=== PATIENT | female | born 1965 | race African-American/Black ===

== ENCOUNTER 2021-06-19 18:07 | Emergency (ER) | payer BC, SELFPAY ==
--- NOTE | ~2021-06-19 | XR_ITS ---
EXAMINATION: XR CHEST CLINICAL INFORMATION: Shortness of breath COMPARISON: None TECHNIQUE: Frontal view of the chest was obtained. FINDINGS: Hyperexpanded lungs. No consolidation, edema, or effusion. No pneumothorax. The cardiomediastinal silhouette is normal in size, with a calcified aorta. XR/XR chest 1V IMPRESSION: Hyperexpanded, clear lungs.
--- NOTE | 2021-06-19 18:17 | ECG_ITS ---
Test Reason : DYSPNEA Blood Pressure : / mmHG Vent. Rate : 073 BPM Atrial Rate : 073 BPM P-R Int : 136 ms QRS Dur : 068 ms QT Int : 390 ms P-R-T Axes : 009 087 079 degrees QTc Int : 429 ms Normal sinus rhythm Minimal voltage criteria for LVH, may be normal variant Borderline ECG No previous ECGs available Referred By: Shawna Mcginnis Electronically Signed By:YUE CASILLAS
--- NOTE | 2021-06-19 18:19 | ED.GENADULT ---
HPI - General Adult General Chief complaint: Upper Respiratory Symptoms Stated complaint: diff breathing Time Seen by Provider: 06/19/21 18:11 Source: patient and EMS Mode of arrival: EMS Limitations: no limitations History of Present Illness HPI narrative: Patient comes to the emergency room complaining of an asthma exacerbation. Patient is visiting from [facility] she ran out of her inhalers couple of days ago. Patient call EMS, brought to the emergency room. Patient denies any fever, no chills, no body aches, no recent exposures to COVID-19 patients to her knowledge. Related Data Previous Rx's Medication Instructions Recorded albuterol sulfate 90 mcg/actuation 2 puff INHALATION Q4-6H PRN #6.7 g 06/19/21 aerosol inhaler fluticasone propionate 44 1 puff INHALATION BID #10.6 g 06/19/21 mcg/actuation HFA aerosol inhaler prednisone 50 mg tablet 50 mg PO DAILY #4 tab 06/19/21 salmeterol 50 mcg/dose blister 1 inh INHALATION BID #60 ea 06/19/21 powder for inhalation umeclidinium 62.5 mcg/actuation 1 inh INHALATION DAILY #7 ea 06/19/21 blister powder for inhalation (Incruse Ellipta) Allergies Allergy/AdvReac Type Severity Reaction Status Date / Time No Known Allergies Allergy Verified 06/19/21 18:15 Review of Systems Review of Systems: Constitutional : No Weight loss, No Fever, No Chills, No Night Sweats, No Fatigue, No Malaise ENT/Mouth : No Hearing loss, No Ear Pain, No Nasal Congestion, No Sinus Pain, No Hoarseness, No sore throat, No Rhinorrhea, No Swallowing Difficulty Eyes: No Eye Pain, No Swelling, No Redness, No Foreign Body, No Discharge, No Vision Changes Cardiovascular : No Chest Pain, No SOB, No Dyspnea on Exertion, No Orthopnea, No Edema, No Palpitations Respiratory : Occasional dry cough, complaining of wheezing and dyspnea Gastrointestinal : No Nausea, No Vomiting, No Diarrhea, No Constipation, No abdominal Pain, No Hematochezia, No Melena Genitourinary : no irregular bleeding, No Dysuria, No Urinary Frequency, No Hematuria, No Urinary Incontinence, No Urgency, No Flank Pain, No Urinary Flow Changes, No Hesitancy Musculoskeletal : No joint pain, No Myalgias, No Joint Swelling Skin : No Skin Lesions, No rash Neuro : No Weakness, No Numbness, No Paresthesias, No Loss of Consciousness, No Dizziness, No Headache Psych : No Anxiety/Panic, No Depression, No SI/HI/AH/VH, No Social Issues, Heme/Lymph: No Bruising, No Bleeding,No Lymphadenopathy Endocrine : No Polyuria, No Polydipsia, No Temperature Intolerance [facility] Past Medical History Medical History (Updated 06/19/21 @ 21:45 by Shawna Mcginnis MD) Asthma exacerbation COPD (chronic obstructive pulmonary disease) Social History Social History Advance Directives: No Advance Directives Information Provided: Yes Physical Exam Vital Signs: Vital Signs: Last Vital Signs Temp 98.0 F 06/19/21 20: Pulse 96 06/19/21 20:26 Resp 18 06/19/21 20:26 BP 156/69 H 06/19/21 20:26 Pulse Ox 92 06/19/21 21:02 Oxygen Flow Rate 4 06/19/21 18:47 Body Mass Index 24.2 Const: Other: Appearance: Alert. Oriented X3. No acute distress. Eyes: Pupils equal, round and reactive to light. ENT: Pharynx normal. Neck: Normal inspection. Neck supple. No lymph nodes noted. No crepitus CVS: Normal heart rate and rhythm. Pulses normal. Normal S1 and S2 Respiratory: No respiratory distress. Mild bilateral wheezing, moderate air movement Abdomen: Soft and nontender. No rigidity. No distention. good BS x4 Skin: Skin warm and dry. Normal skin color. Normal skin turgor. Extremities: No lower extremity edema. No Lacerations. No Rash Neuro: Oriented X 3. No motor deficit. No sensory deficit. Moving all extermities. No slurred speech. Course Course Course Narrative: Patient states that she feels much better, no longer having shortness of breath, patient speaking in full sentences, good air movement, occasional brief. Patient was ambulated. Medical Decision Making Lab Data Result diagrams: 06/19/21 19:19 06/19/21 19:19 Labs: Lab Results 06/19/21 06/19/21 06/19/21 Range/Units 19:19 19:19 19:19 WBC 4.7 L (4.8-10.8) X10*3/uL RBC 4.10 L (4.20-5.50) X10*6/uL Hgb 13.7 (12.0-16.0) g/dl Hct 40.3 (37-47) % MCV 98.3 H (80-98) fL MCH 33.4 H (27.0-33.0) pg MCHC 34.0 (31.0-35.0) g/dl RDW 11.5 (11.0-16.0) % Plt Count 117 L (160-400) X10*3/uL MPV 10.4 (9.4-12.3) fL Immature Gran % (Auto) 0.0 (0.0-0.4) % Neut % (Auto) 36.1 L (45-73) % Lymph % (Auto) 44.0 H (20-40) % Mcnairy % (Auto) 8.9 (2-11) % Eos % (Auto) 10.4 H (0-4) % Baso % (Auto) 0.6 (0-2) % Lymph # (Auto) 2.1 (1.2-4.9) X10*3/uL Mcnairy # (Auto) 0.4 (0.1-1.2) X10*3/uL Eos # (Auto) 0.5 H (0.0-0.4) X10*3/uL Baso # (Auto) 0.0 (0.0-0.2) X10*3/uL Abs Immat Gran (auto) 0.00 (0.00-0.03) X10*3/uL Absolute Neuts (auto) 1.7 L (2.0-8.3) X10*3/uL Absolute Nucleated RBC 0.000 (0.0-0.012) X10*3/uL Nucleated RBC % (auto) 0.0 (0.0-0.2) /100WBC Sodium 141 (135-145) mmol/L Potassium 3.1 L (3.3-5.1) mmol/L Chloride 107 (96-108) mmol/L Carbon Dioxide 24 (22-29) mmol/L Anion Gap 13 (12-20) BUN 2 L (9-16) mg/dL Creatinine 0.74 (0.5-1.4) mg/dL Estim Creat Clear Calc 66.3 Estimated GFR > 60 Random Glucose 109 (60-115) mg/dL Lactic Acid 1.0 (0.5-2.0) mmol/L Calcium 9.1 (8.4-10.2) mg/dL B-Natriuretic Peptide (<100) pg/mL COVID-19 (YENI) (Negative) COVID-19 Clin Com 06/19/21 06/19/21 Range/Units 19:19 19:20 WBC (4.8-10.8) X10*3/uL RBC (4.20-5.50) X10*6/uL Hgb (12.0-16.0) g/dl Hct (37-47) % MCV (80-98) fL MCH (27.0-33.0) pg MCHC (31.0-35.0) g/dl RDW (11.0-16.0) % Plt Count (160-400) X10*3/uL MPV (9.4-12.3) fL Immature Gran % (Auto) (0.0-0.4) % Neut % (Auto) (45-73) % Lymph % (Auto) (20-40) % Mcnairy % (Auto) (2-11) % Eos % (Auto) (0-4) % Baso % (Auto) (0-2) % Lymph # (Auto) (1.2-4.9) X10*3/uL Mcnairy # (Auto) (0.1-1.2) X10*3/uL Eos # (Auto) (0.0-0.4) X10*3/uL Baso # (Auto) (0.0-0.2) X10*3/uL Abs Immat Gran (auto) (0.00-0.03) X10*3/uL Absolute Neuts (auto) (2.0-8.3) X10*3/uL Absolute Nucleated RBC (0.0-0.012) X10*3/uL Nucleated RBC % (auto) (0.0-0.2) /100WBC Sodium (135-145) mmol/L Potassium (3.3-5.1) mmol/L Chloride (96-108) mmol/L Carbon Dioxide (22-29) mmol/L Anion Gap (12-20) BUN (9-16) mg/dL Creatinine (0.5-1.4) mg/dL Estim Creat Clear Calc Estimated GFR Random Glucose (60-115) mg/dL Lactic Acid (0.5-2.0) mmol/L Calcium (8.4-10.2) mg/dL B-Natriuretic Peptide 57 (<100) pg/mL COVID-19 (YENI) Negative (Negative) COVID-19 Clin Com See Note Imaging Data Chest x-ray: Radiologist's impression: Hyperexpanded lungs. No consolidation, edema, or effusion. No pneumothorax. The cardiomediastinal silhouette is normal in size, with a calcified aorta. XR/XR chest 1V IMPRESSION: Hyperexpanded, clear lungs. Discharge Plan Discharge Clinical Impression: Asthma exacerbation, Hypokalemia Patient Disposition: Home, Self-Care Instructions: Asthma (ED) Additional Instructions: Please follow-up with your primary care physician tomorrow. If you have any worsening or new symptoms, please return to the emergency room or call 911 Prescriptions: New prednisone 50 mg tablet 50 mg PO DAILY Qty: 4 RF: 0 Incruse Ellipta 62.5 mcg/actuation blister with device 1 inh inhalation DAILY Qty: 7 RF: 0 albuterol sulfate 90 mcg/actuation HFA aerosol inhaler 2 puff inhalation Q4-6H PRN (Reason: shortness of breath or wheezing) Qty: 6.7 RF: 0 fluticasone propionate 44 mcg/actuation HFA aerosol inhaler 1 puff inhalation BID Qty: 10.6 RF: 0 salmeterol 50 mcg/dose blister with device 1 inh inhalation BID Qty: 60 RF: 0
[2021-06-19 18:29] VITALS: PULSE 82; O2SAT 95
[2021-06-19] MEDS: Albuterol Sulfate (0.083%) 2.5 MG/3 ML VIAL.NEB 5 MG INHALE (18:31)
[2021-06-19 18:47] VITALS: BP 158/53; PULSE 81; RESP 20; TEMP 36.9; O2SAT 100; BMI 24.2
[2021-06-19 19:26] LABS: MANUAL DIFF FLAG NO
[2021-06-19 19:29] LABS: Basophils Percent Auto 0.6 % (0-2); Eosinophils Absolute Auto 0.5 X10*3/uL (0.0-0.4); Eosinophils Percent Auto 10.4 % (0-4); Hematocrit 40.3 % (37-47); Hemoglobin 13.7 g/dl (12.0-16.0); Lymphocytes Absolute Auto 2.1 X10*3/uL (1.2-4.9); Mean Corpuscular Hemoglobin 33.4 pg (27.0-33.0); Mean Corpuscular Volume 98.3 fL (80-98); Mean Platelet Volume 10.4 fL (9.4-12.3); Monocytes Absolute Auto 0.4 X10*3/uL (0.1-1.2); Monocytes Percent Auto 8.9 % (2-11); Neutrophils Absolute Auto 1.7 X10*3/uL (2.0-8.3); Neutrophils Percent Auto 36.1 % (45-73); Platelet Count 117 X10*3/uL (160-400); Red Cell Distribution Width 11.5 % (11.0-16.0); White Blood Count 4.7 X10*3/uL (4.8-10.8)
[2021-06-19] MEDS: methylPREDNISolone Sod Succ 125 MG/2 ML VIAL IVPUSH (19:35)
[2021-06-19 19:40] LABS: COVID-19 Test Negative (Negative)
[2021-06-19 19:57] LABS: Anion Gap 13 (12-20); Blood Urea Nitrogen 2 mg/dL (9-16); Calcium 9.1 mg/dL (8.4-10.2); Carbon Dioxide 24 mmol/L (22-29); Chloride 107 mmol/L (96-108); Creatinine Clr Calc Pharmacy 66.3; Estimated Glomerular Filt Rate > 60; Glucose Random 109 mg/dL (60-115); Potassium 3.1 mmol/L (3.3-5.1); Sodium 141 mmol/L (135-145)
[2021-06-19 20:02] LABS: B Type Natriuretic Peptide 57 pg/mL (<100)
[2021-06-19 20:26] VITALS: BP 156/69; PULSE 96; RESP 18; TEMP 36.7; O2SAT 92
[2021-06-19 21:02] VITALS: O2SAT 92
[2021-06-19] MEDS: Potassium Chloride Packet 20 MEQ PACKET 40 MEQ PO (21:52)
== END 2021-06-19 22:03 | disposition home or self-care (01) ==
PROVIDERS: Emergency Provider Emergency Medicine
DX: J45.901 Unspecified asthma with (acute) exacerbation (principal); R06.02 Shortness of breath; E87.6 Hypokalemia; Z79.899 Other long term (current) drug therapy; Z20.822 Contact with and (suspected) exposure to COVID-19
CPT/HCPCS: 36415; 71045; 80048; 83605; 83880; 85025; 87040; 87635; 93005; 94640; 96374; 99283; 99284; J2930

== ENCOUNTER 2021-08-12 18:06 | Emergency (ER) | payer MEDICAID, SELFPAY ==
--- NOTE | ~2021-08-12 | XR_ITS ---
EXAMINATION: XR CHEST CLINICAL INFORMATION: Shortness of breath COMPARISON: Previous chest x-ray June 2021 TECHNIQUE: 2 views of the chest were obtained. FINDINGS: No significant abnormality is noted involving the heart, lungs, mediastinum, bony thorax or soft tissues. XR/XR chest 2V IMPRESSION: Unremarkable examination.
[2021-08-12 19:40] VITALS: BP 148/75; PULSE 83; RESP 20; TEMP 36.8; O2SAT 95; BMI 21.9
[2021-08-12 20:12] LABS: COVID-19 Test Negative (Negative)
[2021-08-12 22:15] LABS: MANUAL DIFF FLAG NO
[2021-08-12 22:16] LABS: Basophils Absolute Auto 0.1 X10*3/uL (0.0-0.2); Basophils Percent Auto 0.9 % (0-2); Eosinophils Absolute Auto 0.5 X10*3/uL (0.0-0.4); Eosinophils Percent Auto 7.9 % (0-4); Hematocrit 44.9 % (37-47); Hemoglobin 15.8 g/dl (12.0-16.0); Imm Gran Abs Auto 0.01 X10*3/uL (0.00-0.03); Imm Gran Pct Auto 0.2 % (0.0-0.4); Lymphocytes Absolute Auto 2.8 X10*3/uL (1.2-4.9); Mean Corpuscular HGB Conc 35.2 g/dl (31.0-35.0); Mean Corpuscular Hemoglobin 33.1 pg (27.0-33.0); Mean Corpuscular Volume 93.9 fL (80-98); Mean Platelet Volume 9.5 fL (9.4-12.3); Monocytes Absolute Auto 0.5 X10*3/uL (0.1-1.2); Monocytes Percent Auto 9.1 % (2-11); Neutrophils Absolute Auto 1.9 X10*3/uL (2.0-8.3); Neutrophils Percent Auto 32.9 % (45-73); Platelet Count 167 X10*3/uL (160-400); Red Blood Count 4.78 X10*6/uL (4.20-5.50); Red Cell Distribution Width 11.9 % (11.0-16.0); White Blood Count 5.8 X10*3/uL (4.8-10.8)
[2021-08-12 22:29] LABS: Anion Gap 13 (12-20); Blood Urea Nitrogen 6 mg/dL (9-16); Calcium 9.8 mg/dL (8.4-10.2); Carbon Dioxide 28 mmol/L (22-29); Chloride 103 mmol/L (96-108); Creatinine Clr Calc Pharmacy 69.1; Estimated Glomerular Filt Rate > 60; Glucose Random 98 mg/dL (60-115); Potassium 4.5 mmol/L (3.3-5.1); Sodium 139 mmol/L (135-145)
[2021-08-12 23:18] VITALS: BP 148/69; PULSE 83; RESP 20; O2SAT 95
--- NOTE | 2021-08-13 | PC.NURSE ---
PT VERBALLY ABUSIVE TO PRIMARY NURSE OVER WAIT TIME IN THE ED. PT IS YELLING SO LOUDLY FROM RM 2 THAT THIS NURSE COULD CLEARLY HEAR HER FROM THE NURSES STATION. PT YELLING IN FULL CLEAR SENTENCES I CANT FUCKING BREATHE, I NEED MY MEDS REFILLED PT O2 SAT IS 95% ON ROOM AIR W/A RR OF 22. PT DOES NOT APPEAR TO BE IN DISTRESS AND IS ABLE TO YELL AT BOTH HER PRIMARY NURSE AND THIS NURSE. CHARGE NURSE I TRIED TO EXPLAIN THE PROCESS, AND PATIENT STATES SHIT I SHOULD HAVE TOOK AN AMBULANCE THEN I WOULDVE BEEN HOME BY NOW PT REASSURED PROVIDER WILL BE IN TO ASSESS SHORTLY- RN OFFERED TO LISTEN TO LUNG SOUNDS, PT STATES I DONT NEED ANY OF THAT I WANT MY REFILL AND I WANT TO GET THE HELL OUT OF HERE
--- NOTE | 2021-08-13 01:38 | ED.SOB ---
HPI - SOB/Dyspnea General Chief Complaint: Dyspnea Stated Complaint: Asthma Time Seen by Provider: 08/13/21 01:17 Source: patient Mode of arrival: ambulatory Limitations: no limitations History of Present Illness HPI Narrative: 55-year-old female who presents emergency department for evaluation of shortness of breath. The patient has a history of asthma and COPD. She states that she was here in the emergency department on 06/19/2021 and got a refill of her medications as well as prednisone. In reviewing her ER note from 06/19/2021 the patient had just moved from [place] needed a refill of her medications. She states that she has run out of these medicines and she is now feeling short of breath again. She states that this morning, she was short of breath and had dyspnea on exertion. She denied fever, chills, cough, chest pain. She states she did have several episodes of vomiting today and did have several loose diarrheal stools. There is no blood in the diarrhea or the vomiting. Related Data Previous Rx's Medication Instructions Recorded albuterol sulfate 90 mcg/actuation 2 puff INHALATION Q4-6H PRN #6.7 g 06/19/21 aerosol inhaler fluticasone propionate 44 1 puff INHALATION BID #10.6 g 06/19/21 mcg/actuation HFA aerosol inhaler prednisone 50 mg tablet 50 mg PO DAILY #4 tab 06/19/21 salmeterol 50 mcg/dose blister 1 inh INHALATION BID #60 ea 06/19/21 powder for inhalation umeclidinium 62.5 mcg/actuation 1 inh INHALATION DAILY #7 ea 06/19/21 blister powder for inhalation (Incruse Ellipta) albuterol sulfate 2.5 mg INHALATION Q4-6H PRN #75 ml 08/13/21 albuterol sulfate 90 mcg/actuation 2 puff INHALATION Q4-6H PRN #8.5 g 08/13/21 aerosol inhaler fluticasone 250 mcg-salmeterol 50 1 inh INHALATION BID #60 ea 08/13/21 mcg/dose blistr powdr for inhalation (Advair Diskus) prednisone 20 mg tablet 60 mg PO DAILY 5 Days #15 tab 08/13/21 Allergies Allergy/AdvReac Type Severity Reaction Status Date / Time No Known Allergies Allergy Verified 06/19/21 18:15 Review of Systems Review of Systems: Yes all other systems are reviewed and are negative [facility] Past Medical History [facility] Narrative: Past medical history: Asthma, COPD. Past surgical history: Cholecystectomy. Social history: The patient states that she is a former cigarette smoker and quit 10 years prior, prior to that she smoked for many years. She drinks wine occasionally on the weekends. She denies drug use. Medical History (Updated 08/13/21 @ 01:40 by Clement Rivero MD) Asthma exacerbation COPD (chronic obstructive pulmonary disease) Social History Social History Advance Directives: No Physical Exam Vital Signs: Vital Signs: Last Vital Signs Temp 98.3 F 08/12/21 19:40 Pulse 83 08/12/21 23:18 Resp 20 08/12/21 23:18 BP 148/69 H 08/12/21 23:18 Pulse Ox 95 08/12/21 23:18 Body Mass Index 21.9 Const: General: cooperative and no acute distress Orientation/consciousness: oriented to person and oriented to place Limitations: no limitations HENMT: Head: Yes normal to inspection, Yes normocephalic and Yes atraumatic Ears: external ears normal General nose exam: Normal external nose present Face and sinus: Yes normal facial exam Mouth: Normal oral and palatal mucosa present Throat: Yes posterior oropharynx normal Eyes: General: appearance normal, both eyes and all related structures Pupils: Equal, round and reactive pupils present Neck: Neck: Yes normal visual inspection, Yes no lymphadenopathy, Yes trachea midline and Yes supple Chest: Chest palpation & inspection: normal inspection of the chest and normal palpation of entire chest wall Resp: Effort & Inspection: normal respiratory effort and able to speak in complete sentences Auscultation: clear to auscultation bilaterally Cardio: Rate: regular rate Rhythm: regular rhythm Heart sounds: S1 normal heart sound present, S2 normal heart sound present and no murmurs GI: Inspection: Yes normal to inspection Palpation (GI): Soft to palpation, nontender and no guarding Auscultation: normal bowel sounds : General: Yes no CVA tenderness Back/Spine/Pelvis: Back: no CVA tenderness Skin: General skin exam: no rashes or lesions noted Neuro: General: oriented to person and oriented to place Cranial nerves: Yes CN's II-XII intact bilaterally and Yes Equal, round and reactive pupils present Cognition (Neuro): normal cognition Motor exam (neuro): 5/5 motor strength present throughout Extrem: General: Yes normal to inspection Psych: Appearance: grossly normal Speech and movement: Normal speech and movement present Affect: normal affect Attitude: cooperative Thought process: Normal thought process present Thought content: Normal thought content present Course Course Course Narrative: 55-year-old female with a history of asthma and COPD who presents emergency department for evaluation of shortness of breath. She states she ran out of her inhalers and her nebulizer solution. Patient's vital signs were normal except for slightly elevated blood pressure of 148/75. Examination was unremarkable. CBC and CMP were normal. The patient's chest x-ray revealed no evidence of pneumonia. COVID-19 test was negative. Patient's presentation is consistent with an asthma/COPD exacerbation. She was given prednisone 60 mg orally. I did give her prescription for an albuterol inhaler, albuterol nebulizer solution, Advair and prednisone 60 mg once a day for 5 days. Patient was discharged home. MDM - SOB/Dyspnea Lab Data Result diagrams: 08/12/21 22:06 08/12/21 22:06 Labs: Lab Results 08/12/21 08/12/21 08/12/21 Range/Units 19:44 22:06 22:06 WBC 5.8 (4.8-10.8) X10*3/uL RBC 4.78 (4.20-5.50) X10*6/uL Hgb 15.8 (12.0-16.0) g/dl Hct 44.9 (37-47) % MCV 93.9 (80-98) fL MCH 33.1 H (27.0-33.0) pg MCHC 35.2 H (31.0-35.0) g/dl RDW 11.9 (11.0-16.0) % Plt Count 167 D (160-400) X10*3/uL MPV 9.5 (9.4-12.3) fL Immature Gran % (Auto) 0.2 (0.0-0.4) % Neut % (Auto) 32.9 L (45-73) % Lymph % (Auto) 49.0 H (20-40) % Hartley % (Auto) 9.1 (2-11) % Eos % (Auto) 7.9 H (0-4) % Baso % (Auto) 0.9 (0-2) % Lymph # (Auto) 2.8 (1.2-4.9) X10*3/uL Hartley # (Auto) 0.5 (0.1-1.2) X10*3/uL Eos # (Auto) 0.5 H (0.0-0.4) X10*3/uL Baso # (Auto) 0.1 (0.0-0.2) X10*3/uL Abs Immat Gran (auto) 0.01 (0.00-0.03) X10*3/uL Absolute Neuts (auto) 1.9 L (2.0-8.3) X10*3/uL Absolute Nucleated RBC 0.000 (0.0-0.012) X10*3/uL Nucleated RBC % (auto) 0.0 (0.0-0.2) /100WBC Sodium 139 (135-145) mmol/L Potassium 4.5 D (3.3-5.1) mmol/L Chloride 103 (96-108) mmol/L Carbon Dioxide 28 (22-29) mmol/L Anion Gap 13 (12-20) BUN 6 L D (9-16) mg/dL Creatinine 0.71 (0.5-1.4) mg/dL Estim Creat Clear Calc 69.1 Estimated GFR > 60 Random Glucose 98 (60-115) mg/dL Calcium 9.8 D (8.4-10.2) mg/dL COVID-19 (YENI) Negative (Negative) COVID-19 Clin Com See Note Discharge Plan Discharge Clinical Impression: Asthma exacerbation Patient Disposition: Home, Self-Care Instructions: Asthma (ED) Additional Instructions: Take prednisone 20 mg pills, 3 pills once a day for 5 days. You received her 1st dose here in the emergency department. Take your next dose on Tuesday08/14/2021. Use the albuterol inhaler 2 puffs every 4-6 hours as needed for shortness of breath. Use the albuterol nebulizer, 1 vial every 4-6 hours as needed for shortness of breath not relieved by the albuterol inhaler. Use Advair Diskus, 1 dose twice a day, take this every day, this helps prevent flare-up of your asthma. Follow-up with your doctor in 2 days. Please return to the emergency department if your symptoms get worse or if you develop any symptoms that are concerning to you. Prescriptions: New albuterol sulfate 2.5 mg /3 mL (0.083 %) solution for nebulization 2.5 mg inhalation Q4-6H PRN (Reason: shortness of breath or wheezing) Qty: 75 RF: 0 prednisone 20 mg tablet 60 mg PO DAILY 5 Days Qty: 15 RF: 0 albuterol sulfate 90 mcg/actuation HFA aerosol inhaler 2 puff inhalation Q4-6H PRN (Reason: wheezing) Qty: 8.5 RF: 0 fluticasone propion-salmeterol [Advair Diskus] 250-50 mcg/dose blister with device 1 inh inhalation BID Qty: 60 RF: 0 No Action prednisone 50 mg tablet 50 mg PO DAILY Qty: 4 RF: 0 Incruse Ellipta 62.5 mcg/actuation blister with device 1 inh inhalation DAILY Qty: 7 RF: 0 albuterol sulfate 90 mcg/actuation HFA aerosol inhaler 2 puff inhalation Q4-6H PRN (Reason: shortness of breath or wheezing) Qty: 6.7 RF: 0 fluticasone propionate 44 mcg/actuation HFA aerosol inhaler 1 puff inhalation BID Qty: 10.6 RF: 0 salmeterol 50 mcg/dose blister with device 1 inh inhalation BID Qty: 60 RF: 0
[2021-08-13] MEDS: predniSONE 20 MG TABLET 60 MG PO (01:50)
[2021-08-13 01:51] VITALS: BP 170/60; PULSE 76; RESP 18; TEMP 36.9; O2SAT 97
--- NOTE | 2021-08-13 01:56 | PC.NURSE ---
Pt alert and oriented x4, calm and cooperative. Pt denies pain. Pt denies any abd pain N/V. Pt states SOB has improved, pt does not appear SOB, pulse ox 98% on room air. Pt educated on dc teaching and stated an understanding. No IV in place, vitals stable.
== END 2021-08-13 01:57 | disposition home or self-care (01) ==
PROVIDERS: Emergency Provider Emergency Medicine Emergency Medical Services
DX: J45.901 Unspecified asthma with (acute) exacerbation (principal); J44.9 Chronic obstructive pulmonary disease, unspecified; Z79.899 Other long term (current) drug therapy; Z20.822 Contact with and (suspected) exposure to COVID-19
CPT/HCPCS: 36415; 71046; 80048; 85025; 87635; 99283; 99284

== ENCOUNTER 2021-09-24 15:52 | Inpatient (IN) | payer BC, SELFPAY ==
[2021-09-24] VITALS (12 sets, daily range): BP systolic 105–217; BP diastolic 63–102; PULSE 92–155; RESP 16–35; TEMP 36.4–36.7; O2SAT 60–99; BMI 22.8; BMI 18.7
--- NOTE | ~2021-09-24 | XR_ITS ---
EXAMINATION: XR CHEST CLINICAL INFORMATION: Shortness of breath, hypoxia, asthma COMPARISON: Chest radiographs 08/12/2021, 06/19/2021 TECHNIQUE: Portable upright AP view of the chest was obtained. FINDINGS: Patient is slightly rotated to the left. The lungs are clear. The vascularity is normal. There is no pneumothorax, airspace consolidation, infiltrate, or effusion. The heart is normal in size. The hilar and mediastinal contours and visualized bony structures are unremarkable. XR/XR chest 1V IMPRESSION: Unremarkable examination.
--- NOTE | 2021-09-24 08:58 | ECG_ITS ---
Test Reason : DYSPNEA Blood Pressure : / mmHG Vent. Rate : 137 BPM Atrial Rate : 137 BPM P-R Int : 138 ms QRS Dur : 076 ms QT Int : 290 ms P-R-T Axes : 075 072 083 degrees QTc Int : 437 ms Sinus tachycardia Possible Left atrial enlargement Nonspecific ST abnormality Inferior leads Lateral leads Right axis deviation Abnormal ECG When compared with ECG of 19-JUN-2021 18:41, Vent. rate has increased BY [address] now depressed in Inferior leads Non-specific change in ST segment in Lateral leads Referred By: Clement Rivreo Electronically Signed By:MARGIE LAM MD
[2021-09-24] MEDS: methylPREDNISolone Sod Succ 125 MG/2 ML VIAL IVPUSH (16:02)
[2021-09-24] MEDS: Magnesium Sulfate/H2O 2 GM/50 ML PIGGYBACK IV (16:04)
[2021-09-24] MEDS: LORazepam 2 MG/ML VIAL 1 MG IVPUSH (16:11)
--- NOTE | 2021-09-24 16:18 | PC.NURSE ---
patient presents to ED, tachypneic with accessory muscle use. low O2 sats, altered mental status. Pulling at mask. stating shes needs to use the bathroom. RT at bedside along with RNs, attemping to secure IVs and medicate patient to assist with breathing. patient medicated for agitation and restlessness. Patient not responding, Physician aware. patient incontinent of loose dark stool. Bipap applied at this time setting 15/10 30%
[2021-09-24] MEDS: 0.9 % Sodium Chloride 1,000 ML 999 ML IV (16:24)
--- NOTE | 2021-09-24 16:30 | ED_ITS ---
HPI - SOB/Dyspnea General Chief Complaint: Dyspnea Stated Complaint: asthma Time Seen by Provider: 09/24/21 16:08 Source: EMS Mode of arrival: EMS Limitations: other (Respiratory distress) History of Present Illness HPI Narrative: 56-year-old female brought into the emergency department for evaluation of severe asthma exacerbation. Information came from the paramedics. Apparently the patient ran out of her albuterol inhaler yesterday. She developed shortness of breath today which got progressively worse. Apparently she became very combative and appeared to have difficulty breathing so the family called 911. Paramedics states that she was very agitated on arrival, the initial O2 saturation was 60% on room air. She was placed on 15 L via non- rebreather and her O2 saturation came up to 80%. Patient's respiratory rate was 14 her blood pressure was 201/98. The patient was treated with IM epinephrine a nd 2 DuoNebs. On presentation to the emergency department patient was agitated, she was diaphoretic and her O2 saturation was 86% on a DuoNeb treatment. Related Data Previous Rx's Medication Instructions Recorded albuterol sulfate 90 mcg/actuation 2 puff INHALATION Q4-6H PRN #6.7 g 06/19/21 aerosol inhaler fluticasone propionate 44 1 puff INHALATION BID #10.6 g 06/19/21 mcg/actuation HFA aerosol inhaler prednisone 50 mg tablet 50 mg PO DAILY #4 tab 06/19/21 salmeterol 50 mcg/dose blister 1 inh INHALATION BID #60 ea 06/19/21 powder for inhalation umeclidinium 62.5 mcg/actuation 1 inh INHALATION DAILY #7 ea 06/19/21 blister powder for inhalation (Incruse Ellipta) albuterol sulfate 2.5 mg (3 mL) INHALATION Q4-6H PRN 08/13/21 #75 ml albuterol sulfate 90 mcg/actuation 2 puff INHALATION Q4-6H PRN #8.5 g 08/13/21 aerosol inhaler fluticasone 250 mcg-salmeterol 50 1 inh INHALATION BID #60 ea 08/13/21 mcg/dose blistr powdr for inhalation (Advair Diskus) prednisone 20 mg tablet 60 mg PO DAILY 5 Days #15 tab 08/13/21 Allergies Allergy/AdvReac Type Severity Reaction Status Date / Time No Known Allergies Allergy Verified 06/19/21 18:15 Review of Systems Review of Systems: Yes Unobtainable due to mental condition (Respiratory distress) [facility] Past Medical History Medical History Asthma exacerbation COPD (chronic obstructive pulmonary disease) Social History Social History Patient Tobacco Use Status: Current everyday Tobacco user Advance Directives: No Advance Directives Information Provided: No Physical Exam Vital Signs: Vital Signs: Last Vital Signs Temp 98.0 F 09/24/21 15:54 Pulse 155 H 09/24/21 15:54 Resp 28 H 09/24/21 16:15 BP 217/102 H 09/24/21 15:54 Pulse Ox 87 L 09/24/21 15:54 Body Mass Index 22.8 Const: Other: Awake, alert, female extremely agitated, appears to be in severe respiratory distress HENMT: Head: Yes normal to inspection, Yes normocephalic and Yes atraumatic Ears: external ears normal General nose exam: Normal external nose present Face and sinus: Yes normal facial exam Mouth: Normal oral and palatal mucosa present Throat: Yes posterior oropharynx normal Eyes: General: appearance normal, both eyes and all related structures Neck: Neck: Yes normal visual inspection, Yes no lymphadenopathy, Yes trachea midline and Yes supple Chest: Chest palpation & inspection: normal inspection of the chest and normal palpation of entire chest wall Resp: Other: Tachypnea, very agitated, diffuse wheezing with diffuse rhonchi, no rales, breath sounds are symmetric bilaterally Cardio: Rate: tachycardic Rhythm: regular rhythm Heart sounds: S1 normal heart sound present, S2 normal heart sound present and no murmurs GI: Inspection: Yes normal to inspection Palpation (GI): Soft to palpation, nontender and no guarding Auscultation: normal bowel sounds : General: Yes no CVA tenderness Back/Spine/Pelvis: Back: no CVA tenderness Skin: General skin exam: no rashes or lesions noted Neuro: Other: Extremely agitated, cranial nerves appear to be intact, moves all extremities with good strength Extrem: Other: No edema, lower extremities appear to be symmetric General: Yes normal to inspection Psych: Other: Extremely agitated, moving all extremities symmetrically Course Course Course Narrative: 56-year-old female with a history of asthma and COPD who presents emergency department for evaluation of shortness of breath times 2 days, she ran out of her albuterol yesterday. Patient got more short of breath at home and became agitated and the family called 911. Paramedics state the patient was agitated her initial O2 saturation was 60% and went up to 80% on 15 L via non-rebreather. Patient was given IM epinephrine and DuoNebs x2. On presentation, the patient was agitated and tachypneic, lungs revealed diffuse wheezing and diffuse rhonchi with no rales. Patient was ordered to get Solu- Medrol 120 mg IV, magnesium 2 g IV and Ativan 1 mg IV for agitation. The pat ient continued to be hypoxic therefore she was placed on BiPAP 15/10 at 30% FiO2. The patient is somnolent but she is breathing spontaneously in her O2 saturations came up to 92% on BiPAP. I did discuss the patient's presentation with our covering photography sales associate, Dr. Casanova fluid the patient intensive care unit. I did order an ABG, depending on the patient's results, she may need to be intubated prior to being transported to the intensive care unit. 1730: Lab evaluation: WBCs elevated at 15,500, MCV is elevated 100 differential revealed 25 % neutrophils and 58% lymphocytes. CMP revealed an elevated glucose of 195, elevated AST and ALT at 83 and 63, BNP is slightly elevated 109. Lactate is pending. High sensitivity troponin was detectable but not elevated at 5.6. on BiPAP 08/21/2030% 7.25/45/84 consistent with a mixed respiratory and metabolic acidosis. Chest x-ray reviewed by me revealed hyperinflated lungs with no infiltrates, radiologist interpreted the x-rays unremarkable. Patient was evaluated by the photography sales associate, Dr. Casanova and the patient will be admitted to the intensive care unit. He requested that a U tox and urine alcohol be added to the patient's laboratory evaluation. MDM - SOB/Dyspnea Lab Data Result diagrams: 09/24/21 16:34 09/24/21 16:34 Labs: Lab Results 09/24/21 09/24/21 09/24/21 Range/Units 16:34 16:34 16:34 WBC 15.5 H (4.8-10.8) X10*3/uL RBC 4.47 (4.20-5.50) X10*6/uL Hgb 14.8 (12.0-16.0) g/dl Hct 44.7 (37.0-47.0) % MCV 100.0 H (80.0-98.0) fL MCH 33.1 H (27.0-33.0) pg MCHC 33.1 (31.0-35.0) g/dl RDW 12.9 (11.0-16.0) % Plt Count 201 (160-400) X10*3/uL MPV 10.1 (9.4-12.3) fL Immature Gran % (Auto) 0.4 (0.0-0.4) % Neut % (Auto) 25.4 L (45-73) % Lymph % (Auto) 58.6 H (20-40) % [place] % (Auto) 9.9 (2-11) % Eos % (Auto) 5.2 H (0-4) % Baso % (Auto) 0.5 (0-2) % Lymph # (Auto) 9.1 H (1.2-4.9) X10*3/uL [place] # (Auto) 1.5 H (0.1-1.2) X10*3/uL Eos # (Auto) 0.8 H (0.0-0.4) X10*3/uL Baso # (Auto) 0.1 (0.0-0.2) X10*3/uL Abs Immat Gran (auto) 0.06 H (0.00-0.03) X10*3/uL Absolute Neuts (auto) 3.9 (2.0-8.3) x10*3/uL Absolute Nucleated RBC 0.000 (0.0-0.012) X10*3/uL Nucleated RBC % (auto) 0.0 (0.0-0.2) /100WBC Smear Tech's Comments VERIFIED O2 Saturation % ABG pH at Pt Temp (7.35-7.45) ABG pH (Temp Correct) (7.35-7.45) ABG pCO2 at Pt Temp (32-45) mmHg ABG pCO2 (Temp Corrct (32-45) mmHg ABG pO2 at Pt Temp (83-108) mmHg ABG pO2 (Temp Correct (83-108) ABG HCO3 (22-26) mmol/L ABG Base Excess (Actual) mmol/L Sodium 139 (135-145) mmol/L Potassium 3.6 (3.3-5.1) mmol/L Chloride 105 (96-108) mmol/L Carbon Dioxide 24 (22-29) mmol/L Anion Gap 14 (12-20) BUN 4 L (9-16) mg/dL Creatinine 0.84 (0.5-1.4) mg/dL Estim Creat Clear Calc 57.7 Estimated GFR > 60 Random Glucose 195 H (60-115) mg/dL Calcium 9.0 D (8.4-10.2) mg/dL Total Bilirubin 1.2 H (0.0-1.0) mg/dL AST 83 H (5-31) U/L ALT 63 H (0-31) U/L Alkaline Phosphatase 116 (39-117) U/L Troponin I High Sens 5.6 (<3.5-17.0) ng/L B-Natriuretic Peptide 109 H (<100) pg/mL Total Protein 8.0 (6.5-8.0) g/dL Albumin 3.8 (3.5-5.0) g/dL Lipase 32 (8-78) U/L 11/18/21 Range/Units 16:40 WBC (4.8-10.8) X10*3/uL RBC (4.20-5.50) X10*6/uL Hgb (12.0-16.0) g/dl Hct (37.0-47.0) % MCV (80.0-98.0) fL MCH (27.0-33.0) pg MCHC (31.0-35.0) g/dl RDW (11.0-16.0) % Plt Count (160-400) X10*3/uL MPV (9.4-12.3) fL Immature Gran % (Auto) (0.0-0.4) % Neut % (Auto) (45-73) % Lymph % (Auto) (20-40) % [place] % (Auto) (2-11) % Eos % (Auto) (0-4) % Baso % (Auto) (0-2) % Lymph # (Auto) (1.2-4.9) X10*3/uL [place] # (Auto) (0.1-1.2) X10*3/uL Eos # (Auto) (0.0-0.4) X10*3/uL Baso # (Auto) (0.0-0.2) X10*3/uL Abs Immat Gran (auto) (0.00-0.03) X10*3/uL Absolute Neuts (auto) (2.0-8.3) x10*3/uL Absolute Nucleated RBC (0.0-0.012) X10*3/uL Nucleated RBC % (auto) (0.0-0.2) /100WBC Smear Tech's Comments O2 Saturation 94.0 % ABG pH at Pt Temp 7.26 L (7.35-7.45) ABG pH (Temp Correct) 7.26 L (7.35-7.45) ABG pCO2 at Pt Temp 45 (32-45) mmHg ABG pCO2 (Temp Corrct 44 (32-45) mmHg ABG pO2 at Pt Temp 85 (83-108) mmHg ABG pO2 (Temp Correct 83 (83-108) ABG HCO3 20 L (22-26) mmol/L ABG Base Excess (Actual) -6.2 mmol/L Sodium (135-145) mmol/L Potassium (3.3-5.1) mmol/L Chloride (96-108) mmol/L Carbon Dioxide (22-29) mmol/L Anion Gap (12-20) BUN (9-16) mg/dL Creatinine (0.5-1.4) mg/dL Estim Creat Clear Calc Estimated GFR Random Glucose (60-115) mg/dL Calcium (8.4-10.2) mg/dL Total Bilirubin (0.0-1.0) mg/dL AST (5-31) U/L ALT (0-31) U/L Alkaline Phosphatase (39-117) U/L Troponin I High Sens (<3.5-17.0) ng/L B-Natriuretic Peptide (<100) pg/mL Total Protein (6.5-8.0) g/dL Albumin (3.5-5.0) g/dL Lipase (8-78) U/L Critical Care Time Critical Care Time Critical Care Time: Yes Total Critical Care Time: 75 Attestation: Critical Care: The patient was critically ill with a high probability of imminent or life threatening deterioration. I spent greater than 30 minutes of discontinuous time evaluating the patient,delivering critical care at the bedside, discussing and evaluating pertinent data with consultants. Critical care time does not include time spent performing separately billable procedures or teaching. Total time spent performing critical care was 75 minutes. Discharge Plan Discharge Clinical Impression: Respiratory distress Asthma exacerbation Qualifiers: Asthma severity: severe Asthma persistence: persistent Qualified Code(s): J45.51 - Severe persistent asthma with (acute) exacerbation Patient Disposition: Admitted As Inpatient
--- NOTE | 2021-09-24 16:30 | PC.NURSE ---
physician to bedside to assess patient
--- NOTE | 2021-09-24 16:32 | PC.NURSE ---
RT at bedside for VBG. patient responsive to painful stimuli
[2021-09-24 16:39] LABS: Basophils Absolute Auto 0.1 X10*3/uL (0.0-0.2); Basophils Percent Auto 0.5 % (0-2); Eosinophils Absolute Auto 0.8 X10*3/uL (0.0-0.4); Eosinophils Percent Auto 5.2 % (0-4); Hematocrit 44.7 % (37.0-47.0); Hemoglobin 14.8 g/dl (12.0-16.0); Imm Gran Abs Auto 0.06 X10*3/uL (0.00-0.03); Imm Gran Pct Auto 0.4 % (0.0-0.4); Lymphocytes Percent Auto 58.6 % (20-40); MANUAL DIFF FLAG SCAN; Mean Corpuscular HGB Conc 33.1 g/dl (31.0-35.0); Mean Corpuscular Hemoglobin 33.1 pg (27.0-33.0); Mean Platelet Volume 10.1 fL (9.4-12.3); Monocytes Absolute Auto 1.5 X10*3/uL (0.1-1.2); Monocytes Percent Auto 9.9 % (2-11); Neutrophils Absolute Auto 3.9 x10*3/uL (2.0-8.3); Neutrophils Percent Auto 25.4 % (45-73); Platelet Count 201 X10*3/uL (160-400); Red Blood Count 4.47 X10*6/uL (4.20-5.50); Red Cell Distribution Width 12.9 % (11.0-16.0); SCAN SMEAR FLAG 1; White Blood Count 15.5 X10*3/uL (4.8-10.8)
[2021-09-24 16:47] LABS: ABG Base Excess -6.2 mmol/L; ABG HCO3 20 mmol/L (22-26); ABG pCO2 45 mmHg (32-45); ABG pCO2 TC 44 mmHg (32-45); ABG pH 7.26 (7.35-7.45); ABG pH TC 7.26 (7.35-7.45); ABG pO2 85 mmHg (83-108); ABG pO2 TC 83 (83-108)
[2021-09-24 16:51] LABS: Lymphocytes Absolute Auto 9.1 X10*3/uL (1.2-4.9)
[2021-09-24 16:59] LABS: Alanine Aminotransferase 63 U/L (0-31); Albumin Level 3.8 g/dL (3.5-5.0); Alkaline Phosphatase 116 U/L (39-117); Anion Gap 14 (12-20); Aspartate Amino Transferase 83 U/L (5-31); Bilirubin Total 1.2 mg/dL (0.0-1.0); Blood Urea Nitrogen 4 mg/dL (9-16); Carbon Dioxide 24 mmol/L (22-29); Chloride 105 mmol/L (96-108); Creatinine Clr Calc Pharmacy 57.7; Estimated Glomerular Filt Rate > 60; Glucose Random 195 mg/dL (60-115); Lipase 32 U/L (8-78); Potassium 3.6 mmol/L (3.3-5.1); Sodium 139 mmol/L (135-145)
[2021-09-24 17:01] LABS: B Type Natriuretic Peptide 109 pg/mL (<100)
[2021-09-24 17:16] LABS: SLIDE REVIEW VERIFIED
[2021-09-24 17:18] LABS: Troponin-I High Sensitivity 5.6 ng/L (<3.5-17.0)
[2021-09-24 17:37] LABS: HCG Quantitative 3 mIU/mL
--- NOTE | 2021-09-24 18:05 | PC.NURSE ---
Patient difficult stick for blood draws r/t agitation and restless. patient then voided via bedpan, now resting comfortably. labs completed. tolerating bipap well. ST via tele.
[2021-09-24 18:14] LABS: ABG Refer to POC result
[2021-09-24 18:17] LABS: Amphetamine Screen Urine Not Detected (Not Detect); Barbiturates, Urine Not Detected (Not Detect); Benzodiazepines Screen Urine Not Detected (Not Detect); Cannabinoid Screen Urine POSITIVE (Not Detect); Cocaine Screen Urine Not Detected (Not Detect); Fentanyl, urine Not Detected (Not Detect); Opiate Screen Urine Not Detected (Not Detect); Phencyclidine Screen Urine Not Detected (Not Detect)
[2021-09-24 18:21] LABS: Lactic Acid 3.3 mmol/L (0.5-2.0)
--- NOTE | 2021-09-24 18:36 | PC.NURSE ---
patient sleeping, awakens to verbal stimuli. patient opened eyes looked around and when asked if she had pain patient states no, patient not answering any other questions. patient then shut eyes and went back to sleep. patient repositioning self on stretcher. ST via tele. continues to tolerate bipap well.
[2021-09-24 18:42] LABS: Ethanol < 10 mg/dL
[2021-09-24 18:51] LABS: COVID-19 Test Negative (Negative)
[2021-09-24] MEDS: Heparin Sodium,Porcine 5,000 UNIT/ML VIAL 5000 UNIT SUBCUT (19:08)
[2021-09-24 20:05] LABS: Reflex Lactate? Lactic Acid Added
--- NOTE | 2021-09-24 20:18 | P.HPCC_ITS ---
History of Present Illness Date of Service: 09/24/21 Attending physician on admission: Sanju Casanova Chief Complaint: Dyspnea Patient is a 56-year-old female with past medical history of asthma and COPD who presented via ambulance to the emergency department with complaints of dyspnea. ?She reported she ran out of rescue inhaler, and since yesterday she has been feeling short of breath which worsened today.? Paramedics report initial saturations were in the 60%s on room air, and was placed on non-rebreather . Laboratory data significant for WBC 15.5, lactic acid 3.3, total bilirubin 1.2, AST 83, ALT 63 and BNP 109. ABGs:? 7.26/45/85/20. Toxicology positive for THC Imaging: Chest x-ray:? No acute findings ED course: The patient initial vital signs pulse 155, respiratory rate 35, blood pressure to 117/102, satting 87% on Venturi mask. ?She she was treated with IM epinephrine, DuoNebs, Albuterol, magnesium and Solu-Medrol and placed on BIPAP.? Patient was also agitated despite administration of Ativan, required initiation of Precedex drip. Patient will be admitted to the ICU for management of acute asthma exacerbation requiring BiPAP Review of Systems Review of Systems: General: No Fever, Chills, Malaise.? Eyes:No: Pain, Double vision.? ENT:No: Ear pain, Nasal pain.? Head:No: Trauma, Acute headache.? Cardiovascular: Reports: Shortness of Breath.? No: Chest Pain/Pressure, P alpitations, Diaphoresis.? Pulmonary:Reports: Shortness of breath, Cough, Wheezing.? Gastrointestinal:No: Abdominal Pain, Nausea, Vomiting, Epigastric pain, Constipation, Diarrhea.? Genitourinary:No: Burning, Dysuria.? Musculoskeletal:Reports: No Pain.? Skin:No: Rash, Lesion, Jaundice, Bruising, Petechia, Urticaria.? Neurological:No: Weakness, Numbness, Incoordination, Change in Speech, Confusion, Vertigo.? Psychiatric: + anxiety.? PMFSH Past Medical History Medical History Asthma exacerbation COPD (chronic obstructive pulmonary disease) Social History Social History Patient Tobacco Use Status: Current everyday Tobacco user Advance Directives: No Advance Directives Information Provided: No Meds Allergies Allergy/AdvReac Type Severity Reaction Status Date / Time No Known Allergies Allergy Verified 06/19/21 18:15 Active Medications: Current Medications Albuterol Sulfate (Albuterol Sulfate (0.083%) 2.5 Mg/3 Ml Vial.Neb) 2.5 mg INHALE RQ4H PRN PRN Reason: Shortness of Breath Heparin Sodium (Porcine) (Heparin Sodium,Porcine 5,000 Unit/Ml Vial) 5,000 unit SUBCUT Q8H DMITRIY Last Admin: 09/24/21 19:08 Dose: 5,000 unit Documented by: Dexmedetomidine HCl (Precedex) 400 mcg in 100 mls @ 0 mls/hr IVCONT .Q0M DMITRIY; Protocol Methylprednisolone Sodium Succinate (Methylprednisolone Sod Succ 125 Mg/2 Ml Vial) 80 mg IVPUSH Q12H DMITRIY Ondansetron HCl (Ondansetron Hcl 4 Mg/2 Ml Vial) 4 mg IVPUSH Q8H PRN PRN Reason: Nausea Physical Exam Vital Signs: Vital Signs: Last Vital Signs Temp 98.0 F 09/24/21 15:54 Pulse 117 H 09/24/21 18:35 Resp 24 H 09/24/21 18:35 BP 123/71 09/24/21 18:35 Pulse Ox 97 09/24/21 18:35 Body Mass Index 22.8 Constitutional: Alert, on BIPAP. Sitting comfortably on ED stretcher. Mental Status: Oriented to person, place and time. Head: Normocephalic. Eyes: Pupils are equal, round and reactive to light. Extraocular muscles intact. Ear, Nose and Throat: Oropharynx clear, mucous membranes moist. Ears and nose without masses, lesions or deformities. Trachea midline. Neck: Supple, Full range of motion. Respiratory: Expiratory wheezing.? Minor increased work of breathing.? Cardiovascular: Sinus tach to 110s, S1 S2 regular. No murmurs, rubs or gallops. No edema Gastrointestinal: Abdomen soft, non-tender, non-distended. Normal bowel sounds. No pulsatile mass. No hepatosplenomegaly. Acute care time Genitourinary: No costovertebral angle tenderness. Neurologic: Cranial nerves II-XII grossly intact. No focal neurological deficits. Moves all extremities spontaneously. Sensation intact bilaterally. Skin: No rashes or lesions. No petechiae or purpura. Musculoskeletal: No cyanosis or clubbing. No gross deformities. Normal range of motion. Psychiatric: Normal mood and affect Results Labs CBC and Chem 7: 09/24/21 16:34 09/24/21 16:34 Labs: Laboratory Results - last 24 hr 09/24/21 09/24/21 09/24/21 16:34 16:34 16:34 MCV 100.0 H MCH 33.1 H MCHC 33.1 RDW 12.9 Plt Count 201 MPV 10.1 Immature Gran % (Auto) 0.4 Neut % (Auto) 25.4 L Lymph % (Auto) 58.6 H Frio % (Auto) 9.9 Eos % (Auto) 5.2 H Baso % (Auto) 0.5 Lymph # (Auto) 9.1 H Frio # (Auto) 1.5 H Eos # (Auto) 0.8 H Baso # (Auto) 0.1 Abs Immat Gran (auto) 0.06 H Absolute Neuts (auto) 3.9 Absolute Nucleated RBC 0.000 Nucleated RBC % (auto) 0.0 Smear Tech's Comments VERIFIED O2 Saturation ABG pH at Pt Temp ABG pH (Temp Correct) ABG pCO2 at Pt Temp ABG pCO2 (Temp Corrct ABG pO2 at Pt Temp ABG pO2 (Temp Correct ABG HCO3 ABG Base Excess (Actual) Anion Gap 14 Estim Creat Clear Calc 57.7 Estimated GFR > 60 Random Glucose 195 H Lactic Acid Calcium 9.0 D Total Bilirubin 1.2 H AST 83 H ALT 63 H Alkaline Phosphatase 116 Troponin I High Sens 5.6 B-Natriuretic Peptide 109 H Total Protein 8.0 Albumin 3.8 Lipase 32 Beta HCG, Quant 3 Urine Opiates Screen Urine Fentanyl Screen Ur Barbiturates Screen Ur Phencyclidine Scrn Ur Amphetamines Screen U Benzodiazepines Scrn Urine Cocaine Screen U Marijuana (THC) Screen Ethyl Alcohol COVID-19 ([facility]) COVID-19 Clin Com 09/24/21 09/24/21 09/24/21 16:40 17:53 18:00 MCV MCH MCHC RDW Plt Count MPV Immature Gran % (Auto) Neut % (Auto) Lymph % (Auto) Frio % (Auto) Eos % (Auto) Baso % (Auto) Lymph # (Auto) Frio # (Auto) Eos # (Auto) Baso # (Auto) Abs Immat Gran (auto) Absolute Neuts (auto) Absolute Nucleated RBC Nucleated RBC % (auto) Smear Tech's Comments O2 Saturation 94.0 ABG pH at Pt Temp 7.26 L ABG pH (Temp Correct) 7.26 L ABG pCO2 at Pt Temp 45 ABG pCO2 (Temp Corrct 44 ABG pO2 at Pt Temp 85 ABG pO2 (Temp Correct 83 ABG HCO3 20 L ABG Base Excess (Actual) -6.2 Anion Gap Estim Creat Clear Calc Estimated GFR Random Glucose Lactic Acid 3.3 H* Calcium Total Bilirubin AST ALT Alkaline Phosphatase Troponin I High Sens B-Natriuretic Peptide Total Protein Albumin Lipase Beta HCG, Quant Urine Opiates Screen Not Detected Urine Fentanyl Screen Not Detected Ur Barbiturates Screen Not Detected Ur Phencyclidine Scrn Not Detected Ur Amphetamines Screen Not Detected U Benzodiazepines Scrn Not Detected Urine Cocaine Screen Not Detected U Marijuana (THC) Screen POSITIVE H Ethyl Alcohol COVID-19 ([facility]) COVID-19 [employer] Com 09/24/21 09/24/21 18:19 18:23 MCV MCH MCHC RDW Plt Count MPV Immature Gran % (Auto) Neut % (Auto) Lymph % (Auto) Frio % (Auto) Eos % (Auto) Baso % (Auto) Lymph # (Auto) Frio # (Auto) Eos # (Auto) Baso # (Auto) Abs Immat Gran (auto) Absolute Neuts (auto) Absolute Nucleated RBC Nucleated RBC % (auto) Smear Tech's Comments O2 Saturation ABG pH at Pt Temp ABG pH (Temp Correct) ABG pCO2 at Pt Temp ABG pCO2 (Temp Corrct ABG pO2 at Pt Temp ABG pO2 (Temp Correct ABG HCO3 ABG Base Excess (Actual) Anion Gap Estim Creat Clear Calc Estimated GFR Random Glucose Lactic Acid Calcium Total Bilirubin AST ALT Alkaline Phosphatase Troponin I High Sens B-Natriuretic Peptide Total Protein Albumin Lipase Beta HCG, Quant Urine Opiates Screen Urine Fentanyl Screen Ur Barbiturates Screen Ur Phencyclidine Scrn Ur Amphetamines Screen U Benzodiazepines Scrn Urine Cocaine Screen U Marijuana (THC) Screen Ethyl Alcohol < 10 COVID-19 ([facility]) Negative COVID-19 Clin Com See Note Imaging Radiologist's Impressions: Impressions Chest X-Ray 09/24/21 16:19 IMPRESSION: Unremarkable examination. Assessment and Plan (1) Asthma exacerbation: Qualifiers: Asthma persistence: persistent Asthma severity: severe Qualified Code(s): J45.51 - Severe persistent asthma with (acute) exacerbation Status: Acute (2) Acute respiratory failure with hypoxia: Status: Acute (3) Leukocytosis: Status: Acute 56-year-old female with a history of COPD and asthma, reports not having inhalers at home, here for asthma exacerbation Neuro:? Agitation/ anxiety:? Patient agitation/anxiety much well control on Precedex drip. ?Will wean as tolerated Cardiac: Elevated Lactic but? No evidence of infection/ severe sepsis. Pulmonary:? Acute hypoxic respiratory failure secondary to asthma exacerbation. Will give systemic glucocorticoids and nebulized bronchodilators.? No signs of acute infection shown in x-ray. Renal:? No acute issues.?? Endo:? No acute issues.?? GI:? No acute issues. ID:? Leukocytosis: ?Likely in the setting of acute asthma exacerbation.? No evidence of acute infection Heme/Onc:? No acute issues. Psych:? No acute issues. Prophylaxis:? Subcut Heparin, doesn't require GI prophylaxis Diet:? NPO while on BIPAP CODE: FULL CODE ?Critical care time spent:? 60 minutes Case discussed with attending Dr Casanova Critical Care Time Critical Care Time (minutes): 60
[2021-09-24 20:31] LABS: VBG Base Excess -4.2 mmol/L; VBG HCO3 20 mmol/L (22-26); VBG pCO2 36 mmHg; VBG pH 7.35 (7.32-7.43); VBG pO2 58 mmHg
[2021-09-24 20:31] LABS: Venous Blood Gas Refer to POC result
[2021-09-24 20:47] LABS: ~Lactic Acid-LAB USE ONLY 2.4 mmol/L (0.5-2.0)
[2021-09-24 22:27] LABS: Reflex Lactate? 2 Y
--- NOTE | 2021-09-24 22:31 | MHC.CM.PN ---
CM attempted to meet with patient. Pt on BiPAP. Opens eyes, but unable to engage in meaningful conversation. Unable to answer any questions. CM will need to assess patient when she is more awake. CM to follow for d/c needs.
[2021-09-24 23:34] LABS: ~Lactic Acid-LAB USE ONLY 2.4 mmol/L (0.5-2.0)
[2021-09-24 23:41] LABS: Cancel Lactic Acid Canceled
[2021-09-25] VITALS (16 sets, daily range): BP systolic 108–127; BP diastolic 54–84; PULSE 73–102; RESP 17–22; TEMP 36.4–37.4; O2SAT 95–99; BMI 18.7
[2021-09-25] MEDS: Heparin Sodium,Porcine 5,000 UNIT/ML VIAL 5000 UNIT SUBCUT (01:39)
[2021-09-25 05:33] LABS: VBG Base Excess -1.6 mmol/L; VBG HCO3 21 mmol/L (22-26); VBG pCO2 30 mmHg; VBG pH 7.45 (7.32-7.43); VBG pO2 84 mmHg
[2021-09-25 05:39] LABS: MANUAL DIFF FLAG NO
[2021-09-25 05:48] LABS: Basophils Percent Auto 0.2 % (0-2); Hematocrit 40.2 % (37.0-47.0); Hemoglobin 13.6 g/dl (12.0-16.0); Imm Gran Abs Auto 0.01 X10*3/uL (0.00-0.03); Imm Gran Pct Auto 0.2 % (0.0-0.4); Lymphocytes Percent Auto 22.7 % (20-40); Mean Corpuscular HGB Conc 33.8 g/dl (31.0-35.0); Mean Corpuscular Hemoglobin 32.8 pg (27.0-33.0); Mean Corpuscular Volume 96.9 fL (80.0-98.0); Mean Platelet Volume 10.8 fL (9.4-12.3); Monocytes Absolute Auto 0.2 X10*3/uL (0.1-1.2); Monocytes Percent Auto 4.2 % (2-11); Neutrophils Absolute Auto 3.1 x10*3/uL (2.0-8.3); Neutrophils Percent Auto 72.7 % (45-73); Platelet Count 143 X10*3/uL (160-400); Red Blood Count 4.15 X10*6/uL (4.20-5.50); Red Cell Distribution Width 12.3 % (11.0-16.0); White Blood Count 4.3 X10*3/uL (4.8-10.8)
[2021-09-25 06:25] LABS: Alanine Aminotransferase 52 U/L (0-31); Albumin Level 3.4 g/dL (3.5-5.0); Alkaline Phosphatase 90 U/L (39-117); Anion Gap 11 (12-20); Aspartate Amino Transferase 51 U/L (5-31); Bilirubin Total 0.9 mg/dL (0.0-1.0); Blood Urea Nitrogen 6 mg/dL (9-16); Calcium 8.5 mg/dL (8.4-10.2); Carbon Dioxide 21 mmol/L (22-29); Chloride 111 mmol/L (96-108); Creatinine Clr Calc Pharmacy 64.3; Estimated Glomerular Filt Rate > 60; Glucose Random 126 mg/dL (60-115); Phosphorus 2.6 mg/dL (2.7-4.5); Potassium 4.1 mmol/L (3.3-5.1); Sodium 139 mmol/L (135-145); Total Protein 7.1 g/dL (6.5-8.0)
--- NOTE | 2021-09-25 06:31 | PC.NURSE ---
Pt to ICU at 2315 on bipap 15/5 and 30%. She was vague to answer questions and not cooperative with assessment. She wore bipap all night. Monitor showed S tach, low 100's-110 on arrival to the unit and later NSR 80's-90's. Bp stable. Lungs clear. Used bedpan X1 for urine/stool mix. She was lethargic and would get annoyed with interventions but then at 0500, pt woke up and was alert. She wanted to know what happened to her and how did she get her. She was cooperative and pleasant. Bipap taken off at this time and pt taking sips of water po without difficulty. Presently she is sitting up in bed watching TV.
[2021-09-25 06:51] LABS: Venous Blood Gas Refer to POC result
--- NOTE | 2021-09-25 09:47 | MHC.CM.PN ---
Met with pt to review d/c plans: pt states she resides in [place] but is here in [place] to settle the estate of her recently aunt. She is staying with her son in [place] during the interim. Pt states her MD, Miss Mariano wasn't able to get her asthma medication scripts forwarded to in [place] in time. She states is independent with all care needs and has no barriers to receiving care. D/C Plan is a return to her son's home in [place]: pt has a working cell phone at bedside. No additional services are needed at this time.
--- NOTE | 2021-09-25 11:22 | P.PNCC_ITS ---
Subjective Subjective Date of Service: 09/25/21 Interval History: 56-year-old lady, active 30+ pack-year smoker, with underlying history of asthma, and likely COPD admitted on 09/24/2021 with difficulty breathing after running out of her albuterol metered-dose inhaler. On ER evaluation patient was noted to be hypoxemic and in respiratory distress with poor response to initial therapy requiring BiPAP support. She has been admitted to intensive care unit and treated with nebulized bronchodilators and systemic glucocorticoids or with significant improvement of her asthma exacerbation. No events overnight. Titrated off BiPAP. Critical Care Time (minutes): 0 Physical Exam Vital Signs: Vital Signs: Last Vital Signs Temp 98.2 F 09/25/21 07:00 Pulse 81 09/25/21 09:00 Resp 21 H 09/25/21 09:00 BP 121/61 09/25/21 09:00 Pulse Ox 96 09/25/21 09:00 Body Mass Index 18.7 Const: General: no acute distress, alert and awake Eyes: Sclerae: sclerae normal EOM: EOMs intact bilaterally Neck: Neck: Yes no lymphadenopathy, Yes trachea midline and Yes supple Resp: Effort & Inspection: normal respiratory effort and no respiratory distress Auscultation: wheezes expiratory wheezes ( Mild bilateral) Cardio: Rate: regular rate Rhythm: regular rhythm Heart sounds: no gallops, no murmurs and no rubs GI: Palpation (GI): Soft to palpation and Other GI palpation findings present ( Nontender) Auscultation: normal bowel sounds Extrem: General: Yes no pedal edema, No clubbing and No cyanosis Objective Data Labs CBC & Chem 7: 09/25/21 05:20 09/25/21 05:20 Labs: Laboratory Results - last 24 hr 09/24/21 09/24/21 09/24/21 16:34 16:34 16:34 WBC 15.5 H RBC 4.47 Hgb 14.8 Hct 44.7 MCV 100.0 H MCH 33.1 H MCHC 33.1 RDW 12.9 Plt Count 201 MPV 10.1 Immature Gran % (Auto) 0.4 Neut % (Auto) 25.4 L Lymph % (Auto) 58.6 H Logan % (Auto) 9.9 Eos % (Auto) 5.2 H Baso % (Auto) 0.5 Lymph # (Auto) 9.1 H Logan # (Auto) 1.5 H Eos # (Auto) 0.8 H Baso # (Auto) 0.1 Abs Immat Gran (auto) 0.06 H Absolute Neuts (auto) 3.9 Absolute Nucleated RBC 0.000 Nucleated RBC % (auto) 0.0 Smear Tech's Comments VERIFIED O2 Saturation ABG pH at Pt Temp ABG pH (Temp Correct) ABG pCO2 at Pt Temp ABG pCO2 (Temp Corrct ABG pO2 at Pt Temp ABG pO2 (Temp Correct ABG HCO3 ABG Base Excess (Actual) VBG pH VBG pCO2 VBG pO2 VBG HCO3 VBG O2 Saturation VBG Base Excess Sodium 139 Potassium 3.6 Chloride 105 Carbon Dioxide 24 Anion Gap 14 BUN 4 L Creatinine 0.84 Estim Creat Clear Calc 57.7 Estimated GFR > 60 Random Glucose 195 H Lactic Acid Lactic Acid Fup @ 2Hr Lactic Acid Fup @ 4Hr Calcium 9.0 D Phosphorus Magnesium Total Bilirubin 1.2 H AST 83 H ALT 63 H Alkaline Phosphatase 116 Troponin I High Sens 5.6 B-Natriuretic Peptide 109 H Total Protein 8.0 Albumin 3.8 Lipase 32 Beta HCG, Quant 3 Urine Opiates Screen Urine Fentanyl Screen Ur Barbiturates Screen Ur Phencyclidine Scrn Ur Amphetamines Screen U Benzodiazepines Scrn Urine Cocaine Screen U Marijuana (THC) Screen Ethyl Alcohol COVID-19 ([facility]) COVID-19 Clin Com 09/24/21 09/24/21 09/24/21 16:40 17:53 18:00 WBC RBC Hgb Hct MCV MCH MCHC RDW Plt Count MPV Immature Gran % (Auto) Neut % (Auto) Lymph % (Auto) Logan % (Auto) Eos % (Auto) Baso % (Auto) Lymph # (Auto) Logan # (Auto) Eos # (Auto) Baso # (Auto) Abs Immat Gran (auto) Absolute Neuts (auto) Absolute Nucleated RBC Nucleated RBC % (auto) Smear Tech's Comments O2 Saturation 94.0 ABG pH at Pt Temp 7.26 L ABG pH (Temp Correct) 7.26 L ABG pCO2 at Pt Temp 45 ABG pCO2 (Temp Corrct 44 ABG pO2 at Pt Temp 85 ABG pO2 (Temp Correct 83 ABG HCO3 20 L ABG Base Excess (Actual) -6.2 VBG pH VBG pCO2 VBG pO2 VBG HCO3 VBG O2 Saturation VBG Base Excess Sodium Potassium Chloride Carbon Dioxide Anion Gap BUN Creatinine Estim Creat Clear Calc Estimated GFR Random Glucose Lactic Acid 3.3 H* Lactic Acid Fup @ 2Hr Lactic Acid Fup @ 4Hr Calcium Phosphorus Magnesium Total Bilirubin AST ALT Alkaline Phosphatase Troponin I High Sens B-Natriuretic Peptide Total Protein Albumin Lipase Beta HCG, Quant Urine Opiates Screen Not Detected Urine Fentanyl Screen Not Detected Ur Barbiturates Screen Not Detected Ur Phencyclidine Scrn Not Detected Ur Amphetamines Screen Not Detected U Benzodiazepines Scrn Not Detected Urine Cocaine Screen Not Detected U Marijuana (THC) Screen POSITIVE H Ethyl Alcohol COVID-19 ([facility]) COVID-19 ehealthtracker Com 09/24/21 09/24/21 09/24/21 18:19 18:23 20:23 WBC RBC Hgb Hct MCV MCH MCHC RDW Plt Count MPV Immature Gran % (Auto) Neut % (Auto) Lymph % (Auto) Logan % (Auto) Eos % (Auto) Baso % (Auto) Lymph # (Auto) Logan # (Auto) Eos # (Auto) Baso # (Auto) Abs Immat Gran (auto) Absolute Neuts (auto) Absolute Nucleated RBC Nucleated RBC % (auto) Smear Tech's Comments O2 Saturation ABG pH at Pt Temp ABG pH (Temp Correct) ABG pCO2 at Pt Temp ABG pCO2 (Temp Corrct ABG pO2 at Pt Temp ABG pO2 (Temp Correct ABG HCO3 ABG Base Excess (Actual) VBG pH VBG pCO2 VBG pO2 VBG HCO3 VBG O2 Saturation VBG Base Excess Sodium Potassium Chloride Carbon Dioxide Anion Gap BUN Creatinine Estim Creat Clear Calc Estimated GFR Random Glucose Lactic Acid Lactic Acid Fup @ 2Hr 2.4 H* Lactic Acid Fup @ 4Hr Calcium Phosphorus Magnesium Total Bilirubin AST ALT Alkaline Phosphatase Troponin I High Sens B-Natriuretic Peptide Total Protein Albumin Lipase Beta HCG, Quant Urine Opiates Screen Urine Fentanyl Screen Ur Barbiturates Screen Ur Phencyclidine Scrn Ur Amphetamines Screen U Benzodiazepines Scrn Urine Cocaine Screen U Marijuana (THC) Screen Ethyl Alcohol < 10 COVID-19 ([facility]) Negative COVID-19 Clin Com See Note 09/24/21 09/24/21 09/25/21 20:25 22:37 05:20 WBC 4.3 L RBC 4.15 L Hgb 13.6 Hct 40.2 MCV 96.9 MCH 32.8 MCHC 33.8 RDW 12.3 Plt Count 143 L D MPV 10.8 Immature Gran % (Auto) 0.2 Neut % (Auto) 72.7 Lymph % (Auto) 22.7 Logan % (Auto) 4.2 Eos % (Auto) 0.0 Baso % (Auto) 0.2 Lymph # (Auto) 1.0 L Logan # (Auto) 0.2 Eos # (Auto) 0.0 Baso # (Auto) 0.0 Abs Immat Gran (auto) 0.01 Absolute Neuts (auto) 3.1 Absolute Nucleated RBC 0.000 Nucleated RBC % (auto) 0.0 Smear Tech's Comments O2 Saturation ABG pH at Pt Temp ABG pH (Temp Correct) ABG pCO2 at Pt Temp ABG pCO2 (Temp Corrct ABG pO2 at Pt Temp ABG pO2 (Temp Correct ABG HCO3 ABG Base Excess (Actual) VBG pH 7.35 VBG pCO2 36 VBG pO2 58 VBG HCO3 20 L VBG O2 Saturation 85.0 VBG Base Excess -4.2 Sodium Potassium Chloride Carbon Dioxide Anion Gap BUN Creatinine Estim Creat Clear Calc Estimated GFR Random Glucose Lactic Acid Lactic Acid Fup @ 2Hr Lactic Acid Fup @ 4Hr 2.4 H* Calcium Phosphorus Magnesium Total Bilirubin AST ALT Alkaline Phosphatase Troponin I High Sens B-Natriuretic Peptide Total Protein Albumin Lipase Beta HCG, Quant Urine Opiates Screen Urine Fentanyl Screen Ur Barbiturates Screen Ur Phencyclidine Scrn Ur Amphetamines Screen U Benzodiazepines Scrn Urine Cocaine Screen U Marijuana (THC) Screen Ethyl Alcohol COVID-19 ([facility]) COVID-19 Clin Com 09/25/21 09/25/21 05:20 05:27 WBC RBC Hgb Hct MCV MCH MCHC RDW Plt Count MPV Immature Gran % (Auto) Neut % (Auto) Lymph % (Auto) Logan % (Auto) Eos % (Auto) Baso % (Auto) Lymph # (Auto) Logan # (Auto) Eos # (Auto) Baso # (Auto) Abs Immat Gran (auto) Absolute Neuts (auto) Absolute Nucleated RBC Nucleated RBC % (auto) Smear Tech's Comments O2 Saturation ABG pH at Pt Temp ABG pH (Temp Correct) ABG pCO2 at Pt Temp ABG pCO2 (Temp Corrct ABG pO2 at Pt Temp ABG pO2 (Temp Correct ABG HCO3 ABG Base Excess (Actual) VBG pH 7.45 H VBG pCO2 30 VBG pO2 84 VBG HCO3 21 L VBG O2 Saturation 95.0 VBG Base Excess -1.6 Sodium 139 Potassium 4.1 Chloride 111 H Carbon Dioxide 21 L Anion Gap 11 L BUN 6 L Creatinine 0.70 Estim Creat Clear Calc 64.3 Estimated GFR > 60 Random Glucose 126 H Lactic Acid Lactic Acid Fup @ 2Hr Lactic Acid Fup @ 4Hr Calcium 8.5 Phosphorus 2.6 L Magnesium 2.0 Total Bilirubin 0.9 AST 51 H ALT 52 H Alkaline Phosphatase 90 D Troponin I High Sens B-Natriuretic Peptide Total Protein 7.1 Albumin 3.4 L Lipase Beta HCG, Quant Urine Opiates Screen Urine Fentanyl Screen Ur Barbiturates Screen Ur Phencyclidine Scrn Ur Amphetamines Screen U Benzodiazepines Scrn Urine Cocaine Screen U Marijuana (THC) Screen Ethyl Alcohol COVID-19 ([facility]) COVID-19 Clin Com Progress Note: A&P Assessment and plan (1) Asthma exacerbation: Status: Acute (2) Acute respiratory failure with hypoxia: Status: Acute Assessment and Plan: Assessment: 56-year-old lady with underlying asthma and likely COPD admitted with asthma exacerbation after running out of her albuterol initially requiring BiPAP support. Plan: Neuro: No acute issues. Cardiac: No acute issues. Pulmonary: Acute hypoxic respiratory failure secondary to asthma exacerbation initially requiring BiPAP support. Hypoxia resolved. Titrated off BiPAP. Continue with nebulized bronchodilators and systemic glucocorticoids. Renal: No acute issues. Endo: No acute issues. GI: No acute issues. ID: No acute issues Heme/Onc: No acute issues. Psych: No acute issues. Miscellaneous: No acute issues. Prophylaxis: Heparin Diet: regular Quality Stroke Does the patient have a stroke diagnosis?: No VTE Prior VTE?: No VTE Risk Level:: Medical - moderate - high VTE Device Contraindication: Treatment Not Indicated VTE Drug Contraindication: N/A - Med Ordered
--- NOTE | 2021-09-25 17:40 | MHC.CLN ---
PT IS MODERATELY MALNOURISHED PT EXPERIENCED SIGNIFICANT 14% WT LOSS X 2 MONTHS, HAS MILD MUSCLE WASTING, AND HAS A BMI OF 18.7 PT STATED HER APPETITE HAS BEEN FINE RECOMMEND ENSURE PLUS SUPPLEMENT BID TO PROVIDE 700 KCALS AND 32 GRAMS PROTEIN MONITOR PO INTAKE MONITOR SUPPLEMENT ACCEPTANCE SEE ALSO CLINICAL NUTRITION ASSESSMENT
[2021-09-25] MEDS: methylPREDNISolone Sod Succ 125 MG/2 ML VIAL 40 MG IVPUSH (21:38)
[2021-09-26] VITALS: BP 133/66; PULSE 75; RESP 18; TEMP 36.4; O2SAT 96
[2021-09-26 03:26] VITALS: BP 133/62; PULSE 85; RESP 18; TEMP 36.7; O2SAT 98
[2021-09-26 06:00] VITALS: BMI 18.6
--- NOTE | 2021-09-26 06:47 | P.DS_ITS ---
DS: Providers Provider Date of Service: 09/26/21 Date of admission: 09/24/21 17:16 Primary care physician: Nonstaff Physician DS: Diagnosis Discharge Diagnosis (1) Asthma exacerbation: Status: Acute (2) Acute respiratory failure with hypoxia: Status: Acute DS: Summary Hospital Course Hospital Course: hief Complaint: Dyspnea Patient is a 56-year-old female with past medical history of asthma and COPD who presented via ambulance to the emergency department with complaints of dyspnea. ?She reported she ran out of rescue inhaler, and since yesterday she has been feeling short of breath which worsened today.? Paramedics report initial saturations were in the 60%s on room air, and was placed on non-rebreather . Laboratory data significant for WBC 15.5, lactic acid 3.3, total bilirubin 1.2, AST 83, ALT 63 and BNP 109. ABGs:? 7.///. Toxicology positive for THC Imaging: Chest x-ray:? No acute findings ED course:? The patient initial vital signs pulse 155, respiratory rate 35, blood pressure to 117/102, satting 87% on Venturi mask. ?She she was treated with IM epinephrine, DuoNebs, Albuterol, magnesium and Solu-Medrol and placed on BIPAP.? Patient was also agitated despite administration of Ativan, required initiation of Precedex drip. Patient will be admitted to the ICU for management of acute asthma exacerbation requiring BiPAP Hospital course: Essentially she was admitted to the ICU and put on BiPAP, treated with IV steroid, bronchodilatos by Neb and made rapid recovery. Presently without difficulty breathing and normal lung exam. Her Albuterol, Incruse Elipta are being renewed and will be given 4 more days of steroid. Avoiding tobacco/smoking discussed. Time Spent with Patient Time attestation: Total time spent providing and/or coordinating discharge services: Discharge coordination time: Greater than 30 minutes Quality: Stroke Does the patient have a stroke diagnosis?: No Physical Exam Vital Signs: Vital Signs: Last Vital Signs Temp 98.1 F 09/26/21 03:26 Pulse 85 09/26/21 03:26 Resp 18 09/26/21 03:26 BP 133/62 09/26/21 03:26 Pulse Ox 98 09/26/21 03:26 Body Mass Index 18.6 Const: Other: General: AO X 3, no acute distress Resp: CTA bilateral CVS: S1,S2,RRR GI: +BS, NT, no distention Skin: No rash Neuro: motor grossly intact Psych: appropriate affect DS: Data Data Completed and Pending Labs on day of discharge: Laboratory Results - last 24 hr 09/24/21 16:34 Smear Path Review SEE NOTE Preliminary micro results at discharge 09/24/21 17:52 Blood Culture - Preliminary Blood - Venous No growth after 24 hours. 09/24/21 17:45 Blood Culture - Preliminary Blood - Venous No growth after 24 hours. Discharge Plan Discharge Anticipated Discharge Date/Time: 09/26/21 06:41 Patient Disposition: Home, Self-Care Discharge Diagnosis: Acute hypoxic respiratory failure d/t asthma Referrals: Physician,Nonstaff [Primary Care Provider] - 1 Week Discharge Medications: New prednisone 20 mg tablet 40 mg PO DAILY Qty: 8 RF: 0 Continued prednisone 50 mg tablet 50 mg PO DAILY Qty: 4 RF: 0 fluticasone propionate 44 mcg/actuation HFA aerosol inhaler 1 puff inhalation BID Qty: 10.6 RF: 0 salmeterol 50 mcg/dose blister with device 1 inh inhalation BID Qty: 60 RF: 0 albuterol sulfate 2.5 mg /3 mL (0.083 %) solution for nebulization 2.5 mg inhalation Q4-6H PRN (Reason: shortness of breath or wheezing) Qty: 75 RF: 0 prednisone 20 mg tablet 60 mg PO DAILY 5 Days Qty: 15 RF: 0 albuterol sulfate 90 mcg/actuation HFA aerosol inhaler 2 puff inhalation Q4-6H PRN (Reason: wheezing) Qty: 8.5 RF: 0 fluticasone propion-salmeterol [Advair Diskus] 250-50 mcg/dose blister with device 1 inh inhalation BID Qty: 60 RF: 0 albuterol sulfate 90 mcg/actuation HFA aerosol inhaler 2 puff inhalation Q4-6H PRN (Reason: shortness of breath or wheezing) Qty: 6.7 RF: 0 Incruse Ellipta 62.5 mcg/actuation blister with device 1 inh inhalation DAILY Qty: 7 RF: 0 Discharge Orders: Discharge Order (Routine); Ordered 09/26/21 Ordered By: [facility] Diet: advance to usual diet Activity on Discharge: As tolerated Stand Alone Forms: Patient Portal Discharge page Care Plan Goals: prevent rehospitalization from runing out of meds Health Concerns: asthma, smoking history Plan of Treatment: Use inhalers and steroid as recommended and follow up with your Doctor in a week Assessment: As above
--- NOTE | 2021-09-26 08:53 | MHC.CM.PN ---
PT CLEARED TO DC TO HER SONS HOME TODAY WITH NO SERVICES PT WILL SELF ARRANGE TRANSPORTATION
== END 2021-09-26 09:30 | disposition home or self-care (01) | DRG 141 ==
LOC: HO.ED 16:46 → HO.EDOVER 17:26 → HO.ICU 20:32 → HO.IMC 09-25 12:03
PROVIDERS: Registered Nurse Community Health; Admitting Provider Internal Medicine Pulmonary Disease; Emergency Provider Emergency Medicine Emergency Medical Services; Visit Provider Internal Medicine
DX: J45.51 Severe persistent asthma with (acute) exacerbation (principal); J96.01 Acute respiratory failure with hypoxia; F17.210 Nicotine dependence, cigarettes, uncomplicated; Z71.6 Tobacco abuse counseling; D72.829 Elevated white blood cell count, unspecified; Z91.14 Patient's other noncompliance with medication regimen; Z20.822 Contact with and (suspected) exposure to COVID-19; Z79.899 Other long term (current) drug therapy
CPT/HCPCS: 36415; 71045; 80053; 80307; 82077; 82803; 83605; 83690; 83735; 83880; 84100; 84484; 84702; 85025; 87040; 87635; 93005; 94640; 94644; 94660; 96361; 96365; 96366; 96375; 99285; 99291; 99292; J2060; J2930; J3475

== ENCOUNTER 2021-10-17 03:19 | Inpatient (IN) | payer BC, SELFPAY ==
[2021-10-17] VITALS (10 sets, daily range): BP systolic 150–162; BP diastolic 58–72; PULSE 81–92; RESP 14–22; TEMP 36.2–37.1; O2SAT 94–99; BMI 22.8
--- NOTE | ~2021-10-17 | CT_ITS ---
EXAMINATION: CT ANGIOGRAM OF THE CHEST WITH AND WITHOUT CONTRAST (CT PULMONARY ANGIOGRAM FOR PE) CLINICAL INFORMATION: Reason for Exam SOB, tachycardia COMPARISON: None TECHNIQUE: Prior to contrast administration, noncontrast localization images were obtained. Subsequently, multidetector volumetric imaging was performed from the thoracic inlet to below the diaphragms following the administration of 80 mL Omnipaque 350 intravenous contrast. No contrast reaction reported Sagittal, coronal, and MIP oblique sagittal reformatted images were obtained on the CT workstation, uploaded to PACS, and reviewed. This CT examination was performed using dose optimization techniques as appropriate, variously including the following: *Automated exposure control *Adjustment of mA and/or kV according to patient size (this includes techniques or standardized protocols for targeted exams where dose is matched to indication/reason for exam; i.e. extremities or head) *Use of iterative reconstruction technique Total exam dose-length product 195 mGy-cm FINDINGS: QUALITY OF STUDY/CONTRAST BOLUS: Satisfactory. PULMONARY ARTERIES: No central or segmental pulmonary emboli. THORACIC AORTA: No aneurysm or dissection. LUNG: No focal consolidation, nodules or masses. There is a small 1.5 cm cyst in the central right upper lobe. PLEURA: No pleural effusion or pneumothorax. MEDIASTINUM: Normal heart size. No pericardial effusion. No hilar or mediastinal lymphadenopathy. No evidence of septal bowing or right heart strain. There is mild coronary artery and aortic valve calcification. CHEST WALL/AXILLA: No axillary or internal mammary lymphadenopathy. There is a 2 cm subcutaneous soft tissue mass in the left upper anterior chest using anterior to the shoulder. OSSEOUS STRUCTURES: No acute or suspicious osseous abnormality. UPPER ABDOMEN: Unremarkable. No reflux of contrast into the hepatic veins to suggest elevated right heart pressures. CT/CT angio chest PE protocol IMPRESSION: No evidence of pulmonary embolism. 2 cm nonspecific subcutaneous nodule in the left upper anterior chest/shoulder. VTE: negative
--- NOTE | ~2021-10-17 | XR_ITS ---
EXAMINATION: XR CHEST CLINICAL INFORMATION: Shortness of breath COMPARISON: 09/24/2021 TECHNIQUE: Frontal view of the chest was obtained. FINDINGS: Lung volumes are symmetric. No focal consolidation is seen. No evidence of pneumothorax, pleural effusion, or pulmonary edema. Cardiac size is within normal limits. Calcification is present at the aortic arch. No acute osseous findings are seen. XR/XR chest 1V IMPRESSION: No acute cardiopulmonary findings.
--- NOTE | 2021-10-17 03:32 | ECG_ITS ---
Test Reason : SHORTNESS OF BREATH Blood Pressure : / mmHG Vent. Rate : 082 BPM Atrial Rate : 082 BPM P-R Int : 140 ms QRS Dur : 084 ms QT Int : 392 ms P-R-T Axes : 079 083 107 degrees QTc Int : 457 ms Normal sinus rhythm ST & T wave abnormality, consider anterior ischemia Abnormal ECG When compared with ECG of 24-SEP-2021 16:51, Vent. rate has decreased BY [address] no longer depressed in Inferior leads ST now depressed in Anterior leads T wave inversion more evident in Anterior leads Referred By: Shannan Moscoso Electronically Signed By:Vasyl Mota
[2021-10-17] MEDS: methylPREDNISolone Sod Succ 125 MG/2 ML VIAL IVPUSH (03:33)
--- NOTE | 2021-10-17 03:58 | ED_ITS ---
HPI - Asthma General Chief Complaint: Asthma Stated Complaint: diff breath/asthma hx Time Seen by Provider: 10/17/21 03:32 Source: patient Mode of arrival: EMS History of Present Illness HPI Narrative: 56-year-old female with known history of COPD comes in with worsening shortness of breath over the past couple of days when she had some di fficulty getting her prescriptions filled from her PCP in [place]. As per EMS she was noted be 90% on room air and patient denies the use of any home oxygen. Otherwise, she denies any fever, chills, GI or symptoms and denies any chest pain/palpitations. Related Data Previous Rx's Medication Instructions Recorded fluticasone propionate 44 1 puff INHALATION BID #10.6 g 06/19/21 mcg/actuation HFA aerosol inhaler prednisone 50 mg tablet 50 mg PO DAILY #4 tab 06/19/21 salmeterol 50 mcg/dose blister 1 inh INHALATION BID #60 ea 06/19/21 powder for inhalation albuterol sulfate 2.5 mg (3 mL) INHALATION Q4-6H PRN 08/13/21 #75 ml albuterol sulfate 90 mcg/actuation 2 puff INHALATION Q4-6H PRN #8.5 g 08/13/21 aerosol inhaler fluticasone 250 mcg-salmeterol 50 1 inh INHALATION BID #60 ea 08/13/21 mcg/dose blistr powdr for inhalation (Advair Diskus) prednisone 20 mg tablet 60 mg PO DAILY 5 Days #15 tab 08/13/21 albuterol sulfate 90 mcg/actuation 2 puff INHALATION Q4-6H PRN #6.7 g 09/26/21 aerosol inhaler prednisone 20 mg tablet 40 mg PO DAILY #8 tab 09/26/21 umeclidinium 62.5 mcg/actuation 1 inh INHALATION DAILY #7 ea 09/26/21 blister powder for inhalation (Incruse Ellipta) Allergies Allergy/AdvReac Type Severity Reaction Status Date / Time No Known Allergies Allergy Verified 06/19/21 18:15 Review of Systems Review of Systems: Pertinent positives and negatives as stated in HPI 10 point review of systems is otherwise negative. PMFSH Past Medical History Source: nursing notes reviewed Medical History Asthma exacerbation COPD (chronic obstructive pulmonary disease) Social History Social History Household Members: Family Household Members Other:: unknown but pt states lives with family Housing: Unknown / Unable to assess Housing Other:: pt not cooperative Unable to assess alcohol history related to: Unknown and Refusing to respond Patient Tobacco Use Status: Current everyday Tobacco user Substance Use Type: Marijuana Advance Directives: No service: No Current occupational status: unemployed Physical Exam Vital Signs: Vital Signs: Last Vital Signs Temp 98.2 F 10/17/21 03:26 Pulse 85 10/17/21 06:00 Resp 22 H 10/17/21 06:00 BP 154/65 H 10/17/21 06:00 Pulse Ox 95 10/17/21 06:00 BMI result Body Mass Index 22.8 VITAL SIGNS: Reviewed. GENERAL: Well developed, well nourished, in no acute distress. HEAD: Normocephalic/atraumatic EYES: PERRLA, EOMI OROPHARYNX: no oral lesions noted, posterior pharynx clear LUNGS: Good inspiratory effort with scattered wheeze and coarse rhonchi, mild tachypnea. SpO2<94> CARDIOVASCULAR: Regular rate and rhythm without noted murmurs, no JVD or lower extremity edema. ABDOMEN: Soft, non-tender, non-distended with bowel sounds. NEUROLOGIC: Alert and oriented x 4. Strength and sensation to light touch were grossly intact x 4. Course Course Course Narrative: 56-year-old female with history and clinical presentation consistent with COPD exacerbation. However, on reviewing patient's EKG there are ischemic changes noted in the anterior distribution although she denies any chest pain/palpitations. Patient remains quite dyspneic and on review investigations a mild hypokalemia was treated with 60 mEq of potassium chloride orally and otherwise patient remains without chest pain or palpitations but states she remains very short of breath with the slightest amount of movement. Review of high sensitivity troponin level is consistent with prior and D-dimer is not consistent with PE. Repeat EKG demonstrates similar 12 lead and bedside echo shows good cardiac squeeze with a full IVC,LV>RV, and no B lines noted on pulmonary ultrasound. This case was discussed with Cardiology, Dr Mota, who recommends formal echo and will see the patient. I discussed case with inpatient hospitalist who accepts admission. MDM - Asthma Lab Data Result diagrams: 10/17/21 04:02 10/17/21 04:02 Labs: Lab Results 10/17/21 10/17/21 10/17/21 Range/Units 04:02 04:02 04:02 WBC 5.6 (4.8-10.8) X10*3/uL RBC 4.03 L (4.20-5.50) X10*6/uL Hgb 13.7 (12.0-16.0) g/dl Hct 39.6 (37.0-47.0) % MCV 98.3 H (80.0-98.0) fL MCH 34.0 H (27.0-33.0) pg MCHC 34.6 (31.0-35.0) g/dl RDW 12.7 (11.0-16.0) % Plt Count 124 L (160-400) X10*3/uL MPV 10.2 (9.4-12.3) fL Immature Gran % (Auto) 0.2 (0.0-0.4) % Neut % (Auto) 28.4 L (45-73) % Lymph % (Auto) 56.3 H (20-40) % [place] % (Auto) 5.9 (2-11) % Eos % (Auto) 8.7 H (0-4) % Baso % (Auto) 0.5 (0-2) % Lymph # (Auto) 3.2 (1.2-4.9) X10*3/uL [place] # (Auto) 0.3 (0.1-1.2) X10*3/uL Eos # (Auto) 0.5 H (0.0-0.4) X10*3/uL Baso # (Auto) 0.0 (0.0-0.2) X10*3/uL Abs Immat Gran (auto) 0.01 (0.00-0.03) X10*3/uL Absolute Neuts (auto) 1.6 L (2.0-8.3) x10*3/uL Absolute Nucleated RBC 0.000 (0.0-0.012) X10*3/uL Nucleated RBC % (auto) 0.0 (0.0-0.2) /100WBC D-Dimer High Sensitivty NG/ML VBG pH (7.32-7.43) VBG pCO2 mmHg VBG pO2 mmHg VBG HCO3 (22-26) mmol/L VBG O2 Saturation % VBG Base Excess mmol/L Sodium 145 (135-145) mmol/L Potassium 3.1 L D (3.3-5.1) mmol/L Chloride 112 H (96-108) mmol/L Carbon Dioxide 23 (22-29) mmol/L Anion Gap 13 (12-20) BUN 4 L (9-16) mg/dL Creatinine 0.70 (0.5-1.4) mg/dL Estim Creat Clear Calc 69.3 Estimated GFR > 60 Random Glucose 118 H (60-115) mg/dL Lactic Acid 1.7 (0.5-2.0) mmol/L Calcium 9.0 (8.4-10.2) mg/dL Total Bilirubin 0.5 (0.0-1.0) mg/dL AST 83 H (5-31) U/L ALT 54 H (0-31) U/L Alkaline Phosphatase 121 H D (39-117) U/L Troponin I High Sens (<3.5-17.0) ng/L Total Protein 7.2 (6.5-8.0) g/dL Albumin 3.5 (3.5-5.0) g/dL Urine Color Urine Appearance Urine pH (5.0-8.0) Ur Specific [place] (1.005-1.025) Urine Protein (NEG-TRACE) MG/DL Urine Glucose (UA) (NEG) MG/DL Urine Ketones (NEG) MG/DL Urine Blood (NEG) Urine Nitrite (NEG) Ur Leukocyte Esterase (NEG) Urine RBC (0) /HPF Urine WBC (0-4) /HPF Ur Squamous Epith Cells /LPF Urine Bacteria /LPF Urine Mucus /LPF COVID-19 (YENI) (Negative) COVID-19 Clin Com 10/17/21 10/17/21 10/17/21 Range/Units 04:02 04:07 04:11 WBC (4.8-10.8) X10*3/uL RBC (4.20-5.50) X10*6/uL Hgb (12.0-16.0) g/dl Hct (37.0-47.0) % MCV (80.0-98.0) fL MCH (27.0-33.0) pg MCHC (31.0-35.0) g/dl RDW (11.0-16.0) % Plt Count (160-400) X10*3/uL MPV (9.4-12.3) fL Immature Gran % (Auto) (0.0-0.4) % Neut % (Auto) (45-73) % Lymph % (Auto) (20-40) % [place] % (Auto) (2-11) % Eos % (Auto) (0-4) % Baso % (Auto) (0-2) % Lymph # (Auto) (1.2-4.9) X10*3/uL [place] # (Auto) (0.1-1.2) X10*3/uL Eos # (Auto) (0.0-0.4) X10*3/uL Baso # (Auto) (0.0-0.2) X10*3/uL Abs Immat Gran (auto) (0.00-0.03) X10*3/uL Absolute Neuts (auto) (2.0-8.3) x10*3/uL Absolute Nucleated RBC (0.0-0.012) X10*3/uL Nucleated RBC % (auto) (0.0-0.2) /100WBC D-Dimer High Sensitivty NG/ML VBG pH 7.39 (7.32-7.43) VBG pCO2 38 mmHg VBG pO2 53 mmHg VBG HCO3 23 (22-26) mmol/L VBG O2 Saturation 84.0 % VBG Base Excess -1.2 mmol/L Sodium (135-145) mmol/L Potassium (3.3-5.1) mmol/L Chloride (96-108) mmol/L Carbon Dioxide (22-29) mmol/L Anion Gap (12-20) BUN (9-16) mg/dL Creatinine (0.5-1.4) mg/dL Estim Creat Clear Calc Estimated GFR Random Glucose (60-115) mg/dL Lactic Acid (0.5-2.0) mmol/L Calcium (8.4-10.2) mg/dL Total Bilirubin (0.0-1.0) mg/dL AST (5-31) U/L ALT (0-31) U/L Alkaline Phosphatase (39-117) U/L Troponin I High Sens 7.3 (<3.5-17.0) ng/L Total Protein (6.5-8.0) g/dL Albumin (3.5-5.0) g/dL Urine Color Urine Appearance Urine pH (5.0-8.0) Ur Specific [place] (1.005-1.025) Urine Protein (NEG-TRACE) MG/DL Urine Glucose (UA) (NEG) MG/DL Urine Ketones (NEG) MG/DL Urine Blood (NEG) Urine Nitrite (NEG) Ur Leukocyte Esterase (NEG) Urine RBC (0) /HPF Urine WBC (0-4) /HPF Ur Squamous Epith Cells /LPF Urine Bacteria /LPF Urine Mucus /LPF COVID-19 (YENI) Negative (Negative) COVID-19 Clin Com See Note 10/17/21 10/17/21 Range/Units 05:20 06:30 WBC (4.8-10.8) X10*3/uL RBC (4.20-5.50) X10*6/uL Hgb (12.0-16.0) g/dl Hct (37.0-47.0) % MCV (80.0-98.0) fL MCH (27.0-33.0) pg MCHC (31.0-35.0) g/dl RDW (11.0-16.0) % Plt Count (160-400) X10*3/uL MPV (9.4-12.3) fL Immature Gran % (Auto) (0.0-0.4) % Neut % (Auto) (45-73) % Lymph % (Auto) (20-40) % [place] % (Auto) (2-11) % Eos % (Auto) (0-4) % Baso % (Auto) (0-2) % Lymph # (Auto) (1.2-4.9) X10*3/uL [place] # (Auto) (0.1-1.2) X10*3/uL Eos # (Auto) (0.0-0.4) X10*3/uL Baso # (Auto) (0.0-0.2) X10*3/uL Abs Immat Gran (auto) (0.00-0.03) X10*3/uL Absolute Neuts (auto) (2.0-8.3) x10*3/uL Absolute Nucleated RBC (0.0-0.012) X10*3/uL Nucleated RBC % (auto) (0.0-0.2) /100WBC D-Dimer High Sensitivty 165 NG/ML VBG pH (7.32-7.43) VBG pCO2 mmHg VBG pO2 mmHg VBG HCO3 (22-26) mmol/L VBG O2 Saturation % VBG Base Excess mmol/L Sodium (135-145) mmol/L Potassium (3.3-5.1) mmol/L Chloride (96-108) mmol/L Carbon Dioxide (22-29) mmol/L Anion Gap (12-20) BUN (9-16) mg/dL Creatinine (0.5-1.4) mg/dL Estim Creat Clear Calc Estimated GFR Random Glucose (60-115) mg/dL Lactic Acid (0.5-2.0) mmol/L Calcium (8.4-10.2) mg/dL Total Bilirubin (0.0-1.0) mg/dL AST (5-31) U/L ALT (0-31) U/L Alkaline Phosphatase (39-117) U/L Troponin I High Sens (<3.5-17.0) ng/L Total Protein (6.5-8.0) g/dL Albumin (3.5-5.0) g/dL Urine Color YELLOW Urine Appearance CLEAR Urine pH 6.0 (5.0-8.0) Ur Specific [place] 1.010 (1.005-1.025) Urine Protein NEG (NEG-TRACE) MG/DL Urine Glucose (UA) NEG (NEG) MG/DL Urine Ketones NEG (NEG) MG/DL Urine Blood NEG (NEG) Urine Nitrite NEG (NEG) Ur Leukocyte Esterase 2+ H (NEG) Urine RBC 1-4 (0) /HPF Urine WBC 5-9 H (0-4) /HPF Ur Squamous Epith Cells 1+ /LPF Urine Bacteria 3+ /LPF Urine Mucus 1+ /LPF COVID-19 (YENI) (Negative) COVID-19 Clin Com ECG Data Attestation: I personally reviewed and interpreted this ECG as follows: Prior ECG tracings: available for review (09/24/2021 ischemic changes noted in anterior distribution without ST elevation) Interpretation: Normal sinus rhythm, HR-82, ischemic changes in the anterior distribution noted, notably ST depressions lead 1/V2/V3 Discharge Plan Discharge Clinical Impression: Dyspnea, Asthma exacerbation, UTI (urinary tract infection), Hypokalemia Patient Disposition: Admitted As Inpatient Prescriptions: No Action prednisone 50 mg tablet 50 mg PO DAILY Qty: 4 RF: 0 fluticasone propionate 44 mcg/actuation HFA aerosol inhaler 1 puff inhalation BID Qty: 10.6 RF: 0 salmeterol 50 mcg/dose blister with device 1 inh inhalation BID Qty: 60 RF: 0 albuterol sulfate 2.5 mg /3 mL (0.083 %) solution for nebulization 2.5 mg inhalation Q4-6H PRN (Reason: shortness of breath or wheezing) Qty: 75 RF: 0 prednisone 20 mg tablet 60 mg PO DAILY 5 Days Qty: 15 RF: 0 albuterol sulfate 90 mcg/actuation HFA aerosol inhaler 2 puff inhalation Q4-6H PRN (Reason: wheezing) Qty: 8.5 RF: 0 fluticasone propion-salmeterol [Advair Diskus] 250-50 mcg/dose blister with device 1 inh inhalation BID Qty: 60 RF: 0 prednisone 20 mg tablet 40 mg PO DAILY Qty: 8 RF: 0 albuterol sulfate 90 mcg/actuation HFA aerosol inhaler 2 puff inhalation Q4-6H PRN (Reason: shortness of breath or wheezing) Qty: 6.7 RF: 0 Incruse Ellipta 62.5 mcg/actuation blister with device 1 inh inhalation DAILY Qty: 7 RF: 0
[2021-10-17] MEDS: Albuterol Sulfate (0.083%) 2.5 MG/3 ML VIAL.NEB 5 MG INHALE (03:59)
[2021-10-17 04:10] LABS: Basophils Percent Auto 0.5 % (0-2); Hemoglobin 13.7 g/dl (12.0-16.0); Imm Gran Abs Auto 0.01 X10*3/uL (0.00-0.03); Imm Gran Pct Auto 0.2 % (0.0-0.4); Mean Corpuscular Volume 98.3 fL (80.0-98.0); Neutrophils Absolute Auto 1.6 x10*3/uL (2.0-8.3); PLT CLUMP 1; Red Cell Distribution Width 12.7 % (11.0-16.0); SCAN SMEAR FLAG 1
[2021-10-17 04:11] LABS: MANUAL DIFF FLAG NO
[2021-10-17 04:12] LABS: Eosinophils Absolute Auto 0.5 X10*3/uL (0.0-0.4); Eosinophils Percent Auto 8.7 % (0-4); Hematocrit 39.6 % (37.0-47.0); Lymphocytes Absolute Auto 3.2 X10*3/uL (1.2-4.9); Lymphocytes Percent Auto 56.3 % (20-40); Mean Corpuscular HGB Conc 34.6 g/dl (31.0-35.0); Mean Platelet Volume 10.2 fL (9.4-12.3); Monocytes Absolute Auto 0.3 X10*3/uL (0.1-1.2); Monocytes Percent Auto 5.9 % (2-11); Neutrophils Percent Auto 28.4 % (45-73); Red Blood Count 4.03 X10*6/uL (4.20-5.50)
[2021-10-17 04:13] LABS: Venous Blood Gas Refer to POC result
[2021-10-17 04:15] LABS: VBG Base Excess -1.2 mmol/L; VBG HCO3 23 mmol/L (22-26); VBG pCO2 38 mmHg; VBG pH 7.39 (7.32-7.43); VBG pO2 53 mmHg
[2021-10-17 04:18] LABS: Platelet Count 124 X10*3/uL (160-400); White Blood Count 5.6 X10*3/uL (4.8-10.8)
[2021-10-17 04:20] LABS: Lactic Acid 1.7 mmol/L (0.5-2.0)
[2021-10-17 04:27] LABS: Alanine Aminotransferase 54 U/L (0-31); Albumin Level 3.5 g/dL (3.5-5.0); Alkaline Phosphatase 121 U/L (39-117); Anion Gap 13 (12-20); Aspartate Amino Transferase 83 U/L (5-31); Bilirubin Total 0.5 mg/dL (0.0-1.0); Blood Urea Nitrogen 4 mg/dL (9-16); Carbon Dioxide 23 mmol/L (22-29); Chloride 112 mmol/L (96-108); Creatinine Clr Calc Pharmacy 69.3; Estimated Glomerular Filt Rate > 60; Glucose Random 118 mg/dL (60-115); Potassium 3.1 mmol/L (3.3-5.1); Sodium 145 mmol/L (135-145); Total Protein 7.2 g/dL (6.5-8.0)
[2021-10-17 04:33] LABS: COVID-19 Test Negative (Negative)
[2021-10-17 05:08] LABS: Troponin-I High Sensitivity 7.3 ng/L (<3.5-17.0)
[2021-10-17 05:37] LABS: D Dimer High Sensitivity 165 NG/ML
[2021-10-17] MEDS: levoFLOXacin/D5W 750 MG/150 ML PIGGYBACK 100 MG IV (05:46)
[2021-10-17] MEDS: Potassium Chloride ER 20 MEQ TAB.ER.PRT 60 MEQ PO (05:46)
[2021-10-17 06:37] LABS: Appearance Urine CLEAR; Color Urine YELLOW; Glucose Urine UA NEG (NEG); Leukocyte Esterase Urine 2+ (NEG); Nitrite Urine NEG (NEG); UACC Culture Trigger YES; Urine Blood NEG (NEG); Urine Ketones NEG (NEG); Urine Protein NEG (NEG-TRACE)
[2021-10-17 06:49] LABS: Bacteria Urine 3+ /LPF; Squamous Epithelial Cell Urine 1+ /LPF
[2021-10-17 06:50] LABS: Mucus Urine 1+ /LPF
--- NOTE | 2021-10-17 07:52 | CA_ITS ---
Transthoracic Echocardiogram Patient (Last, First, Middle): Marion Montanez, Gender: Female Date of : 1965 Age: 56 Procedure Date: 10/17/2021 Procedure Type: Transthoracic Echocardiogram Location[place] [facility] [place] Height: 157.48 cm Weight: 56.7 kg BSA: 1.57 m2 Heart Rate: bpm BP: 154 / 65 mmHg Flat Examiner: Referring MD: Shannan Moscoso MD Symptoms: SOB, tachycardia, EKG changes Study Quality: Good ECG Rhythm: Sinus Conclusions: - Normal left ventricular size and systolic function. - There is no evidence of regional wall motion abnormalities. - Diastolic function is normal for age. - Normal right ventricular cavity size and systolic function. - There is moderate aortic valve regurgitation. Findings Left Ventricle Normal left ventricular size and systolic function. There is mildly increased left ventricular wall thickness. The visually estimated ejection fraction is between 60-65%. There is no evidence of regional wall motion abnormalities. Diastolic function is normal for age. Right Ventricle Normal right ventricular cavity size and systolic function. Atria Both atria are normal in size. Aortic Valve There is a normal trileaflet aortic valve. There is no aortic valve stenosis. There is moderate aortic valve regurgitation. Mitral Valve Normal mitral valve structure and function. There is no mitral valve regurgitation. There is no mitral valve stenosis. Pulmonic Valve The pulmonic valve is likely normal. Tricuspid Valve Normal tricuspid valve structure and function. There is no tricuspid valve regurgitation. Tricuspid regurgitation envelope is inadequate for calculation of right ventricular systolic pressure. Normal right atrial pressure. Great Vessels All visible segments of the aorta are normal in size. Venous The inferior vena cava is normal in size and collapses greater than 50% with inspiration. Pericardium/Pleural There is no evidence of pericardial effusion. Prior Study Comparison No prior study available for comparison. Measurements 2D Linear Measurements IVSd: 0.91 0.6-0.9/0.6-1.0 cm LVIDd: 3.44 3.9-5.3/4.2-5.9 cm LVIDd Index: 2.19 2.4-3.2/2.2-3.1 cm/m2 LVIDs: 2.20 2.0-3.6 cm LVPWd: 1.00 0.7-1.1 cm Ao Root: 2.40 2.1-3.5 cm LA Diam: 2.60 2.7-3.8/3.0-4.0 cm LAIDs Index: 1.66 1.5-2.3 cm/m2 LV Mass: 116.74 67-162/88-224 g LV Mass Index: 74.36 43-95/49-115 g/m2 LVOT Diam: 1.80 3.0+(-)1.3 cm Mitral Valve MV Pk E: 0.61 MV PK A: 0.81 MV Decel Time: 135.00 E/A: 0.80 E'Lateral: 8.27 E'Medial: 6.31 E/E' Med: 9.60 E/E' Lat: 7.40 PHT: 40.00 MVA PHT: 5.50 Decel Davis: 4.51 Aortic Valve AoV Pk Vance: 1.66 AoV Mn Vance: 0.96 AoV VTI: 0.38 AoV Pk Grad: 11.00 Aov Mn Grad: 5.00 VIVIANE Cont.VTI: 1.54 AI Pk Vance: 4.23 AI Davis: 4.00 LVOT LVOT Pk Vance: 1.14 LVOT Mn Vance: 0.66 LVOT VTI: 0.23 LVOT Pk Grad: 5.00 LVOT Mn Grad: 2.00 LVOT Diam: 1.80 LVOT Area: 2.54 Diastolic Function MV Pk E: 0.61 MV Pk A: 0.81 E/A: 0.80 E'Medial: 6.31 E/E' Med: 9.60 E' Laterial: 8.27 E/E' Lat: 7.40 Right Ventricle TAPSE (mm): 24.00 TVS' Vance: 13.00 Tricuspid Valve TR Pk Vance: 2.48 TR Pk Grad: 25.00 Great Vessels Aorta Ao Root-2D: 2.40 2.0-3.7 cm Pulmonary Valve PV Pk Vance: 0.95 Peak PV Grad: 4.00 Updated in Other Vendor System with Status of Final Vasyl Mota MD electronically signed on 10/17/2021 5:45:00 PM with status of Final
[2021-10-17] MEDS: iohexoL 350 MG/ML 100 ML INFUS..BTL IV (08:12)
--- NOTE | 2021-10-17 08:14 | PC.NURSE ---
Pt received this morning from weight shifter. Pt AOx4 NSR and lungs with very mild wheeze- denies any SOB. Pt abd flat with no tenderness.
--- NOTE | 2021-10-17 08:32 | PM.IMHP ---
History of Present Illness Date of Service: 10/17/21 <Davina Oneill NP - Last Filed: 10/17/21 16:07> Attending physician on admission: Lavelle Small <Davina Oneill NP - Last Filed: 10/17/21 16:07> Chief Complaint: shortness of breath <Davina Oneill NP - Last Filed: 10/17/21 16:07> 56-year-old woman presented to the ER with complaints of worsening shortness of breath over the last several days. She was discharged from [facility] on 09/26/2021 and at that time treated for asthma/ COPD exacerbation initially requiring BiPAP in the ICU. She was then transferred to the regular floor and treated with IV steroids bronchodilators and recovered well and was discharged. Apparently, she stated that she ran out of her medications, nameley prednisone. She was not noted to be hypoxic in the ER, no fever or leukocytosis noted. Her potassium was noted to be 3.1 And liver enzymes mildly elevated. Her EKG was noted to be abnormal with depressions in the inferior, lateral and anterior leads However initial troponin was 7.3. In the ER she was given Solu-Medrol, albuterol, Levaquin, oral potassium. She will be admitted for further management and treatment of acute asthma / COPD exacerbation EKG changes. <Davina Oneill NP - Last Filed: 10/17/21 16:07> Review of Systems Review of Systems: Denies any recent fever chills or decrease in appetite respiratory denies any shortness of breath coverage production cardiovascular denies chest pain gastrointestinal denies any dysphagia abdominal pain nausea vomiting or diarrhea genitourinary denies any dysuria frequency or hematuria musculoskeletal denies any joint pain or swelling neuropsych denies any weakness or seizures all other systems reviewed are negative <Davina Oneill NP - Last Filed: 10/17/21 16:07> [facility] Medical History: Medical History Asthma exacerbation COPD (chronic obstructive pulmonary disease) <Davina Oneill NP - Last Filed: 10/17/21 16:07> Pertinent family history: Unknown cardiac disease status <Davina Oneill NP - Last Filed: 10/17/21 16:07> Social History: Social History Household Members: Children Household Members Other:: unknown but pt states lives with family Housing: Apartment Housing Other:: pt not cooperative Do you presently have visiting nurse or other home services: No Unable to assess alcohol history related to: Unknown and Refusing to respond Patient Tobacco Use Status: Former Tobacco user Quit Date: 5 years ago Tobacco use type: Cigarette Substance Use Type: Marijuana service: No Current occupational status: unemployed <Davina Oneill NP - Last Filed: 10/17/21 16:07> Meds Allergies/Adverse reactions: Allergies Allergy/AdvReac Type Severity Reaction Status Date / Time No Known Allergies Allergy Verified 06/19/21 18:15 <Davina Oneill NP - Last Filed: 10/17/21 16:07> Home medications: Home Medications Medication Instructions Recorded Confirmed Last Taken Type multivitamin 1 tab PO DAILY 10/17/21 10/17/21 Unknown History <Davina Oneill NP - Last Filed: 10/17/21 16:07> Physical Exam Vital Signs and Narrative: Vital Signs: Last Vital Signs Temp 97.2 F 10/17/21 08:13 Pulse 82 10/17/21 08:13 Resp 20 10/17/21 08:13 BP 152/70 H 10/17/21 08:13 Pulse Ox 96 10/17/21 08:13 BMI result Body Mass Index 22.8 <Davina Oneill NP - Last Filed: 10/17/21 16:07> Appearing in no acute distress head is normocephalic atraumatic eyes pupils are PERRLA sclera is anicteric mouth throat mucous membranes are intact and moist neck is supple no lymphadenopathy, no JVD noted lung sounds are clear to auscultation heart regular rate rhythm, clear S1, S2 positive bowel sounds, abdomen is soft, nontender neuro patient is alert x3, no focal deficits <Davina Oneill NP - Last Filed: 10/17/21 16:07> Results Labs CBC and Chem 7: : 10/18/21 05:44 10/18/21 05:44 <Davina Oneill NP - Last Filed: 10/17/21 16:07> Labs: Laboratory Results - last 24 hr 10/17/21 10/17/21 10/17/21 04:02 04:02 04:02 MCV 98.3 H MCH 34.0 H MCHC 34.6 RDW 12.7 Plt Count 124 L MPV 10.2 Immature Gran % (Auto) 0.2 Neut % (Auto) 28.4 L Lymph % (Auto) 56.3 H [place] % (Auto) 5.9 Eos % (Auto) 8.7 H Baso % (Auto) 0.5 Lymph # (Auto) 3.2 [place] # (Auto) 0.3 Eos # (Auto) 0.5 H Baso # (Auto) 0.0 Abs Immat Gran (auto) 0.01 Absolute Neuts (auto) 1.6 L Absolute Nucleated RBC 0.000 Nucleated RBC % (auto) 0.0 D-Dimer High Sensitivty VBG pH VBG pCO2 VBG pO2 VBG HCO3 VBG O2 Saturation VBG Base Excess Anion Gap 13 Estim Creat Clear Calc 69.3 Estimated GFR > 60 Random Glucose 118 H Lactic Acid 1.7 Calcium 9.0 Total Bilirubin 0.5 AST 83 H ALT 54 H Alkaline Phosphatase 121 H D Troponin I High Sens Total Protein 7.2 Albumin 3.5 Urine Color Urine Appearance Urine pH Ur Specific [place] Urine Protein Urine Glucose (UA) Urine Ketones Urine Blood Urine Nitrite Ur Leukocyte Esterase Urine RBC Urine WBC Ur Squamous Epith Cells Urine Bacteria Urine Mucus COVID-19 (YENI) COVID-19 Clin Com 10/17/21 10/17/21 10/17/21 04:02 04:07 04:11 MCV MCH MCHC RDW Plt Count MPV Immature Gran % (Auto) Neut % (Auto) Lymph % (Auto) [place] % (Auto) Eos % (Auto) Baso % (Auto) Lymph # (Auto) [place] # (Auto) Eos # (Auto) Baso # (Auto) Abs Immat Gran (auto) Absolute Neuts (auto) Absolute Nucleated RBC Nucleated RBC % (auto) D-Dimer High Sensitivty VBG pH 7.39 VBG pCO2 38 VBG pO2 53 VBG HCO3 23 VBG O2 Saturation 84.0 VBG Base Excess -1.2 Anion Gap Estim Creat Clear Calc Estimated GFR Random Glucose Lactic Acid Calcium Total Bilirubin AST ALT Alkaline Phosphatase Troponin I High Sens 7.3 Total Protein Albumin Urine Color Urine Appearance Urine pH Ur Specific [place] Urine Protein Urine Glucose (UA) Urine Ketones Urine Blood Urine Nitrite Ur Leukocyte Esterase Urine RBC Urine WBC Ur Squamous Epith Cells Urine Bacteria Urine Mucus COVID-19 (YENI) Negative COVID-19 Clin Com See Note 10/17/21 10/17/21 05:20 06:30 MCV MCH MCHC RDW Plt Count MPV Immature Gran % (Auto) Neut % (Auto) Lymph % (Auto) [place] % (Auto) Eos % (Auto) Baso % (Auto) Lymph # (Auto) [place] # (Auto) Eos # (Auto) Baso # (Auto) Abs Immat Gran (auto) Absolute Neuts (auto) Absolute Nucleated RBC Nucleated RBC % (auto) D-Dimer High Sensitivty 165 VBG pH VBG pCO2 VBG pO2 VBG HCO3 VBG O2 Saturation VBG Base Excess Anion Gap Estim Creat Clear Calc Estimated GFR Random Glucose Lactic Acid Calcium Total Bilirubin AST ALT Alkaline Phosphatase Troponin I High Sens Total Protein Albumin Urine Color YELLOW Urine Appearance CLEAR Urine pH 6.0 Ur Specific [place] 1.010 Urine Protein NEG Urine Glucose (UA) NEG Urine Ketones NEG Urine Blood NEG Urine Nitrite NEG Ur Leukocyte Esterase 2+ H Urine RBC 1-4 Urine WBC 5-9 H Ur Squamous Epith Cells 1+ Urine Bacteria 3+ Urine Mucus 1+ COVID-19 (YENI) COVID-19 Clin Com <Davina Oneill NP - Last Filed: 10/17/21 16:07> Imaging Radiologist's Impressions: Impressions Chest X-Ray 10/17/21 05:00 IMPRESSION: No acute cardiopulmonary findings. <Davina Oneill NP - Last Filed: 10/17/21 16:07> Assessment and Plan (1) Abnormal EKG: Status: Acute <Davina Oneill NP - Last Filed: 10/17/21 16:07> (2) Asthma exacerbation: Status: Acute <Davina Oneill NP - Last Filed: 10/17/21 16:07> (3) Hypokalemia: Status: Acute <Davina Oneill NP - Last Filed: 10/17/21 16:07> 48-year-old woman admitted with acute asthma / COPD exacerbation and noted EKG changes Asthma/ COPD exacerbation without hypoxia No expiratory wheezing noted prednisone 40mg daily, continue duo nebs as needed EKG changes. Initial troponin negative however depressions noted to inferior lateral and anterior leads Cardiology consult Echocardiogram pending Hypokalemia Repleted Follow BMP Mild transaminitis Possibly secondary to dehydration Follow DVT prophylaxis with Lovenox Attending Dr. Small Full code <Davina Oneill NP - Last Filed: 10/17/21 16:07> 48-year-old woman admitted with acute asthma / COPD exacerbation and noted EKG changes Asthma/ COPD exacerbation without hypoxia No expiratory wheezing noted prednisone 40mg daily, continue duo nebs as needed EKG changes. Initial troponin negative however depressions noted to inferior lateral and anterior leads Cardiology consult Echocardiogram pending Hypokalemia Repleted Follow BMP Mild transaminitis Possibly secondary to dehydration Follow DVT prophylaxis with Lovenox Attending Dr. Small Full code I personally examined patient and reviewed the documents. I agree with history and physical and plan of care as documented Ms. Oneill [employer] <Lavelle Small, DO - Last Filed: 10/20/21 12:58> Quality Stroke Does the patient have a stroke diagnosis?: No <Davina Oneill NP - Last Filed: 10/17/21 16:07> VTE Prior VTE?: No <Davina Oneill NP - Last Filed: 10/17/21 16:07> VTE Risk Level:: Medical - moderate - high <Davina Oneill NP - Last Filed: 10/17/21 16:07> VTE Device Contraindication: Treatment Not Indicated <Davina Oneill NP - Last Filed: 10/17/21 16:07> VTE Drug Contraindication: N/A - Med Ordered <Davina Oneill NP - Last Filed: 10/17/21 16:07>
[2021-10-17 08:43] LABS: B Type Natriuretic Peptide 203 pg/mL (<100); Troponin-I High Sensitivity 4.6 ng/L (<3.5-17.0)
[2021-10-17] MEDS: Enoxaparin Sodium 40 MG/0.4 ML SYRINGE SUBCUT (09:05)
--- NOTE | 2021-10-17 09:10 | P.CONCA_ITS ---
History of Present Illness History of Present Illness Date of Service: 10/17/21 Requesting physician: Davina Oneill Chief complaint: Asthma exacerbation EKG changes Narrative: Pleasant 56-year-old female who is from [place] and visiting her son here. She ran out of her inhalers and prednisone. Last night she developed sudden onset shortness of breath and came to the emergency department. She smokes marijuana every day. No chest discomfort. Biomarkers were normal but EKG has shown anterior T-wave inversions which are new. She is denying any chest discomfort. She has no shortness of breath. Repeat EKG has not shown any evolution in the EKG changes. We have been asked to assess her for the abnormal EKG. She is currently asymptomatic after inhalers, IV steroids and levofloxacin. EKG sinus rhythm T-wave inversion V1 to V3 and lateral leads. In June 2021 she had EKG performed which had T-wave inversions in V1 V2 but they are more pronounced now. [facility] Past Medical History Medical History Asthma exacerbation COPD (chronic obstructive pulmonary disease) Social History Social History Household Members: Family Household Members Other:: unknown but pt states lives with family Housing: Unknown / Unable to assess Housing Other:: pt not cooperative Unable to assess alcohol history related to: Unknown and Refusing to respond Patient Tobacco Use Status: Current everyday Tobacco user Substance Use Type: Marijuana Advance Directives: No service: No Current occupational status: unemployed Meds Allergies Allergy/AdvReac Type Severity Reaction Status Date / Time No Known Allergies Allergy Verified 06/19/21 18:15 Active Medications: Current Medications Acetaminophen (Acetaminophen 325 Mg Tablet) 650 mg PO Q6H PRN PRN Reason: Pain, Mild (Pain Scale 1-3) Enoxaparin Sodium (Enoxaparin Sodium 40 Mg/0.4 Ml Syringe) 40 mg SUBCUT Q24H [facility] Last Admin: 10/17/21 09:05 Dose: 40 mg Documented by: Ondansetron HCl (Ondansetron Hcl 4 Mg/2 Ml Vial) 4 mg IVPUSH Q8H PRN PRN Reason: Nausea and Vomiting Sodium Chloride (0.9 % Sodium Chloride Flush 3 Ml Syringe) 3 ml IVFLUSH QSHIFT DM[facility] Physical Exam Vital Signs: Vital Signs: Last Vital Signs Temp 97.2 F 10/17/21 08:13 Pulse 82 10/17/21 08:13 Resp 20 10/17/21 08:13 BP 152/70 H 10/17/21 08:13 Pulse Ox 96 10/17/21 08:13 BMI result Body Mass Index 22.8 GENERAL APPEARANCE: in no acute distress, pleasant. NECK: no carotid bruit, no jugular venous distention. SKIN: no suspicious lesions, warm and dry. HEART: no murmurs, regular rate and rhythm. LUNGS: clear to auscultation bilaterally. ABDOMEN: soft, nontender. EXTREMITIES: no edema. PERIPHERAL PULSES: equal. NEUROLOGIC: No gross deficits, AAO X 3 Objective Labs and Meds Result diagrams: 10/17/21 04:02 10/17/21 04:02 Lab results: Laboratory Results - last 24 hr 10/17/21 10/17/21 10/17/21 04:02 04:02 04:02 WBC 5.6 RBC 4.03 L Hgb 13.7 Hct 39.6 MCV 98.3 H MCH 34.0 H MCHC 34.6 RDW 12.7 Plt Count 124 L MPV 10.2 Immature Gran % (Auto) 0.2 Neut % (Auto) 28.4 L Lymph % (Auto) 56.3 H [place] % (Auto) 5.9 Eos % (Auto) 8.7 H Baso % (Auto) 0.5 Lymph # (Auto) 3.2 [place] # (Auto) 0.3 Eos # (Auto) 0.5 H Baso # (Auto) 0.0 Abs Immat Gran (auto) 0.01 Absolute Neuts (auto) 1.6 L Absolute Nucleated RBC 0.000 Nucleated RBC % (auto) 0.0 D-Dimer High Sensitivty VBG pH VBG pCO2 VBG pO2 VBG HCO3 VBG O2 Saturation VBG Base Excess Sodium 145 Potassium 3.1 L D Chloride 112 H Carbon Dioxide 23 Anion Gap 13 BUN 4 L Creatinine 0.70 Estim Creat Clear Calc 69.3 Estimated GFR > 60 Random Glucose 118 H Lactic Acid 1.7 Calcium 9.0 Total Bilirubin 0.5 AST 83 H ALT 54 H Alkaline Phosphatase 121 H D Troponin I High Sens B-Natriuretic Peptide Total Protein 7.2 Albumin 3.5 Urine Color Urine Appearance Urine pH Ur Specific [place] Urine Protein Urine Glucose (UA) Urine Ketones Urine Blood Urine Nitrite Ur Leukocyte Esterase Urine RBC Urine WBC Ur Squamous Epith Cells Urine Bacteria Urine Mucus COVID-19 ([facility]I) COVID-19 Clin Com 10/17/21 10/17/21 10/17/21 04:02 04:07 04:11 WBC RBC Hgb Hct MCV MCH MCHC RDW Plt Count MPV Immature Gran % (Auto) Neut % (Auto) Lymph % (Auto) [place] % (Auto) Eos % (Auto) Baso % (Auto) Lymph # (Auto) [place] # (Auto) Eos # (Auto) Baso # (Auto) Abs Immat Gran (auto) Absolute Neuts (auto) Absolute Nucleated RBC Nucleated RBC % (auto) D-Dimer High Sensitivty VBG pH 7.39 VBG pCO2 38 VBG pO2 53 VBG HCO3 23 VBG O2 Saturation 84.0 VBG Base Excess -1.2 Sodium Potassium Chloride Carbon Dioxide Anion Gap BUN Creatinine Estim Creat Clear Calc Estimated GFR Random Glucose Lactic Acid Calcium Total Bilirubin AST ALT Alkaline Phosphatase Troponin I High Sens 7.3 B-Natriuretic Peptide Total Protein Albumin Urine Color Urine Appearance Urine pH Ur Specific [place] Urine Protein Urine Glucose (UA) Urine Ketones Urine Blood Urine Nitrite Ur Leukocyte Esterase Urine RBC Urine WBC Ur Squamous Epith Cells Urine Bacteria Urine Mucus COVID-19 ([facility]ENI) Negative COVID-19 Clin Com See Note 10/17/21 10/17/21 10/17/21 05:20 06:30 08:15 WBC RBC Hgb Hct MCV MCH MCHC RDW Plt Count MPV Immature Gran % (Auto) Neut % (Auto) Lymph % (Auto) [place] % (Auto) Eos % (Auto) Baso % (Auto) Lymph # (Auto) [place] # (Auto) Eos # (Auto) Baso # (Auto) Abs Immat Gran (auto) Absolute Neuts (auto) Absolute Nucleated RBC Nucleated RBC % (auto) D-Dimer High Sensitivty 165 VBG pH VBG pCO2 VBG pO2 VBG HCO3 VBG O2 Saturation VBG Base Excess Sodium Potassium Chloride Carbon Dioxide Anion Gap BUN Creatinine Estim Creat Clear Calc Estimated GFR Random Glucose Lactic Acid Calcium Total Bilirubin AST ALT Alkaline Phosphatase Troponin I High Sens 4.6 B-Natriuretic Peptide Total Protein Albumin Urine Color YELLOW Urine Appearance CLEAR Urine pH 6.0 Ur Specific [place] 1.010 Urine Protein NEG Urine Glucose (UA) NEG Urine Ketones NEG Urine Blood NEG Urine Nitrite NEG Ur Leukocyte Esterase 2+ H Urine RBC 1-4 Urine WBC 5-9 H Ur Squamous Epith Cells 1+ Urine Bacteria 3+ Urine Mucus 1+ COVID-19 ([facility]) COVID-19 Clin Com 10/17/21 08:15 WBC RBC Hgb Hct MCV MCH MCHC RDW Plt Count MPV Immature Gran % (Auto) Neut % (Auto) Lymph % (Auto) [place] % (Auto) Eos % (Auto) Baso % (Auto) Lymph # (Auto) [place] # (Auto) Eos # (Auto) Baso # (Auto) Abs Immat Gran (auto) Absolute Neuts (auto) Absolute Nucleated RBC Nucleated RBC % (auto) D-Dimer High Sensitivty VBG pH VBG pCO2 VBG pO2 VBG HCO3 VBG O2 Saturation VBG Base Excess Sodium Potassium Chloride Carbon Dioxide Anion Gap BUN Creatinine Estim Creat Clear Calc Estimated GFR Random Glucose Lactic Acid Calcium Total Bilirubin AST ALT Alkaline Phosphatase Troponin I High Sens B-Natriuretic Peptide 203 H Total Protein Albumin Urine Color Urine Appearance Urine pH Ur Specific [place] Urine Protein Urine Glucose (UA) Urine Ketones Urine Blood Urine Nitrite Ur Leukocyte Esterase Urine RBC Urine WBC Ur Squamous Epith Cells Urine Bacteria Urine Mucus COVID-19 ([facility]I) COVID-19 Clin Com Imaging Radiologist's impression: Impressions Chest X-Ray 10/17/21 05:00 IMPRESSION: No acute cardiopulmonary findings. Chest CTA 10/17/21 08:17 IMPRESSION: No evidence of pulmonary embolism. 2 cm nonspecific subcutaneous nodule in the left upper anterior chest/shoulder. VTE: negative Assessment and Plan (1) Asthma exacerbation: Status: Acute (2) Dyspnea: Status: Acute (3) Abnormal EKG: Status: Acute 56-year-old female who is presenting for shortness of breath likely due to lung disease. She has received steroids and inhalers and has been feeling better. Blood pressure is mildly elevated. She has anterior and lateral T-wave inversions. She has no symptoms with these EKG changes present. EKG is not involving on serial testing. Last EKG had tachycardia but these changes were not noted. EKG from June is showing anterior T-wave inversion but they are not as pronounced as they are now. Differentials were these include anterior ischemia, pulmonary embolism, pulmonary hypertension and RV dysfunction and takotsubo cardiomyopathy which is quite commonly seen with lung disease. She is currently asymptomatic. Her biomarkers are completely normal. I will check an echocardiogram to see if there is any wall motion abnormality. If she does have wall motion abnormality then I will consider heparin drip. CT pulmonary angiogram did not show any pulmonary embolism. There was mild coronary calcification noted. We will follow along with you. Thank you for allowing me to participate in the care of your patient. Please feel free to contact me if you have any questions. Procedures Date of Service Date of Service: 10/17/21
--- NOTE | 2021-10-17 09:55 | PC.NURSE ---
Pt asked on multiple occasions if she would like a breakfast tray- pt refused. Pt given water as per request. RN will continue to monitor.
--- NOTE | 2021-10-17 10:24 | PHA.MEDREC ---
Pharmacy Consult ? Medication Reconciliation Pharmacy has completed the medication reconciliation. Spoke with patient in ED. She had prescriptions with her for Incruse, prednisone and albuterol HFA. She fills her medications at [facility] in [place], [place]. Patient also reports being on a blood pressure medication. Called pharmacy and the only blood pressure medication that was filled was amlodipine 2.5 mg for a 30 day supply on 04/29/21.
[2021-10-17] MEDS: Albuterol/Iprat 2.5/0.5MG 3 ML AMPUL.NEB INHALE (14:32)
--- NOTE | 2021-10-17 15:47 | P.EN_ITS ---
Event Note Date of Service: 10/17/21 Event Note: I have personally seen and examined pt. I reviewed labs/records, Recent [place] [facility] [place] asthma exacerbation presents with similar complaints. Agree with History/Pysical and plan as documented by Ms. Nino ROBERTS.
--- NOTE | 2021-10-17 17:38 | PC.NURSE ---
Pt asked during lunch hours if she would like a lunch tray, however pt continued to refuse. Pt continued to state she only wants water. Pt made aware if she is hungry she can eat something. Rn will continue to monitor.
--- NOTE | 2021-10-17 17:39 | PC.NURSE ---
CECILIA Wallis made this RN aware that pt stated to him that she would like food and that no one got her any from this morning. However, pt was made aware on multiple occasions that she could eat but she continued to refuse. Dinner tray now being ordered at this time.
[2021-10-18] VITALS (11 sets, daily range): BP systolic 127–178; BP diastolic 55–87; PULSE 62–96; RESP 14–20; TEMP 36.4–37.1; O2SAT 94–100; BMI 19.7
[2021-10-18 05:57] LABS: Basophils Percent Auto 0.2 % (0-2); Imm Gran Abs Auto 0.03 X10*3/uL (0.00-0.03); Imm Gran Pct Auto 0.4 % (0.0-0.4); Mean Corpuscular Hemoglobin 33.5 pg (27.0-33.0); PLT CLUMP 1; SCAN SMEAR FLAG 1
[2021-10-18 05:59] LABS: Eosinophils Absolute Auto 0.1 X10*3/uL (0.0-0.4); Eosinophils Percent Auto 0.6 % (0-4); Hematocrit 38.7 % (37.0-47.0); Hemoglobin 13.4 g/dl (12.0-16.0); Lymphocytes Absolute Auto 3.4 X10*3/uL (1.2-4.9); Lymphocytes Percent Auto 41.1 % (20-40); Mean Corpuscular HGB Conc 34.6 g/dl (31.0-35.0); Mean Corpuscular Volume 96.8 fL (80.0-98.0); Mean Platelet Volume 10.6 fL (9.4-12.3); Monocytes Absolute Auto 0.6 X10*3/uL (0.1-1.2); Monocytes Percent Auto 6.9 % (2-11); Neutrophils Absolute Auto 4.3 x10*3/uL (2.0-8.3); Neutrophils Percent Auto 50.8 % (45-73); Red Cell Distribution Width 12.2 % (11.0-16.0)
[2021-10-18 06:01] LABS: MANUAL DIFF FLAG NO; Platelet Count 129 X10*3/uL (160-400); White Blood Count 8.4 X10*3/uL (4.8-10.8)
[2021-10-18 06:13] LABS: Anion Gap 12 (12-20); Blood Urea Nitrogen 8 mg/dL (9-16); Calcium 9.4 mg/dL (8.4-10.2); Carbon Dioxide 24 mmol/L (22-29); Chloride 105 mmol/L (96-108); Creatinine Clr Calc Pharmacy 65.7; Estimated Glomerular Filt Rate > 60; Glucose Random 128 mg/dL (60-115); Potassium 3.4 mmol/L (3.3-5.1); Sodium 138 mmol/L (135-145)
[2021-10-18] MEDS: Albuterol/Iprat 2.5/0.5MG 3 ML AMPUL.NEB INHALE ×3 (07:35→15:35)
[2021-10-18] MEDS: predniSONE 20 MG TABLET 40 MG PO (07:56)
[2021-10-18] MEDS: amLODIPine Besylate 2.5 MG TABLET PO (07:56)
[2021-10-18] MEDS: Multivitamin TABLET 1 TAB PO (07:56)
[2021-10-18] MEDS: 0.9 % Sodium Chloride Flush 3 ML SYRINGE IVFLUSH ×3 (07:57→23:05)
--- NOTE | 2021-10-18 09:04 | HO.PM.IMPN ---
Subjective Subjective Date of Service: 10/18/21 <Davina Oneill NP - Last Filed: 10/18/21 18:08> 10/21/21 <Lavelle Small DO - Last Filed: 10/21/21 12:48> Review of Systems follow-up asthma exacerbation, EKG changes No shortness of breath still with cough and wheezing Denies chest pain, nausea, vomiting, diarrhea All other systems are reviewed and are negative <Davina Oneill NP - Last Filed: 10/18/21 18:08> Physical Exam Vital Signs: Vital Signs: Last Vital Signs Temp 98.7 F 10/18/21 08:00 Pulse 74 10/18/21 08:00 Resp 18 10/18/21 08:00 BP 178/79 H 10/18/21 08:00 Pulse Ox 96 10/18/21 08:00 BMI result Body Mass Index 19.7 <Davina Oneill NP - Last Filed: 10/18/21 18:08> Appearing in no acute distress lung sounds expiratory wheezing heart regular rate rhythm, clear S1, S2 positive bowel sounds, abdomen is soft, nontender neuro patient is alert x3, no focal deficits <Davina Oneill NP - Last Filed: 10/18/21 18:08> Objective Data Active Medications Acetaminophen (Acetaminophen 325 Mg Tablet) 650 mg PO Q6H PRN PRN Reason: Pain, Mild (Pain Scale 1-3) Albuterol/Ipratropium (Albuterol/Iprat 2.5/0.5mg 3 Ml Ampul.Neb) 3 ml INHALE RQ4H WHILE AWAKE [facility] Amlodipine Besylate (Amlodipine Besylate 2.5 Mg Tablet) 2.5 mg PO DAILY [facility]; Protocol Last Admin: 10/18/21 07:56 Dose: 2.5 mg Documented by: SHONDA Enoxaparin Sodium (Enoxaparin Sodium 40 Mg/0.4 Ml Syringe) 40 mg SUBCUT Q24H [facility] Last Admin: 10/18/21 08:05 Dose: Not Given Documented by: SHONDA Non-Admin Reason: Patient Refused Methylprednisolone Sodium Succinate (Methylprednisolone Sod Succ 40 Mg/Ml Vial) 40 mg IVPUSH Q8H [facility] Multivitamins/Vitamin C (Multivitamin Tablet) 1 tab PO DAILY [facility] Last Admin: 10/18/21 07:56 Dose: 1 tab Documented by: SHONDA Non-Formulary Medication (Umeclidinium [Incruse Ellipta]) 1 inhalation INHALE DAILY [facility] Ondansetron HCl (Ondansetron Hcl 4 Mg/2 Ml Vial) 4 mg IVPUSH Q8H PRN PRN Reason: Nausea and Vomiting Sodium Chloride (0.9 % Sodium Chloride Flush 3 Ml Syringe) 3 ml IVFLUSH QSHIFT [facility] Last Admin: 10/18/21 07:57 Dose: 3 ml Documented by: SHONDA <Davina Oneill NP - Last Filed: 10/18/21 18:08> Labs CBC & Chem 7: : 10/18/21 05:44 10/18/21 05:44 <Davina Oneill NP - Last Filed: 10/18/21 18:08> Labs: Laboratory Results - last 24 hr 10/18/21 10/18/21 05:44 05:44 MCV 96.8 MCH 33.5 H MCHC 34.6 RDW 12.2 Plt Count 129 L MPV 10.6 Immature Gran % (Auto) 0.4 Neut % (Auto) 50.8 Lymph % (Auto) 41.1 H [place] % (Auto) 6.9 Eos % (Auto) 0.6 Baso % (Auto) 0.2 Lymph # (Auto) 3.4 [place] # (Auto) 0.6 Eos # (Auto) 0.1 Baso # (Auto) 0.0 Abs Immat Gran (auto) 0.03 Absolute Neuts (auto) 4.3 Absolute Nucleated RBC 0.000 Nucleated RBC % (auto) 0.0 Anion Gap 12 Estim Creat Clear Calc 65.7 Estimated GFR > 60 Random Glucose 128 H Calcium 9.4 <Davina Oneill NP - Last Filed: 10/18/21 18:08> Microbiology Microbiology Results: Microbiology 10/17/21 04:44 Blood Culture - Preliminary Blood - Venous No growth after 24 hours. 10/17/21 04:11 Blood Culture - Preliminary Blood - Venous No growth after 24 hours. <Davina Oneill NP - Last Filed: 10/18/21 18:08> Assessment and Plan (1) Abnormal EKG: Status: Acute <Davina Oneill NP - Last Filed: 10/18/21 18:08> (2) Asthma exacerbation: Status: Acute <Davina Oneill NP - Last Filed: 10/18/21 18:08> (3) Hypokalemia: Status: Acute <Davina Oneill NP - Last Filed: 10/18/21 18:08> (4) UTI (urinary tract infection): Status: Acute <Davina Oneill NP - Last Filed: 10/18/21 18:08> Assessment and Plan: 48-year-old woman admitted with acute asthma / COPD exacerbation and noted EKG changes Asthma/ COPD exacerbation without hypoxia expiratory wheezes noted Will switch to IV Solu-Medrol Continue duo nebs every 4 hours while awake Supplemental oxygen as needed EKG changes.? Initial troponin negative however depressions noted to inferior lateral and anterior leads normal echocardiogram with no wall motion abnormalities and normal EF Pending cardiology input Hypokalemia. Resolved Repleted Follow BMP UTI. Mild Treat with Rocephin for now Follow urine culture Mild transaminitis Possibly secondary to dehydration Follow DVT prophylaxis with Lovenox Attending Dr. Small Full code <Davina Oneill NP - Last Filed: 10/18/21 18:08> 48-year-old woman admitted with acute asthma / COPD exacerbation and noted EKG changes Asthma/ COPD exacerbation without hypoxia expiratory wheezes noted Will switch to IV Solu-Medrol Continue duo nebs every 4 hours while awake Supplemental oxygen as needed EKG changes.? Initial troponin negative however depressions noted to inferior lateral and anterior leads normal echocardiogram with no wall motion abnormalities and normal EF Pending cardiology input Hypokalemia. Resolved Repleted Follow BMP UTI. Mild Treat with Rocephin for now Follow urine culture Mild transaminitis Possibly secondary to dehydration Follow DVT prophylaxis with Lovenox Attending Dr. Small Full code I have personally examined patient and review chart. Agree with history physical and plan as outlined by Ms. Nino ROBERTS <Lavelle Small DO - Last Filed: 10/21/21 12:48> Quality Stroke Does the patient have a stroke diagnosis?: No <Davina Oneill NP - Last Filed: 10/18/21 18:08> VTE Prior VTE?: No <Davina Oneill NP - Last Filed: 10/18/21 18:08> VTE Risk Level:: Medical - moderate - high <Davina Oneill NP - Last Filed: 10/18/21 18:08> VTE Device Contraindication: Treatment Not Indicated <Davina Oneill NP - Last Filed: 10/18/21 18:08> VTE Drug Contraindication: N/A - Med Ordered <Davina Oneill NP - Last Filed: 10/18/21 18:08>
--- NOTE | 2021-10-18 09:56 | P.PNCA_ITS ---
Subjective Subjective Date of Service: 10/18/21 Interval history: She has wheezing. She is saying her breathing is improving. Blood pressure is elevated. Physical Exam Vital Signs: Last Vital Signs Temp 98.7 F 10/18/21 08:00 Pulse 74 10/18/21 08:00 Resp 18 10/18/21 08:00 BP 178/79 H 10/18/21 08:00 Pulse Ox 96 10/18/21 08:00 BMI result Body Mass Index 19.7 GENERAL APPEARANCE: in no acute distress, pleasant. NECK: no carotid bruit, no jugular venous distention. SKIN: no suspicious lesions, warm and dry. HEART: no murmurs, regular rate and rhythm. LUNGS: Mild expiratory wheezes. ABDOMEN: soft, nontender. EXTREMITIES: no edema. PERIPHERAL PULSES: equal. NEUROLOGIC: No gross deficits, AAO X 3 Objective Labs and Meds Result diagrams: 10/18/21 05:44 10/18/21 05:44 Lab results: Laboratory Results - last 24 hr 10/18/21 10/18/21 05:44 05:44 WBC 8.4 RBC 4.00 L Hgb 13.4 Hct 38.7 MCV 96.8 MCH 33.5 H MCHC 34.6 RDW 12.2 Plt Count 129 L MPV 10.6 Immature Gran % (Auto) 0.4 Neut % (Auto) 50.8 Lymph % (Auto) 41.1 H [place] % (Auto) 6.9 Eos % (Auto) 0.6 Baso % (Auto) 0.2 Lymph # (Auto) 3.4 [place] # (Auto) 0.6 Eos # (Auto) 0.1 Baso # (Auto) 0.0 Abs Immat Gran (auto) 0.03 Absolute Neuts (auto) 4.3 Absolute Nucleated RBC 0.000 Nucleated RBC % (auto) 0.0 Sodium 138 Potassium 3.4 Chloride 105 Carbon Dioxide 24 Anion Gap 12 BUN 8 L D Creatinine 0.72 Estim Creat Clear Calc 65.7 Estimated GFR > 60 Random Glucose 128 H Calcium 9.4 Progress Note: A&P Assessment and plan (1) Abnormal EKG: Status: Acute (2) Dyspnea: Status: Acute Assessment and Plan: 56-year-old female with asthma exacerbation. She was noted to have precordial T-wave inversions which are new. Biomarkers are normal. No wall motion abnormality. Reviewing old EKGs she had some precordial T-wave changes but these are more pronounced than before. She has risk factors for coronary artery disease. Right now clinical story does not sound like acute coronary syndrome and it appears she presented for asthma as main reason because she ran out of her inhalers and was smoking. Keep her NPO after midnight. If she is stable in the morning and not wheezing we will do exercise stress test. Thank you for allowing me to participate in the care of your patient. Please feel free to contact me if you have any questions. Fall Risk Details Current Medications: Current Medications Acetaminophen (Acetaminophen 325 Mg Tablet) 650 mg PO Q6H PRN PRN Reason: Pain, Mild (Pain Scale 1-3) Albuterol/Ipratropium (Albuterol/Iprat 2.5/0.5mg 3 Ml Ampul.Neb) 3 ml INHALE RQ4H WHILE AWAKE [facility] Amlodipine Besylate (Amlodipine Besylate 2.5 Mg Tablet) 2.5 mg PO DAILY [facility]; Protocol Last Admin: 10/18/21 07:56 Dose: 2.5 mg Documented by: Enoxaparin Sodium (Enoxaparin Sodium 40 Mg/0.4 Ml Syringe) 40 mg SUBCUT Q24H [facility] Last Admin: 10/18/21 08:05 Dose: Not Given Documented by: Ceftriaxone Sodium 1 gm/ (Sodium Chloride) 50 mls @ 100 mls/hr IV Q24H [facility] Methylprednisolone Sodium Succinate (Methylprednisolone Sod Succ 40 Mg/Ml Vial) 40 mg IVPUSH Q8H [facility] Multivitamins/Vitamin C (Multivitamin Tablet) 1 tab PO DAILY [facility] Last Admin: 10/18/21 07:56 Dose: 1 tab Documented by: Non-Formulary Medication (Umeclidinium [Incruse Ellipta]) 1 inhalation INHALE DAILY [facility] Ondansetron HCl (Ondansetron Hcl 4 Mg/2 Ml Vial) 4 mg IVPUSH Q8H PRN PRN Reason: Nausea and Vomiting Sodium Chloride (0.9 % Sodium Chloride Flush 3 Ml Syringe) 3 ml IVFLUSH QSHIFT [facility] Last Admin: 10/18/21 07:57 Dose: 3 ml Documented by: Time Spent With Patient Time: Total time spent is greater than 50% in coordination of care (as docu mented) at patient's floor/unit and/or counseling patient: Time with patient: 15 - 24 minutes Progress Note: Quality Stroke Does the patient have a stroke diagnosis?: No Procedures Date of Service Date of Service: 10/18/21
--- NOTE | 2021-10-18 10:29 | MHC.CM.PN ---
Patient lives in [place]. She is in [facility] helping family because her aunt and she is contributing helping clear out her aunt's home. Goal is to be completed by the first of the year and back home by November 07, 2021. At baseline she is independent; no prior services or equipment, she does not drive. Her son is here with her and will be providing transportation back to the home where they are staying at this time. She also is utilizing the [facility] in [place] for her medications for the duration of her stay. Goal is to undergo a stress test tomorrow 10/19/21 and the D/C via son should all be clear. CM to follow.
[2021-10-18] MEDS: cefTRIAXone sodium 1 GM in 0.9 % Sodium Chloride 50 ML IV (11:02)
[2021-10-18] MEDS: methylPREDNISolone Sod Succ 40 MG/ML VIAL IVPUSH ×3 (11:02→23:07)
[2021-10-18] MEDS: Acetaminophen 325 MG TABLET 650 MG PO (23:04)
--- NOTE | 2021-10-19 | CA_ITS ---
Acquisition Time: 2021-10-19 12:17:42 Total Exercise Time: 00:02:56 Test Indications: SOB Medications: Protocol: DAVID Max HR: 151 BPM 93% of Pred: 162 BPM Max BP: 172/074 mmHG Max Work Load: 4.6 METS Exercise stress test with exercise 2 min 56 sec of David protocol, with report of Left lower leg aching and need to stop exercise, with mild sob, no chest discomfort, with rare isolated PVC, with normotensive and brisk chronotropic response to exercise, with T wave inversions leads I, aVL, V1-V4 at baseline, no new ischemic changes at peak exercise, then with borderline ST depression noted V3-V6 in recovery. EKG tracings and report reviewed with Dr Marie Referred By: Bee Griffin Overread By: BEE GRIFFIN
[2021-10-19 03:16] VITALS: BP 154/78; PULSE 67; RESP 15; TEMP 36.6; O2SAT 95
[2021-10-19 07:15] VITALS: BP 160/77; PULSE 84; RESP 18; TEMP 37; O2SAT 98
--- NOTE | 2021-10-19 09:05 | P.DS_ITS ---
DS: Providers Provider Date of Service: 10/19/21 <Davina Oneill NP - Last Filed: 10/19/21 15:04> Date of admission: 10/17/21 08:31 <Davina nOeill NP - Last Filed: 10/19/21 15:04> Primary care physician: Nonstaff Physician <Davina Oneill NP - Last Filed: 10/19/21 15:04> Consults: 10/17/21 08:30 Consult to Cardiology Routine Consulting Provider: Vasyl Mota Reason for consultation: EKG changes Has provider been notified: No <Davina Oneill NP - Last Filed: 10/19/21 15:04> Attending physician on discharge: Dajuan Garcia <Davina Oneill NP - Last Filed: 10/19/21 15:04> Discharging clinician: Davina Oneill <Davina Oneill NP - Last Filed: 10/19/21 15:04> DS: Diagnosis Discharge Diagnosis (1) Abnormal EKG: Status: Acute <Davina Oneill NP - Last Filed: 10/19/21 15:04> (2) Asthma exacerbation: Status: Acute <Davina Oneill NP - Last Filed: 10/19/21 15:04> DS: Summary Hospital Course Hospital Course: 56-year-old woman presented to the ER with complaints of worsening shortness of breath over the last several days.? She was discharged from [facility] on 09/26/2021 and at that time treated for asthma/ COPD exacerbation initially requiring BiPAP in the ICU.? She was then transferred to the regular floor and treated with IV steroids bronchodilators and recovered well and was discharged.? Apparently, she stated that she ran out of her medications, nameley prednisone. She was not noted to be hypoxic in the ER, no fever or leukocytosis noted.? Her potassium was noted to be 3.1? And liver enzymes mildly elevated.? Her EKG was noted to be abnormal with depressions in the inferior, lateral and anterior leads? However initial troponin was 7.3.? In the ER she was given Solu-Medrol, albuterol, Levaquin, oral potassium.? She will be admitted for further management and treatment of acute asthma / COPD exacerbation EKG changes. Asthma exacerbation. Treated with IV solumedrol and schedule duonebs. Asthma symptoms improved. She will be sent home with 4 days of prednisone and albuterol inhalor. Abnormal EKG. She had no complaints of chest pain however she had an abnormal EKG with precoridal twave inversions with normal cardiac biomarkers. Echocardiogram showed normal EF and no wall motion abnormalites. She had an exercise stress test with no chest discomfort, rare PVCs, 2 wave inversion to leads 1 aVL V1 through V4 at baseline with no ischemic changes at peak exercise. She will be sent home with aspirin, statin and metoprolol. She can follow-up with the Cardiology office on an outpatient basis. <Davina Oneill NP - Last Filed: 10/19/21 15:04> Time Spent with Patient Time attestation: Total time spent providing and/or coordinating discharge services: <ARMANDO Levin Last Filed: 10/19/21 15:04> Discharge coordination time: Greater than 30 minutes <Davina Oneill NP - Last Filed: 10/19/21 15:04> Quality: Stroke Does the patient have a stroke diagnosis?: No <ARMANDO Levin Last Filed: 10/19/21 15:04> Physical Exam Vital Signs: Vital Signs: Last Vital Signs Temp 98.6 F 10/19/21 07:15 Pulse 84 10/19/21 07:15 Resp 18 10/19/21 07:15 BP 160/77 H 10/19/21 07:15 Pulse Ox 98 10/19/21 07:15 BMI result Body Mass Index 19.7 <ARMANDO Levin Last Filed: 10/19/21 15:04> Appearing in no acute distress head is normocephalic atraumatic eyes pupils are PERRLA sclera is anicteric mouth throat mucous membranes are intact and moist neck is supple no lymphadenopathy, no JVD noted lung sounds are clear to auscultation heart regular rate rhythm, clear S1, S2 positive bowel sounds, abdomen is soft, nontender neuro patient is alert x3, no focal deficits <ARMANDO Levin Last Filed: 10/19/21 15:04> DS: Data Data Completed and Pending Completed studies during hospitalization [Text1]: Procedures Assistance with Respiratory Ventilation, Less than 24 Consecutive Hours, Continuous Positive Airway Pressure (09/24/21) <ARMANDO Levin Last Filed: 10/19/21 15:04> Labs on day of discharge: Preliminary micro results at discharge 10/17/21 04:44 Blood Culture - Preliminary Blood - Venous No growth after 48 hours. 10/17/21 04:11 Blood Culture - Preliminary Blood - Venous No growth after 48 hours. <Davina Oneill NP - Last Filed: 10/19/21 15:04> Discharge Plan Discharge Anticipated Discharge Date/Time: 10/19/21 14:27 <Davina Oneill NP - Last Filed: 10/19/21 15:04> Patient Disposition: Home, Self-Care <Davina Oneill NP - Last Filed: 10/19/21 15:04> Discharge Diagnosis: Asthma exacerbation Abnormal EKG <Davina Oneill NP - Last Filed: 10/19/21 15:04> Asthma exacerbation Abnormal EKG <Dajuan Garcia MD - Last Filed: 10/20/21 09:33> Referrals: Physician,Nonstaff [Primary Care Provider] - 1 Week Cedrick Marie MD [Physician] - 1 Week <Davina Oneill NP - Last Filed: 10/19/21 15:04> Discharge Medications: New amlodipine 5 mg Tablet 5 mg PO DAILY Qty: 30 RF: 0 prednisone 10 mg tablet 40 mg PO DAILY Qty: 16 RF: 0 aspirin 81 mg tablet,chewable 81 mg PO DAILY Qty: 30 RF: 0 metoprolol succinate 25 mg tablet extended release 24 hr 25 mg PO DAILY Qty: 30 RF: 0 atorvastatin [Lipitor] 40 mg tablet 40 mg PO BEDTIME Qty: 30 RF: 0 Continued multivitamin Tablet 1 tab PO DAILY RF: 0 albuterol sulfate 2.5 mg /3 mL (0.083 %) solution for nebulization 2.5 mg inhalation Q4-6H PRN (Reason: shortness of breath or wheezing) Qty: 75 RF: 0 albuterol sulfate 90 mcg/actuation HFA aerosol inhaler 2 puff inhalation Q4-6H PRN (Reason: wheezing) Qty: 8.5 RF: 0 Incruse Ellipta 62.5 mcg/actuation blister with device 1 inh inhalation DAILY Qty: 7 RF: 0 Discontinued prednisone 20 mg tablet 40 mg PO DAILY Qty: 8 RF: 0 amlodipine 2.5 mg Tablet 2.5 mg PO DAILY RF: 0 <Davina Oneill NP - Last Filed: 10/19/21 15:04> Discharge Orders: Discharge Order (Routine); Ordered 10/19/21 Ordered By: Davina Oneill <Davina Oneill NP - Last Filed: 10/19/21 15:04> Diet: advance to usual diet <Davina Oneill NP - Last Filed: 10/19/21 15:04> advance to usual diet <Dajuan Garcia MD - Last Filed: 10/20/21 09:33> Activity on Discharge: As tolerated <Davina Oneill NP - Last Filed: 10/19/21 15:04> As tolerated <Dajuan Garcia MD - Last Filed: 10/20/21 09:33> Stand Alone Forms: Patient Portal Discharge page <Davina Oneill NP - Last Filed: 10/19/21 15:04> Care Plan Goals: Complete resolution of symptoms <Davina Oneill NP - Last Filed: 10/19/21 15:04> Health Concerns: Asthma exacerbation Abnormal EKG <Davina Oneill NP - Last Filed: 10/19/21 15:04> Plan of Treatment: Follow up with your primary care provider as needed Follow up with cardiology office, Dr. Marie for further cardiac workup <Davina Oneill NP - Last Filed: 10/19/21 15:04> Assessment: See discharge summary Attending Attestation: I have personally seen and examined the patient independently (on the date of service as documented by NPP), reviewed the NPP history, exam and?MDM and agree with the assessment and plan as?written Patient to f/u with cardiology in the next few days for stress testing. She is aware of the risks of not doing so including possible PA and even . <Davina Oneill NP - Last Filed: 10/19/21 15:04> Discharge Date/Time: 10/19/21 16:56 <Davina Oneill NP - Last Filed: 10/19/21 15:04>
[2021-10-19 09:34] VITALS: BP 160/77; PULSE 84
[2021-10-19] MEDS: Multivitamin TABLET 1 TAB PO (09:34)
[2021-10-19] MEDS: amLODIPine Besylate 5 MG TABLET PO (09:34)
[2021-10-19] MEDS: methylPREDNISolone Sod Succ 40 MG/ML VIAL IVPUSH ×2 (09:35→16:05)
[2021-10-19] MEDS: Enoxaparin Sodium 40 MG/0.4 ML SYRINGE SUBCUT (09:35)
[2021-10-19] MEDS: 0.9 % Sodium Chloride Flush 3 ML SYRINGE IVFLUSH ×2 (09:36→16:06)
[2021-10-19 11:06] VITALS: BP 159/85; PULSE 66; RESP 18; TEMP 36; O2SAT 98
--- NOTE | 2021-10-19 13:20 | MHC.CLN ---
PT REPORTED HER UBW 120# BUT PT COULD NOT REMEMBER HOW LONG AGO SHE MAY HAVE LOST THE WT PT ALSO STATED HER WT TENDS TO FLUCTUATE FREQUENTLY NO CHANGES IN APPETITE PT REQUESTING HER LUNCH MEAL UPON INTERVIEW PT RECEPTIVE TO ENSURE BID IN STRAWBERRY FLAVOR WILL ADD ENSURE BID
--- NOTE | 2021-10-19 14:40 | MHC.CM.PN ---
Patient has been medically cleared for dc to home today, no services.
--- NOTE | 2021-10-19 15:02 | PM.PNCARD ---
Subjective Subjective Date of Service: 10/19/21 <YOJANA Nunn - Last Filed: 10/19/21 15:13> 10/19/21 <Cedrick Marie MD - Last Filed: 10/19/21 17:16> Principal diagnosis: abnormal EKG <YOJANA Nunn - Last Filed: 10/19/21 15:13> Interval history: Cardiology follow up for abn EKG. Seen at 1130. Today she reports feeling fine and frustrated over being NPO this am for stress test. No chest pains, sob, palpitation. Has been up walking in room. <YOJANA Nunn - Last Filed: 10/19/21 15:13> Review of Systems Review of Systems as above <YOJANA Nunn - Last Filed: 10/19/21 15:13> Yes all other systems are reviewed and are negative <YOJANA Nunn - Last Filed: 10/19/21 15:13> Physical Exam Vital Signs: Last Vital Signs Temp 96.8 F 10/19/21 11:06 Pulse 66 10/19/21 11:06 Resp 18 10/19/21 11:06 BP 159/85 H 10/19/21 11:06 Pulse Ox 98 10/19/21 11:06 BMI result Body Mass Index 19.7 <YOJANA Nunn - Last Filed: 10/19/21 15:13> Const General: cooperative, healthy appearing, no acute distress, alert and awake <YOJANA Nunn - Last Filed: 10/19/21 15:13> Orientation/consciousness: patient oriented x3 <YOJANA Nunn - Last Filed: 10/19/21 15:13> Neck Neck: Yes normal visual inspection and Yes no JVD <YOJANA Nunn - Last Filed: 10/19/21 15:13> Resp Effort & Inspection: normal respiratory effort, able to speak in complete sentences and not labored <YOJANA Nunn - Last Filed: 10/19/21 15:13> Auscultation: clear to auscultation bilaterally, no crackles, no rales, no rhonchi and no wheezes <LEXI NunnC - Last Filed: 10/19/21 15:13> Cardio Palpation: normal PMI <LEXI NunnC - Last Filed: 10/19/21 15:13> Rate: regular rate <LEXI NunnC - Last Filed: 10/19/21 15:13> Rhythm: regular rhythm <YOJANA Nunn - Last Filed: 10/19/21 15:13> Heart sounds: S1 normal heart sound present and S2 normal heart sound present <LEXI NunnC - Last Filed: 10/19/21 15:13> Peripheral pulses: Peripheral pulses 2+ throughout <LEXI NunnC - Last Filed: 10/19/21 15:13> GI Inspection: Yes normal to inspection <YOJANA Nunn - Last Filed: 10/19/21 15:13> Neuro General: patient oriented x3 <YOJANA Nunn - Last Filed: 10/19/21 15:13> Extrem General: Yes normal to inspection and No edema <LEXI NunnC - Last Filed: 10/19/21 15:13> Objective Labs and Meds Result diagrams: : 10/18/21 05:44 10/18/21 05:44 <YOJANA Nunn - Last Filed: 10/19/21 15:13> Progress Note: A&P Assessment and plan (1) Abnormal EKG: Status: Acute <YOJANA Nunn - Last Filed: 10/19/21 15:13> Assessment and Plan: Admit with asthma exacerbation. EKG noted to have T wave inversions anteriorly. Prior EKG also had T wave abnormality but not as pronounced. Troponins normal. No reports of CP. CTA of chest neg for PE. Echo shows EF 60-65%, no regional WMA, mod AR. Had ETT today and exercised just under 3 min with report of left leg pains and need to stop. No chest pains, mild sob. EKGs do have borderline ischemic changes V3-V6. Will start her on Aspirin 81mg daily, Metoprolol xl 25mg daily. Statin recommeneded, no Lipids are seen in the system. She can be discharged from a cardiology perspective. We will arrange for outpt pharm nuclear stress test and cardiology follow up. Pt informed of plan. <YOJANA Nunn - Last Filed: 10/19/21 15:13> Admit with asthma exacerbation. EKG noted to have T wave inversions anteriorly. Prior EKG also had T wave abnormality but not as pronounced. Troponins normal. No reports of CP. CTA of chest neg for PE. Echo shows EF 60-65%, no regional WMA, mod AR. Had ETT today and exercised just under 3 min with report of left leg pains and need to stop. No chest pains, mild sob. EKGs do have borderline ischemic changes V3-V6. Will start her on Aspirin 81mg daily, Metoprolol xl 25mg daily. Statin recommeneded, no Lipids are seen in the system. She can be discharged from a cardiology perspective. We will arrange for outpt pharm nuclear stress test and cardiology follow up. Pt informed of plan. Patient seen and case discussed with Bee garcia here. Underwent stress test today due to abnormal EKG, had a low exercise capacity with borderline ischemic EKG changes. Patient prefers and wants to go home. Suggest outpatient stress test in the next few days. Discussed with patient for compliance for follow-up. She says she lives in [place] travel back soon. Importance of outpatient stress test was discussed with her she understands. Continue aspirin, start metoprolol 25 and atorvastatin 20 mg daily. Further treatment based on finding of myocardial perfusion imaging stress test which will be performed as outpatient. <Cedrick Marie MD - Last Filed: 10/19/21 17:16> (2) Asthma exacerbation: Status: Acute <YOJANA Nunn - Last Filed: 10/19/21 15:13> Assessment and Plan: Managed by hospitalist, improved. No wheezing on exam today. <YOJANA Nunn - Last Filed: 10/19/21 15:13> Fall Risk Details Current Medications: Current Medications Acetaminophen (Acetaminophen 325 Mg Tablet) 650 mg PO Q6H PRN PRN Reason: Pain, Mild (Pain Scale 1-3) Last Admin: 10/18/21 23:04 Dose: 650 mg Documented by: Albuterol/Ipratropium (Albuterol/Iprat 2.5/0.5mg 3 Ml Ampul.Neb) 3 ml INHALE RQ4H WHILE AWAKE [facility] Last Admin: 10/19/21 11:28 Dose: Not Given Documented by: Amlodipine Besylate (Amlodipine Besylate 5 Mg Tablet) 5 mg PO DAILY [facility]; Protocol Last Admin: 10/19/21 09:34 Dose: 5 mg Documented by: Enoxaparin Sodium (Enoxaparin Sodium 40 Mg/0.4 Ml Syringe) 40 mg SUBCUT Q24H [facility] Last Admin: 10/19/21 09:35 Dose: 40 mg Documented by: Methylprednisolone Sodium Succinate (Methylprednisolone Sod Succ 40 Mg/Ml Vial) 40 mg IVPUSH Q8H [facility] Last Admin: 10/19/21 09:35 Dose: 40 mg Documented by: Multivitamins/Vitamin C (Multivitamin Tablet) 1 tab PO DAILY [facility] Last Admin: 10/19/21 09:34 Dose: 1 tab Documented by: Ondansetron HCl (Ondansetron Hcl 4 Mg/2 Ml Vial) 4 mg IVPUSH Q8H PRN PRN Reason: Nausea and Vomiting Sodium Chloride (0.9 % Sodium Chloride Flush 3 Ml Syringe) 3 ml IVFLUSH QSHIFT [facility] Last Admin: 10/19/21 09:36 Dose: 3 ml Documented by: Tiotropium [place] (Tiotropium [place] 18 Mcg Cap.W.Dev) 1 puff INHALE RDAILY [facility] Last Admin: 10/19/21 07:32 Dose: Not Given Documented by: <YOJANA Nunn - Last Filed: 10/19/21 15:13> Time Spent With Patient Time: Total time spent is greater than 50% in coordination of care (as documented) at patient's floor/unit and/or counseling patient: 22 <YOJANA Nunn - Last Filed: 10/19/21 15:13> Time with patient: 15 - 24 minutes <YOJANA Nunn - Last Filed: 10/19/21 15:13> Progress Note: Quality Stroke Does the patient have a stroke diagnosis?: No <YOJANA Nunn - Last Filed: 10/19/21 15:13> Procedures Date of Service Date of Service: 10/19/21 <YOJANA Nunn - Last Filed: 10/19/21 15:13>
[2021-10-19 15:44] VITALS: BP 138/60; PULSE 87; RESP 18; TEMP 36.8; O2SAT 97
[2021-10-19 16:05] VITALS: BP 138/60; PULSE 87
[2021-10-19] MEDS: Metoprolol Succinate ER 25 MG TAB.ER.24H PO (16:05)
--- NOTE | 2021-10-19 16:56 | PC.NURSE ---
patient refused to wait for assistance to be transported to [facility] by ,Niya BRADLEY followed patient to lobby,patient ambulated safely.
== END 2021-10-19 16:56 | disposition home or self-care (01) | DRG 141 ==
LOC: HO.ED 08:16 → HO.EDOVER 08:40 → HO.IMC 23:04
PROVIDERS: Admitting Provider Nurse Practitioner Acute Care; Emergency Provider Student in an Organized Health Care Education/Training Program; Visit Provider Nurse Practitioner Acute Care
DX: J45.901 Unspecified asthma with (acute) exacerbation (principal); J44.1 Chronic obstructive pulmonary disease with (acute) exacerbation; N39.0 Urinary tract infection, site not specified; R94.31 Abnormal electrocardiogram [ECG] [EKG]; E86.0 Dehydration; E87.6 Hypokalemia; Z20.822 Contact with and (suspected) exposure to COVID-19; Z87.891 Personal history of nicotine dependence; Z79.82 Long term (current) use of aspirin; Z79.899 Other long term (current) drug therapy
CPT/HCPCS: 36415; 71045; 71275; 80048; 80053; 81001; 82803; 83605; 83880; 84484; 85025; 85379; 87040; 87086; 87635; 93005; 93017; 93306; 94640; 96365; 96375; 99285; J0696; J1650; J1956; J2920; J2930; Q9967

== ENCOUNTER 2021-12-23 10:03 | Emergency (ER) | payer BC, SELFPAY ==
[2021-12-23 10:09] VITALS: PULSE 119; RESP 18; TEMP 36.6; O2SAT 95; BMI 22.8
[2021-12-23 10:15] VITALS: BP 172/68; PULSE 100; RESP 12; O2SAT 95
[2021-12-23] MEDS: predniSONE 20 MG TABLET 60 MG PO (10:51)
[2021-12-23] MEDS: Albuterol Sulfate (0.083%) 2.5 MG/3 ML VIAL.NEB 5 MG INHALE (11:02)
[2021-12-23] MEDS: Albuterol Sulfate 90 MCG 8 GM INHALER 2 PUFF INHALE (11:02)
[2021-12-23 11:04] VITALS: PULSE 103; RESP 20; O2SAT 93
--- NOTE | 2021-12-23 11:11 | ED_ITS ---
HPI - Asthma General Chief Complaint: General Medical Stated Complaint: med refill Time Seen by Provider: 12/23/21 10:34 Source: patient and family Mode of arrival: ambulatory Limitations: no limitations History of Present Illness HPI Narrative: 56-year-old female with a past medical history of HTN and COPD presenting to the ED with complaints of worsening dry cough/shortness of breath and wheezing over the past few days worse today. Reports that she is currently on albuterol inhaler, ellipta inhaler, and 10 mg of prednisone, and albuterol nebulizers at home. She reports that she no longer has any more medicine and her albuterol inhaler and she ran out of her prednisone. Although she use Ellipta inhaler and her nebulizer this morning and no symptomatic relief therefore she came here for medication refill only. Although I was able to convince the patient to obtain a breathing treatment while she was here in the emergency department. She is declining a COVID swab and a chest x-ray because she reports that this is her COPD exacerbation and she denies any fevers, chills, dizziness, headaches, neck pain/stiffness, trouble swallowing, sore throat, productive cough, chest pain, dyspnea on exertion, orthopnea, nausea/vomiting/diarrhea constipation, abdominal pain, lower extremity edema or calf tenderness, rashes, recent travel or sick contacts or any other symptoms complaints or concerns at this time. She reports that she needs a refill on her albuterol inhaler, 10 mg of prednisone daily and her metoprolol extended release 25 mg tablets for her high blood pressure otherwise no other medications need to be refilled and she does not want any labs or any imaging MD complaint: asthma attack , shortness of breath and wheezing Onset (ago): day(s) Severity: moderate and similar to prior Context: ran out of meds Associated symptoms: dry cough Asthma History: childhood onset, history of frequent attacks, history of prior ED visit and followed by specialist Related Data Home Medications Medication Instructions Recorded Confirmed multivitamin 1 tab PO DAILY 10/17/21 10/17/21 Previous Rx's Medication Instructions Recorded albuterol sulfate 2.5 mg (3 mL) INHALATION Q4-6H PRN 10/19/21 #75 ml albuterol sulfate 90 mcg/actuation 2 puff INHALATION Q4-6H PRN #8.5 g 10/19/21 aerosol inhaler amlodipine 5 mg tablet 5 mg PO DAILY #30 tab 10/19/21 aspirin 81 mg chewable tablet 81 mg PO DAILY #30 tab 10/19/21 atorvastatin 40 mg tablet (Lipitor) 40 mg PO BEDTIME #30 tab 10/19/21 metoprolol succinate 25 mg 25 mg PO DAILY #30 tab 10/19/21 tablet,extended release 24 hr prednisone 10 mg tablet 40 mg PO DAILY #16 tab 10/19/21 umeclidinium 62.5 mcg/actuation 1 inh INHALATION DAILY #7 ea 10/19/21 blister powder for inhalation (Incruse Ellipta) albuterol sulfate 0.63 mg/3 mL 0.63 mg (3 mL) INHALATION QID PRN 12/23/21 solution for nebulization #75 ml albuterol sulfate 90 mcg/actuation 1 inh INHALATION QID PRN #8.5 g 12/23/21 aerosol inhaler azithromycin 250 mg tablet See Rx Instructions .ROUTE 12/23/21 .COMPLEX #6 tab metoprolol succinate 25 mg 25 mg PO DAILY #30 tab 12/23/21 tablet,extended release 24 hr prednisone 10 mg tablet 10 mg PO DAILY #30 tab 12/23/21 prednisone 20 mg tablet 40 mg PO DAILY 5 Days #10 tab 12/23/21 Allergies Allergy/AdvReac Type Severity Reaction Status Date / Time No Known Allergies Allergy Verified 06/19/21 18:15 Review of Systems Review of Systems: Constitutional : denies med noncompliance, no history of PE or DVT, denies recent travel, No Fever, No Chills ENT/Mouth : No Hoarseness, No sore throat, No Rhinorrhea, No Nasal congestion, No Sinus Pressure, No Ear Pain, No stridor, Eyes: No Redness, No Discharge, No Vision Changes Cardiovascular : Positive shortness of breath, No Chest Pain, No Dyspnea on Exertion, No Edema, no pleurisy, Respiratory : Positive cough with wheezing, No Sputum, no stridor, no hemoptysis, Gastrointestinal : No Nausea, No Vomiting, No Diarrhea, No abdominal Pain Genitourinary : No Dysuria, No Hematuria Musculoskeletal : No joint pain/swelling, No Myalgias Extremities: no extremity swelling /pain Skin : No rash, no itching, no swelling Neuro : No Weakness, No Numbness, No Headache, No Dizziness, No Paresthesias Psych : No anxiety, depression Heme/Lymph: No Bruising, No Bleeding Endocrine : No Polyuria, No Polydipsia Yes all other systems are reviewed and are negative [facility] Past Medical History Attestation statement: The following information was validated with the patient. Medical History Asthma exacerbation COPD (chronic obstructive pulmonary disease) Social History Social History Household Members: Children Household Members Other:: unknown but pt states lives with family Housing: Apartment Housing Other:: pt not cooperative Do you presently have visiting nurse or other home services: No Unable to assess alcohol history related to: Unknown and Refusing to respond Patient Tobacco Use Status: Former Tobacco user Quit Date: 5 years ago Tobacco use type: Cigarette Substance Use Type: Marijuana Advance Directives: No Advance Directives Information Provided: No service: No Current occupational status: unemployed Physical Exam Vital Signs: Vital Signs: Last Vital Signs Temp 98 F 12/23/21 10:09 Pulse 103 H 12/23/21 11:04 Resp 20 12/23/21 11:04 BP 172/68 H 12/23/21 10:15 Pulse Ox 95 12/23/21 10:15 BMI result Body Mass Index 22.8 vital signs have been reviewed as normal and appeared to be correct. Blood pressure 172/68 Heart rate 119. Respiration rate normal. Temperature normal. Oxygen saturation normal. Appearance: Alert. Oriented X3. In mild respiratory distress otherwise no other acute distress Head: Normal external exam. Normocephalic. Atraumatic. Eyes: PERRLA. EOMI. Conjunctiva and sclera normal. Eyelids normal. ENT: EAC normal. TM's Normal. Pharynx normal. Uvula midline. Moist mucous membranes. No trismus noted. No drooling noted. No muffled voice noted. Neck: Normal inspection. Neck supple. FROM. No adenopathy. Thyroid Normal. No meningeal signs. No neck mass noted. CVS: Normal heart rate and rhythm. Heart sound normal. Pulses normal throughout. No murmurs/rales/gallops. Respiratory: Mild respiratory distress with decreased breath sounds and inspiratory and expiratory wheezing throughout. Chest is nontender. No rales/rhonchi noted. No accessory muscle usage noted at this time or tracheal tugging or stridor noted at this time. Abdomen: Soft and nontender. Bowel sounds normal in all 4 quadrants. No distention noted. No organomegaly noted. No visible injury noted. Back: Full range of motion noted. No rashes/lesion/induration/fluctuance or signs of infection noted. Skin: Skin warm and dry. Normal skin color. Normal skin turgor. No rashes/lesions/lacerations noted. Extremities: No lower extremity edema. No calf tenderness is noted. Extremities exhibit normal range of motion. Extremities nontender. Neuro: Oriented X 3. No motor deficit. No sensory deficit. Reflexes normal. Normal steady gait. No focal neuro deficits noted. CN's II-XII intact bilaterally? Vascular: + radial pulses/+ 2 distal pedal pulses/+2 dorsalis pedis b/l. Normal cap refill. No cyanosis noted to upper extremity nails and lower extremity toes nails. Course Course Course Narrative: 56-year-old female with a past medical history of COPD presenting to the ED with complaints of worsening dry cough/shortness of breath and wheezing over the past few days worse today. Reports that she is currently on albuterol inhaler, ellipta inhaler, and 10 mg of prednisone, and albuterol nebulizers at home. She reports that she no longer has any more medicine and her albuterol inhaler and she ran out of her prednisone. Although she use Ellipta inhaler and her nebulizer this morning and no symptomatic relief therefore she came here for medication refill only. Although I was able to convince the patient to obtain a breathing treatment while she was here in the emergency department. She is declining a COVID swab and a chest x-ray because she reports that this is her COPD exacerbation and she denies any fevers, chills, dizziness, headaches, neck pain/stiffness, trouble swallowing, sore throat, productive cough, chest pain, dyspnea on exertion, orthopnea, nausea/vomiting/diarrhea constipation, abdominal pain, lower extremity edema or calf tenderness, rashes, recent travel or sick contacts or any other symptoms complaints or concerns at this time. She reports that she needs a refill on her albuterol inhaler, 10 mg of prednisone daily and her metoprolol extended release 25 mg tablets for her high blood pressure otherwise no other medications need to be refilled and she does not want any labs or any imaging or EKG Therefore at this time will give an albuterol inhaler so she can go home with, a breathing treatment and 60 mg of p.o. prednisone then plan to discharge and refill her medications as patient is very adamant she does not want any further evaluation or treatment regarding this she reports that is only her asthma/COPD exacerbation. [facility] - Asthma Medical Records Attestation: I reviewed the patient's medical records. Discharge Plan Discharge Clinical Impression: COPD (chronic obstructive pulmonary disease), Asthma exacerbation, Medication refill Patient Disposition: Home, Self-Care Instructions: Asthma (DC), COPD (Chronic Obstructive Pulmonary Disease) (ED), Medicine Refill (ED) Prescriptions: New albuterol sulfate 0.63 mg/3 mL solution for nebulization 0.63 mg inhalation QID PRN (Reason: shortness of breath or wheezing) Qty: 75 0RF azithromycin 250 mg tablet See Rx Instructions .ROUTE .COMPLEX Qty: 6 0RF Rx Instructions: take 500 mg today (day 1), then 250 mg for 4 days (days 2-5) albuterol sulfate 90 mcg/actuation HFA aerosol inhaler 1 inh inhalation QID PRN (Reason: shortness of breath or wheezing) Qty: 8.5 0RF prednisone 20 mg tablet 40 mg PO DAILY 5 Days Qty: 10 0RF metoprolol succinate 25 mg tablet extended release 24 hr 25 mg PO DAILY Qty: 30 0RF prednisone 10 mg tablet 10 mg PO DAILY Qty: 30 0RF No Action multivitamin Tablet 1 tab PO DAILY 0RF amlodipine 5 mg Tablet 5 mg PO DAILY Qty: 30 0RF Protocol: Hold for SBP< HOLD for SBP < : 90 prednisone 10 mg tablet 40 mg PO DAILY Qty: 16 0RF albuterol sulfate 2.5 mg /3 mL (0.083 %) solution for nebulization 2.5 mg inhalation Q4-6H PRN (Reason: shortness of breath or wheezing) Qty: 75 0RF albuterol sulfate 90 mcg/actuation HFA aerosol inhaler 2 puff inhalation Q4-6H PRN (Reason: wheezing) Qty: 8.5 0RF Incruse Ellipta 62.5 mcg/actuation blister with device 1 inh inhalation DAILY Qty: 7 0RF aspirin 81 mg tablet,chewable 81 mg PO DAILY Qty: 30 0RF metoprolol succinate 25 mg tablet extended release 24 hr 25 mg PO DAILY Qty: 30 0RF atorvastatin [Lipitor] 40 mg tablet 40 mg PO BEDTIME Qty: 30 0RF Referrals: Physician,Unknown J [Primary Care Provider] - 2 days (Your PCP) Print Language: American
[2021-12-23] MEDS: Metoprolol Succinate ER 25 MG TAB.ER.24H PO (11:50)
== END 2021-12-23 11:59 | disposition home or self-care (01) ==
PROVIDERS: Emergency Provider Emergency Medicine
DX: J44.1 Chronic obstructive pulmonary disease with (acute) exacerbation (principal); I10 Essential (primary) hypertension; Z76.0 Encounter for issue of repeat prescription
CPT/HCPCS: 94640; 94644; 99284

== ENCOUNTER 2022-04-15 10:48 | Emergency (ER) | payer BC, SELFPAY ==
[2022-04-15 10:56] VITALS: BP 171/65; PULSE 76; RESP 19; TEMP 36.6; O2SAT 95; BMI 22.8
--- NOTE | 2022-04-15 11:25 | ED_ITS ---
HPI - General Adult General Chief complaint: General Medical Stated complaint: medication refill Time Seen by Provider: 04/15/22 11:08 Source: patient and family Mode of arrival: ambulatory Limitations: no limitations History of Present Illness HPI narrative: 56 y/o female with history of HTN, asthma, active smoker, likely COPD on chronic steroids who presents to the ER for medication refills. She is from [place] but has been living here for the last 8 months per her report. She has been unable to get her medications refilled by her PCP in [place]. She has not saught out a PCP here. She plans on moving back to [place] but unsure when. She has been admitted for acute hypoxic respiratory failure requiring BiPAP after she ran out of her albuterol inhalers. She states she ran out of her hypertension meds 2 days ago as well as her albuterol inhaler. She had some albuterol nebulizers left and took 1 today when she was feeling short of breath. She reports also running out of her prednisone she does not know the dose. She states she has been on this chronically. She denies any fever or chills, no chest pain. MD complaint: Medication refill Onset (ago): day(s) (2) Radiation: non-radiation Relieving factors: none Exacerbating factors: none Associated symptoms: shortness of breath Treatments prior to arrival: none Related Data Home Medications Medication Instructions Recorded Confirmed multivitamin 1 tab PO DAILY 10/17/21 10/17/21 Previous Rx's Medication Instructions Recorded albuterol sulfate 2.5 mg (3 mL) inhalation Q4-6H PRN 10/19/21 shortness of breath or wheezing #75 mL albuterol sulfate 90 mcg/actuation 2 puff inhalation Q4-6H PRN 10/19/21 aerosol inhaler wheezing #8.5 grams amlodipine 5 mg tablet 5 mg PO DAILY #30 tabs 10/19/21 aspirin 81 mg chewable tablet 81 mg PO DAILY #30 tabs 10/19/21 atorvastatin 40 mg tablet (Lipitor) 40 mg PO BEDTIME #30 tabs 10/19/21 metoprolol succinate 25 mg 25 mg PO DAILY #30 tabs 10/19/21 tablet,extended release 24 hr prednisone 10 mg tablet 40 mg PO DAILY #16 tabs 10/19/21 umeclidinium 62.5 mcg/actuation 1 inh inhalation DAILY #7 ea 10/19/21 blister powder for inhalation (Incruse Ellipta) albuterol sulfate 0.63 mg/3 mL 0.63 mg (3 mL) inhalation QID PRN 12/23/21 solution for nebulization shortness of breath or wheezing #75 mL albuterol sulfate 90 mcg/actuation 1 inh inhalation QID PRN shortness 12/23/21 aerosol inhaler of breath or wheezing #8.5 grams azithromycin 250 mg tablet See Rx Instructions PO .COMPLEX #6 12/23/21 tabs metoprolol succinate 25 mg 25 mg PO DAILY #30 tabs 12/23/21 tablet,extended release 24 hr prednisone 10 mg tablet 10 mg PO DAILY Prednisone daily 12/23/21 maintenance for COPD #30 tabs prednisone 20 mg tablet 40 mg PO DAILY copd 5 days #10 tabs 12/23/21 albuterol sulfate 0.63 mg/3 mL 0.63 mg (3 mL) inhalation QID PRN 04/15/22 solution for nebulization shortness of breath or wheezing #75 mL albuterol sulfate 90 mcg/actuation 2 inh inhalation Q4-6H PRN 04/15/22 aerosol inhaler shortness of breath or wheezing #8.5 grams amlodipine 5 mg tablet 5 mg PO DAILY #30 tabs 04/15/22 atorvastatin 40 mg tablet 40 mg PO BEDTIME #30 tabs 04/15/22 metoprolol succinate 25 mg 25 mg PO DAILY #30 tabs 04/15/22 tablet,extended release 24 hr (Toprol XL) prednisone 10 mg tablet 10 mg PO DAILY #14 tabs 04/15/22 umeclidinium 62.5 mcg/actuation 1 inh inhalation DAILY #30 ea 04/15/22 blister powder for inhalation (Incruse Ellipta) Allergies Allergy/AdvReac Type Severity Reaction Status Date / Time No Known Allergies Allergy Verified 06/19/21 18:15 Review of Systems Review of Systems: Constitutional: No Fever, No Chills ENT/Mouth: No sore throat, No Rhinorrhea Cardiovascular: No Chest Pain, + SOB, No Orthopnea, No Edema Respiratory: No Cough, No Sputum,+Wheezing, No dyspnea Gastrointestinal: No Nausea, No Vomiting, No Diarrhea, No abdominal Pain Musculoskeletal: No joint pain, No Myalgias Skin: No Skin Lesions, No rash Neuro: No Weakness, No Numbness, No Dizziness, No Headache Psych: + Anxiety/Panic, No Depression Heme/Lymph: No Bruising, No Lymphadenopathy PMFSH Past Medical History Medical History Asthma exacerbation COPD (chronic obstructive pulmonary disease) Social History Social History Household Members: Children Household Members Other:: unknown but pt states lives with family Housing: Apartment Housing Other:: pt not cooperative Do you presently have visiting nurse or other home services: No Unable to assess alcohol history related to: Unknown and Refusing to respond Patient Tobacco Use Status: Former Tobacco user Quit Date: 5 years ago Tobacco use type: Cigarette Substance Use Type: Marijuana Advance Directives: No Advance Directives Information Provided: No service: No Current occupational status: unemployed Physical Exam ED Vital Signs: Vital Signs - 24 hr 04/15/22 10:56 Temperature 98 F Pulse Rate 76 Respiratory Rate 19 Blood Pressure 171/65 H Pulse Oximetry 95 Oxygen Delivery Method Room Air BMI result Body Mass Index 22.8 Appearance: Alert. Oriented X3. No acute distress. Eyes: Pupils equal, round and reactive to light. ENT: Pharynx normal. Neck: Normal inspection. Neck supple. CVS: Normal heart rate and rhythm. Pulses normal. Respiratory: No respiratory distress. Breath sounds normal. Skin: Skin warm and dry. Normal skin color. Normal skin turgor. No rashes. Extremities: No lower extremity edema. Neuro: Oriented X 3. Grossly normal, nonfocal Course Course Course Narrative: 56-year-old female with a history of asthma, hypertension, smoker, probable COPD presents to the ER for medication refills. She has been seen in the ER and hospitalized here for respiratory issues since she moved to the area. She has no established PCP here. She was counseled on the importance of medical follow- up and close monitoring given her medical issues. She is hoping to move back to [place] but does not know when. She denies any chest pain or headaches at this time. She was short of breath this morning and used her albuterol nebulizer with good effect. Her lungs are clear on arrival. She is hypertensive to 170 systolic. She is unsure of the hypertensive medications that she is on. Will call her pharmacy and confirm her meds and last pickup. Reevaluation(s) Reevaluation #1: Confirmed her medication list and refills have been ordered. Again we discussed the importance of outpatient follow-up. Her daughter works here and will help to arrange this. She was filled for 1 month of prednisone 10 mg back in December. She states she is on this chronically. Will give a short week supply and tell her that she needs to follow up with a dedicated PCP for further refills of this and to see if it is necessary to continue. Critical Care Time Critical Care Time Critical Care Time: No Discharge Plan Discharge Clinical Impression: Asthma, Hypertension Patient Disposition: Home, Self-Care Instructions: Asthma (ED), Hypertension (ED) Additional Instructions: Your MUST follow up with a primary care doctor for further management of your chronic medical conditions You last filled prednisone back in December. If you are supposed to be on this daily, you must be followed by your doctor for this. A 2 week supply has been sent to your pharmacy Prescriptions: New atorvastatin 40 mg tablet 40 mg PO BEDTIME Qty: 30 0RF albuterol sulfate 90 mcg/actuation HFA aerosol inhaler 2 inh inhalation Q4-6H PRN (Reason: shortness of breath or wheezing) Qty: 8.5 0RF amlodipine 5 mg tablet 5 mg PO DAILY Qty: 30 0RF Incruse Ellipta 62.5 mcg/actuation blister with device 1 inh inhalation DAILY Qty: 30 0RF metoprolol succinate [Toprol XL] 25 mg tablet extended release 24 hr 25 mg PO DAILY Qty: 30 0RF prednisone 10 mg tablet 10 mg PO DAILY Qty: 14 0RF albuterol sulfate 0.63 mg/3 mL solution for nebulization 0.63 mg inhalation QID PRN (Reason: shortness of breath or wheezing) Qty: 75 0RF No Action multivitamin Tablet 1 tab PO DAILY amlodipine 5 mg Tablet 5 mg PO DAILY Qty: 30 0RF Protocol: Hold for SBP< HOLD for SBP < : 90 prednisone 10 mg tablet 40 mg PO DAILY Qty: 16 0RF albuterol sulfate 2.5 mg /3 mL (0.083 %) solution for nebulization 2.5 mg inhalation Q4-6H PRN (Reason: shortness of breath or wheezing) Qty: 75 0RF albuterol sulfate 90 mcg/actuation HFA aerosol inhaler 2 puff inhalation Q4-6H PRN (Reason: wheezing) Qty: 8.5 0RF Incruse Ellipta 62.5 mcg/actuation blister with device 1 inh inhalation DAILY Qty: 7 0RF aspirin 81 mg tablet,chewable 81 mg PO DAILY Qty: 30 0RF metoprolol succinate 25 mg tablet extended release 24 hr 25 mg PO DAILY Qty: 30 0RF atorvastatin [Lipitor] 40 mg tablet 40 mg PO BEDTIME Qty: 30 0RF albuterol sulfate 0.63 mg/3 mL solution for nebulization 0.63 mg inhalation QID PRN (Reason: shortness of breath or wheezing) Qty: 75 0RF azithromycin 250 mg tablet See Rx Instructions .ROUTE .COMPLEX Qty: 6 0RF Rx Instructions: take 500 mg today (day 1), then 250 mg for 4 days (days 2-5) albuterol sulfate 90 mcg/actuation HFA aerosol inhaler 1 inh inhalation QID PRN (Reason: shortness of breath or wheezing) Qty: 8.5 0RF prednisone 20 mg tablet 40 mg PO DAILY 5 Days Qty: 10 0RF metoprolol succinate 25 mg tablet extended release 24 hr 25 mg PO DAILY Qty: 30 0RF prednisone 10 mg tablet 10 mg PO DAILY Qty: 30 0RF
== END 2022-04-15 11:53 | disposition home or self-care (01) ==
PROVIDERS: Emergency Provider Emergency Medicine
DX: Z76.0 Encounter for issue of repeat prescription (principal); J45.909 Unspecified asthma, uncomplicated; I10 Essential (primary) hypertension; F17.200 Nicotine dependence, unspecified, uncomplicated; F12.90 Cannabis use, unspecified, uncomplicated
CPT/HCPCS: 99282

== ENCOUNTER 2024-07-12 20:12 | Inpatient (IN) | payer BC, SELFPAY ==
--- NOTE | ~2024-07-12 | CT_ITS ---
EXAMINATION: CT ABDOMEN AND PELVIS WITHOUT CONTRAST CLINICAL INFORMATION: Abdominal pain COMPARISON: None available. TECHNIQUE: Multidetector volumetric imaging was performed from the superior aspect of the liver through the pubic symphysis. Sagittal and coronal reformatted images were obtained on the technologist's workstation. This CT examination was performed using dose optimization techniques as appropriate, variously including the following: *Automated exposure control *Adjustment of mA and/or kV according to patient size (this includes techniques or standardized protocols for targeted exams where dose is matched to indication/reason for exam; i.e. extremities or head) *Use of iterative reconstruction technique DLP: 242 mGy-cm FINDINGS: LUNG BASES: The visualized lung bases are unremarkable. LIVER, GALLBLADDER, AND BILIARY TREE: The liver is normal in size, shape, and attenuation. No focal hepatic lesion or biliary ductal dilatation is identified on this noncontrast exam. Patient is status post cholecystectomy. PANCREAS: Unremarkable. SPLEEN: Unremarkable. ADRENAL GLANDS: Unremarkable. KIDNEYS AND URETERS: No hydronephrosis or obstructing calculus bilaterally. Punctate right lower pole renal calculus noted. BLADDER: Unremarkable. GASTROINTESTINAL TRACT: No evidence of bowel obstruction. There is a somewhat thick-walled appearance of the distal rectum, though this is not adequately distended and therefore suboptimally assessed. Colonic diverticulosis is present, and there is subtle stranding adjacent to the proximal sigmoid colon raising concern for mild diverticulitis. The appendix is unremarkable. Trace pelvic free fluid. No free air is seen. ABDOMINAL WALL: No significant hernia is appreciated. LYMPH NODES: No lymphadenopathy is seen, though assessment is limited in the absence of intravenous contrast. VASCULAR: There is atherosclerotic calcification along the aorta and iliac arteries. PELVIC VISCERA: Coarse calcifications along the posterior uterus are suggestive of fibroids. OSSEOUS STRUCTURES: Degenerative changes of the lower lumbar spine. CT/CT abdomen pelvis wo IV con IMPRESSION: 1. Colonic diverticulosis with subtle stranding adjacent to the proximal sigmoid colon, raising concern for mild diverticulitis. 2. Somewhat thick-walled appearance of the distal rectum, suboptimally assessed due to underdistention. Correlation with recent or follow-up colonoscopy is recommended to exclude an underlying mass lesion. 3. Trace pelvic free fluid, which may be reactive. 4. Punctate right lower pole renal calculus without hydronephrosis. Electronically signed by: Johan Brownlee MD 07/13/2024 12:59 AM EDT RP
[2024-07-12 20:20] VITALS: BP 150/60; PULSE 102; O2SAT 99
[2024-07-12 20:29] VITALS: BMI 18.7
[2024-07-12 20:33] VITALS: BP 153/42; PULSE 84; RESP 16; TEMP 36.8; O2SAT 100
[2024-07-12 20:44] LABS: MANUAL DIFF FLAG NO
[2024-07-12 20:45] LABS: Basophils Percent Auto 0.6 % (0-2); Eosinophils Absolute Auto 0.2 X10*3/uL (0.0-0.4); Eosinophils Percent Auto 3.6 % (0-4); Hemoglobin 10.7 g/dl (12.0-16.0); Imm Gran Abs Auto 0.03 X10*3/uL (0.00-0.03); Imm Gran Pct Auto 0.6 % (0.0-0.4); Lymphocytes Absolute Auto 2.2 X10*3/uL (1.2-4.9); Lymphocytes Percent Auto 41.7 % (20-40); Mean Corpuscular HGB Conc 36.9 g/dl (31.0-35.0); Mean Corpuscular Hemoglobin 34.5 pg (27.0-33.0); Mean Corpuscular Volume 93.5 fL (80.0-98.0); Mean Platelet Volume 9.6 fL (9.4-12.3); Monocytes Absolute Auto 0.6 X10*3/uL (0.1-1.2); Monocytes Percent Auto 11.4 % (2-11); Neutrophils Absolute Auto 2.2 x10*3/uL (2.0-8.3); Neutrophils Percent Auto 42.1 % (45-73); Platelet Count 145 X10*3/uL (160-400); Red Cell Distribution Width 15.7 % (11.0-16.0); White Blood Count 5.3 X10*3/uL (4.8-10.8)
[2024-07-12 21:08] LABS: Alanine Aminotransferase 599 U/L (0-31); Albumin Level 3.5 g/dL (3.5-5.0); Alkaline Phosphatase 101 U/L (39-117); Anion Gap 18 (12-20); Aspartate Amino Transferase 219 U/L (5-31); Bilirubin Total 2.1 mg/dL (0.0-1.0); Blood Urea Nitrogen 32 mg/dL (9-16); Calcium 10.3 mg/dL (8.4-10.2); Carbon Dioxide 11 mmol/L (22-29); Chloride 114 mmol/L (96-108); Creatinine Clr Calc Pharmacy 22.1; Estimated Glomerular Filt Rate 26; Glucose Random 101 mg/dL (60-115); Lipase 73 U/L (8-78); Sodium 141 mmol/L (135-145); Total Protein 7.5 g/dL (6.5-8.0)
--- NOTE | 2024-07-12 21:10 | ECG_ITS ---
Test Reason : Low K Blood Pressure : / mmHG Vent. Rate : 077 BPM Atrial Rate : 077 BPM P-R Int : 160 ms QRS Dur : 092 ms QT Int : 364 ms P-R-T Axes : 077 073 068 degrees QTc Int : 411 ms Normal sinus rhythm Possible Left atrial enlargement Borderline ECG When compared with ECG of 17-OCT-2021 04:34, ST no longer depressed in Anterior leads T wave inversion less evident in Anterolateral leads Referred By: Anna Flanagan Electronically Signed By:JOCELYN GALVEZ
[2024-07-12 21:24] LABS: Influenza A PCR NEGATIVE (Negative); Influenza B PCR NEGATIVE (Negative); Resp Syncy Virus RNA Qual PCR NEGATIVE (Negative); SARS COV2 PCR INHOUSE NEGATIVE (Negative)
[2024-07-12 22:06] LABS: Bilirubin Direct 1.6 mg/dL (0.0-0.5)
[2024-07-12 22:07] LABS: Magnesium 2.6 mg/dL (1.6-2.6)
[2024-07-12 22:08] LABS: Ethanol < 10 mg/dL
[2024-07-12] MEDS: Potassium Chloride Packet 20 MEQ PACKET 40 MEQ PO (22:20)
[2024-07-12] MEDS: Potassium Chloride/H20 10 MEQ/100 ML PIGGYBACK 100 MEQ IV (22:20)
[2024-07-12] MEDS: 0.9 % Sodium Chloride 1,000 ML 999 ML IV (22:21)
[2024-07-12 22:45] VITALS: BP 147/42; PULSE 77; RESP 17; TEMP 36.7; O2SAT 100
[2024-07-12 23:00] LABS: Appearance Urine Cloudy; Color Urine Yellow; Glucose Urine UA Negative (Negative); Leukocyte Esterase Urine Large (3+) (Negative); Nitrite Urine Negative (Negative); Specific Gravity - Urine 1.015 (1.005-1.025); UMIC TRIGGER UACC YES; Urine Blood Negative (Negative); Urine Ketones 15 mg/dL (Negative); Urine Protein 30 (1+) mg/dL (Neg-Trace)
[2024-07-12 23:08] LABS: Amphetamine Screen Urine Not Detected (Not Detect); Barbiturates, Urine Not Detected (Not Detect); Benzodiazepines Screen Urine Not Detected (Not Detect); Buprenorphine Scr Not Detected (Not Detect); Cannabinoid Screen Urine POSITIVE (Not Detect); Cocaine Screen Urine Not Detected (Not Detect); Fentanyl, urine Not Detected (Not Detect); Methadone Screen, Urine Not Detected (Not Detect); Opiate Screen Urine Not Detected (Not Detect); Oxycodone Screen Urine Not Detected (Not Detect); Phencyclidine Screen Urine Not Detected (Not Detect)
[2024-07-12 23:13] LABS: Bacteria Urine Trace (None Seen); Hyaline Casts Urine 0-2 /LPF (0-2); RBC Urine 0-2 /HPF (0-2); UACC Culture Trigger YES
[2024-07-12 23:19] LABS: Potassium 2.4 mmol/L (3.3-5.1)
[2024-07-12] MEDS: Diatrizoate Meglumine, Sodium 30 ML SOLUTION PO (23:58)
[2024-07-13] VITALS (9 sets, daily range): BP systolic 124–156; BP diastolic 44–85; PULSE 66–78; RESP 13–18; TEMP 35.9–36.7; O2SAT 98–100
[2024-07-13] MEDS: Potassium Chloride/H20 10 MEQ/100 ML PIGGYBACK 100 MEQ IV ×3 (00:27→03:15)
--- NOTE | 2024-07-13 00:45 | ED_ITS ---
HPI - General Adult General Chief complaint: Extremity Injury, Lower Stated complaint: Foot Pain Time Seen by Provider: 07/12/24 21:10 Source: patient Limitations: other (Pushing intoxication versus being a poor historian) History of Present Illness ED Provider: Anna Flanagan PA-C HPI narrative: 58-year-old female with history of hypertension, hyperlipidemia, asthma/COPD presents with nausea, vomiting, diarrhea for unclear duration. Patient states she is status post cholecystectomy 8 weeks ago, she can not recall where the surgery was performed. She has had GI upset since, with associated poor p.o. intake. Associated right upper abdominal pain, she is unable to describe the nature of her discomfort. Unclear if the patient has had fevers. Patient has not been on antibiotics recently. She states she is having 1-2 episodes of diarrhea a day. Patient denies substance abuse history, or use of alcohol. Related Data Home Medications ?Medication ?Instructions ?Recorded ?Confirmed multivitamin 1 tab PO DAILY 10/17/21 10/17/21 Previous Rx's ?Medication ?Instructions ?Recorded albuterol sulfate 2.5 mg/3 mL 2.5 mg (3 mL) inhalation Q4-6H PRN 10/19/21 (0.083 %) solution for nebulization shortness of breath or wheezing #75 mL albuterol sulfate 90 mcg/actuation 2 puff inhalation Q4-6H PRN 10/19/21 aerosol inhaler wheezing #8.5 grams amlodipine 5 mg tablet 5 mg PO DAILY #30 tabs 10/19/21 aspirin 81 mg chewable tablet 81 mg PO DAILY #30 tabs 10/19/21 atorvastatin 40 mg tablet (Lipitor) 40 mg PO BEDTIME #30 tabs 10/19/21 metoprolol succinate 25 mg 25 mg PO DAILY #30 tabs 10/19/21 tablet,extended release 24 hr prednisone 10 mg tablet 40 mg (4 x 10 mg) PO DAILY #16 tabs 10/19/21 umeclidinium 62.5 mcg/actuation 1 inh inhalation DAILY #7 ea 10/19/21 blister powder for inhalation (Incruse Ellipta) albuterol sulfate 0.63 mg/3 mL 0.63 mg (3 mL) inhalation QID PRN 12/23/21 solution for nebulization shortness of breath or wheezing #75 mL albuterol sulfate 90 mcg/actuation 1 inh inhalation QID PRN shortness 12/23/21 aerosol inhaler of breath or wheezing #8.5 grams azithromycin 250 mg tablet See Rx Instructions PO .COMPLEX #6 12/23/21 tabs metoprolol succinate 25 mg 25 mg PO DAILY #30 tabs 12/23/21 tablet,extended release 24 hr prednisone 10 mg tablet 10 mg PO DAILY Prednisone daily 12/23/21 maintenance for COPD #30 tabs prednisone 20 mg tablet 40 mg (2 x 20 mg) PO DAILY copd 5 12/23/21 days #10 tabs albuterol sulfate 0.63 mg/3 mL 0.63 mg (3 mL) inhalation QID PRN 04/15/22 solution for nebulization shortness of breath or wheezing #75 mL albuterol sulfate 90 mcg/actuation 2 inh inhalation Q4-6H PRN 04/15/22 aerosol inhaler shortness of breath or wheezing #8.5 grams amlodipine 5 mg tablet 5 mg PO DAILY #30 tabs 04/15/22 atorvastatin 40 mg tablet 40 mg PO BEDTIME #30 tabs 04/15/22 metoprolol succinate 25 mg 25 mg PO DAILY #30 tabs 04/15/22 tablet,extended release 24 hr (Toprol XL) prednisone 10 mg tablet 10 mg PO DAILY #14 tabs 04/15/22 umeclidinium 62.5 mcg/actuation 1 inh inhalation DAILY #30 ea 04/15/22 blister powder for inhalation (Incruse Ellipta) Allergies Allergy/AdvReac Type Severity Reaction Status Date / Time No Known Allergies Allergy Verified 07/12/24 20:31 Review of Systems 2 Review of Systems: Yes all other systems are reviewed and are negative Constitutional: Constitutional: Reports fatigue, Denies fever(s) and Reports poor appetite Cardiovascular: Cardiovascular: Denies chest pain and Denies dyspnea Respiratory: Respiratory: Denies dyspnea Gastrointestinal: Gastrointestinal: Reports abdominal pain, Reports diarrhea, Reports nausea and Reports vomiting Endocrine: Endocrine: Reports fatigue PMFSH Past Medical History Attestation statement: The following information was validated with the patient. Medical History Asthma exacerbation COPD (chronic obstructive pulmonary disease) Social History Social History Household Members: Children Household Members Other:: unknown but pt states lives with family Housing: Apartment Housing Other:: pt not cooperative Do you presently have visiting nurse or other home services: No Unable to assess alcohol history related to: Unknown and Refusing to respond Patient Tobacco Use Status: Former Tobacco user Tobacco use type: Cigarette Smoked in Last 30 Days: No Use of substances other than those prescribed or required for medical reasons: No Substance Use Type: Marijuana Advance Directives: No Advance Directives Information Provided: No Patient : No service: No Current occupational status: unemployed Physical Exam ED Vital Signs: Vital Signs - 24 hr 07/12/24 20:33 07/12/24 22:45 07/13/24 00:23 Temperature 98.2 F 98.0 F 98.1 F Pulse Rate 84 77 77 Respiratory Rate 16 17 16 Blood Pressure 153/42 H 147/42 H 129/52 L Pulse Oximetry 100 100 99 Oxygen Delivery Method Room Air Room Air Room Air BMI result Body Mass Index 18.7 Const Other: Awake, cachectic, ill in appearance, appears weak Orientation/consciousness: patient oriented x3 HENMT Other: Dry oral mucosa, dry cracked lips Resp Other: Nonlabored respiration Cardio Other: Normal peripheral perfusion GI Other: Focal tenderness to right upper quadrant that is mild to moderate, without involuntary guarding, abdomen is soft, nondistended Skin Other: Warm, dry no rash Neuro General: patient oriented x3, no focal motor deficits and CN's II-XI intact bilaterally Extrem Other: Moves all extremities independently Psych Other: Calm, cooperative, odd affect Course Reevaluation(s) Reevaluation #1: We will be ordering blood cultures, lactic acid and antibiotics. To note I am not considering sepsis, the patient has been afebrile, hemodynamically stable, never been tachycardic here in the ER Time: 01:24 Medications Administered Generic Name Dose Route Start Last Admin Trade Name Freq PRN Reason Stop Dose Admin Potassium Chloride 10 meq in 100 mls @ 100 mls/hr 07/12/24 22:00 07/13/24 00:27 Potassium Chloride/H20 IV 07/13/24 01:59 100 mls/hr Q1H DMITRIY Administration Discontinued Medications Generic Name Dose Route Start Last Admin Trade Name Freq PRN Reason Stop Dose Admin Diatrizoate Meglum/Diatrizoate Sod 30 ml 07/12/24 23:57 07/12/24 23:58 Diatrizoate Meglumine, Sodium 30 Ml Solution PO 07/12/24 23:58 30 ml ONCE ONE Administration Sodium Chloride 1,000 mls @ 999 mls/hr 07/12/24 21:30 07/13/24 00:28 Ns IV 07/12/24 22:30 Infused .Q1H1M DMITRIY Infusion Potassium Chloride 40 meq 07/12/24 21:10 07/12/24 22:20 Potassium Chloride Packet 20 Meq Packet PO 07/12/24 21:11 40 meq ONCE ONE Administration Medical Decision Making Medical Decision Making MDM Narrative: 58-year-old female with history of hypertension, hyperlipidemia, asthma/COPD presents with nausea, vomiting, diarrhea for unclear duration. Patient states she is status post cholecystectomy 8 weeks ago, she can not recall where the surgery was performed. She has had GI upset since, with associated poor p.o. intake. Associated right upper abdominal pain, she is unable to describe the nature of her discomfort. Unclear if the patient has had fevers. Patient has not been on antibiotics recently. She states she is having 1-2 episodes of diarrhea a day. Patient denies substance abuse history, or use of alcohol. Problem: Recent surgery, age, History: Per patient which is limited I have considered the following differential diagnoses: Postoperative infection, choledocholithiasis, failure to thrive, dehydration, electrolyte abnormality, intoxication, C diff, malabsorption syndrome Plan: Considered choledocholithiasis given the patient is postop 8 weeks from cholecystectomy, she also has elevation of some of her LFTs, however her alk- phos is normal, obstructing stone we will be less likely. Therefore I am obtaining a CT scan of the abdomen. Screening labs were also completed from triage. She is dehydrated with an JUANITO, and also hypokalemic. Magnesium was not ordered we will do so now. Thought about C diff, however she is only having bowel movements a few times a day, she is not actively stooling here in the ER. Adding on a drug screen and serum ethanol, her demeanor is odd, I question whether she may be intoxicated. Given associated electrolyte abnormalities, I will obtain EKG as well. I have independently reviewed the following tests: Labs: No leukocytosis, stable anemia, potassium critically low at 2.4, magnesium normal at 2.6, JUANITO of 1.98, total bilirubin 2.1, we will fractionate, direct bilirubin 1.6, AST 219, ALT 599, alk-phos 101, lipase 73, drug screen positive for cannabinoids, serum ethanol negative, urine not infected EKG: Normal sinus rhythm, rate of 77, no ischemic changes no ectopy, QTC 4 CT abdomen and pelvis:KIDNEYS AND URETERS: No hydronephrosis or obstructing calculus bilaterally. Punctate right lower pole renal calculus noted. BLADDER: Unremarkable. GASTROINTESTINAL TRACT: No evidence of bowel obstruction. There is a somewhat thick-walled appearance of the distal rectum, though this is not adequately distended and therefore suboptimally assessed. Colonic diverticulosis is present, and there is subtle stranding adjacent to the proximal sigmoid colon raising concern for mild diverticulitis. The appendix is unremarkable. Trace pelvic free fluid. No free air is seen. ABDOMINAL WALL: No significant hernia is appreciated. LYMPH NODES: No lymphadenopathy is seen, though assessment is limited in the absence of intravenous contrast. VASCULAR: There is atherosclerotic calcification along the aorta and iliac arteries. PELVIC VISCERA: Coarse calcifications along the posterior uterus are suggestive of fibroids. OSSEOUS STRUCTURES: Degenerative changes of the lower lumbar spine. CT/CT abdomen pelvis wo IV con IMPRESSION: 1. Colonic diverticulosis with subtle stranding adjacent to the proximal sigmoid colon, raising concern for mild diverticulitis. 2. Somewhat thick-walled appearance of the distal rectum, suboptimally assessed due to underdistention. Correlation with recent or follow-up colonoscopy is recommended to exclude an underlying mass lesion. 3. Trace pelvic free fluid, which may be reactive. 4. Punctate right lower pole renal calculus without hydronephrosis. Electronically signed by: Johan Brownlee MD 07/13/2024 12:59 AM EDT We will be ordering blood cultures and antibiotics. To note I am not considering sepsis, the patient has been afebrile, hemodynamically stable, never been tachycardic here in the ER Lab Data 07/12/24 20:39 07/12/24 20:39 Labs: Lab Results 07/12/24 07/12/24 07/12/24 Range/Units 20:30 20:39 21:32 WBC 5.3 (4.8-10.8) X10*3/uL RBC 3.10 L D (4.20-5.50) X10*6/uL Hgb 10.7 L D (12.0-16.0) g/dl Hct 29.0 L D (37.0-47.0) % MCV 93.5 (80.0-98.0) fL MCH 34.5 H (27.0-33.0) pg MCHC 36.9 H (31.0-35.0) g/dl RDW 15.7 (11.0-16.0) % Plt Count 145 L (160-400) X10*3/uL MPV 9.6 (9.4-12.3) fL Immature Gran % (Auto) 0.6 H (0.0-0.4) % Neut % (Auto) 42.1 L (45-73) % Lymph % (Auto) 41.7 H (20-40) % Peach % (Auto) 11.4 H (2-11) % Eos % (Auto) 3.6 (0-4) % Baso % (Auto) 0.6 (0-2) % Lymph # (Auto) 2.2 (1.2-4.9) X10*3/uL [place] # (Auto) 0.6 (0.1-1.2) X10*3/uL Eos # (Auto) 0.2 (0.0-0.4) X10*3/uL Baso # (Auto) 0.0 (0.0-0.2) X10*3/uL Abs Immat Gran (auto) 0.03 (0.00-0.03) X10*3/uL Absolute Neuts (auto) 2.2 (2.0-8.3) x10*3/uL Absolute Nucleated RBC 0.000 (0.0-0.012) X10*3/uL Nucleated RBC % (auto) 0.0 (0.0-0.2) /100WBC Sodium 141 (135-145) mmol/L Potassium 2.4 L* (3.3-5.1) mmol/L Chloride 114 H (96-108) mmol/L Carbon Dioxide 11 L (22-29) mmol/L Anion Gap 18 (12-20) BUN 32 H (9-16) mg/dL Creatinine 1.98 H (0.5-1.4) mg/dL Estim Creat Clear Calc 22.1 Estimated GFR 26 Random Glucose 101 (60-115) mg/dL Calcium 10.3 H D (8.4-10.2) mg/dL Magnesium 2.6 (1.6-2.6) mg/dL Total Bilirubin 2.1 H (0.0-1.0) mg/dL Direct Bilirubin 1.6 H (0.0-0.5) mg/dL AST 219 H (5-31) U/L ALT 599 H (0-31) U/L Alkaline Phosphatase 101 (39-117) U/L Total Protein 7.5 (6.5-8.0) g/dL Albumin 3.5 (3.5-5.0) g/dL Lipase 73 (8-78) U/L Urine Color Urine Appearance Urine pH (5.0-9.0) Ur Specific [place] (1.005-1.025) Urine Protein (Neg-Trace) mg/dL Urine Glucose (UA) (Negative) mg/dL Urine Ketones (Negative) mg/dL Urine Blood (Negative) Urine Nitrite (Negative) Ur Leukocyte Esterase (Negative) Urine RBC (0-2) /HPF Urine WBC (0-5) /HPF Ur Squamous Epith Cells (0-2) /HPF Urine Bacteria (None Seen) Hyaline Casts (0-2) /LPF Urine Opiates Screen (Not Detect) Ur Buprenorphine Scrn (Not Detect) ng/mL Ur Oxycodone Screen (Not Detect) ng/mL Urine Methadone Screen (Not Detect) ng/mL Urine Fentanyl Screen (Not Detect) Ur Barbiturates Screen (Not Detect) Ur Phencyclidine Scrn (Not Detect) Ur Amphetamines Screen (Not Detect) U Benzodiazepines Scrn (Not Detect) Urine Cocaine Screen (Not Detect) U Marijuana (THC) Screen (Not Detect) Ethyl Alcohol < 10 mg/dL Influenza Type A (PCR) NEGATIVE (Negative) Influenza Type B (PCR) NEGATIVE (Negative) RSV RNA Qual (PCR) NEGATIVE (Negative) SARS-CoV-2 RNA (RT-PCR) NEGATIVE (Negative) 07/12/24 Range/Units 22:50 WBC (4.8-10.8) X10*3/uL RBC (4.20-5.50) X10*6/uL Hgb (12.0-16.0) g/dl Hct (37.0-47.0) % MCV (80.0-98.0) fL MCH (27.0-33.0) pg MCHC (31.0-35.0) g/dl RDW (11.0-16.0) % Plt Count (160-400) X10*3/uL MPV (9.4-12.3) fL Immature Gran % (Auto) (0.0-0.4) % Neut % (Auto) (45-73) % Lymph % (Auto) (20-40) % [place] % (Auto) (2-11) % Eos % (Auto) (0-4) % Baso % (Auto) (0-2) % Lymph # (Auto) (1.2-4.9) X10*3/uL [place] # (Auto) (0.1-1.2) X10*3/uL Eos # (Auto) (0.0-0.4) X10*3/uL Baso # (Auto) (0.0-0.2) X10*3/uL Abs Immat Gran (auto) (0.00-0.03) X10*3/uL Absolute Neuts (auto) (2.0-8.3) x10*3/uL Absolute Nucleated RBC (0.0-0.012) X10*3/uL Nucleated RBC % (auto) (0.0-0.2) /100WBC Sodium (135-145) mmol/L Potassium (3.3-5.1) mmol/L Chloride (96-108) mmol/L Carbon Dioxide (22-29) mmol/L Anion Gap (12-20) BUN (9-16) mg/dL Creatinine (0.5-1.4) mg/dL Estim Creat Clear Calc Estimated GFR Random Glucose (60-115) mg/dL Calcium (8.4-10.2) mg/dL Magnesium (1.6-2.6) mg/dL Total Bilirubin (0.0-1.0) mg/dL Direct Bilirubin (0.0-0.5) mg/dL AST (5-31) U/L ALT (0-31) U/L Alkaline Phosphatase (39-117) U/L Total Protein (6.5-8.0) g/dL Albumin (3.5-5.0) g/dL Lipase (8-78) U/L Urine Color Yellow Urine Appearance Cloudy Urine pH 6.0 (5.0-9.0) Ur Specific [place] 1.015 (1.005-1.025) Urine Protein 30 (1+) H (Neg-Trace) mg/dL Urine Glucose (UA) Negative (Negative) mg/dL Urine Ketones 15 (Negative) mg/dL Urine Blood Negative (Negative) Urine Nitrite Negative (Negative) Ur Leukocyte Esterase Large (3+) H (Negative) Urine RBC 0-2 (0-2) /HPF Urine WBC 6-10 (0-5) /HPF Ur Squamous Epith Cells 3-5 (0-2) /HPF Urine Bacteria Trace (None Seen) Hyaline Casts 0-2 (0-2) /LPF Urine Opiates Screen Not Detected (Not Detect) Ur Buprenorphine Scrn Not Detected (Not Detect) ng/mL Ur Oxycodone Screen Not Detected (Not Detect) ng/mL Urine Methadone Screen Not Detected (Not Detect) ng/mL Urine Fentanyl Screen Not Detected (Not Detect) Ur Barbiturates Screen Not Detected (Not Detect) Ur Phencyclidine Scrn Not Detected (Not Detect) Ur Amphetamines Screen Not Detected (Not Detect) U Benzodiazepines Scrn Not Detected (Not Detect) Urine Cocaine Screen Not Detected (Not Detect) U Marijuana (THC) Screen POSITIVE H (Not Detect) Ethyl Alcohol mg/dL Influenza Type A (PCR) (Negative) Influenza Type B (PCR) (Negative) RSV RNA Qual (PCR) (Negative) SARS-CoV-2 RNA (RT-PCR) (Negative) Discharge Plan Discharge Clinical Impression: Diverticulitis, JUANITO (acute kidney injury), Acute hypokalemia Patient Disposition: Admitted As Inpatient Print Language: Tuvaluan
--- NOTE | 2024-07-13 02:09 | P.HPHOSP_ITS ---
History of Present Illness Date of Service: 07/13/24 Chief Complaint: FTT 58F very poor historian, history obtained mostly from chart, PMH CVA X2 (no residual deficits), COPD, HTN, provoked DVT no longer on AC, presented with failure to thrive. patient is very vague and inconsistent with answers. reporting difficulty ambulating, poor appetite, nausea and vomiting and diarrhea. patient unable to give further details, not sure how long symptoms ongoing, not sure if lost weight (recorded weight appears similar to previous), phone number for daughter not working. in ED labs grossly abnormal, severe hypokalemia, juanito, transaminitis, metabolic acidosis. CT abd showed possible sigmoid diverticulitis and thick walled distal rectum. Review of Systems 2 Review of Systems: Yes Unobtainable due to mental status [facility] Medical History COPD (chronic obstructive pulmonary disease) Asthma exacerbation Social History Household Members: Children Household Members Other:: unknown but pt states lives with family Housing: Apartment Housing Other:: pt not cooperative Do you presently have visiting nurse or other home services: No Unable to assess alcohol history related to: Unknown and Refusing to respond Patient Tobacco Use Status: Former Tobacco user Tobacco use type: Cigarette Smoked in Last 30 Days: No Use of substances other than those prescribed or required for medical reasons: No Substance Use Type: Marijuana Advance Directives: No Advance Directives Information Provided: No Patient : No service: No Current occupational status: unemployed Meds Allergies Allergy/AdvReac Type Severity Reaction Status Date / Time No Known Allergies Allergy Verified 07/12/24 20:31 Active Medications: Current Medications Metronidazole (Flagyl) 500 mg in 100 mls @ 100 mls/hr IV ONCE ONE Stop: 07/13/24 02:30 Non-Formulary Medication (Ciprofloxacin) 500 mg IV ONCE ONE Stop: 07/13/24 01:35 Home Medications ?Medication ?Instructions ?Recorded ?Confirmed ?Last Taken ?Type multivitamin 1 tab PO DAILY 10/17/21 10/17/21 Unknown History Physical Exam 2 Vital Signs and Narrative: Vital Signs: Last Vital Signs Temp 98.1 F 07/13/24 00:23 Pulse 77 07/13/24 00:23 Resp 16 07/13/24 00:23 BP 129/52 L 07/13/24 00:23 Pulse Ox 99 07/13/24 00:23 O2 Del Method Room Air 07/13/24 00:23 BMI result Body Mass Index 18.7 General: AO X 3, frail, cachexic Resp: diminished bilateral, no accessory muscles used CVS: S1,S2,RRR GI: soft, non tender, non distended Neuro: motor grossly intact, alert Psych: strange affect, impaired insight Results Labs 07/12/24 20:39 07/12/24 20:39 Labs: Laboratory Results - last 24 hr 07/12/24 07/12/24 07/12/24 20:30 20:39 21:32 MCV 93.5 MCH 34.5 H MCHC 36.9 H RDW 15.7 Plt Count 145 L MPV 9.6 Immature Gran % (Auto) 0.6 H Neut % (Auto) 42.1 L Lymph % (Auto) 41.7 H [place] % (Auto) 11.4 H Eos % (Auto) 3.6 Baso % (Auto) 0.6 Lymph # (Auto) 2.2 [place] # (Auto) 0.6 Eos # (Auto) 0.2 Baso # (Auto) 0.0 Abs Immat Gran (auto) 0.03 Absolute Neuts (auto) 2.2 Absolute Nucleated RBC 0.000 Nucleated RBC % (auto) 0.0 Anion Gap 18 Estim Creat Clear Calc 22.1 Estimated GFR 26 Random Glucose 101 Calcium 10.3 H D Magnesium 2.6 Total Bilirubin 2.1 H Direct Bilirubin 1.6 H AST 219 H ALT 599 H Alkaline Phosphatase 101 Total Protein 7.5 Albumin 3.5 Lipase 73 Urine Color Urine Appearance Urine pH Ur Specific [place] Urine Protein Urine Glucose (UA) Urine Ketones Urine Blood Urine Nitrite Ur Leukocyte Esterase Urine RBC Urine WBC Ur Squamous Epith Cells Urine Bacteria Hyaline Casts Urine Opiates Screen Ur Buprenorphine Scrn Ur Oxycodone Screen Urine Methadone Screen Urine Fentanyl Screen Ur Barbiturates Screen Ur Phencyclidine Scrn Ur Amphetamines Screen U Benzodiazepines Scrn Urine Cocaine Screen U Marijuana (THC) Screen Ethyl Alcohol < 10 Influenza Type A (PCR) NEGATIVE Influenza Type B (PCR) NEGATIVE RSV RNA Qual (PCR) NEGATIVE SARS-CoV-2 RNA (RT-PCR) NEGATIVE 07/12/24 22:50 MCV MCH MCHC RDW Plt Count MPV Immature Gran % (Auto) Neut % (Auto) Lymph % (Auto) [place] % (Auto) Eos % (Auto) Baso % (Auto) Lymph # (Auto) [place] # (Auto) Eos # (Auto) Baso # (Auto) Abs Immat Gran (auto) Absolute Neuts (auto) Absolute Nucleated RBC Nucleated RBC % (auto) Anion Gap Estim Creat Clear Calc Estimated GFR Random Glucose Calcium Magnesium Total Bilirubin Direct Bilirubin AST ALT Alkaline Phosphatase Total Protein Albumin Lipase Urine Color Yellow Urine Appearance Cloudy Urine pH 6.0 Ur Specific [place] 1.015 Urine Protein 30 (1+) H Urine Glucose (UA) Negative Urine Ketones 15 Urine Blood Negative Urine Nitrite Negative Ur Leukocyte Esterase Large (3+) H Urine RBC 0-2 Urine WBC 6-10 Ur Squamous Epith Cells 3-5 Urine Bacteria Trace Hyaline Casts 0-2 Urine Opiates Screen Not Detected Ur Buprenorphine Scrn Not Detected Ur Oxycodone Screen Not Detected Urine Methadone Screen Not Detected Urine Fentanyl Screen Not Detected Ur Barbiturates Screen Not Detected Ur Phencyclidine Scrn Not Detected Ur Amphetamines Screen Not Detected U Benzodiazepines Scrn Not Detected Urine Cocaine Screen Not Detected U Marijuana (THC) Screen POSITIVE H Ethyl Alcohol Influenza Type A (PCR) Influenza Type B (PCR) RSV RNA Qual (PCR) SARS-CoV-2 RNA (RT-PCR) Imaging Radiologist's Impressions: Impressions Abdomen/Pelvis CT 07/12/24 23:05 IMPRESSION: 1. Colonic diverticulosis with subtle stranding adjacent to the proximal sigmoid colon, raising concern for mild diverticulitis. 2. Somewhat thick-walled appearance of the distal rectum, suboptimally assessed due to underdistention. Correlation with recent or follow-up colonoscopy is recommended to exclude an underlying mass lesion. 3. Trace pelvic free fluid, which may be reactive. 4. Punctate right lower pole renal calculus without hydronephrosis. Electronically signed by: Johan Brownlee MD 07/13/2024 12:59 AM EDT Assessment and Plan (1) Acute hypokalemia: Status: Acute Plan 58F PMH CVA X2 (no residual deficits), COPD, HTN, provoked DVT no longer on AC, presented with failure to thrive, n/v/d, found to have juanito, hypokalemia, acidosis, lfts moderate protein calorie malnutrition, failure to thrive complicated by JUANITO, severe acute hypokalemia, acute metabolic acidosis (starvation ketoacidosis, diarrhea) IVF, potassium supplemented, check vbg, montior bmp monitor for refeeding acute diverticulitis, rectal thickening clears, iv rocephin, flagyl, gi eval history of cva dapl, statin htn amlodipine history of provoked DVT no longer on AC COPD albuterol prn dvt prophylaxis - hep sq full code patient with severe electolyre abnormalitis and juanito, requiring close montioring and iv fluids, therefore, expected to require atelast 2 midnights inpatient. Quality Stroke Does the patient have a stroke diagnosis?: No VTE Prior VTE?: Yes VTE Risk Level:: Medical - moderate - high VTE Device Contraindication: Treatment Not Indicated VTE Drug Contraindication: N/A - Med Ordered
[2024-07-13 02:34] LABS: Lactic Acid 1.1 mmol/L (0.5-2.0)
[2024-07-13 02:50] LABS: Anion Gap 17 (12-20); Blood Urea Nitrogen 29 mg/dL (9-16); Calcium 10.1 mg/dL (8.4-10.2); Carbon Dioxide 13 mmol/L (22-29); Chloride 115 mmol/L (96-108); Creatinine Clr Calc Pharmacy 22.4; Estimated Glomerular Filt Rate 26; Glucose Random 100 mg/dL (60-115); Potassium 2.9 mmol/L (3.3-5.1); Sodium 142 mmol/L (135-145)
[2024-07-13 02:57] LABS: VBG Base Excess -14.4 mmol/L; VBG HCO3 10 mmol/L (22-26); VBG pCO2 22 mmHg; VBG pH 7.26 (7.32-7.43); VBG pO2 69 mmHg
[2024-07-13 02:59] LABS: Venous Blood Gas Refer to POC result
[2024-07-13 03:00] LABS: TSH reflex Free T4 0.23 uIU/mL (0.32-4.0)
[2024-07-13 03:32] LABS: Free T4 (Free Thyroxine) 0.79 ng/dL (0.71-1.85)
[2024-07-13] MEDS: metroNIDAZOLE/NS 500 MG/100 ML PIGGYBACK 100 MG IV ×2 (03:44→15:19)
[2024-07-13] MEDS: Lactated Ringers 1,000 ML 80 ML IVCONT (03:44)
--- NOTE | 2024-07-13 04:29 | PC.NURSE ---
meds delayed d/t poor IV access, 22g to RAC. pt keeps bending arm, causing pump to stop. will not ring to alert staff. attempted to flush IV, would not flush. IV kinked d/t constant arm bending/moving. IV removed. new 22g IVs placed to bilateral forearms. medications infusing at this time. pt very labile and tearful in room, often does not answer questions appropriately. will answer question with something totally unrelated. comes to the ED reporting weakness and trouble walking. pt reports walking without device at home (although she has a walker to use) and takes care of self w/out help. pt appears unkept.
[2024-07-13] MEDS: cefTRIAXone sodium 1 GM in 0.9 % Sodium Chloride 50 ML IV (04:55)
--- NOTE | 2024-07-13 05:28 | PC.NURSE ---
pt BIBA from home, reporting n/v/d and difficulty walking. pt post-cholecystectomy x8wks. admit: JUANITO, hypokalemia, diverticulitis. bilateral 22g IV to forearms. LR infusing. uses commode with assist, very unsteady on feet but reports walking indept. at home. clear liquid, tele, GI consult. A/O x3, odd affect, poor historian, speech is off at times. doesn't answer questions appropriately sometimes, will answer with something totally unrelated to question. pt states she cares for self but appears unkept, poor po intake, failure to thrive.
--- NOTE | 2024-07-13 07:12 | PC.NURSE ---
patient resting quietly in ED stretcher, patient VSS, respirations equal and unlabored. patient skin dry and intact. LR running at 80ml/hr. patient currently has no complaints at this time, does not show any signs of acute distress
[2024-07-13 09:03] LABS: Anion Gap 15 (12-20); Blood Urea Nitrogen 24 mg/dL (9-16); Calcium 9.9 mg/dL (8.4-10.2); Carbon Dioxide 12 mmol/L (22-29); Chloride 119 mmol/L (96-108); Creatinine Clr Calc Pharmacy 26.6; Estimated Glomerular Filt Rate 32; Glucose Random 99 mg/dL (60-115); Phosphorus 1.5 mg/dL (2.7-4.5); Sodium 143 mmol/L (135-145)
[2024-07-13] MEDS: amLODIPine Besylate 5 MG TABLET PO (09:18)
[2024-07-13] MEDS: Heparin Sodium,Porcine 5,000 UNIT/ML VIAL 5000 UNIT SUBCUT ×2 (09:18→21:19)
[2024-07-13] MEDS: Clopidogrel Bisulfate 75 MG TABLET PO (09:18)
[2024-07-13] MEDS: Aspirin Enteric Coated 81 MG TABLET.DR PO (09:18)
[2024-07-13] MEDS: Magnesium Sulfate/H2O 2 GM/50 ML PIGGYBACK IV (09:52)
[2024-07-13] MEDS: Potassium Chloride ER 20 MEQ TAB.ER.PRT 40 MEQ PO ×2 (09:52→15:19)
[2024-07-13] MEDS: Sodium Bicarbonate 8.4% 150 MEQ in Dextrose 5 % 850 ML 100 MEQ IV ×2 (10:26→21:18)
--- NOTE | 2024-07-13 10:26 | MHC.CM.PN ---
CM ATTEMPTED TO MEET WITH PT PT WITH MD AND RN AT THIS TIME CM WILL RETURN
--- NOTE | 2024-07-13 10:48 | PC.NURSE ---
patient up to commode with one assist to the commode, voided and had one small bowel movement. patient cleaned up, changed hospital attire. changed bed linens and placed new pad. patient VSS, patient is alert and oriented to self and place, not situation. sod bicarb D5 running at 100ml/hr. while inpatient MD was at bedside, patient confided that her daughter 3 weeks ago at the age of 28, states she feels increasingly depressed and suicidal. This RN questioned patient on SI plan and patient states she had no plan for SI, and that shes not suicidal. patient now has sitter at bedside.
[2024-07-13 10:54] LABS: Alanine Aminotransferase 483 U/L (0-31); Albumin Level 3.3 g/dL (3.5-5.0); Alkaline Phosphatase 87 U/L (39-117); Aspartate Amino Transferase 140 U/L (5-31); Bilirubin Direct 1.7 mg/dL (0.0-0.5); Bilirubin Total 2.1 mg/dL (0.0-1.0); Total Protein 7.2 g/dL (6.5-8.0)
--- NOTE | 2024-07-13 12:40 | PM.EVENT ---
Event Note Date of Service: 07/13/24 Event Note: GI consult dictated Agree with treating any component of diverticulitis with abx Rectal thickening is likely due to underdistension, and can be evaluated with colonoscopy in 6-8 wks following resolution of diverticulitis. No N/V/D at this time. LFT's improving, liver and biliary tree structurally normal on CT. Monitor LFT's Time Spent With Patient Time: Total time managing care of this patient today ____ minutes.
--- NOTE | 2024-07-13 13:21 | MHC.CLN ---
RE: CONSULT PT RECEIVING CLEAR LIQUID DIET WILL ADD ENSURE CLEAR TID TO INCREASE KCALS SUPP TO PROVIDE [id number], 24G PROTEIN FULL ASSESSMENT TO FOLLOW WHEN PT TRANSFERRED TO MEDICAL FLOOR
[2024-07-13 13:37] LABS: HBS Num1 13.03 mIU/mL (0-7.99); HBc Num1 2.97 S/CO (0.00-0.79); HBsAGNum1 0.23 S/CO (0.00-0.99); Hepatitis A Antibody IgM 0.18 Index (0-0.79); Hepatitis B Surface Antigen Negative (Negative); ~HepC Num1 14.97 S/CO (0.00-0.79); ~Hepatitis A Antibody IgM Nonreactive (Nonreactive); ~Hepatitis B Surface Antibody REACTIVE (Nonreactive); ~Hepatitis C Antibody Reactive (Nonreactive)
--- NOTE | 2024-07-13 13:45 | CONS_ITS ---
DATE OF SERVICE: 07/13/2024 REFERRING PHYSICIAN: Sunil Pro MD REASON FOR CONSULTATION: Abnormal CT scan, nausea, vomiting, diarrhea, elevated liver function tests. HISTORY OF PRESENT ILLNESS: The patient is a 58-year-old woman, who was admitted to the hospital after presenting to the emergency room because of difficulty walking. There was also some reported nausea, vomiting, and diarrhea, although the patient currently denies any of this. She states she had her gallbladder out 5 months ago in [place] and is living locally with her son prior to returning to [place]. She currently denies any abdominal pain, nausea, vomiting, or diarrhea. In the emergency department, she was evaluated with lab work showing elevations of her liver function tests, which appeared to be improving. CT scanning of the abdomen and pelvis was obtained and is reviewed. This is interpreted as showing mild sigmoid diverticulitis, for which she is being treated with antibiotics. There was also incomplete distention of the rectum raising a question of rectal thickening. The patient denies any prior history of a colonoscopy. PAST MEDICAL HISTORY: 1. COPD/asthma. 2. Hypertension. 3. DVT. 4. CVA. CURRENT MEDICATIONS: Current medication list is reviewed in the chart. ALLERGIES: THERE ARE NONE REPORTED. FAMILY HISTORY: This is reviewed in the electronic medical record. The patient denies any family history of colon cancer or GI malignancy. SOCIAL HISTORY: She denies tobacco or alcohol use. She states she does use occasional marijuana. REVIEW OF SYSTEMS: SKIN: No pruritus. HEENT: Negative. CARDIOPULMONARY: She denies any shortness of breath or chest pain. GASTROINTESTINAL: As above. GENITOURINARY: Negative. NEUROPSYCHIATRIC: Negative. PHYSICAL EXAMINATION: GENERAL: Shows a pleasant female, who provides very little useful history. SKIN: Anicteric. HEENT: Shows no scleral icterus. NECK: Without lymphadenopathy or thyromegaly. LUNGS: Clear. HEART: Shows a regular rate and rhythm. S1, S2. No murmur. ABDOMEN: Soft without focal masses or tenderness. Bowel sounds are present. No organomegaly is noted. EXTREMITIES: Without edema. LABORATORY DATA: Including CT scanning and liver function tests are reviewed. IMPRESSION: Diverticulitis. She is currently being treated for the CT scan findings suggestive of mild diverticulitis and I agree with treating her with antibiotics that you are doing. I would follow her clinically and after she completes treatment, she can consider lower GI tract evaluation with outpatient colonoscopy in 6 to 8 weeks. The underdistention makes interpretation of any rectal wall thickening difficulty. At this time, she does not appear to have any nausea, vomiting, or diarrhea, and I would advance her diet as tolerated. Her elevated liver function tests may reflect an underlying viral etiology. Hepatitis studies are pending and I would continue to monitor these structurally her liver and biliary tree appear normal on CT imaging and I think simple monitoring her regular tests is all that is needed at this time. Thanks for asking me to see her. I will follow her in the hospital as needed. MD CAMILLE Barry/KASSIE / [id number] MTDConrad
--- NOTE | 2024-07-13 16:02 | PC.NURSE ---
patient alerted this RN stating that a needle was left in her vagina from her surgery 6mo ago, inpatient provider aware.
--- NOTE | 2024-07-13 16:14 | PC.NURSE ---
this RN and another RN ariel, examined the exterior portion of patients genitals, no needle noted, per provider request
--- NOTE | 2024-07-13 16:52 | PHA.MEDREC ---
Pharmacy Consult ? Medication Reconciliation Pharmacy has completed the medication reconciliation. Patient only taking amlodipine for blood pressure. Has been on previously atorvastatin 40 mg daily, clopidogrel 75mg daily, aspirin 81mg daily, metoprolol succ 25mg daily, and wixela 250/50 but she hasn't filled any of these in a long
--- NOTE | 2024-07-13 16:55 | P.CNPS_ITS ---
History of Present Illness Date of Service: 07/13/24 Chief Complaint: juanito,hypokalmeia Requesting physician: Wilian Odell Discussed with referring provider: Yes Sources of Information: patient interviewed and chart reviewed HPI Narrative: 58F PMH CVA X2 (no residual deficits), COPD, HTN, provoked DVT no longer on AC, presented with failure to thrive, n/v/d, found to have juanito, hypokalemia, acidosis, lfts Psychiatry asked to evaluate patient as she apparently made a suicidal comment. Patient currently disorganized and difficult with which to engage. Auto Claim Representative discussed case with attending who agrees for psych to re-evaluate once patient more medically cleared. Past Psychiatric History: unknown Medical Evaluation Reviewed: Yes [facility] Medical History (Updated 07/16/24 @ 17:56 by Richi Cobb MD) COPD (chronic obstructive pulmonary disease) Asthma exacerbation Diagnostics Vital Signs (24Hr): Vital Signs - 24 hr 07/12/24 20:33 07/12/24 22:45 07/13/24 00:23 Temperature 98.2 F 98.0 F 98.1 F Pulse Rate 84 77 77 Respiratory Rate 16 17 16 Blood Pressure 153/42 H 147/42 H 129/52 L Pulse Oximetry 100 100 99 Oxygen Delivery Method Room Air Room Air Room Air 07/13/24 03:43 07/13/24 06:19 07/13/24 07:10 Temperature 97.9 F 98.0 F 97.6 F Pulse Rate 68 68 78 Respiratory Rate 18 13 16 Blood Pressure 124/48 L 125/61 140/44 H Pulse Oximetry 98 100 100 Oxygen Delivery Method Room Air Room Air Room Air 07/13/24 10:28 07/13/24 10:54 07/13/24 15:18 Temperature 97.6 F 97.8 F Pulse Rate 75 75 66 Respiratory Rate 18 14 Blood Pressure 145/58 H 145/58 H 156/65 H Pulse Oximetry 100 100 100 Oxygen Delivery Method Room Air Room Air BMI result Body Mass Index 18.7 Labs 07/15/24 07:42 07/16/24 08:24 Labs: Laboratory Results - last 48 hr 07/12/24 07/12/24 07/12/24 20:30 20:39 21:32 WBC 5.3 RBC 3.10 L D Hgb 10.7 L D Hct 29.0 L D MCV 93.5 MCH 34.5 H MCHC 36.9 H RDW 15.7 Plt Count 145 L MPV 9.6 Immature Gran % (Auto) 0.6 H Neut % (Auto) 42.1 L Lymph % (Auto) 41.7 H [place] % (Auto) 11.4 H Eos % (Auto) 3.6 Baso % (Auto) 0.6 Lymph # (Auto) 2.2 [place] # (Auto) 0.6 Eos # (Auto) 0.2 Baso # (Auto) 0.0 Abs Immat Gran (auto) 0.03 Absolute Neuts (auto) 2.2 Absolute Nucleated RBC 0.000 Nucleated RBC % (auto) 0.0 VBG pH VBG pCO2 VBG pO2 VBG HCO3 VBG O2 Saturation VBG Base Excess Sodium 141 Potassium 2.4 L* Chloride 114 H Carbon Dioxide 11 L Anion Gap 18 BUN 32 H Creatinine 1.98 H Estim Creat Clear Calc 22.1 Estimated GFR 26 Random Glucose 101 Lactic Acid Calcium 10.3 H D Phosphorus Magnesium 2.6 Total Bilirubin 2.1 H Direct Bilirubin 1.6 H AST 219 H ALT 599 H Alkaline Phosphatase 101 Total Protein 7.5 Albumin 3.5 Lipase 73 TSH Free T4 Urine Color Urine Appearance Urine pH Ur Specific [place] Urine Protein Urine Glucose (UA) Urine Ketones Urine Blood Urine Nitrite Ur Leukocyte Esterase Urine RBC Urine WBC Ur Squamous Epith Cells Urine Bacteria Hyaline Casts Urine Opiates Screen Ur Buprenorphine Scrn Ur Oxycodone Screen Urine Methadone Screen Urine Fentanyl Screen Ur Barbiturates Screen Ur Phencyclidine Scrn Ur Amphetamines Screen U Benzodiazepines Scrn Urine Cocaine Screen U Marijuana (THC) Screen Ethyl Alcohol < 10 Hepatitis A IgM Ab Hep Bs Antigen Hep Bs Antibody Hepatitis C Ab (EIA) Influenza Type A (PCR) NEGATIVE Influenza Type B (PCR) NEGATIVE RSV RNA Qual (PCR) NEGATIVE SARS-CoV-2 RNA (RT-PCR) NEGATIVE 07/12/24 07/13/24 07/13/24 22:50 02:08 02:52 WBC RBC Hgb Hct MCV MCH MCHC RDW Plt Count MPV Immature Gran % (Auto) Neut % (Auto) Lymph % (Auto) [place] % (Auto) Eos % (Auto) Baso % (Auto) Lymph # (Auto) [place] # (Auto) Eos # (Auto) Baso # (Auto) Abs Immat Gran (auto) Absolute Neuts (auto) Absolute Nucleated RBC Nucleated RBC % (auto) VBG pH 7.26 L VBG pCO2 22 VBG pO2 69 VBG HCO3 10 L VBG O2 Saturation 95.0 VBG Base Excess -14.4 Sodium 142 Potassium 2.9 L* D Chloride 115 H Carbon Dioxide 13 L Anion Gap 17 BUN 29 H Creatinine 1.95 H Estim Creat Clear Calc 22.4 Estimated GFR 26 Random Glucose 100 Lactic Acid 1.1 Calcium 10.1 Phosphorus Magnesium Total Bilirubin Direct Bilirubin AST ALT Alkaline Phosphatase Total Protein Albumin Lipase TSH 0.23 L Free T4 0.79 Urine Color Yellow Urine Appearance Cloudy Urine pH 6.0 Ur Specific [place] 1.015 Urine Protein 30 (1+) H Urine Glucose (UA) Negative Urine Ketones 15 Urine Blood Negative Urine Nitrite Negative Ur Leukocyte Esterase Large (3+) H Urine RBC 0-2 Urine WBC 6-10 Ur Squamous Epith Cells 3-5 Urine Bacteria Trace Hyaline Casts 0-2 Urine Opiates Screen Not Detected Ur Buprenorphine Scrn Not Detected Ur Oxycodone Screen Not Detected Urine Methadone Screen Not Detected Urine Fentanyl Screen Not Detected Ur Barbiturates Screen Not Detected Ur Phencyclidine Scrn Not Detected Ur Amphetamines Screen Not Detected U Benzodiazepines Scrn Not Detected Urine Cocaine Screen Not Detected U Marijuana (THC) Screen POSITIVE H Ethyl Alcohol Hepatitis A IgM Ab Hep Bs Antigen Hep Bs Antibody Hepatitis C Ab (EIA) Influenza Type A (PCR) Influenza Type B (PCR) RSV RNA Qual (PCR) SARS-CoV-2 RNA (RT-PCR) 07/13/24 07/13/24 07:56 12:42 WBC RBC Hgb Hct MCV MCH MCHC RDW Plt Count MPV Immature Gran % (Auto) Neut % (Auto) Lymph % (Auto) [place] % (Auto) Eos % (Auto) Baso % (Auto) Lymph # (Auto) [place] # (Auto) Eos # (Auto) Baso # (Auto) Abs Immat Gran (auto) Absolute Neuts (auto) Absolute Nucleated RBC Nucleated RBC % (auto) VBG pH VBG pCO2 VBG pO2 VBG HCO3 VBG O2 Saturation VBG Base Excess Sodium 143 Potassium 3.0 L Chloride 119 H Carbon Dioxide 12 L Anion Gap 15 BUN 24 H Creatinine 1.65 H Estim Creat Clear Calc 26.6 Estimated GFR 32 Random Glucose 99 Lactic Acid Calcium 9.9 Phosphorus 1.5 L Magnesium Total Bilirubin 2.1 H Direct Bilirubin 1.7 H AST 140 H ALT 483 H Alkaline Phosphatase 87 Total Protein 7.2 Albumin 3.3 L Lipase TSH Free T4 Urine Color Urine Appearance Urine pH Ur Specific [place] Urine Protein Urine Glucose (UA) Urine Ketones Urine Blood Urine Nitrite Ur Leukocyte Esterase Urine RBC Urine WBC Ur Squamous Epith Cells Urine Bacteria Hyaline Casts Urine Opiates Screen Ur Buprenorphine Scrn Ur Oxycodone Screen Urine Methadone Screen Urine Fentanyl Screen Ur Barbiturates Screen Ur Phencyclidine Scrn Ur Amphetamines Screen U Benzodiazepines Scrn Urine Cocaine Screen U Marijuana (THC) Screen Ethyl Alcohol Hepatitis A IgM Ab Nonreactive Hep Bs Antigen Negative Hep Bs Antibody REACTIVE Hepatitis C Ab (EIA) Reactive H Influenza Type A (PCR) Influenza Type B (PCR) RSV RNA Qual (PCR) SARS-CoV-2 RNA (RT-PCR) Imaging Radiology Impressions: ITS Impressions Abdomen/Pelvis CT 07/12/24 23:05 IMPRESSION: 1. Colonic diverticulosis with subtle stranding adjacent to the proximal sigmoid colon, raising concern for mild diverticulitis. 2. Somewhat thick-walled appearance of the distal rectum, suboptimally assessed due to underdistention. Correlation with recent or follow-up colonoscopy is recommended to exclude an underlying mass lesion. 3. Trace pelvic free fluid, which may be reactive. 4. Punctate right lower pole renal calculus without hydronephrosis. Electronically signed by: Johan Brownlee MD 07/13/2024 12:59 AM EDT Medications Medications Current Medications Acetaminophen (Acetaminophen 325 Mg Tablet) 650 mg PO Q6H PRN PRN Reason: Pain, Mild (Pain Scale 1-3), fever or headache Albuterol Sulfate (Albuterol Sulfate 90 Mcg 8 Gm Inhaler) 2 puff INHALE RQ6H PRN PRN Reason: sob Amlodipine Besylate (Amlodipine Besylate 5 Mg Tablet) 5 mg PO DAILY [facility]; Protocol Last Admin: 07/13/24 09:18 Dose: 5 mg Aspirin (Aspirin Enteric Coated 81 Mg Tablet.) 81 mg PO DAILY [facility] Last Admin: 07/13/24 09:18 Dose: 81 mg Atorvastatin Calcium (Atorvastatin Calcium 10 Mg Tablet) 10 mg PO BEDTIME [facility] Calcium Carbonate (Calcium Carbonate 750 Mg Tab.Chew) 750 mg PO Q4H PRN PRN Reason: Heartburn Clopidogrel Bisulfate (Clopidogrel Bisulfate 75 Mg Tablet) 75 mg PO DAILY [facility] Last Admin: 07/13/24 09:18 Dose: 75 mg Heparin Sodium (Porcine) (Heparin Sodium,Porcine 5,000 Unit/Ml Vial) 5,000 unit SUBCUT Q12H [facility] Last Admin: 07/13/24 09:18 Dose: 5,000 unit Ceftriaxone Sodium 1 gm/ (Sodium Chloride) 50 mls @ 100 mls/hr IV Q24H [facility] Last Infusion: 07/13/24 05:26 Dose: Infused Metronidazole (Flagyl) 500 mg in 100 mls @ 100 mls/hr IV Q12H [facility] Last Admin: 07/13/24 15:19 Dose: 100 mls/hr Sodium Bicarbonate 150 meq/ (Dextrose) 1,000 mls @ 100 mls/hr IV .Q10H [facility] Last Admin: 07/13/24 10:26 Dose: 100 mls/hr Magnesium Hydroxide (Milk Of Magnesia 30 Ml Oral.Susp) 30 ml PO DAILY PRN PRN Reason: Constipation Melatonin (Melatonin 3 Mg Tablet) 6 mg PO BEDTIME PRN PRN Reason: Insomnia Potassium Chloride (Potassium Chloride Er 20 Meq Tab.Er.Prt) 40 meq PO TID [facility] Last Admin: 07/13/24 15:19 Dose: 40 meq Sodium Chloride (0.9 % Sodium Chloride Flush 3 Ml Syringe) 3 ml IVFLUSH QSHIFT [facility] Last Admin: 07/13/24 15:32 Dose: Not Given Allergies Allergies Allergy/AdvReac Type Severity Reaction Status Date / Time No Known Allergies Allergy Verified 07/12/24 20:31 Assessment & Plan Assessment & Plan (1) Metabolic acidosis: Status: Acute Code(s): E87.20 - Acidosis, unspecified (2) Acute hypokalemia: Status: Acute Code(s): E87.6 - Hypokalemia (3) JUANITO (acute kidney injury): Status: Acute Code(s): N17.9 - Acute kidney failure, unspecified (4) Diverticulitis: Status: Acute Code(s): K57.92 - Diverticulitis of intestine, part unspecified, without perforation or abscess without bleeding (5) COPD (chronic obstructive pulmonary disease): Status: Acute Code(s): J44.9 - Chronic obstructive pulmonary disease, unspecified Plan Currently patient to disorganized to fully assess. Auto Claim Representative discussed case with attending who will re-consult Psychiatry once patient medically cleared and hopefully more organized. Total time managing care of this patient today ____ minutes. Patient educated on: diagnosis Informed Consent: does not understand
--- NOTE | 2024-07-13 17:32 | P.EN_ITS ---
Event Note Date of Service: 07/13/24 Event Note: Patient seen and examined by hospitalist team as trigger Seen and examined again-patient mentioned depression and suicidal ideation she said daughter recently. She also said she had some kind of operation in [place] versus [place]-? Cholecystectomy. Patient has low potassium, bicarb, low pH, renal function slowly improving. Also low phosphorus. Patient possibly has failure to thrive Physical exam: Similar to H&P. Assessment and plan: Discussed with with Nephrology: Started on IV bicarb drip considering low bicarb, non-anion gap metabolic acidosis in the setting of renal failure, in addition potassium 40 mEq t.i.d. added since patient is on D5 bicarb drip so potassium might go down further. Added Neutra-Phos BMP in the evening acute diverticulitis, rectal thickening clears, iv rocephin, flagyl Patient had depression with suicidal ideation: Psych evaluation added, patient will need BH and clearance for before discharge, sitter. Time Spent With Patient Time: Total time managing care of this patient today ____ minutes.
--- NOTE | 2024-07-13 18:08 | P.CONNP_ITS ---
History of Present Illness Reason for Consult Consult date: 07/13/24 Reason for consult: JUANITO Chief Complaint Chief complaint: juanito,hypokalmeia History of Present Illness Narrative: 58F very poor historian with a H/O CVA X2 (no residual deficits) presented with failure to thrive. Patient is very vague and inconsistent with answers. Reporting difficulty ambulating, poor appetite, nausea and vomiting and diarrhea. Patient unable to give further details, not sure how long symptoms ongoing, not sure if lost weight (recorded weight appears similar to previous). In ED labs grossly abnormal, severe hypokalemia, juanito, transaminitis, metabolic acidosis. CT abd showed possible sigmoid diverticulitis and thick walled distal rectum. She was admitted for further management. Nephrology has been consulted to assist in her clinical care during her current hospital stay Review of Systems Review of Systems Yes all other systems are reviewed and are negative [facility] Past Medical History Medical History COPD (chronic obstructive pulmonary disease) Asthma exacerbation Social History Social History Household Members: Children Household Members Other:: unknown but pt states lives with family Housing: Apartment Housing Other:: pt not cooperative Do you presently have visiting nurse or other home services: No Unable to assess alcohol history related to: Unknown and Refusing to respond Patient Tobacco Use Status: Former Tobacco user Tobacco use type: Cigarette Substance Use Type: Marijuana service: No Current occupational status: unemployed Meds Allergies Allergy/AdvReac Type Severity Reaction Status Date / Time No Known Allergies Allergy Verified 07/12/24 20:31 Active Medications: Current Medications Acetaminophen (Acetaminophen 325 Mg Tablet) 650 mg PO Q6H PRN PRN Reason: Pain, Mild (Pain Scale 1-3), fever or headache Albuterol Sulfate (Albuterol Sulfate 90 Mcg 8 Gm Inhaler) 2 puff INHALE RQ6H PRN PRN Reason: sob Amlodipine Besylate (Amlodipine Besylate 5 Mg Tablet) 5 mg PO DAILY [facility]; Protocol Last Admin: 07/13/24 09:18 Dose: 5 mg Aspirin (Aspirin Enteric Coated 81 Mg Tablet.) 81 mg PO DAILY [facility] Last Admin: 07/13/24 09:18 Dose: 81 mg Atorvastatin Calcium (Atorvastatin Calcium 10 Mg Tablet) 10 mg PO BEDTIME [facility] Calcium Carbonate (Calcium Carbonate 750 Mg Tab.Chew) 750 mg PO Q4H PRN PRN Reason: Heartburn Clopidogrel Bisulfate (Clopidogrel Bisulfate 75 Mg Tablet) 75 mg PO DAILY [facility] Last Admin: 07/13/24 09:18 Dose: 75 mg Heparin Sodium (Porcine) (Heparin Sodium,Porcine 5,000 Unit/Ml Vial) 5,000 unit SUBCUT Q12H [facility] Last Admin: 07/13/24 09:18 Dose: 5,000 unit Ceftriaxone Sodium 1 gm/ (Sodium Chloride) 50 mls @ 100 mls/hr IV Q24H [facility] Last Infusion: 07/13/24 05:26 Dose: Infused Metronidazole (Flagyl) 500 mg in 100 mls @ 100 mls/hr IV Q12H [facility] Last Infusion: 07/13/24 17:55 Dose: Infused Sodium Bicarbonate 150 meq/ (Dextrose) 1,000 mls @ 100 mls/hr IV .Q10H [facility] Last Admin: 07/13/24 10:26 Dose: 100 mls/hr Magnesium Hydroxide (Milk Of Magnesia 30 Ml Oral.Susp) 30 ml PO DAILY PRN PRN Reason: Constipation Melatonin (Melatonin 3 Mg Tablet) 6 mg PO BEDTIME PRN PRN Reason: Insomnia Potassium Chloride (Potassium Chloride Er 20 Meq Tab.Er.Prt) 40 meq PO TID [facility] Last Admin: 07/13/24 15:19 Dose: 40 meq Sodium Chloride (0.9 % Sodium Chloride Flush 3 Ml Syringe) 3 ml IVFLUSH QSHIFT [facility] Last Admin: 07/13/24 15:32 Dose: Not Given Physical Exam Vital Signs: Last Vital Signs Temp 97.8 F 07/13/24 15:18 Pulse 66 07/13/24 15:18 Resp 14 07/13/24 15:18 BP 156/65 H 07/13/24 15:18 Pulse Ox 100 07/13/24 15:18 O2 Del Method Room Air 07/13/24 15:18 BMI result Body Mass Index 18.7 Const General: no acute distress Eyes EOM: EOMs intact bilaterally Neck Neck: Yes supple Resp Auscultation: diminished lung sounds Cardio Rate: regular rate GI Palpation (GI): Soft to palpation Neuro General: moves all extremities Results Lab Results 07/12/24 20:39 07/13/24 07:56 Lab results: Chemistry 09/03/3007/13/24 07/13/24 20:39 02:08 07:56 Sodium 141 142 143 Potassium 2.4 L* 2.9 L* D 3.0 L Carbon Dioxide 11 L 13 L 12 L BUN 32 H 29 H 24 H Creatinine 1.98 H 1.95 H 1.65 H Calcium 10.3 H D 10.1 9.9 Phosphorus 1.5 L Hematology 07/12/24 20:39 WBC 5.3 Hgb 10.7 L D Plt Count 145 L Urinalysis 07/12/24 22:50 Urine Color Yellow Urine Appearance Cloudy Urine pH 6.0 Ur Specific [place] 1.015 Urine Protein 30 (1+) H Urine Glucose (UA) Negative Urine Ketones 15 Urine Blood Negative Urine Nitrite Negative Ur Leukocyte Esterase Large (3+) H Urine RBC 0-2 Urine WBC 6-10 Ur Squamous Epith Cells 3-5 Hyaline Casts 0-2 Assessment and Plan (1) JUANITO (acute kidney injury): Status: Acute (2) Metabolic acidosis: Status: Acute (3) Hypokalemia: Status: Inactive Plan JUANITO due to compromise in renal perfusion with resultant tubular injury No reason to suspect GN/AIN; No obstruction by imaging UO OK; Getting K replacement; Started NaHCO3; Lactate OK Check beta hydroxy butryic acid; Closely F/U HCO3 and K C/W rest of current management; Shall closely F/U Procedures Date of Service Date of Service: 07/13/24
[2024-07-13 19:56] LABS: Anion Gap 12 (12-20); Blood Urea Nitrogen 16 mg/dL (9-16); Calcium 9.8 mg/dL (8.4-10.2); Carbon Dioxide 16 mmol/L (22-29); Chloride 119 mmol/L (96-108); Creatinine Clr Calc Pharmacy 37.5; Estimated Glomerular Filt Rate 47; Glucose Random 126 mg/dL (60-115); Potassium 3.2 mmol/L (3.3-5.1); Sodium 144 mmol/L (135-145)
[2024-07-13] MEDS: Acetaminophen 325 MG TABLET 650 MG PO (21:18)
[2024-07-13] MEDS: Atorvastatin Calcium 10 MG TABLET PO (21:18)
[2024-07-13] MEDS: 0.9 % Sodium Chloride Flush 3 ML SYRINGE IVFLUSH (21:20)
[2024-07-13] MEDS: ondansetron HCL 4 MG/2 ML VIAL IVPUSH (21:52)
[2024-07-14] VITALS (10 sets, daily range): BP systolic 117–167; BP diastolic 54–78; PULSE 63–79; RESP 17–20; TEMP 35.9–37; O2SAT 98–100
[2024-07-14] MEDS: metroNIDAZOLE/NS 500 MG/100 ML PIGGYBACK 100 MG IV ×2 (02:20→14:16)
[2024-07-14] MEDS: cefTRIAXone sodium 1 GM in 0.9 % Sodium Chloride 50 ML IV (02:20)
[2024-07-14] MEDS: Melatonin 3 MG TABLET 6 MG PO ×2 (02:29→21:39)
[2024-07-14] MEDS: Sodium Bicarbonate 8.4% 150 MEQ in Dextrose 5 % 850 ML 100 MEQ IV (05:42)
[2024-07-14 06:43] LABS: INTERNATIONAL NORM RATIO 1.3 (0.9-1.1); Prothrombin Time 15.4 SEC (11.1-13.3)
[2024-07-14 06:51] LABS: Alanine Aminotransferase 315 U/L (0-31); Albumin Level 2.8 g/dL (3.5-5.0); Alkaline Phosphatase 77 U/L (39-117); Anion Gap 11 (12-20); Aspartate Amino Transferase 77 U/L (5-31); Beta-Hydroxybutyrate 0.09 mmol/L (0.02-0.27); Bilirubin Direct 1.4 mg/dL (0.0-0.5); Blood Urea Nitrogen 12 mg/dL (9-16); Calcium 9.5 mg/dL (8.4-10.2); Carbon Dioxide 25 mmol/L (22-29); Chloride 113 mmol/L (96-108); Creatinine Clr Calc Pharmacy 41.8; Estimated Glomerular Filt Rate 53; Glucose Fasting 130 mg/dL (60-99); Magnesium 2.1 mg/dL (1.6-2.6); Sodium 146 mmol/L (135-145); Total Protein 6.1 g/dL (6.5-8.0)
[2024-07-14 07:09] LABS: Potassium 2.5 mmol/L (3.3-5.1)
[2024-07-14 07:15] LABS: PLT CLUMP 1
[2024-07-14 07:17] LABS: Hematocrit 22.7 % (37.0-47.0); Mean Corpuscular Volume 90.4 fL (80.0-98.0); Red Blood Count 2.51 X10*6/uL (4.20-5.50); Red Cell Distribution Width 14.7 % (11.0-16.0)
[2024-07-14 07:37] LABS: Hemoglobin 7.6 g/dl (12.0-16.0); Mean Corpuscular Hemoglobin 30.3 pg (27.0-33.0); White Blood Count 5.2 X10*3/uL (4.8-10.8)
[2024-07-14 07:38] LABS: Mean Corpuscular HGB Conc 33.5 g/dl (31.0-35.0)
[2024-07-14 07:39] LABS: Platelet Count 138 X10*3/uL (160-400)
[2024-07-14 08:09] LABS: HBc Num2 3.37 S/CO; HBc Num3 3.15 S/CO; Hepatitis B Core Antibody Reactive (Nonreactive)
[2024-07-14] MEDS: Heparin Sodium,Porcine 5,000 UNIT/ML VIAL 5000 UNIT SUBCUT (08:17)
[2024-07-14] MEDS: Potassium Chloride ER 20 MEQ TAB.ER.PRT 40 MEQ PO ×3 (08:18→21:40)
[2024-07-14] MEDS: Clopidogrel Bisulfate 75 MG TABLET PO (08:18)
[2024-07-14] MEDS: Sodium,Potassium Phosphates POWD.PACK 1 PACKET PO ×4 (08:18→21:40)
[2024-07-14] MEDS: amLODIPine Besylate 5 MG TABLET PO (08:18)
[2024-07-14] MEDS: Albumin Human 25 % 100 ML IV ×2 (08:18→09:09)
[2024-07-14] MEDS: Aspirin Enteric Coated 81 MG TABLET.DR PO (08:18)
[2024-07-14] MEDS: 0.9 % Sodium Chloride Flush 3 ML SYRINGE IVFLUSH ×3 (08:19→21:40)
[2024-07-14] MEDS: Potassium Chloride/H20 10 MEQ/100 ML PIGGYBACK 100 MEQ IV ×2 (08:19→09:09)
--- NOTE | 2024-07-14 11:01 | P.PNGI_ITS ---
Subjective Subjective Date of Service: 07/14/24 Interval History: complaining of left great toe pain Critical Care Time (minutes): 0 Physical Exam 2 Vital Signs: Vital Signs: Last Vital Signs Temp 97.2 F 07/14/24 07:28 Pulse 63 07/14/24 07:28 Resp 18 07/14/24 07:28 BP 118/70 07/14/24 07:28 Pulse Ox 100 07/14/24 07:28 O2 Del Method Room Air 07/14/24 07:28 BMI result Body Mass Index 18.7 GI: Other: abdomen is soft and nontender well healed ruq scar from remote cholecystectomy, not recent Objective Data Labs 07/14/24 06:02 07/14/24 06:02 Labs: Laboratory Results - last 24 hr 07/13/24 07/13/24 07/14/24 12:42 19:25 06:02 WBC 5.2 RBC 2.51 L Hgb 7.6 L D Hct 22.7 L D MCV 90.4 MCH 30.3 MCHC 33.5 RDW 14.7 Plt Count 138 L MPV 10.0 Absolute Nucleated RBC 0.000 Nucleated RBC % (auto) 0.0 PT 15.4 H INR 1.3 H Sodium 144 146 H Potassium 3.2 L 2.5 L* D Chloride 119 H 113 H Carbon Dioxide 16 L 25 Anion Gap 12 11 L BUN 16 12 Creatinine 1.17 1.05 Estim Creat Clear Calc 37.5 41.8 Estimated GFR 47 53 Random Glucose 126 H Fasting Glucose 130 H Calcium 9.8 9.5 Magnesium 2.1 Total Bilirubin 2.0 H Direct Bilirubin 1.4 H AST 77 H ALT 315 H Alkaline Phosphatase 77 Total Protein 6.1 L Albumin 2.8 L Beta-Hydroxybutyrate 0.09 Hepatitis A IgM Ab Nonreactive Hep Bs Antigen Negative Hep Bs Antibody REACTIVE Hep B Core Total Ab Reactive Hep B Core IgM Ab Cancelled Hepatitis C Ab (EIA) Reactive H Microbiology Microbiology Results: Microbiology 07/13/24 02:08 Blood - Venous Blood Culture - Preliminary No growth after 24 hours. 07/13/24 02:08 Blood - Venous Blood Culture - Preliminary No growth after 24 hours. Procedures Date of Service Date of Service: 07/14/24 Progress Note: A&P Assessment and plan (1) Diverticulitis: Status: Acute Assessment and Plan: continue abx f/u as outpt lfts better hep serologies neg decrease hin hct likely dilutional, no gi bleeding monitor and transfuse prn. Time Spent With Patient Time: Total time managing care of this patient today ____ minutes. Quality Stroke Does the patient have a stroke diagnosis?: No VTE Prior VTE?: Yes VTE Risk Level:: Medical - moderate - high VTE Device Contraindication: Treatment Not Indicated VTE Drug Contraindication: N/A - Med Ordered
--- NOTE | 2024-07-14 11:13 | HO.PM.IMPN ---
Subjective Subjective Date of Service: 07/14/24 Interval History: kodi, hypokalemia Review of Systems denies any abd pain or nausea or vomiting no fevers Physical Exam Vital Signs: Vital Signs: Last Vital Signs Temp 97.2 F 07/14/24 07:28 Pulse 63 07/14/24 07:28 Resp 18 07/14/24 07:28 BP 118/70 07/14/24 07:28 Pulse Ox 100 07/14/24 07:28 O2 Del Method Room Air 07/14/24 07:28 BMI result Body Mass Index 18.7 Appearance: Alert.? Oriented X3.? cvs: rrr, [id number]. res: clear to auscultation ,no rhonchii or wheezing abd: no rebound or guarding ,nt, bs present. ext pulses present , no cyanosis . neuro: axo3 , nonfocal. Objective Data Active Medications Acetaminophen (Acetaminophen 325 Mg Tablet) 650 mg PO Q6H PRN PRN Reason: Pain, Mild (Pain Scale 1-3), fever or headache Last Admin: 07/13/24 21:18 Dose: 650 mg Documented By: CHRISTEN Albuterol Sulfate (Albuterol Sulfate 90 Mcg 8 Gm Inhaler) 2 puff INHALE RQ6H PRN PRN Reason: sob Amlodipine Besylate (Amlodipine Besylate 5 Mg Tablet) 5 mg PO DAILY [facility]; Protocol Last Admin: 07/14/24 08:18 Dose: 5 mg Documented By: SHANITA Aspirin (Aspirin Enteric Coated 81 Mg Tablet.) 81 mg PO DAILY [facility] Last Admin: 07/14/24 08:18 Dose: 81 mg Documented By: SHANITA Atorvastatin Calcium (Atorvastatin Calcium 10 Mg Tablet) 10 mg PO BEDTIME [facility] Last Admin: 07/13/24 21:18 Dose: 10 mg Documented By: CHRISTEN Calcium Carbonate (Calcium Carbonate 750 Mg Tab.Chew) 750 mg PO Q4H PRN PRN Reason: Heartburn Clopidogrel Bisulfate (Clopidogrel Bisulfate 75 Mg Tablet) 75 mg PO DAILY [facility] Last Admin: 07/14/24 08:18 Dose: 75 mg Documented By: SHANITA Heparin Sodium (Porcine) (Heparin Sodium,Porcine 5,000 Unit/Ml Vial) 5,000 unit SUBCUT Q12H [facility] Last Admin: 07/14/24 08:17 Dose: 5,000 unit Documented By: SHANITA Ceftriaxone Sodium 1 gm/ (Sodium Chloride) 50 mls @ 100 mls/hr IV Q24H [facility] Last Infusion: 07/14/24 02:50 Dose: Infused Documented By: CHRISTEN Metronidazole (Flagyl) 500 mg in 100 mls @ 100 mls/hr IV Q12H [facility] Last Infusion: 07/14/24 03:20 Dose: Infused Documented By: CHRISTEN Magnesium Hydroxide (Milk Of Magnesia 30 Ml Oral.Susp) 30 ml PO DAILY PRN PRN Reason: Constipation Melatonin (Melatonin 3 Mg Tablet) 6 mg PO BEDTIME PRN PRN Reason: Insomnia Last Admin: 07/14/24 02:29 Dose: 6 mg Documented By: CHRISTEN Comments: requested for sleep Ondansetron HCl (Ondansetron Hcl 4 Mg/2 Ml Vial) 4 mg IVPUSH Q6H PRN PRN Reason: Nausea Last Admin: 07/13/24 21:52 Dose: 4 mg Documented By: CHRISTEN Comments: nausea and vomiting Potassium Chloride (Potassium Chloride Er 20 Meq Tab.Er.Prt) 40 meq PO TID [facility] Last Admin: 07/14/24 08:18 Dose: 40 meq Documented By: SHANITA Potassium Phos/Sodium Phos (Sodium,Potassium Phosphates Powd.Pack) 1 packet PO QID [facility] Last Admin: 07/14/24 08:18 Dose: 1 packet Documented By: SHANITA Sodium Chloride (0.9 % Sodium Chloride Flush 3 Ml Syringe) 3 ml IVFLUSH QSHIFT [facility] Last Admin: 07/14/24 08:19 Dose: 3 ml Documented By: SHANITA Labs 07/14/24 11:57 07/14/24 06:02 Labs: Laboratory Results - last 24 hr 07/13/24 07/13/24 07/14/24 12:42 19:25 06:02 MCV 90.4 MCH 30.3 MCHC 33.5 RDW 14.7 Plt Count 138 L MPV 10.0 Absolute Nucleated RBC 0.000 Nucleated RBC % (auto) 0.0 PT 15.4 H INR 1.3 H Anion Gap 12 11 L Estim Creat Clear Calc 37.5 41.8 Estimated GFR 47 53 Random Glucose 126 H Fasting Glucose 130 H Calcium 9.8 9.5 Magnesium 2.1 Total Bilirubin 2.0 H Direct Bilirubin 1.4 H AST 77 H ALT 315 H Alkaline Phosphatase 77 Total Protein 6.1 L Albumin 2.8 L Beta-Hydroxybutyrate 0.09 Hepatitis A IgM Ab Nonreactive Hep Bs Antigen Negative Hep Bs Antibody REACTIVE Hep B Core Total Ab Reactive Hep B Core IgM Ab Cancelled Hepatitis C Ab (EIA) Reactive H Microbiology Microbiology Results: Microbiology 07/13/24 02:08 Blood Culture - Preliminary Blood - Venous No growth after 24 hours. 07/13/24 02:08 Blood Culture - Preliminary Blood - Venous No growth after 24 hours. Assessment and Plan (1) KODI (acute kidney injury): Status: Acute (2) Acute hypokalemia: Status: Acute Assessment and Plan: 58F PMH CVA X2 (no residual deficits), COPD, HTN, provoked DVT no longer on AC, presented with failure to thrive, n/v/d, found to have kodi, hypokalemia, acidosis, lfts moderate protein calorie malnutrition, failure to thrive complicated by KODI, severe acute hypokalemia, acute non anion gap metabolic acidosis (starvation ketoacidosis, diarrhea) Patient was initially on bicarb drip-bicarb seems to be improved Still hypokalemia severe 2.5 range-added potassium 40 mEq t.i.d. in addition IV potassium also added. Patient was advised for p.o. intake,monitor for refeeding. anemia normocytic ( multifactroial -nutrition/diluational component) patient denies any gross bleed fobt ,anemia workup/b12 and folate levels type and screen ppi Gi saw yesterday -impression was possible dilutional , but patient h/h is significantly down acute diverticulitis, rectal thickening clears, iv rocephin, flagyl Gi eval noted -continue iv antibiotics , prn transfusions has soft stoolx2 ,no bleeding , added gi panel history of cva hold dapt due to anemia statin htn blood pressure stable -hold amlodipine in setting of anemia history of provoked DVT no longer on AC COPD albuterol prn dvt prophylaxis - scd since has worsening anemia full code ongoing hospitlisation need:moderate protein calorie malnutrition, failure to thrive complicated by KODI, severe acute hypokalemia, acute non anion gap metabolic acidosis (starvation ketoacidosis, diarrhea)-need iv antibiotics , multiple electrolytic replacement and monitoring, H&H monitoring, ppi IV, possible transfusions, GI follow-up Quality Stroke Does the patient have a stroke diagnosis?: No VTE Prior VTE?: Yes VTE Risk Level:: Medical - moderate - high VTE Device Contraindication: Treatment Not Indicated VTE Drug Contraindication: N/A - Med Ordered
[2024-07-14 11:48] LABS: Iron 82 mcg/dL (30-160); Percent Iron Saturation 46 % (15-50); Total Iron Binding Capacity 177 mcg/dL (228-428); Unsaturated Iron Binding 95 ug/dL
--- NOTE | 2024-07-14 12:06 | MHC.CM.PN ---
EMR REVIEWED, CM MET W/PT WHO REPORTS SHE IS STAYING W/HER SON ZENON AND ADRIANNE HER, INFO VERIFIED W/ZENON. PT LIVES IN [place] HOWEVER HAS BEEN HERE SINCE APRIL AND IS AWAITING NEW APARTMENT THROUGH HOUSING IN [place], PT HAS A FWW AND NO HOME SERVICES SHE IS FRON OUT OF STATE AND HAS NO LOCAL PCP. GOAL FOR DC IS HOME NO SERVICES W/FAMILY FOR TRANSPORT. SON ZENON [phone]
[2024-07-14 12:07] LABS: Hematocrit 22.8 % (37.0-47.0)
[2024-07-14 12:10] LABS: Ferritin 1073 ng/mL (10-250)
[2024-07-14 12:42] LABS: Ferritin 1071 ng/mL (10-250); Hemoglobin 7.7 g/dl (12.0-16.0)
[2024-07-14 12:57] LABS: Folate 7.9 ng/mL (> or = 4.0); Vitamin B12 > 2000 pg/mL (200-900)
[2024-07-14] MEDS: Multivitamin TABLET 1 TAB PO (13:56)
[2024-07-14] MEDS: Acetaminophen 325 MG TABLET 650 MG PO ×2 (16:01→21:39)
[2024-07-14] MEDS: Pantoprazole Sodium 40 MG/10 ML VIAL IVPUSH (16:02)
[2024-07-14 16:09] LABS: Red Blood Count 2.46 X10*6/uL (4.20-5.50); White Blood Count 4.5 X10*3/uL (4.8-10.8)
[2024-07-14 16:10] LABS: Mean Corpuscular Volume 93.1 fL (80.0-98.0)
[2024-07-14 16:11] LABS: Mean Corpuscular HGB Conc 37.6 g/dl (31.0-35.0); Platelet Count 113 X10*3/uL (160-400); Red Cell Distribution Width 14.7 % (11.0-16.0)
[2024-07-14 16:16] LABS: Immature Retic Fraction 16.8 % (3.0-15.9); Retic HGB Equivalent 42.2 pg (30.0-35.0); Reticulocyte Percent 1.8 % (0.5-1.8); Reticulocytes Absolute 0.043 X10*6/uL (0.026-0.095)
[2024-07-14 16:43] LABS: Lactate Dehydrogenase 155 U/L (122-220)
[2024-07-14 16:59] LABS: Haptoglobin 47 mg/dL (35-250)
[2024-07-14 17:03] LABS: Potassium 3.3 mmol/L (3.3-5.1)
[2024-07-14 17:05] LABS: Band Neutrophils Percent 0 % (3-5); Eosinophils Absolute Manual 0.5 X10*3/uL (0.0-0.4); Eosinophils Percent Manual 10 % (0-4); Lymphocytes Absolute Manual 1.4 X10*3/uL (1.2-4.9); Lymphocytes Percent Manual 30 % (20-40); Monocytes Absolute Manual 0.3 X10*3/uL (0.1-1.2); Monocytes Percent Manual 6 % (2-11); Neutrophils Absolute Manual 2.4 X10*3/uL (2.0-8.3); Neutrophils Percent Manual 54 % (45-73)
[2024-07-14 17:06] LABS: RBC Morphology NOTED; Target Cells 1+ (5-14) /OIF
[2024-07-14 17:08] LABS: Platelet Estimate SLIGHTLY DECREASED (NORMAL); Platelet Morphology Comment NORM
[2024-07-14] MEDS: ondansetron HCL 4 MG/2 ML VIAL IVPUSH (21:35)
[2024-07-14] MEDS: Atorvastatin Calcium 10 MG TABLET PO (21:40)
[2024-07-15] MEDS: metroNIDAZOLE/NS 500 MG/100 ML PIGGYBACK 100 MG IV ×3 (01:50→21:02)
[2024-07-15] MEDS: cefTRIAXone sodium 1 GM in 0.9 % Sodium Chloride 50 ML IV (01:52)
[2024-07-15 03:25] VITALS: BP 135/65; PULSE 70; RESP 18; TEMP 37.3; O2SAT 98
[2024-07-15] MEDS: Pantoprazole Sodium 40 MG/10 ML VIAL IVPUSH ×2 (05:44→16:40)
[2024-07-15] MEDS: Potassium Chloride ER 20 MEQ TAB.ER.PRT 40 MEQ PO (07:40)
[2024-07-15] MEDS: Sodium,Potassium Phosphates POWD.PACK 1 PACKET PO ×4 (07:40→21:02)
[2024-07-15] MEDS: 0.9 % Sodium Chloride Flush 3 ML SYRINGE IVFLUSH ×3 (07:40→21:07)
[2024-07-15] MEDS: Acetaminophen 325 MG TABLET 650 MG PO ×2 (07:40→21:02)
[2024-07-15] MEDS: Multivitamin TABLET 1 TAB PO (07:40)
[2024-07-15 08:00] VITALS: BP 132/66; PULSE 53; RESP 16; TEMP 37.1; O2SAT 100
[2024-07-15 08:07] LABS: Hematocrit 29.5 % (37.0-47.0); Hemoglobin 10.9 g/dl (12.0-16.0); Mean Corpuscular HGB Conc 36.9 g/dl (31.0-35.0); Mean Corpuscular Hemoglobin 34.7 pg (27.0-33.0); Mean Corpuscular Volume 93.9 fL (80.0-98.0); Mean Platelet Volume 10.2 fL (9.4-12.3); Platelet Count 105 X10*3/uL (160-400); Red Blood Count 3.14 X10*6/uL (4.20-5.50); White Blood Count 6.7 X10*3/uL (4.8-10.8)
[2024-07-15 08:16] LABS: Anion Gap 11 (12-20); Blood Urea Nitrogen 5 mg/dL (9-16); Calcium 9.7 mg/dL (8.4-10.2); Carbon Dioxide 21 mmol/L (22-29); Chloride 118 mmol/L (96-108); Creatinine Clr Calc Pharmacy 50.4; Estimated Glomerular Filt Rate > 60; Glucose Random 110 mg/dL (60-115); Potassium 3.4 mmol/L (3.3-5.1); Sodium 147 mmol/L (135-145)
--- NOTE | 2024-07-15 09:16 | P.PNIM_ITS ---
Subjective Subjective Date of Service: 07/15/24 Interval History: electrolytic abnormalities Review of Systems anemia /electrolytic abnormalities improving no fevers has 1 episode of loose stools mental status improving Physical Exam 2 Vital Signs: Vital Signs: Last Vital Signs Temp 98.8 F 07/15/24 08:00 Pulse 53 07/15/24 08:00 Resp 16 07/15/24 08:00 BP 132/66 07/15/24 08:00 Pulse Ox 100 07/15/24 08:00 O2 Del Method Room Air 07/15/24 08:00 BMI result Body Mass Index 18.7 Appearance: Alert.? Oriented X3.? cvs: rrr, [id number]. res: clear to auscultation ,no rhonchii or wheezing abd: no rebound or guarding ,nt, bs present. ext pulses present , no cyanosis . neuro: axo3 , nonfocal. Objective Data Active Medications Acetaminophen (Acetaminophen 325 Mg Tablet) 650 mg PO Q6H PRN PRN Reason: Pain, Mild (Pain Scale 1-3), fever or headache Last Admin: 07/15/24 07:40 Dose: 650 mg Documented By: SHANITA Albuterol Sulfate (Albuterol Sulfate 90 Mcg 8 Gm Inhaler) 2 puff INHALE RQ6H PRN PRN Reason: sob Amlodipine Besylate (Amlodipine Besylate 5 Mg Tablet) 5 mg PO DAILY [facility]; Protocol Last Admin: 07/14/24 08:18 Dose: 5 mg Documented By: SHANITA Aspirin (Aspirin Enteric Coated 81 Mg Tablet.) 81 mg PO DAILY [facility] Last Admin: 07/14/24 08:18 Dose: 81 mg Documented By: SHANITA Atorvastatin Calcium (Atorvastatin Calcium 10 Mg Tablet) 10 mg PO BEDTIME [facility] Last Admin: 07/14/24 21:40 Dose: 10 mg Documented By: CHRISTEN Calcium Carbonate (Calcium Carbonate 750 Mg Tab.Chew) 750 mg PO Q4H PRN PRN Reason: Heartburn Clopidogrel Bisulfate (Clopidogrel Bisulfate 75 Mg Tablet) 75 mg PO DAILY [facility] Last Admin: 07/14/24 08:18 Dose: 75 mg Documented By: SHANITA Ceftriaxone Sodium 1 gm/ (Sodium Chloride) 50 mls @ 100 mls/hr IV Q24H [facility] Last Infusion: 07/15/24 02:25 Dose: Infused Documented By: CHRISTEN Metronidazole (Flagyl) 500 mg in 100 mls @ 100 mls/hr IV Q12H [facility] Last Infusion: 07/15/24 02:50 Dose: Infused Documented By: CHRISTEN Magnesium Hydroxide (Milk Of Magnesia 30 Ml Oral.Susp) 30 ml PO DAILY PRN PRN Reason: Constipation Melatonin (Melatonin 3 Mg Tablet) 6 mg PO BEDTIME PRN PRN Reason: Insomnia Last Admin: 07/14/24 21:39 Dose: 6 mg Documented By: CHRISTEN Comments: pt request medication for sleep Multivitamins/Vitamin C (Multivitamin Tablet) 1 tab PO DAILY [facility] Last Admin: 07/15/24 07:40 Dose: 1 tab Documented By: SHANITA Ondansetron HCl (Ondansetron Hcl 4 Mg/2 Ml Vial) 4 mg IVPUSH Q6H PRN PRN Reason: Nausea Last Admin: 07/14/24 21:35 Dose: 4 mg Documented By: CHRISTEN Comments: pt reports nausea Pantoprazole Sodium (Pantoprazole Sodium 40 Mg/10 Ml Vial) 40 mg IVPUSH BID@0630,1630 [facility] Last Admin: 07/15/24 05:44 Dose: 40 mg Documented By: CHRISTEN Potassium Chloride (Potassium Chloride Er 20 Meq Tab.Er.Prt) 40 meq PO TID [facility] Last Admin: 07/15/24 07:40 Dose: 40 meq Documented By: SHANITA Potassium Phos/Sodium Phos (Sodium,Potassium Phosphates Powd.Pack) 1 packet PO QID [facility] Last Admin: 07/15/24 07:40 Dose: 1 packet Documented By: SHANITA Sodium Chloride (0.9 % Sodium Chloride Flush 3 Ml Syringe) 3 ml IVFLUSH QSHIFT [facility] Last Admin: 07/15/24 07:40 Dose: 3 ml Documented By: SHANITA Trolamine Salicylate (Trolamine Salicylate 10 % Cream 85 Gm Tube) 1 appl TOPICAL QID PRN; Protocol PRN Reason: Dryness Labs 07/15/24 07:42 07/15/24 07:42 Labs: Laboratory Results - last 24 hr 07/14/24 07/14/24 07/14/24 06:02 11:57 16:35 MCV 93.1 MCH 35.0 H MCHC 37.6 H RDW 14.7 Plt Count 113 L MPV 10.0 Immature Gran % (Auto) Cancelled Neut % (Auto) Cancelled Lymph % (Auto) Cancelled [place] % (Auto) Cancelled Eos % (Auto) Cancelled Baso % (Auto) Cancelled Lymph # (Auto) Cancelled [place] # (Auto) Cancelled Eos # (Auto) Cancelled Baso # (Auto) Cancelled Abs Immat Gran (auto) Cancelled Absolute Neuts (auto) Cancelled Absolute Nucleated RBC Not Reportable Nucleated RBC % (auto) Not Reportable Neutrophils % (Manual) 54 Band Neutrophils % 0 L Lymphocytes % (Manual) 30 Monocytes % (Manual) 6 Eosinophils % (Manual) 10 H Abs Neuts (Manual) 2.4 Lymphocytes # (Manual) 1.4 Monocytes # (Manual) 0.3 Eosinophils # (Manual) 0.5 H Platelet Estimate SLIGHTLY DECREASED Plt Morphology Comment NORM RBC Morphology NOTED Target Cells 1+ (5-14) Absolute Retic 0.043 Percent Retic 1.8 Immature Retic Fraction 16.8 H Retic Hgb Equivalent 42.2 H Anion Gap Estim Creat Clear Calc Estimated GFR Random Glucose Haptoglobin 47 Calcium Iron 82 TIBC 177 L % Saturation 46 Unsat Iron Binding 95 Ferritin 1073 H 1071 H Lactate Dehydrogenase 155 Vitamin B12 > 2000 H Folate 7.9 Blood Type O Positive Antibody Screen NEGATIVE Crossmatch See Detail 07/15/24 07:42 MCV 93.9 MCH 34.7 H MCHC 36.9 H RDW 15.0 Plt Count 105 L MPV 10.2 Immature Gran % (Auto) Neut % (Auto) Lymph % (Auto) [place] % (Auto) Eos % (Auto) Baso % (Auto) Lymph # (Auto) [place] # (Auto) Eos # (Auto) Baso # (Auto) Abs Immat Gran (auto) Absolute Neuts (auto) Absolute Nucleated RBC 0.000 Nucleated RBC % (auto) 0.0 Neutrophils % (Manual) Band Neutrophils % Lymphocytes % (Manual) Monocytes % (Manual) Eosinophils % (Manual) Abs Neuts (Manual) Lymphocytes # (Manual) Monocytes # (Manual) Eosinophils # (Manual) Platelet Estimate Plt Morphology Comment RBC Morphology Target Cells Absolute Retic Percent Retic Immature Retic Fraction Retic Hgb Equivalent Anion Gap 11 L Estim Creat Clear Calc 50.4 Estimated GFR > 60 Random Glucose 110 Haptoglobin Calcium 9.7 Iron TIBC % Saturation Unsat Iron Binding Ferritin Lactate Dehydrogenase Vitamin B12 Folate Blood Type Antibody Screen Crossmatch Microbiology Microbiology Results: Microbiology 07/13/24 02:08 Blood Culture - Preliminary Blood - Venous No growth after 48 hours. 07/13/24 02:08 Blood Culture - Preliminary Blood - Venous No growth after 48 hours. 07/13/24 02:08 Urine Culture - Final Urine clean catch - Clean Catch Midstream Assessment and Plan (1) KODI (acute kidney injury): Status: Acute (2) Diverticulitis: Status: Acute (3) Acute hypokalemia: Status: Acute Assessment and Plan: 58F PMH CVA X2 (no residual deficits), COPD, HTN, provoked DVT no longer on AC, presented with failure to thrive, n/v/d, found to have kodi, hypokalemia, acidosis, lfts moderate protein calorie malnutrition, failure to thrive complicated by KODI, severe acute hypokalemia, acute non anion gap metabolic acidosis (starvation ketoacidosis, diarrhea) Patient was initially on bicarb drip-bicarb seems to be improved hypokalemia improving-will adjust potassium replacement to 40 meq daily hypernatremia sec to po/gi loss -encoarged for po free Patient was advised for p.o. intake,monitor for refeeding. anemia normocytic ( multifactroial -nutrition/diluational component) patient denies any gross bleed fobt ,anemia workup/b12 and folate levels type and screen, s/p 1 prbc (07/13/24) ppi Gi saw yesterday -impression was possible dilutional , but patient h/h is significantly down compensation with 1prbc is dispropotionate (likely h/h dilautional yesterday) acute diverticulitis, rectal thickening clears, iv rocephin, flagyl Gi eval noted -continue iv antibiotics , prn transfusions has soft stoolx1 ,no bleeding , added gi panel history of cva hold dapt due to anemia statin htn blood pressure stable -hold amlodipine in setting of anemia history of provoked DVT no longer on AC COPD albuterol prn dvt prophylaxis - scd since has worsening anemia full code ongoing hospitlisation need:moderate protein calorie malnutrition, failure to thrive complicated by KODI, severe acute hypokalemia, acute non anion gap metabolic acidosis (starvation ketoacidosis, diarrhea)-need iv antibiotics , multiple electrolytic replacement and monitoring, H&H monitoring, ppi IV, possible transfusions, GI follow-up family updated.agree with above plan Quality Stroke Does the patient have a stroke diagnosis?: No VTE Prior VTE?: Yes VTE Risk Level:: Medical - moderate - high VTE Device Contraindication: Treatment Not Indicated VTE Drug Contraindication: N/A - Med Ordered
[2024-07-15 12:00] VITALS: BP 137/62; PULSE 69; RESP 16; TEMP 36.5; O2SAT 100
--- NOTE | 2024-07-15 13:48 | HE.PHANOTE ---
PT OWN INHALERS Pt brought in two inhalers, Incruse ellipta and Fluticasone/salmeterol 113/14mcg, inhalers were empty and not usable. Per tracie Goetz to interchange and toss the old empty inhalers. Inhalers were discarded in pharmacy 07/15.
[2024-07-15 15:34] LABS: OBS Int Ctl Valid YES; OBS1 NEGATIVE (NEGATIVE)
[2024-07-15 15:57] VITALS: BP 112/67; PULSE 69; RESP 20; TEMP 36.2; O2SAT 100
[2024-07-15 20:00] VITALS: BP 115/58; PULSE 75; RESP 20; TEMP 36.8; O2SAT 99
[2024-07-15] MEDS: Melatonin 3 MG TABLET 6 MG PO (21:02)
[2024-07-15] MEDS: Atorvastatin Calcium 10 MG TABLET PO (21:02)
[2024-07-15 23:36] VITALS: BP 145/65; PULSE 70; RESP 20; TEMP 36.4; O2SAT 100
[2024-07-16] VITALS (7 sets, daily range): BP systolic 127–142; BP diastolic 54–66; PULSE 63–72; RESP 12–20; TEMP 36.6–36.7; O2SAT 98–100; BMI 18.7
[2024-07-16] MEDS: Acetaminophen 325 MG TABLET 650 MG PO ×4 (04:02→23:06)
[2024-07-16] MEDS: cefTRIAXone sodium 1 GM in 0.9 % Sodium Chloride 50 ML IV (04:03)
[2024-07-16] MEDS: metroNIDAZOLE/NS 500 MG/100 ML PIGGYBACK 100 MG IV (05:27)
[2024-07-16] MEDS: Pantoprazole Sodium 40 MG/10 ML VIAL IVPUSH (06:30)
[2024-07-16] MEDS: Tiotropium Bromide 2.5 mcg 1 PUFF/2.5 MCG MIST.INHAL 2 PUFF INHALE (07:58)
[2024-07-16] MEDS: Fluticasone/Vilanterol 100/25 BLST.W.DEV 1 PUFF INHALE (07:58)
[2024-07-16] MEDS: Sodium,Potassium Phosphates POWD.PACK 1 PACKET PO ×4 (08:58→21:21)
[2024-07-16] MEDS: Potassium Chloride ER 20 MEQ TAB.ER.PRT 40 MEQ PO (08:58)
[2024-07-16] MEDS: Multivitamin TABLET 1 TAB PO (08:58)
[2024-07-16] MEDS: 0.9 % Sodium Chloride Flush 3 ML SYRINGE IVFLUSH ×2 (09:06→21:40)
[2024-07-16 09:21] LABS: Adenovirus F 40/41 Not Detected (Not Detect.); Astrovirus Not Detected (Not Detect.); Campylobacter Not Detected (Not Detect.); Cryptosporidium Not Detected (Not Detect.); Cyclospora cayetanensis Not Detected (Not Detect.); E. coli EAEC Not Detected (Not Detect.); E. coli EPEC Not Detected (Not Detect.); E. coli ETEC Not Detected (Not Detect.); E. coli STEC Not Detected (Not Detect.); Entamoeba histolytica Not Detected (Not Detect.); Giardia lamblia Not Detected (Not Detect.); Norovirus GI/GII Not Detected (Not Detect.); Plesiomonas shigelloides Not Detected (Not Detect.); Rotavirus A Not Detected (Not Detect.); Salmonella Not Detected (Not Detect.); Sapovirus Not Detected (Not Detect.); Shigella sp./EIEC Not Detected (Not Detect.); Vibrio Not Detected (Not Detect.); Vibrio Cholerae Not Detected (Not Detect.); Yersinia enterocolitica Not Detected (Not Detect.)
[2024-07-16 09:51] LABS: Anion Gap 12 (12-20); Blood Urea Nitrogen 3 mg/dL (9-16); Calcium 9.9 mg/dL (8.4-10.2); Carbon Dioxide 21 mmol/L (22-29); Chloride 113 mmol/L (96-108); Creatinine Clr Calc Pharmacy 52.9; Estimated Glomerular Filt Rate > 60; Glucose Random 111 mg/dL (60-115); Potassium 3.2 mmol/L (3.3-5.1); Sodium 143 mmol/L (135-145)
--- NOTE | 2024-07-16 11:01 | MHC.CM.PN ---
Per ROUNDS discussion, Patient is not yet medically cleared for dc (IV Ceftriaxone, IV Flagyl, IV Protonix); home is the goal and CM will continue to follow.
[2024-07-16] MEDS: Potassium Chloride ER 20 MEQ TAB.ER.PRT PO (11:22)
--- NOTE | 2024-07-16 12:12 | HO.PM.IMPN ---
Subjective Subjective Date of Service: 07/16/24 Interval History: encephalopathy ,electrolytic abnormalities ,malnutrion Review of Systems po inatke improving mental status also improving but not near baseline yet diarrhae improved.no abd pain no fever or chills Physical Exam Vital Signs: Vital Signs: Last Vital Signs Temp 98.1 F 07/16/24 12:00 Pulse 68 07/16/24 12:00 Resp 18 07/16/24 12:00 BP 130/54 L 07/16/24 12:00 Pulse Ox 100 07/16/24 12:00 O2 Del Method Room Air 07/16/24 12:00 BMI result Body Mass Index 18.7 Appearance: Alert.? Oriented X3.? cvs: rrr, [id number]. res: clear to auscultation ,no rhonchii or wheezing abd: no rebound or guarding ,nt, bs present. ext pulses present , no cyanosis . neuro: axo3 , nonfocal. Objective Data Active Medications Acetaminophen (Acetaminophen 325 Mg Tablet) 650 mg PO Q6H PRN PRN Reason: Pain, Mild (Pain Scale 1-3), fever or headache Last Admin: 07/16/24 09:22 Dose: 650 mg Documented By: STEVEN Albuterol Sulfate (Albuterol Sulfate 90 Mcg 8 Gm Inhaler) 2 puff INHALE RQ6H PRN PRN Reason: sob Amlodipine Besylate (Amlodipine Besylate 5 Mg Tablet) 5 mg PO DAILY [facility]; Protocol Last Admin: 07/14/24 08:18 Dose: 5 mg Documented By: SHANITA Aspirin (Aspirin Enteric Coated 81 Mg Tablet.) 81 mg PO DAILY [facility] Last Admin: 07/14/24 08:18 Dose: 81 mg Documented By: SHANITA Atorvastatin Calcium (Atorvastatin Calcium 10 Mg Tablet) 10 mg PO BEDTIME [facility] Last Admin: 07/15/24 21:02 Dose: 10 mg Documented By: KHANH Calcium Carbonate (Calcium Carbonate 750 Mg Tab.Chew) 750 mg PO Q4H PRN PRN Reason: Heartburn Clopidogrel Bisulfate (Clopidogrel Bisulfate 75 Mg Tablet) 75 mg PO DAILY [facility] Last Admin: 07/14/24 08:18 Dose: 75 mg Documented By: SHANITA Fluticasone/Vilanterol (Fluticasone/Vilanterol 100/25 Blst.W.Dev) 1 puff INHALE RDAILY [facility] Last Admin: 07/16/24 07:58 Dose: 1 puff Documented By: ANIBAL Ceftriaxone Sodium 1 gm/ (Sodium Chloride) 50 mls @ 100 mls/hr IV Q24H [facility] Last Infusion: 07/16/24 04:39 Dose: Infused Documented By: KHANH Metronidazole (Flagyl) 500 mg in 100 mls @ 100 mls/hr IV Q8H [facility] Last Infusion: 07/16/24 06:34 Dose: Infused Documented By: KHNAH Magnesium Hydroxide (Milk Of Magnesia 30 Ml Oral.Susp) 30 ml PO DAILY PRN PRN Reason: Constipation Melatonin (Melatonin 3 Mg Tablet) 6 mg PO BEDTIME PRN PRN Reason: Insomnia Last Admin: 07/15/24 21:02 Dose: 6 mg Documented By: KHANH Multivitamins/Vitamin C (Multivitamin Tablet) 1 tab PO DAILY [facility] Last Admin: 07/16/24 08:58 Dose: 1 tab Documented By: STEVEN Ondansetron HCl (Ondansetron Hcl 4 Mg/2 Ml Vial) 4 mg IVPUSH Q6H PRN PRN Reason: Nausea Last Admin: 07/14/24 21:35 Dose: 4 mg Documented By: CHRISTEN Comments: pt reports nausea Pantoprazole Sodium (Pantoprazole Sodium 40 Mg/10 Ml Vial) 40 mg IVPUSH BID@0630,1630 [facility] Last Admin: 07/16/24 06:30 Dose: 40 mg Documented By: KHANH Potassium Chloride (Potassium Chloride Er 20 Meq Tab.Er.Prt) 40 meq PO DAILY [facility] Last Admin: 07/16/24 08:58 Dose: 40 meq Documented By: STEVEN Potassium Phos/Sodium Phos (Sodium,Potassium Phosphates Powd.Pack) 1 packet PO QID [facility] Last Admin: 07/16/24 08:58 Dose: 1 packet Documented By: STEVEN Sodium Chloride (0.9 % Sodium Chloride Flush 3 Ml Syringe) 3 ml IVFLUSH QSHIFT [facility] Last Admin: 07/16/24 09:06 Dose: 3 ml Documented By: STEVEN Tiotropium [place] (Tiotropium [place] 2.5 Mcg 1 Puff/2.5 Mcg Mist.Inhal) 2 puff INHALE RDAILY DMITRIY Last Admin: 07/16/24 07:58 Dose: 2 puff Documented By: ANIBAL Trolamine Salicylate (Trolamine Salicylate 10 % Cream 85 Gm Tube) 1 appl TOPICAL QID PRN; Protocol PRN Reason: Dryness Labs 07/15/24 07:42 07/16/24 08:24 Labs: Laboratory Results - last 24 hr 07/15/24 07/16/24 15:15 08:24 Anion Gap 12 Estim Creat Clear Calc 52.9 Estimated GFR > 60 Random Glucose 111 Calcium 9.9 Stool Occult Blood NEGATIVE Stl C. cayetanensis PCR Not Detected Stool Rotavirus A PCR Not Detected Stl Adenov F 40/41 PCR Not Detected Stool Astrovirus (PCR) Not Detected Stool Campylobacter PCR Not Detected Stool Cryptosporidium PCR Not Detected Stl Sh Tox Pr E STEC PCR Not Detected Stool E coli O157 PCR Not applicable Stl Enterotoxigenic E PCR Not Detected Stool EPEC (PCR) Not Detected Stool EAEC (PCR) Not Detected Stl E. histolytica PCR Not Detected Stool Giardia Lamblia PCR Not Detected Stl P. shigelloides PCR Not Detected Stool Salmonella PCR Not Detected Stool Sapovirus (PCR) Not Detected Stl Shigella/EIEC PCR Not Detected St Y.enterocolitica PCR Not Detected Stool Vibrio (PCR) Not Detected Stl Vibrio cholerae PCR Not Detected Stl Norovirus GI/GII PCR Not Detected Assessment and Plan (1) KODI (acute kidney injury): Status: Acute (2) Diverticulitis: Status: Acute (3) Acute hypokalemia: Status: Acute Assessment and Plan: 58F PMH CVA X2 (no residual deficits), COPD, HTN, provoked DVT no longer on AC, presented with failure to thrive, n/v/d, found to have kodi, hypokalemia, acidosis, lfts moderate protein calorie malnutrition, failure to thrive complicated by KODI, severe acute hypokalemia, acute non anion gap metabolic acidosis (starvation ketoacidosis, diarrhea) Patient was initially on bicarb drip-bicarb seems to be improved hypokalemia improving-will adjust potassium replacement to 40 meq daily,added extra 20 meq potassium. hypernatremia sec to po/gi loss -encoarged for po free -improving Patient was advised for p.o. intake,monitor for refeeding. anemia normocytic ( multifactroial -nutrition/diluational component) patient denies any gross bleed fobt negative anemia workup/b12 and folate levels-seems fine ,ldh normal , peripheral smear seems grosslly fine except few target cells (path review pending) type and screen, s/p 1 prbc (07/13/24) Gi saw -impression was possible dilutional compensation with 1prbc is dispropotionate (likely h/h dilautional yesterday) h/h around 10.9 range moniter cbc closely acute diverticulitis, rectal thickening Gi panel negative diarrhae improved. clears, patient was on ceftriaxone /flagyl 3 days -antibiotics switched to po augmentin(07/16/24) for more 4 days. Gi eval noted -continue iv antibiotics , prn transfusions history of cva continue dapt due to anemia statin htn blood pressure stable -hold amlodipine for now ,slowly introduce low dose if needed. history of provoked DVT no longer on AC COPD albuterol prn dvt prophylaxis - scd since has worsening anemia full code ongoing hospitlisation need:moderate protein calorie malnutrition, failure to thrive complicated by KODI, severe acute hypokalemia, acute non anion gap metabolic acidosis (starvation ketoacidosis, diarrhea)-need iv antibiotics , multiple electrolytic replacement and monitoring, H&H monitoring, ppi IV, possible transfusions, GI follow-up family updated.agree with above plan Quality Stroke Does the patient have a stroke diagnosis?: No VTE Prior VTE?: Yes VTE Risk Level:: Medical - moderate - high VTE Device Contraindication: Treatment Not Indicated VTE Drug Contraindication: N/A - Med Ordered
[2024-07-16] MEDS: Amoxicillin/Potassium Clav 875 MG TABLET PO ×2 (13:59→23:06)
[2024-07-16] MEDS: Trolamine Salicylate 10 % Cream 85 GM TUBE 1 APPL TOPICAL (21:21)
[2024-07-16] MEDS: Atorvastatin Calcium 10 MG TABLET PO (21:21)
[2024-07-16] MEDS: Melatonin 3 MG TABLET 6 MG PO (21:22)
[2024-07-17 03:34] VITALS: BP 144/64; PULSE 67; RESP 18; TEMP 36.6; O2SAT 97
[2024-07-17] MEDS: Acetaminophen 325 MG TABLET 650 MG PO ×2 (04:40→10:45)
[2024-07-17] MEDS: Fluticasone/Vilanterol 100/25 BLST.W.DEV 1 PUFF INHALE (07:22)
[2024-07-17] MEDS: Tiotropium Bromide 2.5 mcg 1 PUFF/2.5 MCG MIST.INHAL 2 PUFF INHALE (07:22)
[2024-07-17 07:24] VITALS: PULSE 89; RESP 18; O2SAT 99
[2024-07-17 07:46] VITALS: BP 138/65; PULSE 77; RESP 18; TEMP 36.9; O2SAT 100
[2024-07-17] MEDS: Sodium,Potassium Phosphates POWD.PACK 1 PACKET PO ×2 (08:48→12:13)
[2024-07-17] MEDS: 0.9 % Sodium Chloride Flush 3 ML SYRINGE IVFLUSH (08:48)
[2024-07-17] MEDS: Aspirin Enteric Coated 81 MG TABLET.DR PO (08:48)
[2024-07-17] MEDS: Multivitamin TABLET 1 TAB PO (08:48)
[2024-07-17] MEDS: Potassium Chloride ER 20 MEQ TAB.ER.PRT 40 MEQ PO (08:48)
--- NOTE | 2024-07-17 10:29 | PM.DS ---
DS: Providers Provider Date of Service: 07/17/24 Date of admission: 07/13/24 02:08 Date of discharge: 07/17/24 Primary care physician: None Physician Consults: 07/13/24 02:04 Consult to Gastroenterology Routine Consulting Provider: Alma Chu Reason for consultation: rectal thickening, diverticulitis, n/v/d,elevated liver function 07/13/24 10:30 Consult to Psychiatry Routine Consulting Provider: Psych Covering Reason for consultation: Depression/Si Has provider been notified: No 07/13/24 10:32 Consult for Sitter Routine Reason for consultation: Si Has provider been notified: No DS: Diagnosis Discharge Diagnosis (1) Metabolic acidosis: Status: Acute (2) Acute hypokalemia: Status: Acute (3) JUANITO (acute kidney injury): Status: Acute (4) Diverticulitis: Status: Acute (5) COPD (chronic obstructive pulmonary disease): Status: Acute DS: Summary Hospital Course Hospital Course: from initial hpi: 58F very poor historian, history obtained mostly from chart, H CVA X2 (no residual deficits), COPD, HTN, provoked DVT no longer on AC, presented with failure to thrive. patient is very vague and inconsistent with answers. reporting difficulty ambulating, poor appetite, nausea and vomiting and diarrhea. patient unable to give further details, not sure how long symptoms ongoing, not sure if lost weight (recorded weight appears similar to previous), in ED labs grossly abnormal, severe hypokalemia, juanito, transaminitis, metabolic acidosis. CT abd showed possible sigmoid diverticulitis and thick walled distal rectum. hospital course: Patient was admitted for moderate protein calorie malnutrition and failure to thrive complicated by acute kidney injury, severe acute hypokalemia, acute and non-anion gap metabolic acidosis due to starvation ketosis and diarrhea. Patient was placed on bicarbonate infusion, given potassium supplement, antiemetics. Nausea vomiting and diarrhea resolved, electrolytes were replaced, acidosis significantly improved, given protein supplements and was monitored for refeeding syndrome, did have some low phosphorus which was replaced. For acute diverticulitis received IV ceftriaxone and Flagyl and will continue 4 more days of Augmentin. For rectal thickening was seen by GI felt the patient not need scope at this time. For acute on chronic normocytic anemia this was likely both dilutional and inflammatory, received 1 unit PRBC, hemoglobin improved and remained stable. For history of CVA she will continue on aspirin statin. For hypertension amlodipine was held due to low normal blood pressure. For history of provoked DVT she is no longer on anticoagulation. For COPD she was continued on albuterol as needed and started on Breo. Patient had also complained of left 1st toe pain, will be referred to Podiatry as outpatient. At somepoint there was some concern for suicide ideation, unclear when this occurred, however currently patient denies any suicide ideation or plan and denies any history of suicide ideation. Time Attestation Discharge Coordination Time (in mins): 33 Quality: Safe Use of Opioids Does Pt have an Active Cancer Diagnosis on the Problem List?: No Quality: Stroke Does the patient have a stroke diagnosis?: No Physical Exam Vital Signs: Vital Signs: Last Vital Signs Temp 98.5 F 07/17/24 07:46 Pulse 77 07/17/24 07:46 Resp 18 07/17/24 07:46 BP 138/65 07/17/24 07:46 Pulse Ox 100 07/17/24 07:46 O2 Del Method Room Air 07/17/24 07:46 BMI result Body Mass Index 18.7 Appearance: Alert.? Oriented X3.? cvs: rrr, [id number]. res: clear to auscultation ,no rhonchii or wheezing abd: no rebound or guarding ,nt, bs present. ext pulses present , no cyanosis . neuro: axo3 , nonfocal. DS: Data Data Completed and Pending Completed studies during hospitalization [Text1]: Procedures Assistance with Respiratory Ventilation, Less than 24 Consecutive Hours, Continuous Positive Airway Pressure (09/24/21) Labs on day of discharge: Preliminary micro results at discharge 07/13/24 02:08 Blood Culture - Preliminary Blood - Venous No growth after 48 hours. 07/13/24 02:08 Blood Culture - Preliminary Blood - Venous No growth after 48 hours. Discharge Plan Discharge Anticipated Discharge Date/Time: 07/17/24 10:23 Patient Disposition: Home, Self-Care Discharge Diagnosis: ftt, diverticulitis Referrals: Physician,None [Primary Care Provider] - 1 Week JAMISON SANCHEZ [Physician] - 1 Week Discharge Medications: New multivitamin [Daily-Brigid] Tablet 1 tab PO DAILY Qty: 90 0RF atorvastatin 10 mg Tablet 10 mg PO BEDTIME Qty: 90 0RF aspirin 81 mg Tablet,Delayed Release (Dr/Ec) 81 mg PO DAILY Qty: 90 0RF potassium chloride 20 mEq Tablet,Er Particles/Crystals 40 meq PO DAILY Qty: 90 0RF amoxicillin-pot clavulanate 875-125 mg Tablet 1 tab PO Q12H Qty: 8 0RF fluticasone furoate-vilanterol [Breo Ellipta] 100-25 mcg/dose Blister With Device 1 inh inhalation RDAILY Qty: 1 0RF Ensure Original Liquid 1 ea PO BID 90 Days Qty: 1422 0RF Continued albuterol sulfate 90 mcg/actuation HFA aerosol inhaler 1 inh inhalation QID PRN (Reason: shortness of breath or wheezing) Qty: 8.5 0RF Discontinued amlodipine 5 mg Tablet 5 mg PO DAILY Qty: 30 0RF Protocol: Hold for SBP< HOLD for SBP < : 90 Discharge Orders: Discharge Order (Routine); Ordered 07/17/24 Ordered By: Sunil Pro Diet: Advance to usual diet Activity on Discharge: As tolerated Stand Alone Forms: Patient Portal Discharge page Print Language: Vietnamese Care Plan Goals: recovery Health Concerns: failure to thrive, low potassium, toe pain Plan of Treatment: complete antibiotic course, continue dietary supplements, follow up with podiatry Assessment: see above
--- NOTE | 2024-07-17 10:37 | MHC.CM.PN ---
Patient has been medically cleared for dc to home today, self care.
[2024-07-17] MEDS: Amoxicillin/Potassium Clav 875 MG TABLET PO (12:13)
== END 2024-07-17 12:44 | disposition home or self-care (01) | DRG 244 ==
LOC: HO.ED 07-13 01:31 → HO.EDOVER 07-13 02:12 → HO.IMC 07-13 16:50
PROVIDERS: Internal Medicine; Internal Medicine Nephrology; Physician Assistant Medical; Admitting Provider Internal Medicine; Emergency Provider Emergency Medicine; Visit Provider Internal Medicine
DX: K57.32 Diverticulitis of large intestine without perforation or abscess without bleeding (principal); N17.9 Acute kidney failure, unspecified; E87.21 Acute metabolic acidosis; E44.0 Moderate protein-calorie malnutrition; R45.851 Suicidal ideations; E87.6 Hypokalemia; R62.7 Adult failure to thrive; D64.9 Anemia, unspecified; I10 Essential (primary) hypertension; F32.A Depression, unspecified; J44.9 Chronic obstructive pulmonary disease, unspecified; Z20.822 Contact with and (suspected) exposure to COVID-19; Z68.1 Body mass index [BMI] 19.9 or less, adult; Z86.718 Personal history of other venous thrombosis and embolism; Z87.891 Personal history of nicotine dependence; Z86.73 Personal history of transient ischemic attack (TIA), and cerebral infarction without residual deficits; Z79.899 Other long term (current) drug therapy
CPT/HCPCS: 0241U; 36415; 74176; 80048; 80053; 80076; 80307; 81001; 81003; 82010; 82248; 82272; 82607; 82728; 82746; 82803; 83010; 83540; 83605; 83615; 83690; 83735; 84100; 84132; 84439; 84443; 85007; 85014; 85018; 85025; 85027; 85045; 85610; 86704; 86706; 86709; 86803; 86850; 86900; 86901; 86923; 87040; 87086; 87340; 87507; 93005; 94640; 97161; 99285; J0696; J1644; J1836; J2405; J2470; J3475; J3480; J7120; P9016; P9047

== ENCOUNTER → 2024-07-13 02:08 | Outpatient (BNV) | payer BC, SELFPAY | PROVIDERS: Admitting Provider Internal Medicine; Emergency Provider Emergency Medicine; Visit Provider Internal Medicine | DX: E87.21 Acute metabolic acidosis (principal); E87.6 Hypokalemia; N17.9 Acute kidney failure, unspecified; K57.92 Diverticulitis of intestine, part unspecified, without perforation or abscess without bleeding; J44.9 Chronic obstructive pulmonary disease, unspecified | CPT/HCPCS: 99223; 99232; 99239; 99499 ==

== ENCOUNTER → 2024-07-13 02:08 | Outpatient (BNV) | payer BC, SELFPAY | PROVIDERS: Admitting Provider Internal Medicine; Emergency Provider Emergency Medicine; Visit Provider Internal Medicine Nephrology | DX: N17.0 Acute kidney failure with tubular necrosis (principal); E87.21 Acute metabolic acidosis; E87.6 Hypokalemia | CPT/HCPCS: 99223 ==

== ENCOUNTER → 2024-07-13 02:08 | Outpatient (BNV) | payer BC, SELFPAY | PROVIDERS: Admitting Provider Internal Medicine; Emergency Provider Emergency Medicine; Visit Provider Psychiatry & Neurology Psychiatry | DX: F32.2 Major depressive disorder, single episode, severe without psychotic features (principal); E87.20 Acidosis, unspecified; E87.6 Hypokalemia; N17.9 Acute kidney failure, unspecified | CPT/HCPCS: 99232 ==

== ENCOUNTER 2024-08-21 20:31 | Inpatient (IN) | payer BC, SELFPAY ==
--- NOTE | 2024-08-21 | ECG_ITS ---
Test Reason : TACHYCARDIA Blood Pressure : / mmHG Vent. Rate : 116 BPM Atrial Rate : 116 BPM P-R Int : 148 ms QRS Dur : 072 ms QT Int : 362 ms P-R-T Axes : 083 077 071 degrees QTc Int : 503 ms Sinus tachycardia Possible Left atrial enlargement Cannot rule out Inferior infarct , age undetermined mild diffuse ST depression prolonged QT Abnormal ECG When compared with ECG of 12-JUL-2024 21:17, Vent. rate has increased BY 39 BPM Minimal criteria for Inferior infarct are now Present Non-specific change in ST segment in Inferior leads T wave inversion now evident in Inferior leads Referred By: Generic ED Physician Electronically Signed By:YUE CASILLAS
--- NOTE | ~2024-08-21 | US_ITS ---
EXAMINATION: US TRIPLEX LOWER EXTREMITY, BILATERAL CLINICAL INFORMATION: Pain and swelling. History of deep venous thrombosis. COMPARISON: None available. TECHNIQUE: Color-flow triplex imaging with spectral analysis and compression Doppler were performed on the bilateral lower extremities. FINDINGS: Respiratory variation, normal compression and augmented flow are noted throughout the bilateral lower extremities. The visualized common femoral vein, superficial femoral vein, profunda femoral vein, popliteal vein and midcalf peroneal and posterior tibial venous segments show no evidence of deep venous thrombosis bilaterally. There is no Fortune's cyst. US/US venous duplex LE BI IMPRESSION: No evidence of deep venous thrombosis involving the bilateral lower extremities. Electronically signed by: Evan Conrad MD 08/22/2024 01:31 AM EDT
--- NOTE | ~2024-08-21 | XR_ITS ---
EXAMINATION: XR CHEST CLINICAL INFORMATION: TLC placement. COMPARISON: August 22, 2024, 3:13 PM. TECHNIQUE: Portable AP view of the chest was obtained. FINDINGS: The tip of a new presumed right internal jugular central venous line projects over the junction of the right innominate vein, superior vena cava, and azygos vein. No pneumothorax or pleural fluid is seen. Otherwise, there has been no significant radiographic change compared with 2 hours earlier the same day. XR/XR chest 1V IMPRESSION: Findings as above. Electronically signed by: Michele Campos MD 08/22/2024 04:58 PM EDT
--- NOTE | ~2024-08-21 | XR_ITS ---
EXAMINATION: XR CHEST CLINICAL INFORMATION: OG tube placement. COMPARISON: August 22, 2024 TECHNIQUE: Frontal view of the chest was obtained. FINDINGS: The lungs are clear and well expanded. No pleural effusion. Cardiac silhouette is within normal limits. Right central venous access catheter with tip projecting over the SVC. Endotracheal tube tip terminates 5.7 cm above the bandar. Orogastric tube terminates in the left upper quadrant. Surgical clips are noted over the right upper quadrant. XR/XR chest 1V IMPRESSION: No acute abnormality. Electronically signed by: Jassi Medina MD 08/23/2024 04:36 PM EDT
--- NOTE | ~2024-08-21 | XR_ITS ---
EXAMINATION: XR CHEST CLINICAL INFORMATION: Verification CT T placement COMPARISON: CT chest 08/22/2024. X-ray 08/21/2024. TECHNIQUE: Frontal view of the chest was obtained. FINDINGS: Endotracheal tube tip is above the bandar. Lungs clear. No pneumothorax or pneumomediastinum seen. Heart and pulmonary vessels normal. NG tube present but its distal tip is not included on this chest radiograph. XR/XR chest 1V IMPRESSION: The ET tube appears to be in acceptable position. Electronically signed by: Daron Dey MD 08/22/2024 04:13 PM EDT
--- NOTE | ~2024-08-21 | CT_ITS ---
EXAMINATION: CT SOFT TISSUE NECK WITHOUT CONTRAST CLINICAL INFORMATION: Endotracheal tube. Abnormalities of endotracheal tube cuff. COMPARISON: None available. TECHNIQUE: Multidetector helical imaging was performed in the axial plane without intravenous contrast. Multiple axial reformats and coronal/sagittal reconstructions were created the technologist workstation for review. This CT examination was performed using dose optimization techniques as appropriate, variously including the following: *Automated exposure control. *Adjustment of mA and/or kV according to patient size (this includes techniques or standardized protocols for targeted exams where dose is matched to indication/reason for exam; i.e. extremities or head). *Use of iterative reconstruction technique. DLP: 389 mGy-cm FINDINGS: Endotracheal tube in place. Right-sided internal jugular central venous catheter in place. No significant cutaneous thickening or subcutaneous inflammation. No discrete fluid collection within the deep tissues of the neck. The premaxillary, retromaxillary, pterygopalatine fossa, orbital apical, parapharyngeal, and prelaryngeal adipose tissue is maintained. Normal appearance of the parotid, submandibular, and thyroid glands. Scattered subcentimeter lymph nodes bilaterally, none of which are pathologically enlarged. No demonstrated focal lesion within the intrinsic tissues of the tongue or floor of mouth. Normal mucosal contours of the pharynx and larynx. Normal appearance of the hyoid bone, thyroid cartilage, or cartilaginous trachea. The airways remains widely patent. No radiopaque foreign bodies. The atlantooccipital and atlantoaxial articulations remain well aligned. Straightening of the normal cervical lordosis. No evidence of acute fracture or subluxation of the cervical spine. The vertebral body heights are maintained. Advanced degenerative disc disease from C4-C7 with disc-osteophyte complex formation. Moderate degenerative disc disease at C3-C4. There appears to be at least mild spinal canal stenoses from C4-C7. Facet and uncovertebral joint arthropathy leads to osseous encroachment on the neural foramina from C3-C7. There is no prevertebral soft tissue swelling. The visualized portion of the skull base is without significant abnormalities. Mild mucosal thickening of the paranasal sinuses. Moderate rightward nasal septal deviation. The mastoid air cells and middle ear cavities are clear. The patient is edentulous. CT Upper Chest: Moderate centrilobular emphysema. CT/CT soft tissue neck wo IV con IMPRESSION: 1. Endotracheal tube in place. Right-sided central venous catheter in place. 2. No demonstrated focal lesion, collection, or lymphadenopathy within the soft tissues of the neck. 3. Moderate multilevel degenerative spondyloarthropathy of the cervical spine. Most notably on this limited exam without intrathecal contrast, there appears to be at least mild spinal canal stenoses from C4-C7. 4. Emphysema. Electronically signed by: Jose Hernandez DO 08/27/2024 04:11 PM EDT
--- NOTE | ~2024-08-21 | CT_ITS ---
EXAMINATION: CT CHEST WITHOUT CONTRAST CLINICAL INFORMATION: Status post intubation. Question aspiration. COMPARISON: October 17, 2021. TECHNIQUE: Multidetector volumetric CT imaging of the chest was done. Axial MIP volume rendering provided. Sagittal and coronal reformatted images were obtained. This CT examination was performed using dose optimization techniques as appropriate, variously including the following: *Automated exposure control *Adjustment of mA and/or kV according to patient size (this includes techniques or standardized protocols for targeted exams where dose is matched to indication/reason for exam; i.e. extremities or head) *Use of iterative reconstruction technique DLP: 148 mGy-cm FINDINGS: LUNGS: Mild emphysema. No evidence of inflammation or nodules. Patent central bronchi. No evidence of aspiration. Tip of endotracheal tube lies within the trachea, approximately 2.8 cm above the bandar. MEDIASTINUM: The mediastinum appears unremarkable. CORONARY ARTERY CALCIFICATION: None visualized on this study. PLEURA: There is no pleural effusion. No pleural mass or thickening. AXILLA: No lymphadenopathy by size criteria. UPPER ABDOMEN: Tip and sidehole of nasogastric tube lie off the edge of the film, below the diaphragm, at least at the level of the stomach. Status post cholecystectomy. OSSEOUS STRUCTURES: Unremarkable. CT/CT chest wo IV con IMPRESSION: No evidence of aspiration. Electronically signed by: Michele Campos MD 08/22/2024 03:46 PM EDT
--- NOTE | ~2024-08-21 | US_ITS ---
EXAMINATION: NONINVASIVE ASSESSMENT OF THE ARTERIES OF BOTH LOWER EXTREMITIES INCLUDING BILATERAL LOWER EXTREMITY DUPLEX. CLINICAL INFORMATION: Cold toe COMPARISON: None TECHNIQUE: duplex Doppler techniques with wave form analysis and measurement of velocities in the common femoral, profunda femoral, superficial femoral, popliteal, tibial and peroneal arteries. The study was performed only at rest. FINDINGS: RIGHT LEG Common femoral artery: 103 cm/s, Multiphasic Profunda femoris artery: 65 cm/s, monophasic Superficial femoral artery (proximal): 109 cm/s, monophasic Superficial femoral artery (mid): 604 cm/s, monophasic Superficial femoral artery (distal): 48 cm/s, monophasic Proximal Popliteal artery: 166 cm/s, monophasic Mid posterior tibial artery: 16 cm/s, monophasic Peroneal artery: 21 cm/s, monophasic US/US arterial duplex LE LT IMPRESSION: Monophasic flow throughout the right lower extremity distal to the SFA. Significantly elevated velocities with severe atherosclerotic disease in the mid SFA. Electronically signed by: Ciara Espinoza MD 08/29/2024 06:00 PM EDT
--- NOTE | ~2024-08-21 | XR_ITS ---
EXAMINATION: XR CHEST CLINICAL INFORMATION: Fever COMPARISON: 08/27/[address] TECHNIQUE: Frontal view of the chest was obtained. FINDINGS: Heart size within normal limits. Aortic calcifications. No vascular congestion. Minimal left base atelectasis and mild left costophrenic angle blunting. XR/XR chest 1V IMPRESSION: Tiny left effusion and minimal left base atelectasis. Electronically signed by: Hina North MD 08/28/2024 04:59 PM EDT
--- NOTE | ~2024-08-21 | XR_ITS ---
EXAMINATION: XR CHEST CLINICAL INFORMATION: Dyspnea. COMPARISON: Chest x-ray October 17, 2021 TECHNIQUE: Frontal portable view of the chest was obtained. 8:47 PM FINDINGS: Lungs are clear. No pulmonary vascular congestion. There is no pleural effusion. The heart size is normal. The cardiac and mediastinal contours are normal. There are calcifications of the thoracic aorta. No acute osseous abnormality. XR/XR chest 1V IMPRESSION: Unremarkable examination. Electronically signed by: Todd Werner MD 08/21/2024 09:35 PM EDT RP
--- NOTE | ~2024-08-21 | CT_ITS ---
EXAMINATION: CT ABDOMEN AND PELVIS WITHOUT AND WITH CONTRAST CLINICAL INFORMATION: GI bleed. COMPARISON: July 12, 2024. TECHNIQUE: Multidetector volumetric imaging was performed of the abdomen and pelvis before and after the IV administration of 80 mL of Omnipaque 300 intravenous contrast. Sagittal and coronal reformatted images were obtained on the technologist's workstation. This CT examination was performed using dose optimization techniques as appropriate, variously including the following: *Automated exposure control *Adjustment of mA and/or kV according to patient size (this includes techniques or standardized protocols for targeted exams where dose is matched to indication/reason for exam; i.e. extremities or head) *Use of iterative reconstruction technique DLP: 440 mGy-cm FINDINGS: LUNG BASES: The lung bases appear clear, with no evidence of inflammation or nodules. Heart normal in size. Question left ventricular hypertrophy, poorly evaluated. Partially imaged coronary arterial calcification. No pleural effusion. LIVER, GALLBLADDER, AND BILIARY TREE: The liver appears unremarkable in size, shape, and attenuation. No focal hepatic lesion or biliary ductal dilatation is appreciated. Status post cholecystectomy. PANCREAS: Unremarkable SPLEEN: Unremarkable ADRENAL GLANDS: Unremarkable KIDNEYS AND URETERS: The kidneys appear unremarkable in size, shape, and attenuation. Approximately 2 mm, nonobstructing, bilateral renal collecting system stones. No evidence of hydronephrosis or hydroureter. BLADDER: Collapsed, therefore poorly evaluated. Grossly unremarkable. GASTROINTESTINAL TRACT/VASCULAR: Distended stomach containing debris, possibly at least partially representing clot. Suspect mild diffuse thickening of the wall of the stomach. Examination demonstrates acute extraluminal contrast extravasation into the gastric lumen, probably arising from a branch of the gastric artery along the lesser curvature. Fluid within the visualized portion of the distal esophagus, suggesting an element of reflux and/or dysmotility. Diverticula predominantly involving the sigmoid and descending colon, without evidence of diverticulitis. Normal-appearing distal ileum and vermiform appendix. ABDOMINAL WALL: No significant hernia is appreciated. LYMPH NODES: No evidence of adenopathy by size criteria. VASCULAR: Extensive arterial calcification. PELVIC VISCERA: Unremarkable OSSEOUS STRUCTURES: Mild disc space narrowing and posterior bulging at L4-S1. CT/CT gi bleed abd pel wo/w IVcon IMPRESSION: Acute extraluminal contrast extravasation into the gastric lumen consistent with GI bleed, probably arising from a branch of the gastric artery along the lesser curvature. Distended stomach containing debris, possibly at least partially representing clot. Suspect mild diffuse thickening of the wall of the stomach, raising the possibility of gastritis. Multiple additional findings as detailed above. Electronically signed by: Michele Campos MD 08/22/2024 02:20 PM EDT
--- NOTE | ~2024-08-21 | CT_ITS ---
EXAMINATION: CT CHEST WITHOUT CONTRAST CLINICAL INFORMATION: Lack of ETT, cuff leak. COMPARISON: CT chest 08/22/2024 TECHNIQUE: Multidetector volumetric CT imaging of the chest was done. Axial MIP volume rendering provided. Sagittal and coronal reformatted images were obtained. This CT examination was performed using dose optimization techniques as appropriate, variously including the following: *Automated exposure control *Adjustment of mA and/or kV according to patient size (this includes techniques or standardized protocols for targeted exams where dose is matched to indication/reason for exam; i.e. 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 MEDIASTINUM: The heart size is normal. There is moderate coronary artery calcifications present. No pericardial effusion seen. The central trachea and the bronchi are widely patent. No abnormal size mediastinal or hilar lymph nodes seen. The trachea is 3.9 cm above the bandar. The thyroid lobes are symmetrical and normal. There is a right central venous catheter in the proximal SVC. CORONARY ARTERY CALCIFICATION: There is moderate coronary artery calcifications present. PLEURA: Mild bilateral simple pleural effusions are noted AXILLA: There is a 3.7 x 2.8 x 3.5 cm left axillary mass and 34 Hounsfield units. It is new since the recent CT chest 08/22/2024 and may represent hematoma , less likely abscess . The right axilla appears unremarkable. The chest wall is unremarkable. UPPER ABDOMEN: Visualized liver, spleen is unremarkable. The gallbladder is out. OSSEOUS STRUCTURES: No aggressive lytic or sclerotic process seen. CT/CT chest wo IV con IMPRESSION: Bilateral lower lobe atelectasis with underlying small bilateral effusions. New left axillary significant sized lymph node new since the recent CT chest 08/22/2024. Question hematoma, less likely abscess. Correlate with any kind of intervention performed recently. Fleischner guidelines were followed. Electronically signed by: Jose C Hendricks MD 08/27/2024 08:12 PM EDT
[2024-08-21 20:50] VITALS: BP 148/79; PULSE 124; PULSE 140; RESP 20; O2SAT 100; BMI 16.9
--- NOTE | 2024-08-21 21:24 | ED_ITS ---
HPI - Nausea/Vomiting/Diarrhea General Chief complaint: Dyspnea Stated complaint: Diff breathing. Left leg pain. per ems Time Seen by Provider: 08/21/24 21:10 Source: patient, EMS and old records reviewed Mode of arrival: EMS Limitations: other (poor historian) History of Present Illness ED Provider: DELON HPI Narrative: 58 yo female with PMH of COPD not on home O2, HLD, CVA no deficits, prior provoked DVT no longer on AC therapy, recent admission here in July for FTT and moderate protein calorie malnutrition with JUANITO and severe hypokalemia. At this time she presents today stating she has chronic L leg pain after they removed a clot in her leg a long time ago. She then states she didn't really want to come in but then she started to have black stool today and vomit coffee brown stuff. She states she only takes tylenol and no NSAIDs. She is not on aspirin. She has no abdominal pain, chest pain. She states her mouth is very dry and she needs water. MD elicited complaint: nausea and vomiting Onset (ago): day(s) (1) Description of vomiting: coffee grounds Description of diarrhea: black tarry Associated nausea: Yes Associated abdominal pain: No Location of pain: other (L great toe) Pain consistency: constant Severity: severe Quality: aching Exacerbating factors: movement Relieving factors: none Context: other (reports chronic L toe pain - this is documented in prior admit notes) Associated symptoms: loss of appetite, malaise, nausea/vomiting and weakness Related Data Previous Rx's ?Medication ?Instructions ?Recorded albuterol sulfate 90 mcg/actuation 1 inh inhalation QID PRN shortness 12/23/21 aerosol inhaler of breath or wheezing #8.5 grams amoxicillin 875 mg-potassium 1 tab PO Q12H #8 tabs 07/17/24 clavulanate 125 mg tablet aspirin 81 mg tablet,delayed 81 mg PO DAILY #90 tabs 07/17/24 release atorvastatin 10 mg tablet 10 mg PO BEDTIME #90 tabs 07/17/24 fluticasone furoate 100 1 inh inhalation RDAILY #1 ea 07/17/24 mcg-vilanterol 25 mcg/dose inhalation powder (Breo Ellipta) food supplemt, lactose-reduced 1 ea PO BID 90 days #1,422 mL 07/17/24 (Ensure Original oral liquid) multivitamin (Daily-Brigid tablet) 1 tab PO DAILY #90 tabs 07/17/24 potassium chloride 20 mEq 40 meq (2 x 20 mEq) PO DAILY #90 07/17/24 tablet,extended release(part/cryst) tabs Allergies Allergy/AdvReac Type Severity Reaction Status Date / Time No Known Allergies Allergy Verified 08/21/24 20:52 Review of Systems 2 Review of Systems: Constitutional : No Weight loss, No Fever, No Chills ENT/Mouth : No sore throat, No Rhinorrhea Eyes: No Swelling, No Redness Cardiovascular : No Chest Pain, No SOB, NoEdema Respiratory : No Cough, No Sputum, No Wheezing Gastrointestinal : Positive Nausea, Positive Vomiting, positive Diarrhea, no abdominal Pain, No Hematochezia, pos Melena Genitourinary : No Dysuria, No Urinary Frequency, No Hematuria, No Urgency Musculoskeletal : pos joint pain, No Myalgias, No Joint Swelling Skin : No Skin Lesions, No rash Neuro : No Weakness, No Numbness, No Dizziness, No Headache Psych : No Anxiety/Panic, No Depression All other systems reviewed and are negative. Gastrointestinal: Gastrointestinal: Reports nausea PMFSH Past Medical History Attestation statement: The following information was validated with the patient. Source: old records reviewed Medical History COPD (chronic obstructive pulmonary disease) Asthma exacerbation Social History Social History Household Members: Children Household Members Other:: unknown but pt states lives with family Housing: Apartment Housing Other:: pt not cooperative Do you presently have visiting nurse or other home services: No Unable to assess alcohol history related to: Unknown and Refusing to respond Comment: sitter at bedside. Patient Tobacco Use Status: Former Tobacco user Tobacco use type: Cigarette Smoked in Last 30 Days: No Substance Use Type: Marijuana Advance Directives: No Advance Directives Information Provided: No Do you have a plan to hurt others: No Plan Patient : No service: No Current occupational status: unemployed Physical Exam 2 Vital Signs: Vital Signs: Last Vital Signs Temp 98.4 F 08/22/24 00:24 Pulse 104 H 08/22/24 00:24 Resp 20 08/22/24 00:24 BP 137/64 08/22/24 00:24 Pulse Ox 100 08/22/24 00:24 O2 Del Method Room Air 08/22/24 00:24 BMI result Body Mass Index 16.9 Appearance: Alert. Oriented X3. Mild acute distress. Eyes: Pupils equal, round and reactive to light. ENT: Pharynx dried maroon material on teeth Neck: Normal inspection. Neck supple. CVS: tachycardic heart rate and rhythm. Pulses normal. Respiratory: No respiratory distress. Breath sounds normal. Abdomen: Soft and nontender. Rectal: dark tarry stool on exam Skin: Skin warm and dry. pale skin color. Normal skin turgor. Extremities: No lower extremity edema. L great toe - pulses felt both feet are cold to touch but pulses felt to palpation, no redness, abscess noted on exam, has white cream on great toe Neuro: Oriented X 3. No motor deficit. No sensory deficit. Course Course Course Narrative: non anion gap metabolic acidosis - HC03 drip ordered K ordered very similar presentation as last time although this time UGIB concerns Reevaluation(s) Reevaluation #1: IV fentanyl for chronic toe pain Reevaluation #2: RN able to doppler pulses Medications Administered Generic Name Dose Route Start Last Admin Trade Name Freq PRN Reason Stop Dose Admin Potassium Chloride 10 meq in 100 mls @ 100 mls/hr 08/21/24 22:00 08/22/24 00:01 Potassium Chloride/H20 IV 08/22/24 01:59 100 mls/hr Q1H DMITRIY Administration Sodium Bicarbonate 150 meq/ 1,000 mls @ 100 mls/hr 08/21/24 22:30 08/22/24 00:00 Dextrose IV 100 mls/hr .Q10H DMITRIY Administration Discontinued Medications Generic Name Dose Route Start Last Admin Trade Name Freq PRN Reason Stop Dose Admin Fentanyl 25 mcg 08/21/24 22:48 08/22/24 00:01 Fentanyl Citrate/Pf 100 Mcg/2 Ml Vial IVPUSH 08/21/24 22:49 25 mcg ONCE ONE Administration Protocol Magnesium Sulfate 2 gm in 50 mls @ 150 mls/hr 08/21/24 20:56 08/21/24 22:41 Magnesium Sulfate/H2o IV 08/21/24 21:15 Infused ONCE ONE Infusion Lactated Ringer's 1,000 mls @ 999 mls/hr 08/21/24 20:57 08/22/24 00:13 Lr IV 08/21/24 21:57 Infused .Q1H1M ONE Infusion Ondansetron HCl 4 mg 08/21/24 20:57 08/21/24 21:40 Ondansetron Hcl 4 Mg/2 Ml Vial IVPUSH 08/21/24 20:58 4 mg ONCE ONE Administration Pantoprazole Sodium 40 mg 08/21/24 20:56 08/21/24 21:40 Pantoprazole Sodium 40 Mg/10 Ml Vial IVPUSH 08/21/24 20:57 40 mg ONCE ONE Administration Potassium Chloride 20 meq 08/21/24 22:30 08/21/24 22:42 Potassium Chloride Packet 20 Meq Packet PO 08/21/24 22:31 20 meq ONCE ONE Administration Potassium Chloride 20 meq 08/21/24 22:58 08/22/24 00:08 Potassium Chloride Packet 20 Meq Packet PO 08/21/24 22:59 20 meq ONCE ONE Administration Medical Decision Making Medical Decision Making MDM Narrative: 58 yo female with PMH of COPD not on home O2, HLD, CVA no deficits, prior provoked DVT no longer on AC therapy here with UGIB symptoms at this time she is a poor historian she is oriented but then she will ramble and go off topic and she is hard to follow at times. She blames all of her issues on her L chronic toe pain there is no active sign of infection though she should see vascular while she is here as both pulses are diminished and get ABIs done. She c/o coffee ground emesis and melena at this time basic labs, type and screen, empiric magnesium, likely K - IV protonix ordered no hx of cirrhosis or varices she does not need gtt of protonix, low threshold to transfuse. DVT study of LLE, given EKG findings suspect Low K and magnesium. Anticipate admission. Differential Diagnosis Differential Diagnoses: The differential diagnosis associated with the presentation includes UGIB, lyte abnormallity, JUANITO, PUD Admission/Observation Consideration of admission/observation: Escalation of care including admission/observation considered will admit for further management Consult Healthcare Provider Management of the patient was discussed with: Hospitalist and Accounts Payable Bookkeeper Dr. Gomez aware of concern for UGIB Lab Data MDM Lab Attestation statement: I reviewed the patient's lab results. 08/21/24 21:20 08/21/24 21:20 Labs: Lab Results 08/21/24 08/21/24 08/21/24 Range/Units 21:20 21:21 21:41 WBC 13.4 H (4.8-10.8) X10*3/uL RBC 2.30 L D (4.20-5.50) X10*6/uL Hgb 9.1 L (12.0-16.0) g/dl Hct 24.5 L (37.0-47.0) % MCV 106.5 H (80.0-98.0) fL MCH 39.6 H (27.0-33.0) pg MCHC 37.1 H (31.0-35.0) g/dl RDW 21.7 H (11.0-16.0) % Plt Count 234 D (160-400) X10*3/uL MPV 8.7 L (9.4-12.3) fL Immature Gran % (Auto) 0.7 H (0.0-0.4) % Neut % (Auto) 66.1 (45-73) % Lymph % (Auto) 27.1 (20-40) % [place] % (Auto) 5.7 (2-11) % Eos % (Auto) 0.3 (0-4) % Baso % (Auto) 0.1 (0-2) % Lymph # (Auto) 3.6 (1.2-4.9) X10*3/uL [place] # (Auto) 0.8 (0.1-1.2) X10*3/uL Eos # (Auto) 0.0 (0.0-0.4) X10*3/uL Baso # (Auto) 0.0 (0.0-0.2) X10*3/uL Abs Immat Gran (auto) 0.09 H (0.00-0.03) X10*3/uL Absolute Neuts (auto) 8.9 H (2.0-8.3) x10*3/uL Absolute Nucleated RBC 0.040 H (0.0-0.012) X10*3/uL Nucleated RBC % (auto) 0.3 H (0.0-0.2) /100WBC PT 16.4 H (10.9-12.4) SEC INR 1.4 H (0.9-1.1) VBG pH (7.32-7.43) VBG pCO2 mmHg VBG pO2 mmHg VBG HCO3 (22-26) mmol/L VBG O2 Saturation % VBG Base Excess mmol/L Sodium 143 (135-145) mmol/L Potassium 2.7 L* (3.3-5.1) mmol/L Chloride 117 H (96-108) mmol/L Carbon Dioxide 11 L (22-29) mmol/L Anion Gap 18 (12-20) BUN 14 (9-16) mg/dL Creatinine 1.44 H (0.5-1.4) mg/dL Estim Creat Clear Calc 27.5 Estimated GFR 37 Random Glucose 173 H (60-115) mg/dL Calcium 9.1 D (8.4-10.2) mg/dL Magnesium 2.1 (1.6-2.6) mg/dL Total Bilirubin 1.0 (0.0-1.0) mg/dL AST 44 H (5-31) U/L ALT 38 H (0-31) U/L Alkaline Phosphatase 114 (39-117) U/L Troponin I High Sens 7.2 (<3.5-17.0) ng/L Total Protein 7.1 (6.5-8.0) g/dL Albumin 3.3 L (3.5-5.0) g/dL Lipase 45 (8-78) U/L Stool Occult Blood POSITIVE (NEGATIVE) Ethyl Alcohol < 10 mg/dL Blood Type O Positive Antibody Screen NEGATIVE 08/21/24 Range/Units 22:20 WBC (4.8-10.8) X10*3/uL RBC (4.20-5.50) X10*6/uL Hgb (12.0-16.0) g/dl Hct (37.0-47.0) % MCV (80.0-98.0) fL MCH (27.0-33.0) pg MCHC (31.0-35.0) g/dl RDW (11.0-16.0) % Plt Count (160-400) X10*3/uL MPV (9.4-12.3) fL Immature Gran % (Auto) (0.0-0.4) % Neut % (Auto) (45-73) % Lymph % (Auto) (20-40) % [place] % (Auto) (2-11) % Eos % (Auto) (0-4) % Baso % (Auto) (0-2) % Lymph # (Auto) (1.2-4.9) X10*3/uL [place] # (Auto) (0.1-1.2) X10*3/uL Eos # (Auto) (0.0-0.4) X10*3/uL Baso # (Auto) (0.0-0.2) X10*3/uL Abs Immat Gran (auto) (0.00-0.03) X10*3/uL Absolute Neuts (auto) (2.0-8.3) x10*3/uL Absolute Nucleated RBC (0.0-0.012) X10*3/uL Nucleated RBC % (auto) (0.0-0.2) /100WBC PT (10.9-12.4) SEC INR (0.9-1.1) VBG pH 7.27 L (7.32-7.43) VBG pCO2 18 mmHg VBG pO2 240 mmHg VBG HCO3 8 L (22-26) mmol/L VBG O2 Saturation 100.0 % VBG Base Excess -16.3 mmol/L Sodium (135-145) mmol/L Potassium (3.3-5.1) mmol/L Chloride (96-108) mmol/L Carbon Dioxide (22-29) mmol/L Anion Gap (12-20) BUN (9-16) mg/dL Creatinine (0.5-1.4) mg/dL Estim Creat Clear Calc Estimated GFR Random Glucose (60-115) mg/dL Calcium (8.4-10.2) mg/dL Magnesium (1.6-2.6) mg/dL Total Bilirubin (0.0-1.0) mg/dL AST (5-31) U/L ALT (0-31) U/L Alkaline Phosphatase (39-117) U/L Troponin I High Sens (<3.5-17.0) ng/L Total Protein (6.5-8.0) g/dL Albumin (3.5-5.0) g/dL Lipase (8-78) U/L Stool Occult Blood (NEGATIVE) Ethyl Alcohol mg/dL Blood Type Antibody Screen Independent Interpretation I performed an independent interpretation of an: EKG, Plain X-Ray (normal ) and Ultrasound (no DVT) Interpretation: Rate: 116 Rhythm: sinus tachycardia [place]: normal Normal P waves. Normal [place]. Normal QRS complex. ST T wave : nonspecific ST T wave changes inf and lateral leads - scooping of ST segments in inf and lateral leads qTC: 503 prior studies: changed from prior The study has been interpreted contemporaneously by me. . Radiology Impression Discussion of test interpretation with radiology: I have reviewed the radiologist's reading. Independent Historian Clinical information obtained from an independent historian. History obtained from or confirmed by: EMS External Record Review External record reviewed: Inpatient record Critical Care Time Critical Care Time Critical Care Time: Yes Total Critical Care Time: 60 Attestation: review of records, IV fentanyl with improvement in pain, IV potassium, IV magnesium, repeat labs I attest to this time spent taking care of the patient Discharge Plan Discharge Clinical Impression: JUANITO (acute kidney injury), Acute upper gastrointestinal bleeding, Metabolic acidosis, Acute hypokalemia Patient Disposition: Admitted As Inpatient Print Language: Uzbek
[2024-08-21 21:28] LABS: MANUAL DIFF FLAG NO
[2024-08-21 21:29] LABS: Basophils Percent Auto 0.1 % (0-2); Eosinophils Percent Auto 0.3 % (0-4); Hematocrit 24.5 % (37.0-47.0); Hemoglobin 9.1 g/dl (12.0-16.0); Imm Gran Abs Auto 0.09 X10*3/uL (0.00-0.03); Imm Gran Pct Auto 0.7 % (0.0-0.4); Lymphocytes Absolute Auto 3.6 X10*3/uL (1.2-4.9); Lymphocytes Percent Auto 27.1 % (20-40); Mean Corpuscular HGB Conc 37.1 g/dl (31.0-35.0); Mean Corpuscular Hemoglobin 39.6 pg (27.0-33.0); Mean Corpuscular Volume 106.5 fL (80.0-98.0); Mean Platelet Volume 8.7 fL (9.4-12.3); Monocytes Absolute Auto 0.8 X10*3/uL (0.1-1.2); Monocytes Percent Auto 5.7 % (2-11); NRBC Pct Auto 0.3 /100WBC (0.0-0.2); Neutrophils Absolute Auto 8.9 x10*3/uL (2.0-8.3); Neutrophils Percent Auto 66.1 % (45-73); Platelet Count 234 X10*3/uL (160-400); Red Cell Distribution Width 21.7 % (11.0-16.0); White Blood Count 13.4 X10*3/uL (4.8-10.8)
[2024-08-21 21:34] LABS: INTERNATIONAL NORM RATIO 1.4 (0.9-1.1); Prothrombin Time 16.4 SEC (10.9-12.4)
[2024-08-21] MEDS: Magnesium Sulfate/H2O 2 GM/50 ML PIGGYBACK IV (21:40)
[2024-08-21] MEDS: Pantoprazole Sodium 40 MG/10 ML VIAL IVPUSH (21:40)
[2024-08-21] MEDS: ondansetron HCL 4 MG/2 ML VIAL IVPUSH (21:40)
[2024-08-21 21:48] LABS: Ethanol < 10 mg/dL
[2024-08-21 21:48] LABS: OBS1 POSITIVE (NEGATIVE)
[2024-08-21] MEDS: Lactated Ringers 1,000 ML 999 ML IV (21:48)
[2024-08-21 21:49] LABS: OBS Int Ctl Valid YES
--- NOTE | 2024-08-21 21:50 | PC.NURSE ---
US reported to bedside- this nurse was attempting to obtain access on pt, study delayed at this time
[2024-08-21 21:51] LABS: Alanine Aminotransferase 38 U/L (0-31); Albumin Level 3.3 g/dL (3.5-5.0); Alkaline Phosphatase 114 U/L (39-117); Anion Gap 18 (12-20); Aspartate Amino Transferase 44 U/L (5-31); Blood Urea Nitrogen 14 mg/dL (9-16); Calcium 9.1 mg/dL (8.4-10.2); Carbon Dioxide 11 mmol/L (22-29); Chloride 117 mmol/L (96-108); Creatinine Clr Calc Pharmacy 27.5; Estimated Glomerular Filt Rate 37; Glucose Random 173 mg/dL (60-115); Lipase 45 U/L (8-78); Magnesium 2.1 mg/dL (1.6-2.6); Potassium 2.7 mmol/L (3.3-5.1); Sodium 143 mmol/L (135-145); Total Protein 7.1 g/dL (6.5-8.0)
[2024-08-21 21:56] LABS: Troponin-I High Sensitivity 7.2 ng/L (<3.5-17.0)
--- OUTSIDE RECORDS SUMMARY | 2024-08-21 22:20 | XMS_ITS ---
Author Organization [facility] Address [address] [place] [address] Care Team Providers Care Child Protective Investigator Name Role Phone NONE, NONE Primary Care Provider Unavailpaulino e Sarkis Mendez, Andrea Unavailable [phone] REASON FOR VISIT Please schedule colon in 8-10 weeks Encounters Encounter Location Date Provider Diagnosis [facility] [address] [place] [address] 07/18/2024 Andrea Dockery Jr PLAN OF TREATMENT No Information
--- OUTSIDE RECORDS SUMMARY | 2024-08-21 22:21 | XMS_ITS | Continuity of Care Document ---
Author Organization [facility] Address [address] [place] [id number] Care Team Providers Care Multimedia Engineer Name Role Phone Not on Staff, PCP Primary Care Physician Unavail able Encounter [facility] [place] Date(s): 05/10/24 - 06/09/[address] [address]- Attending Physician: Not on Staff, Attending MD Admitting Physician: Not on Staff, Admitting MD Referring Physician: Not on Staff, Referring MD Allergies, Adverse Reactions, Alerts No Known Medication Allergies Medications amLODIPine 5 mg oral tablet 5 mg, 1, tablet, By Mouth, Daily, # 30 tablet, Refills 0, Tot. Refills 0, Maintenance, 05/10/24 13:12:00 EDT, Route to Pharmacy Electronically, [facility]/pharmacy #[id number], Partial fill upon patient request if the prescription is for a schedule II opioid drug.... Start Date: 05/10/24 Status: Ordered Walker See Instructions, # 1 each, Maintenance, Dx: dizziness Height: 158 cm Weight: 59 kg, 05/10/24 11:56:00 EDT, Supply Start Date: 05/10/24 Status: Ordered Patient Care team information Care Team Personnel Name: Not on Staff, PCP Position: S Physician (General Medicine) Member Role: PCP Care Team Related Persons Name: CRISELDA ARANDA Name: CARMENCITA MARCOS Address: home [address] [place] [id number]
--- OUTSIDE RECORDS SUMMARY | 2024-08-21 22:21 | XMS_ITS | Continuity of Care Document ---
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 Refills 0, Maintenance, 05/10/24 13:12:00 EDT, Route to Pharmacy Electronically, [facility]/pharmacy #[id number], Partial fill upon patient request if the prescription is for a schedule II opioid drug.... Start Date: 05/10/24 Status: Ordered Walker See Instructions, # 1 each, Maintenance, Dx: dizziness Height: 158 cm Weight: 59 kg, 05/10/24 11:56:00 EDT, Supply Start Date: 05/10/24 Status: Ordered Results Radiology Reports * Exam Date Time Procedure Performing Provider Status 05/09/24 7:[address] Angio Neck Hyperacute Stroke Colon , Mia; Auth (Verified) Notes: (CT Angio Neck Hyperacute Stroke) Reason For Exam: Aneurysm, neck vessel(s);Other: RESULT: CT Angio Neck Hyperacute Stroke CT Angio Head Hyperacute Stroke, CT Angio Neck Hyperacute Stroke Hx of Present Illness: pt reports dizziness, fatigue, NV since this AM, adds she had blood clots removed from her BLE 4wks ago.; Reason: Other:; Stroke; Clinical Question(s): Other:; Hematoma Aneurysm / Other: TECHNIQUE: CT angiogram of the head and neck was performed after bolus administration of intravenous contrast. 100 mL of Omnipaque 300 was administered intravenously. Coronal and sagittal MIP reformatted images were obtained. Additional 3-D images were created on a separate workstation under concurrent supervision by the attending radiologist. All stenoses are measured using NASCET criteria. Weight-based protocol using automatic tube modulation was used to optimize exposure parameters. RADIATION DOSE PARAMETERS: CTDIvol Body: 7.73 mGy, DLP Body: 301 mGy*cm. CTDIvol Head: 47.90 mGy, DLP Head: 773 mGy*cm. COMPARISON: Noncontrast CT head performed concurrently. FINDINGS: CTA OF THE NECK: Arch: There is a three vessel aortic arch. There is moderate atherosclerotic plaque of the aortic arch, but origins of the supra aortic vessels are patent. Right carotid system: The common carotid and cervical internal carotid arteries are patent. There is calcified atherosclerotic plaque at the carotid bifurcation, but no ICA stenosis (0%) by NASCET criteria. Left carotid system: The common carotid and cervical internal carotid arteries are patent. There iscalcified atherosclerotic plaque at the carotid bifurcation, but no ICA stenosis (0%) by NASCET criteria. There is a co-dominant vertebral artery system. Right vertebral: No significant stenosis. No evidence of dissection or aneurysm. Left vertebral: There is calcified atherosclerotic plaque at the origin but no significant stenosis. There is no dissection or aneurysm. Other: Soft tissues and bones: No evidence of lymphadenopathy or mass. The thyroid is unremarkable. Visualized lung apices are clear. Mild degenerative changes of the cervical spine are noted, without acuteosseous abnormality. CTA OF THE HEAD: Anterior circulation: Bilateral intracranial ICAs demonstrate atherosclerotic calcification, without stenosis. Bilateral ELVIN and MCA branches are patent. There is no significant stenosis, proximal cutoff, aneurysm, or vascular malformation. Posterior circulation: Bilateral intracranial vertebral arteries, the basilar artery, and bilateralsuperior cerebellar and posterior cerebral branches are patent. There is no significant stenosis, proximal cutoff, aneurysm, or vascular malformation. Veins: Major dural venous sinuses are patent. Other: Soft tissues and bones: No midline shift or effacement of the basal cisterns. No space-occupying hemorrhage. No territorial loss of moreau-white matter differentiation. Orbits are unremarkable. There is mild scattered mucosal thickening in the paranasal sinuses without fluid levels. IMPRESSION: No proximal occlusion or high grade stenosis in the major arteries of the head and neck. Major findings are in agreement with the preliminary report provided by [facility]. WSN: [id number] Ordering Physician: Alfie Spicer Dictated By: Maryann Martinez MD Dictated Date/Time: 05/10/24 12:12 p Reviewed By: Maryann Martinez MD Signed By: Maryann Martinez MD Signed Date/Time: 05/10/24 12:12 pm Transcribed By: OLIVIA Transcribed Date/Time: 05/10/24 12:00 pm * Exam Date Time Procedure Performing Provider Status 05/09/24 7:[address] Angio Head Hyperacute Stroke Colon , Mia; Auth (Verified) Notes: (CT Angio Head Hyperacute Stroke) Reason For Exam: Stroke;Other: RESULT: CT Angio Head Hyperacute Stroke CT Angio Head Hyperacute Stroke, CT Angio Neck Hyperacute Stroke Hx of Present Illness: pt reports dizziness, fatigue, NV since this AM, adds she had blood clots removed from her BLE 4wks ago.; Reason: Other:; Stroke; Clinical Question(s): Other:; Hematoma Aneurysm / Other: TECHNIQUE: CT angiogram of the head and neck was performed after bolus administration of intravenous contrast. 100 mL of Omnipaque 300 was administered intravenously. Coronal and sagittal MIP reformatted images were obtained. Additional 3-D images were created on a separate workstation under concurrent supervision by the attending radiologist. All stenoses are measured using NASCET criteria. Weight-based protocol using automatic tube modulation was used to optimize exposure parameters. RADIATION DOSE PARAMETERS: CTDIvol Body: 7.73 mGy, DLP Body: 301 mGy*cm. CTDIvol Head: 47.90 mGy, DLP Head: 773 mGy*cm. COMPARISON: Noncontrast CT head performed concurrently. FINDINGS: CTA OF THE NECK: Arch: There is a three vessel aortic arch. There is moderate atherosclerotic plaque of the aortic arch, but origins of the supra aortic vessels are patent. Right carotid system: The common carotid and cervical internal carotid arteries are patent. There is calcified atherosclerotic plaque at the carotid bifurcation, but no ICA stenosis (0%) by NASCET criteria. Left carotid system: The common carotid and cervical internal carotid arteries are patent. There iscalcified atherosclerotic plaque at the carotid bifurcation, but no ICA stenosis (0%) by NASCET criteria. There is a co-dominant vertebral artery system. Right vertebral: No significant stenosis. No evidence of dissection or aneurysm. Left vertebral: There is calcified atherosclerotic plaque at the origin but no significant stenosis. There is no dissection or aneurysm. Other: Soft tissues and bones: No evidence of lymphadenopathy or mass. The thyroid is unremarkable. Visualized lung apices are clear. Mild degenerative changes of the cervical spine are noted, without acuteosseous abnormality. CTA OF THE HEAD: Anterior circulation: Bilateral intracranial ICAs demonstrate atherosclerotic calcification, without stenosis. Bilateral ELVIN and MCA branches are patent. There is no significant stenosis, proximal cutoff, aneurysm, or vascular malformation. Posterior circulation: Bilateral intracranial vertebral arteries, the basilar artery, and bilateralsuperior cerebellar and posterior cerebral branches are patent. There is no significant stenosis, proximal cutoff, aneurysm, or vascular malformation. Veins: Major dural venous sinuses are patent. Other: Soft tissues and bones: No midline shift or effacement of the basal cisterns. No space-occupying hemorrhage. No territorial loss of moreau-white matter differentiation. Orbits are unremarkable. There is mild scattered mucosal thickening in the paranasal sinuses without fluid levels. IMPRESSION: No proximal occlusion or high grade stenosis in the major arteries of the head and neck. Major findings are in agreement with the preliminary report provided by [facility]. WSN: [id number] Ordering Physician: Alfie Spicer Dictated By: Maryann Martinez MD Dictated Date/Time: 05/10/24 12:12 p Reviewed By: Maryann Martinez MD Signed By: Maryann Martinez MD Signed Date/Time: 05/10/24 12:12 pm Transcribed By: OLIVIA Transcribed Date/Time: 05/10/24 12:00 pm * Exam Date Time Procedure Performing Provider Status 05/09/24 8:31 PM Chest 2 Views Frontal and Lat Edwin Lancaster; Jacob (Verified) Notes: (Chest 2 Views Frontal and Lat) Reason For Exam: Stroke;Other: RESULT: Chest 2 Views Frontal and Lat Chest 2 Views Frontal and Lat Hx of Present Illness: pt reports dizziness, fatigue, NV since this AM, adds she had blood clots removed from her BLE 4wks ago.; Reason: Other:; Stroke; Clinical Question(s): CHF COMPARISON: None. FINDINGS: LINES AND TUBES: None. LUNGS AND PLEURA: Clear lungs. Normal pulmonary vascularity. No pleural effusion. No pneumothorax. HEART, MEDIASTINUM AND SHARI: Heart is normal in size. Aortic atherosclerosis. BONES AND SOFT TISSUES: No acute abnormality. IMPRESSION: No acute abnormality. WSN: [id number] Ordering Physician: Sawyer Hernandez Dictated By: Marifer Méndez MD Dictated Date/Time: 05/09/24 8:46 pm Reviewed By: Marifer Méndez MD Signed By: Marifer Méndez MD Signed Date/Time: 05/09/24 8:46 pm Transcribed By: OLIVIA Transcribed Date/Time: 05/09/24 8:45 pm * Exam Date Time Procedure Performing Provider Status 05/09/24 8:13 PM US Doppler Ext Lower Venous Left Robert Barclay; Auth (Verified) Notes: (US Doppler Ext Lower Venous Left) Reason For Exam: Pain in limb;Other: RESULT: US Doppler Ext Lower Venous Left US Doppler Ext Lower Venous Left Hx of Present Illness: pt reports dizziness, fatigue, NV since this AM, adds she had blood clots removed from her BLE 4wks ago.; Reason: Other:; Pain in limb; Clinical Question(s): Thrombus COMPARISON: None IMAGING TECHNIQUE: Ultrasound of the veins from the groin through the calf was performed using grayscale, color, and spectral Doppler ultrasound assessing for complete compressibility and normal flowcharacteristics. FINDINGS: Common femoral vein: Patent. No thrombosis. Femoral vein: Patent. No thrombosis. Popliteal vein: Patent. No thrombosis. Gastrocnemius veins: The visualized portions are patent without evidence of thrombosis. Peroneal veins: The visualized portions are patent without evidence of thrombosis. Posterior tibial veins: The visualized portions are patent without evidence of thrombosis. Contralateral common femoral vein: Patent. No thrombosis. OTHER FINDINGS: None. IMPRESSION: No evidence of deep venous thrombosis. WSN: [id number] Ordering Physician: Alfie Spicer Dictated By: Jewel Voss MD Dictated Date/Time: 05/09/24 8:18 pm Reviewed By: Jewel Voss MD Signed By: Jewel Voss MD Signed Date/Time: 05/09/24 8:18 pm Transcribed By: OLIVIA Transcribed Date/Time: 05/09/24 8:12 pm * Exam Date Time Procedure Performing Provider Status 05/09/24 7:[address] Head-Hyper Acute Stroke Colon , Chanda nara; Auth (Verified) Notes: (CT Head-Hyper Acute Stroke) Reason For Exam: Neuro deficit, acute, stroke suspected;Other: RESULT: CT Head-Hyper Acute Stroke CT Head-Hyper Acute Stroke INDICATION: Hx of Present Illness: pt reports dizziness, fatigue, NV since this AM, adds she had blood clots removed from her BLE 4wks ago.; Reason: Other:; Neuro deficit, acute, stroke suspected; Clinical Question(s): Other:; Hematoma Infarction TECHNIQUE: Noncontrast head CT using axial technique and reconstructed in axial and coronal planes.Iterative reconstruction techniques are used to optimize dose and image quality. CTDIvol Body: 7.73 mGy, DLP Body: 301 mGy*cm. CTDIvol Head: 47.90 mGy, DLP Head: 773 mGy*cm. COMPARISON: None. FINDINGS: Satellite Dish Technician view findings, lines and tubes: None. BRAIN AND EXTRA-AXIAL SPACES: No parenchymal hemorrhage, midline shift, or mass effect. Moreau-white matter differentiation is wellpreserved. No acute infarct. Negative insular ribbon sign. Atherosclerotic vascular calcification of the carotid arteries but negative hyperdense vessel sign. Mild prominence of the ventricles and sulci consistent with parenchymal volume loss. Mild low-density white matter changes. No subarachnoid hemorrhage. No subdural or epidural collection. CALVARIUM, SKULL BASE, AND SOFT TISSUES: No fractures or suspicious bony lesions. Mild thickening and partial opacification of few of the ethmoid air cells. Mastoid air cells are well aerated. Cerumen/debris is present in the external auditory canals bilaterally. Visualized orbits and globes are intact. The extracranial soft tissues are unremarkable. IMPRESSION: No acute intracranial pathology. WSN: [id number] Ordering Physician: Alfie Spicer Dictated By: Marifer Méndez MD Dictated Date/Time: 05/09/24 8:34 pm Reviewed By: Marifer Méndez MD Signed By: Marifer Méndez MD Signed Date/Time: 05/09/24 8:34 pm Transcribed By: OLIVIA Transcribed Date/Time: 05/09/24 7:12 pm Vital Signs Most recent to oldest [Reference Range]: 1 2 3 Height 158 cm (05/10/24 2:47 PM) 158 cm (05/10/24 6:20 AM) 158 cm (05/10/24 5:00 AM) Oxygen Saturation [94-100 %] 98 % (05/10/24 2:47 PM) 98 % (05/10/24 1:05 PM) 98 % (05/10/24 10:47 AM) Pulse Rate [55-90 bpm] 89 bpm (05/10/24 2:47 PM) 81 bpm (05/10/24 1:05 PM) 80 bpm (05/10/24 10:47 AM) Blood Pressure [90-138/55-84 mm Hg] 168/62mm Hg *H* (05/10/24 2:47 PM) 153/75mm Hg *H* (05/10/24 1:05 PM) 168/62mm Hg *H* (05/10/24 10:47 AM) Respiratory Rate [16-30 br/min] 17 br/min (05/10/24 2:47 PM) 22 br/min (05/10/24 1:05 PM) 20 br/min (05/10/24 10:47 AM) Temperature [96.8-100.4 DegF] 97.8 DegF (05/10/24 2:47 PM) 98.2 DegF (05/10/24 1:05 PM) 98.0 DegF (05/10/24 5:00 AM) Mode of Delivery (Oxygen) Room air (05/10/24 2:47 PM) Room air (05/10/24 1:05 PM) Room air (05/10/24 10:47 AM) Blood pressure sites Arm, left (05/10/24 2:47 PM) Arm, left (05/10/24 1:05 PM) Arm, left (05/10/24 10:47 AM) Temperature Route Oral (05/10/24 2:47 PM) Oral (05/10/24 1:05 PM) Oral (05/10/24 5:00 AM) Dry Weight 59 kg (05/10/24 2:47 PM) 59 kg (05/10/24 6:20 AM) 59 kg (05/10/24 5:00 AM) Dry Weight Obtained Via Patient/family s tated (05/09/24 4:01 PM) EKG study * Event Display: ECG 12-Lead Authored Date: Please click on pdf link to open report * Event Display: ECG 12-Lead Authored Date: Ventricular Rate: 76 BPM Atrial Rate: 76 BPM P-R Interval: 132 ms QRS Duration: 82 ms Q-T Interval: 368 ms QTC Calculation(Bazett): 414 ms P Hayward: 44 degrees R Hayward: 77 degrees T Hayward: 82 degrees Normal sinus rhythm Minimal voltage criteria for LVH, may be normal variant ( Sokolow-Salomon ) Cannot rule out Anterior infarct , age undetermined Abnormal ECG When compared with ECG of 09-MAY-2024 16:23, No significant change was found Confirmed by MEHREEN TOBIN ([id number]) on 05/10/2024 2:32:55 PM [place]: MEHREEN TOBIN * Event Display: ECG 12-Lead Authored Date: Please click on pdf link to open report * Event Display: ECG 12-Lead Authored Date: Ventricular Rate: 76 BPM Atrial Rate: 76 BPM P-R Interval: 136 ms QRS Duration: 82 ms Q-T Interval: 368 ms QTC Calculation(Bazett): 414 ms P Hayward: 26 degrees R Hayward: 72 degrees T Hayward: 73 degrees Normal sinus rhythm Minimal voltage criteria for LVH, may be normal variant ( Sokolow-Salomon ) Nonspecific ST abnormality Abnormal ECG No previous ECGs available Confirmed by MARGARITA SHAW MD ([id number]) on 05/09/2024 4:42:51 PM [place]: MARGARITA SHAW MD Consult note * Shahriar Arevalo: PERFORM, MODIFY Event Display: Consultation Note Authored Date: Patient: ??CONCPECIÓN MARCOS ? Age:??58 Years?Sex:??Female?:??1965?? Chief Complaint/Reason for Consult Pt coming from home, reports dizziness that had subsided then came on again so son called EMS. 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 Patient states that 3 days ago her??daughter and since has not been feeling well indicating generalized weakness, woke up 7/3 with dizzy sensations which seemed to fluctuate throughout the day which prompted her visit to the hospital. Upon arrival CT head nonacute, CTA head/neck without high grade stenosis orLVO. On exam patient states that her dizziness has completely resolved, states she still feels somegeneralized weakness but all extremities antigravity without drift, NIH 0. ?? Stroke Time Course: Time patient last seen well (not time patient was found/discovered with deficits): last night unclear what specific time Time patient arrived in ED: 1839 Time neurology consulted/paged:1839 Time patient is seen by neurology:[address] head/interpreted: 1857 tPA/tnk Given:??no tPA/tnk ??time if given: n/a Reason for tPA exclusion if not given: OOW IA was not done, why? no viable target Review of Systems says she doesnt have energy, denies dizziness, change in vision, or change in sensation Physical Exam Vitals & Measurements T:??98.4?F?? HR:??76??(Peripheral)?? RR:??20?? BP:??152/50?? SpO2:??100%?? HT:??158??cm?Neuro Exam ?? Mental Status: ?alert and oriented to person, place, month, and year ?fluent and appropriate speech, no dysarthria ?able to identify simple objects ?able to follow simple and 2 step commands Cranial nerves:?PERRL ?EOMI ?VFF ?equal light touch sensation ?no facial asymmetry or droop no ptosis noted bilaterally muscle strength: ?appropriate muscle tone and bulk ?no tremors ?5/5 UE ?5/5 LE Sensation ?equal light touch sensation UE and LE Cerebellum ?Finger to nose intact bilaterally?Gait not assessed ?? NIH Stroke Scale:? 1a. LOC (0-alert; 1-not alert, arousable; 2-not alert, obtunded; 3- nonresponsive): _0 1b. Questions (0-answers two correctly; 1-answers one correctly; 2-answers neither correctly): _0 1c. Commands (0-perform two tasks; 1-performs one task; 2-performs neither tasks): _0 2. Gaze (0-normal; 1-partial gaze palsy; 2-forced deviation): _0 3. Visual zeng (0-no visual loss; 1-partial hemianopsia; 2-complete hemianopsia; 3-bilateral hemianopsia): _0 4. Facial palsy (0-normal; 1-minor palsy; 2-partial palsy; 3-complete paralysis): _0 5a. Motor left arm (0-normal; 1-drift before 10 sec; 2-falls before 10 sec; 3-no effort against gravity; 4-no movement): _0 5b. Motor right arm (0-normal; 1-drift before 10 sec; 2-falls before 10 sec; 3- no effort against gravity; 4-no movement): _0 6a. Motor left leg (0-normal; 1-drift before 5 sec; 2-falls before 5 sec; 3-no effort against gravity; 4-no movement): _0 6b. Motor right leg (0-normal; 1-drift before 5 sec; 2-falls before 5 sec; 3-no effort against gravity; 4-no movement): _0 7. Ataxia (0-absent; 1-one limb; 2-two limbs): _0 8. Sensory (0-absent; 1-mild/moderate; 2-severe/total loss): _0 9. Language (0-normal; 1-mild/moderate loss; 2-severe aphasia; 3-mute): _0 10. Dysarthria (0-normal; 1-mild/moderate; 2-severe): _0 11. Extinction (0-normal; 1-mild-one modality; 6-[id number] modality): _0 ?? NIHSS Total: 0 Assessment/Plan Concepción is a 58 year old female visiting from [place]??with a self reported past medical hx of??HTN, HLD and???DVT??who presented to the hospital complaints of dizzy symptoms. Patient states that 3 days ago her??daughter and since has not been feeling well indicating generalized weakness, woke up 7/3 with dizzy sensations which seemed to fluctuate throughout the day which prompted her visit to the hospital. Upon arrival CT head nonacute, CTA head/neck without high grade stenosis orLVO. On exam patient states that her dizziness has completely resolved, states she still feels somegeneralized weakness but all extremities antigravity without drift, NIH 0. ?? DDX: dizziness as of this morning fluctuating possible dehydration vs orthostatic dysregulation,stroke unlikely ?? Recommendations: - patient can follow up PCP home ?? Neurology will sign off Discussed w/ Dr. Leger and Dr. Spicer Problem List/Past Medical History Ongoing No qualifying data Procedure/Surgical History No qualifying data available. Home Medications No qualifying data available. Allergies No Known Medication Allergies Family History No family history recorded. * [place] GALICIA, Girma: PERFORM Event Display: Consultation Note Authored Date: [id number] Patient discussed with JAMARI Fortune. I reviewed his note and agree with his assessment and plan. ?? Girma Leger MD, PhD Note * Adan GALICIA, [place]: PERFORM Event Display: Patient Education Leaflets Authored Date: [id number] Weakness or Fatigue with Uncertain Cause ?? [id number] Weakness or Fatigue with Uncertain Cause Weakness and fatigue are different conditions. Sometimes, people think they're weak, when in reality, they are fatigued. It's important to understand the difference between weakness and fatigue, so that you can get the right help for how you're feeling. ??? Weakness. This is when your muscles aren't as strong as they should be. It can develop quickly or slowly over time. It may affect all of the muscles in the body (generalized weakness) or only onepart of the body. Some causes of generalized weakness include a decrease in physical fitness, loss of muscle tissue from long periods of inactivity, abnormal electrolyte levels, and use of certain medicines, such as corticosteroids. Some causes of weakness in specific muscles include strokes, nervedamage, an injured disk in the spine, and neurological disorders, such as multiple sclerosis. Symptoms of weakness depend on which muscles are affected. ??? Fatigue. This is when you feel really tired, worn out, or low on energy. It's when you feel a strong need to rest or have so little energy that doing any activity is difficult. It can happen if you're too active or not active enough, stressed, don't get enough good quality sleep, or have an unhealthy diet. Other causes of fatigue include viral infections, emotional problems, especially depression, and severe illnesses, such as heart failure and cancer. Side effects from medicine may also cause fatigue. Fatigue is usually a sign that something else might be going on. Based on your exam today, the exact cause of your symptoms is not clear. But your symptoms do not seem to be a sign of a serious illness at this time. Keep an eye on your symptoms and get medical advice as directed below. Home care ??? Rest at home today. Don't overexert yourself. ??? Take any medicine as prescribed. ??? For the??next few days, drink extra fluids unless your healthcare provider wants you to restrict fluids for other reasons. Don't skip meals. ??? Unless otherwise directed, continue to take any prescription medicines. ??? Contact your healthcare provider if you have any questions or concerns. ?? Follow-up care Follow up with your healthcare provider, or as advised. ?? When to get medical advice Call your healthcare provider right away??if any of the following occur: ??? Symptoms get worse or new symptoms develop ??? Symptoms don't start getting better within 2 days ??? You have night sweats??? You have swollen lymph nodes ??? You have pain ??? Fever of 100.4?? F (38?? C) or higher, or asdirected by your healthcare provider ?? Call 911 Call 911 if any of the following occur: ??? Pain in the chest, arm, neck, jaw, or upper back ??? Trouble breathing ??? Numbness or weakness of the face, one arm, or one leg ??? Slurred speech, confusion, or??trouble speaking, walking, or seeing ??? Blood in vomit or stool (black or red color) ??? Severe headache ??? Loss of consciousness, such as fainting ??? Loss of the ability to walk ??? Weakness that becomes severe over a few days or less ??? Difficulty raising the head while lying down ?? Last Reviewed Date: 2022 ?? [id number] [employer]. All rights reserved. This information is not intended as a substitute for professional medical care. Always follow your healthcare professional's instructions. ?? Patient Care team information Care Team Personnel Name: Not on Staff, PCP Position: S Physician (General Medicine) Member Role: PCP
--- OUTSIDE RECORDS SUMMARY | 2024-08-21 22:21 | XMS_ITS | Patient Health Record ---
Author Organization [facility] Address [address] [place] [id number] Care Team Providers Care Manager Athletics Name Role Phone NONE, NONE Primary Care Provider Andrea Cleveland Jr Unavailable [phone] REASON FOR REFERRAL No Information SOCIAL HISTORY Sex Assigned At : Social History Observation Description Sex Assigned At Unknown PROBLEMS Problem Type ICD Code Onset Dates Problem Status W/U Status Risk SNOMED Code Notes Problem Diverticulosis of colon (K57.30) Active confirmed Diverticulosi s of colon (742555632) Encounters Encounter Location Date Provider Diagnosis [facility] [address] [place] [id number] 07/18/2024 Andrea Dockery Jr PLAN OF TREATMENT No Information Insurance Providers Payer Name Payer Address Payer Phone Subscriber Number Group Number Insured Name Patient Relationship to Insured Coverage Start Date Coverage End Date [facility] [address] [place] [address] [phone] [id number] CONCEPCIÓN MARCOS Self - patient is the insured
[2024-08-21 22:25] LABS: Venous Blood Gas Refer to POC result
[2024-08-21 22:25] LABS: VBG Base Excess -16.3 mmol/L; VBG HCO3 8 mmol/L (22-26); VBG pCO2 18 mmHg; VBG pH 7.27 (7.32-7.43); VBG pO2 240 mmHg
[2024-08-21] MEDS: Potassium Chloride/H20 10 MEQ/100 ML PIGGYBACK 100 MEQ IV (22:40)
--- NOTE | 2024-08-21 22:40 | MHC.EDTECH ---
Dr. Marques requested Dr. Gomez from . Called at 10:[address] Gomez returned call at 10:38pm
[2024-08-21] MEDS: Potassium Chloride Packet 20 MEQ PACKET PO (22:42)
[2024-08-22] VITALS (52 sets, daily range): BP systolic 79–210; BP diastolic 44–89; PULSE 75–160; RESP 11–20; TEMP 34.8–37.5; O2SAT 97–100; BMI 16.7
[2024-08-22] MEDS: Sodium Bicarbonate 8.4% 150 MEQ in Dextrose 5 % 850 ML 100 MEQ IV
--- NOTE | 2024-08-22 | ECG_ITS ---
Test Reason : rate change Blood Pressure : / mmHG Vent. Rate : 127 BPM Atrial Rate : 127 BPM P-R Int : 130 ms QRS Dur : 068 ms QT Int : 320 ms P-R-T Axes : 085 078 069 degrees QTc Int : 465 ms Sinus tachycardia Right atrial enlargement Nonspecific ST abnormality Abnormal ECG When compared with ECG of 21-AUG-2024 20:45, Nonspecific T wave abnormality, worse in Lateral leads Referred By: Wilian Odell Electronically Signed By:YUE CASILLAS
[2024-08-22] MEDS: fentaNYL citrate/PF 100 MCG/2 ML VIAL 25 MCG IVPUSH (00:01)
[2024-08-22] MEDS: Potassium Chloride/H20 10 MEQ/100 ML PIGGYBACK 100 MEQ IV ×3 (00:01→02:24)
[2024-08-22] MEDS: Potassium Chloride Packet 20 MEQ PACKET PO (00:08)
--- NOTE | 2024-08-22 01:40 | P.HPHOSP_ITS ---
History of Present Illness Date of Service: 08/22/24 Attending physician on admission: Briana Chavez Chief Complaint: Coffee-ground vomiting Marion Montanez is a 58 years old woman with past medical history significant for COPD, CVA, essential hypertension and DVT -not on anticoagulation presents to the emergency department complaining coffee-ground vomiting and black stool. She also complained of chronic left ankle/foot pain that she attributes to DVT. Patient is a poor historian. She denied abdominal pain. She also denied any headache, dizziness, chest pain or shortness on breath. Did not report intake of NSAIDs and apparently does not take aspirin. She said that she takes a lot of medication and does not recall the name of them. She was recently hospitalized with diagnosis of acute diverticulitis, JUANITO, hypokalemia and metabolic acidosis. In the ED she was found to have stable vital signs. There is mild tachycardia. Blood workup showed leukocytosis of 13.4. Hemoglobin is 9.1 and hematocrit 24.5. Platelets 234. There is hypokalemia of 2.7, hyperchloremia 117 and CO2 of 11. Creatinine is 1.44 (it was normal last month). AST and ALT are slightly elevated. Alk-phos and bilirubin are normal. Troponin 7.1, albumin 3.3 and lipase is normal. Tachycardia, HR [address] changes. VBGs showed pH of 7.27, CO2 8 and pCO2 18. CXR is unremarkable. Lower extremities venous ultrasound showed no DVT or Fortune's cyst. ED tx: Pantoprazole 40 mg IV, Zofran 4 mg IV, magnesium 2 g IV, KCl IV,, Klor- Con 40 mEq and fentanyl 25 mcg IV Review of Systems 2 Review of Systems: Yes Unobtainable due to mental condition [facility] Medical History COPD (chronic obstructive pulmonary disease) Asthma exacerbation Social History Household Members: Children Household Members Other:: unknown but pt states lives with family Housing: Apartment Housing Other:: pt not cooperative Do you presently have visiting nurse or other home services: No Unable to assess alcohol history related to: Unknown and Refusing to respond Comment: sitter at bedside. Patient Tobacco Use Status: Former Tobacco user Tobacco use type: Cigarette Smoked in Last 30 Days: No Substance Use Type: Marijuana Advance Directives: No Advance Directives Information Provided: No Do you have a plan to hurt others: No Plan Patient : No service: No Current occupational status: unemployed Meds Allergies Allergy/AdvReac Type Severity Reaction Status Date / Time No Known Allergies Allergy Verified 08/21/24 20:52 Active Medications: Current Medications Potassium Chloride (Potassium Chloride/H20) 10 meq in 100 mls @ 100 mls/hr IV Q1H DMITRIY Stop: 08/22/24 01:59 Last Admin: 08/22/24 01:25 Dose: 100 mls/hr Sodium Bicarbonate 150 meq/ (Dextrose) 1,000 mls @ 100 mls/hr IV .Q10H DMITRIY Last Admin: 08/22/24 00:00 Dose: 100 mls/hr Pantoprazole Sodium (Pantoprazole Sodium 40 Mg/10 Ml Vial) 40 mg IVPUSH BID ONE Stop: 08/22/24 09:01 Sodium Chloride (0.9 % Sodium Chloride Flush 3 Ml Syringe) 3 ml IVFLUSH QSHIFT [facility] Physical Exam 2 Vital Signs and Narrative: Vital Signs: Last Vital Signs Temp 98.4 F 08/22/24 00:24 Pulse 104 H 08/22/24 00:24 Resp 20 08/22/24 00:24 BP 137/64 08/22/24 00:24 Pulse Ox 100 08/22/24 00:24 O2 Del Method Room Air 08/22/24 00:24 BMI result Body Mass Index 16.9 Constitutional - Awake and Alert, No apparent distress. Cachectic HEENT - PERRLA, EOMI Heart - S1S2, RRR, No edema Lungs - Normal lung expansion, Normal respiratory effort, No respiratory distress, CTA bilaterally Gastrointestinal - NT / ND; +BS; No rebound or guarding Extremities - no calf tenderness bilaterally, no swelling. Left foot: Tenderness to palpation. Distal pulse 1 +. Right foot: No edema, tenderness. Distal pulses 1+ Musculoskeletal - Normal inspection, normal ROM Skin - Warm/Dry Neurological - Alert & oriented x3. No focal weakness grossly noted. Psychological - Appropriate affect Results Labs 08/22/24 02:23 08/22/24 02:23 Labs: Laboratory Results - last 24 hr 08/21/24 08/21/24 08/21/24 21:20 21:21 21:41 MCV 106.5 H MCH 39.6 H MCHC 37.1 H RDW 21.7 H Plt Count 234 D MPV 8.7 L Immature Gran % (Auto) 0.7 H Neut % (Auto) 66.1 Lymph % (Auto) 27.1 [place] % (Auto) 5.7 Eos % (Auto) 0.3 Baso % (Auto) 0.1 Lymph # (Auto) 3.6 [place] # (Auto) 0.8 Eos # (Auto) 0.0 Baso # (Auto) 0.0 Abs Immat Gran (auto) 0.09 H Absolute Neuts (auto) 8.9 H Absolute Nucleated RBC 0.040 H Nucleated RBC % (auto) 0.3 H PT 16.4 H INR 1.4 H VBG pH VBG pCO2 VBG pO2 VBG HCO3 VBG O2 Saturation VBG Base Excess Anion Gap 18 Estim Creat Clear Calc 27.5 Estimated GFR 37 Random Glucose 173 H Calcium 9.1 D Magnesium 2.1 Total Bilirubin 1.0 AST 44 H ALT 38 H Alkaline Phosphatase 114 Troponin I High Sens 7.2 Total Protein 7.1 Albumin 3.3 L Lipase 45 Stool Occult Blood POSITIVE Ethyl Alcohol < 10 Blood Type O Positive Antibody Screen NEGATIVE 08/21/24 22:20 MCV MCH MCHC RDW Plt Count MPV Immature Gran % (Auto) Neut % (Auto) Lymph % (Auto) [place] % (Auto) Eos % (Auto) Baso % (Auto) Lymph # (Auto) [place] # (Auto) Eos # (Auto) Baso # (Auto) Abs Immat Gran (auto) Absolute Neuts (auto) Absolute Nucleated RBC Nucleated RBC % (auto) PT INR VBG pH 7.27 L VBG pCO2 18 VBG pO2 240 VBG HCO3 8 L VBG O2 Saturation 100.0 VBG Base Excess -16.3 Anion Gap Estim Creat Clear Calc Estimated GFR Random Glucose Calcium Magnesium Total Bilirubin AST ALT Alkaline Phosphatase Troponin I High Sens Total Protein Albumin Lipase Stool Occult Blood Ethyl Alcohol Blood Type Antibody Screen Imaging Radiologist's Impressions: Impressions Chest X-Ray 08/21/24 20:52 IMPRESSION: Unremarkable examination. Electronically signed by: Todd Werner MD 08/21/2024 09:35 PM EDT Venous Duplex 08/22/24 00:40 IMPRESSION: No evidence of deep venous thrombosis involving the bilateral lower extremities. Electronically signed by: Evan Conrad MD 08/22/2024 01:31 AM EDT RP Assessment and Plan (1) Acute upper gastrointestinal bleeding: Status: Acute (2) Metabolic acidosis: Status: Acute (3) Acute hypokalemia: Status: Acute (4) COPD (chronic obstructive pulmonary disease): Qualifiers: COPD type: unspecified COPD Qualified Code(s): J44.9 - Chronic obstructive pulmonary disease, unspecified Status: Acute (5) JUANITO (acute kidney injury): Status: Acute Plan Marion Montanez is a 58 y/o woman admitted with: * Upper GI bleeding. Dx: PUD, erosive gastritis, cancer, AV malformation. Admit to hospitalist service. Telemetry. NPO. Continue treatment with Protonix 40 mg IV b.i.d.. Hold aspirin (got prescription on Jul 17). Monitor H&H. Transfuse PRBCs if Hgb < 7.0 hold hemodynamically unstable. GI consult. * Acute kidney injury, likely secondary to GI bleeding and vomiting. Continue IV fluids. Continue to monitor renal function. Avoid nephrotoxic agents. * Hyperchloremic non-anion gap metabolic acidosis associated with hypokalemia. RTA and/or diarrhea? Continue bicarb drip. Nephrology consult. * Left foot pain, decrease distal pulses with hx of claudication. To consider vascular surgery evaluation. * Elevated transaminases. Normal bilirubin and alk-phos. Serology for hepatitis-C Ab (+) (07/13/24); will check HCV RNA; Hep Bs Ab (+) Hep Bc Ab (+) Hep Bs Ag (-) = inactive Hep B infection . Will check HIV. Due to statin? Continue to monitor. * Hyperlipidemia. Continue atorvastatin when able. * Essential hypertension. Hold amlodipine for now as the pt is actively bleeding. * Moderate protein calorie malnutrition. BMI 16.9 kg/m2. [employer] consultation when okay to eat. * COPD. No acute exacerbation. Bronchodilator therapy as needed. * Hx of CVA. Aspirin on hold due to active GI bleeding. Continue statin. DVT prophylaxis: SCDs only Code status: Full Patient will need hospitalization for at least 2 midnights for upper GI bleeding, JUANITO, metabolic acidosis and hypokalemia treatment with PRBC transfusions, bicarb IV infusion, electrolyte supplementation, close monitoring of vital signs, hemoglobin electrolytes. Patient also will need evaluation by subspecialties Quality Stroke Does the patient have a stroke diagnosis?: No VTE Prior VTE?: No VTE Risk Level:: Medical - moderate - high VTE Device Contraindication: N/A - Device Ordered VTE Drug Contraindication: Treatment Not Indicated
[2024-08-22 02:28] LABS: Mean Corpuscular Hemoglobin 38.7 pg (27.0-33.0); Mean Corpuscular Volume 104.6 fL (80.0-98.0); Mean Platelet Volume 8.6 fL (9.4-12.3); Platelet Count 152 X10*3/uL (160-400); Red Blood Count 1.73 X10*6/uL (4.20-5.50); Red Cell Distribution Width 21.4 % (11.0-16.0)
[2024-08-22 02:47] LABS: Hematocrit 18.1 % (37.0-47.0); Hemoglobin 6.7 g/dl (12.0-16.0)
[2024-08-22 02:52] LABS: Anion Gap 13 (12-20); Blood Urea Nitrogen 12 mg/dL (9-16); Calcium 8.4 mg/dL (8.4-10.2); Carbon Dioxide 15 mmol/L (22-29); Chloride 117 mmol/L (96-108); Creatinine Clr Calc Pharmacy 37.1; Estimated Glomerular Filt Rate 52; Glucose Random 125 mg/dL (60-115); Potassium 3.8 mmol/L (3.3-5.1); Sodium 141 mmol/L (135-145)
--- NOTE | 2024-08-22 05:03 | PC.NURSE ---
0330: Prior to startng blood transfusion pt rolled on her side in bed and vomited a moderate amount of blood. Inpatient MD aware
--- NOTE | 2024-08-22 06:26 | PC.NURSE ---
Per inpatient MD each unit of blood to go in over roughly 1 hour
[2024-08-22 06:35] LABS: Amphetamine Screen Urine Not Detected (Not Detect); Barbiturates, Urine Not Detected (Not Detect); Benzodiazepines Screen Urine Not Detected (Not Detect); Buprenorphine Scr Not Detected (Not Detect); Cannabinoid Screen Urine POSITIVE (Not Detect); Cocaine Screen Urine Not Detected (Not Detect); Fentanyl, urine Not Detected (Not Detect); Methadone Screen, Urine Not Detected (Not Detect); Opiate Screen Urine Not Detected (Not Detect); Oxycodone Screen Urine Not Detected (Not Detect); Phencyclidine Screen Urine Not Detected (Not Detect)
--- NOTE | 2024-08-22 09:01 | PM.CNNEP ---
History of Present Illness Reason for Consult Consult date: 08/22/24 Chief Complaint Chief complaint: Upper GI Bleeding, Metabolic Acidosis, Hypokalemia History of Present Illness Narrative: 58 y/o female with a medical history of HTN, COPD, hx of DVT, CVA ED on evening of 08/21 with coffee ground emesis and black stool had hyperchloremic non-anion gap metabolic acidosis, JUANITO (Cr 1.44, increased from 0.83 baseline; K 2.7) H&H dropped to 6.7/18 this a.m. from .11/30, she received 2 pRBCs this a.m. she has been receiving IVF (sodium bicarb) at 150mL/hr and Creatinine has improved to 1.07 this a.m. pt reports she does not take NSAIDs regularly, states took one ibuprofen recently otherwise uses tylenol states she does not drink alcohol or smoke cigarettes or use other drugs denies use of other non-prescription/OTC medications states she has very poor appetite the day prior to her hospitalization and was feeling generally unwell states currently she feels tired but otherwise does not have any acute complaints denies abdominal pain, flank pain denies urinary pain, urgency, frequency, flank pain, blood in urine Review of Systems Constitutional: Reports fatigue, Denies fever(s) and Reports lethargy Cardiovascular: Denies no additional cardiovascular complaints, Denies chest pain and Denies dyspnea Respiratory: Reports no additional respiratory complaints and Denies dyspnea Gastrointestinal: Denies abdominal pain, Reports melena and Reports coffee ground emesis Genitourinary: Denies hematuria, Denies difficulty voiding, Denies dysuria and Denies flank pain Musculoskeletal: Reports arthralgias (reports chronic ankle pain ) and Denies tingling Skin/Breast: Denies rash Denies focal weakness, Denies tingling and Denies tremor(s) Endocrine: Reports fatigue PMFSH Past Medical History Medical History COPD (chronic obstructive pulmonary disease) Asthma exacerbation Social History Social History Household Members: Children Household Members Other:: unknown but pt states lives with family Housing: Apartment Housing Other:: pt not cooperative Do you presently have visiting nurse or other home services: No Unable to assess alcohol history related to: Unknown and Refusing to respond Comment: sitter at bedside. Patient Tobacco Use Status: Former Tobacco user Tobacco use type: Cigarette Smoked in Last 30 Days: No Substance Use Type: Marijuana Advance Directives: No Advance Directives Information Provided: No Do you have a plan to hurt others: No Plan Nutrition Risks: Acute nausea or vomiting x1 week Patient : No service: No Current occupational status: unemployed Meds Allergies Allergy/AdvReac Type Severity Reaction Status Date / Time No Known Allergies Allergy Verified 08/21/24 20:52 Active Medications: Current Medications Sodium Bicarbonate 150 meq/ (Dextrose) 1,000 mls @ 100 mls/hr IV .Q10H [facility] Last Admin: 08/22/24 00:00 Dose: 100 mls/hr Metoclopramide HCl (Metoclopramide Hcl 10 Mg/2 Ml Vial) 5 mg IVPUSH Q4H PRN PRN Reason: Nausea and Vomiting Sodium Chloride (0.9 % Sodium Chloride Flush 3 Ml Syringe) 3 ml IVFLUSH QSHIFT [facility] Last Admin: 08/22/24 08:26 Dose: Not Given Home Medications ?Medication ?Instructions ?Recorded ?Confirmed ?Last Taken ?Type metoprolol succinate 25 mg 25 mg PO DAILY 08/22/24 08/22/24 Unknown History tablet,extended release 24 hr Physical Exam Vital Signs: Last Vital Signs Temp 97.9 F 08/22/24 07:32 Pulse 81 08/22/24 07:32 Resp 14 08/22/24 07:32 BP 132/49 L 08/22/24 07:32 Pulse Ox 97 08/22/24 07:32 O2 Del Method Room Air 08/22/24 07:32 BMI result Body Mass Index 16.9 Const General: comfortable and no acute distress Orientation/consciousness: oriented to person, oriented to place and oriented to time Neck Neck: Yes no JVD Resp Effort & Inspection: able to speak in complete sentences Auscultation: clear to auscultation bilaterally Cardio Jugular venous distension: no JVD Rate: regular rate Rhythm: regular rhythm Heart sounds: S1 normal heart sound present and S2 normal heart sound present GI Palpation (GI): Soft to palpation Rectal Exam - Female: No tenderness General: Yes no CVA tenderness Back/Spine/Pelvis Back: no CVA tenderness Skin Rashes: no rashes Neuro General: oriented to person, oriented to place and oriented to time Extrem General: Yes normal to inspection, No edema and No pedal edema Results Lab Results 08/22/24 02:23 08/22/24 02:23 Lab results: Chemistry 08/21/24 08/22/24 21:20 02:23 Sodium 143 141 Potassium 2.7 L* 3.8 D Carbon Dioxide 11 L 15 L BUN 14 12 Creatinine 1.44 H 1.07 Calcium 9.1 D 8.4 D Hematology 08/21/24 08/22/24 21:20 02:23 WBC 13.4 H 13.0 H Hgb 9.1 L 6.7 L* D Plt Count 234 D 152 L D Assessment and Plan (1) Acute hypokalemia: Status: Acute (2) Metabolic acidosis: Status: Acute (3) JUANITO (acute kidney injury): Status: Acute Plan JUANITO likely prerenal injury secondary to volume depletion from GIB (vomiting, diarrhea) her creatinine has improved significantly with volume repletion overnight UOP is good no reason to suspect ATN, AGN or AIN recommend avoiding NSAIDs, KELLY/ARB, nephrotoxic agents shall follow abdominal imaging continue supportive care Discussed with Dr Aggarwal Procedures Date of Service Date of Service: 08/22/24
--- NOTE | 2024-08-22 09:29 | PC.NURSE ---
Per MD Odell, hold Sodium Bicarb fluids until labs are drawn.
[2024-08-22] MEDS: Pantoprazole Sodium 40 MG/10 ML VIAL IVPUSH ×2 (09:44→16:16)
--- NOTE | 2024-08-22 09:57 | PC.NURSE ---
Pt HR noted to be 135s-140s, MD Odell made aware of tachycardia.
--- NOTE | 2024-08-22 10:00 | PC.NURSE ---
Pt having multiple episodes of black, loose stools. Cleaned up in bed, repositioned and new linens placed. Call pastor within reach, all needs met at this time.
--- NOTE | 2024-08-22 10:21 | ECG_ITS ---
Test Reason : TACHYCARDIA Blood Pressure : / mmHG Vent. Rate : 161 BPM Atrial Rate : 161 BPM P-R Int : 100 ms QRS Dur : 152 ms QT Int : 304 ms P-R-T Axes : 072 071 077 degrees QTc Int : [address] depression, consider subendocardial injury Abnormal ECG No previous ECGs available Referred By: Echo Blackburn Electronically Signed By:YUE CASILLAS
[2024-08-22] MEDS: Morphine Sulfate 2 MG/ML CARTRIDGE IVPUSH (10:42)
[2024-08-22] MEDS: oxyCODONE HCl Immed Release 5 MG TABLET PO (10:46)
[2024-08-22] MEDS: 0.9 % Sodium Chloride 1,000 ML 125 ML IVCONT (10:46)
--- NOTE | 2024-08-22 11:02 | HO.PM.IMPN ---
Subjective Subjective Date of Service: 08/22/24 Interval History: gib ,juanito,Hyperchloremic non-anion gap metabolic acidosis associated with hypokalemia Review of Systems multiple episodes of black, loose stools.a tachycardic lightheaded Physical Exam Vital Signs: Vital Signs: Last Vital Signs Temp 97.9 F 08/22/24 07:32 Pulse 139 H 08/22/24 09:58 Resp 19 08/22/24 10:42 BP 132/49 L 08/22/24 07:32 Pulse Ox 97 08/22/24 07:32 O2 Del Method Room Air 08/22/24 07:32 BMI result Body Mass Index 16.9 physical exam -unchanged from h&P. Objective Data Active Medications Sodium Chloride (Ns) 100 mls @ 100 mls/hr IV ONCE ONE Stop: 08/22/24 11:35 Sodium Chloride (Ns) 100 mls @ 100 mls/hr IV ONCE ONE Stop: 08/22/24 11:35 Sodium Chloride (Ns) 1,000 mls @ 125 mls/hr IVCONT .Q8H [facility] Last Admin: 08/22/24 10:46 Dose: 125 mls/hr Documented By: KINDRA Metoclopramide HCl (Metoclopramide Hcl 10 Mg/2 Ml Vial) 5 mg IVPUSH Q4H PRN PRN Reason: Nausea and Vomiting Oxycodone HCl (Oxycodone Hcl Immed Release 5 Mg Tablet) 5 mg PO Q4H PRN PRN Reason: Pain, Moderate(Pain Scale 4-6) Last Admin: 08/22/24 10:46 Dose: 5 mg Documented By: KINDRA Sodium Chloride (0.9 % Sodium Chloride Flush 3 Ml Syringe) [facility] Last Admin: 08/22/24 08:26 Dose: Not Given Documented By: KINDRA Non-Admin Reason: IV Running Labs 08/22/24 02:23 08/22/24 02:23 Labs: Laboratory Results - last 24 hr 08/21/24 08/21/24 08/21/24 21:20 21:21 21:41 MCV 106.5 H MCH 39.6 H MCHC 37.1 H RDW 21.7 H Plt Count 234 D MPV 8.7 L Immature Gran % (Auto) 0.7 H Neut % (Auto) 66.1 Lymph % (Auto) 27.1 [place] % (Auto) 5.7 Eos % (Auto) 0.3 Baso % (Auto) 0.1 Lymph # (Auto) 3.6 [place] # (Auto) 0.8 Eos # (Auto) 0.0 Baso # (Auto) 0.0 Abs Immat Gran (auto) 0.09 H Absolute Neuts (auto) 8.9 H Absolute Nucleated RBC 0.040 H Nucleated RBC % (auto) 0.3 H PT 16.4 H INR 1.4 H VBG pH VBG pCO2 VBG pO2 VBG HCO3 VBG O2 Saturation VBG Base Excess Anion Gap 18 Estim Creat Clear Calc 27.5 Estimated GFR 37 Random Glucose 173 H Estimat Average Glucose Hemoglobin A1c % Calcium 9.1 D Magnesium 2.1 Total Bilirubin 1.0 AST 44 H ALT 38 H Alkaline Phosphatase 114 Troponin I High Sens 7.2 Total Protein 7.1 Albumin 3.3 L Lipase 45 Stool Occult Blood POSITIVE Urine Opiates Screen Ur Buprenorphine Scrn Ur Oxycodone Screen Urine Methadone Screen Urine Fentanyl Screen Ur Barbiturates Screen Ur Phencyclidine Scrn Ur Amphetamines Screen U Benzodiazepines Scrn Urine Cocaine Screen U Marijuana (THC) Screen Ethyl Alcohol < 10 Blood Type O Positive Antibody Screen NEGATIVE Crossmatch See Detail 08/21/24 08/22/24 08/22/24 22:20 02:23 06:19 MCV 104.6 H MCH 38.7 H MCHC 37.0 H RDW 21.4 H Plt Count 152 L D MPV 8.6 L Immature Gran % (Auto) Neut % (Auto) Lymph % (Auto) [place] % (Auto) Eos % (Auto) Baso % (Auto) Lymph # (Auto) [place] # (Auto) Eos # (Auto) Baso # (Auto) Abs Immat Gran (auto) Absolute Neuts (auto) Absolute Nucleated RBC 0.000 Nucleated RBC % (auto) 0.0 PT INR VBG pH 7.27 L VBG pCO2 18 VBG pO2 240 VBG HCO3 8 L VBG O2 Saturation 100.0 VBG Base Excess -16.3 Anion Gap 13 Estim Creat Clear Calc 37.1 Estimated GFR 52 Random Glucose 125 H Estimat Average Glucose TNP Hemoglobin A1c % TNP Calcium 8.4 D Magnesium Total Bilirubin AST ALT Alkaline Phosphatase Troponin I High Sens Total Protein Albumin Lipase Stool Occult Blood Urine Opiates Screen Not Detected Ur Buprenorphine Scrn Not Detected Ur Oxycodone Screen Not Detected Urine Methadone Screen Not Detected Urine Fentanyl Screen Not Detected Ur Barbiturates Screen Not Detected Ur Phencyclidine Scrn Not Detected Ur Amphetamines Screen Not Detected U Benzodiazepines Scrn Not Detected Urine Cocaine Screen Not Detected U Marijuana (THC) Screen POSITIVE H Ethyl Alcohol Blood Type Antibody Screen Crossmatch Assessment and Plan (1) JUANITO (acute kidney injury): Status: Acute (2) Acute hypokalemia: Status: Acute (3) Metabolic acidosis: Status: Acute (4) GI bleed: Status: Acute Assessment and Plan: 58 y/o woman admitted with: GI bleeding-unclear etiology keep having bleeding episode per rectum tachycaria /lightheadness due to above. Gi seen the patient, official consult pending -concern for Lgib moniter h/h amari plan: got 2 prbc last night , added 2 prbc . Protonix 40 mg IV b.i.d.. Hold aspirin .added vitamin k as per gi. cta added . Monitor H&H. patient may need IR refferal for embolization if bleeding does not stop. Acute kidney injury, likely secondary to GI bleeding and vomiting. improving Hyperchloremic non-anion gap metabolic acidosis associated with hypokalemia. RTA and/or diarrhea? received bicarb drip bicarb improving due to tachycardia /lightheadness -expect relative hypovolemia due to gi bleed/dec po intake-will switch to ns ivf for now nephrology Elevated transaminases. Normal bilirubin and alk-phos. Serology for hepatitis-C Ab (+) (07/13/24); will check HCV RNA; Hep Bs Ab (+) Hep Bc Ab (+) Hep Bs Ag (-) = inactive Hep B infection . Will check HIV. Due to statin? Continue to monitor. Hyperlipidemia.hold statin/htn meds for now please see h&P note for today for detailed info. Patient is symptomatic with GI bleed , need close H&H monitoring as well as patient is acidotic? Question multifactorial. Patient will need close H&H monitoring as well as electrolyte monitoring and hemodynamically monitoring , and also might need IR referral if continue to bleed for embolization-patient will be going to ICU. Above was discussed with ICU and GI attending in detail. Quality Stroke Does the patient have a stroke diagnosis?: No VTE Prior VTE?: No VTE Risk Level:: Medical - moderate - high VTE Device Contraindication: N/A - Device Ordered VTE Drug Contraindication: Treatment Not Indicated
--- NOTE | 2024-08-22 11:12 | PM.EVENT ---
Event Note Date of Service: 08/22/24 Event Note: Patient is a 58 Y F w/ COPD, prior CVA, and prior DVT though reportedly not on anticoagulation, who initially presented to the emergency department on 08/21 w/ coffee-ground emesis and melena, initially admitted to medicine; on 08/22 AM, patient developed tachycardia in setting of acute blood loss anemia, upgraded to ICU for further management presumed brisk upper GI bleeding; plan to very closely monitor airway, hemodynamics, and appreciate GI and IR recommendations Time Spent With Patient Time: Total time managing care of this patient today ____ minutes.
[2024-08-22] MEDS: iohexoL 350 MG/ML 100 ML INFUS..BTL IV (11:13)
--- NOTE | 2024-08-22 11:27 | PHA.MEDREC ---
Addendum entered by Leonidas Hui 08/22/24 12:07: reviewed Original Note: Pharmacy Consult ? Medication Reconciliation Pharmacy has completed the medication reconciliation. Spoke to patient to confirm med list. Patient stated she isn't feeling good she doesn't know any medication, however she had some bottles with her. Daily-Brigid , Potasium chloride 40 MEQ and Metoprolol succ 25 daily dated 11/29/23. Asked patient if she is on Clopidogrel 75 mg and aspirin 81 mg daily and Atorvastatin 10 mg she stated NO! As i was asking questions the nurse and Dr came in to attend to patient. Called patients son ZENON ([phone]) to see if he knew what his mother takes. Zenon states that patient has her medication bottles with her. When asked if patient was taking any blood thinners and/or and any inhalers, Zenon said All the medication in my mom's purse is the only medication she takes.
--- NOTE | 2024-08-22 11:35 | P.CNGI_ITS ---
History of Present Illness Data of Consult Service Date: 08/22/24 Requesting physician: Wilian Odell Primary Care Provider: Unknown Physician HPI Reason for consult: acute blood loss anemia 58 years old woman with past medical history of COPD, CVA, essential hypertension and DVT -not on anticoagulation who I am seeing for assessment for acute blood loss anemia. Patient was at baseline health until yesterday when she noted coffee colored emesis and then seh noted black stools. She denies abdominal pain. She also denied any headache, dizziness, chest pain or shortness on breath. Did not report intake of NSAIDs and apparently does not take aspirin or other anti coagulants, she denies alcohol as well She had admission 07/[address] imaging revealing rectal thickening. At time of writing this note I was informed she had further hematemesis and required intubation and was going to receive PRBC as HGB had dropped as well as CTA. she had been commenced on PPI. LABS: leukocytosis of 13.4. Hemoglobin is 9.1 and hematocrit 24.5. Platelets 234. K: 2.7, hyperchloremia 117 and CO2 of 11. Creatinine is 1.44 (it was normal last month). AST and ALT are slightly elevated. Alk-phos and bilirubin are normal. Troponin 7.1, albumin 3.3 and lipase is normal. CTA: To my read flush of contrast in the distal stomach or bulb going into the mid stomach, atherosclerosis Review of Systems 2 Review of Systems: Constitutional : + Weight loss, No Fever, No Chills ENT/Mouth : No sore throat, No Rhinorrhea Eyes: No Swelling, No Redness Cardiovascular : No Chest Pain, No SOB, No Edema Respiratory : No Cough, No Sputum, No Wheezing Gastrointestinal : see HPI Genitourinary : NO Dysuria, No Urinary Frequency, No Hematuria, No Urgency Musculoskeletal : + joint pain, No Myalgias, No Joint Swelling Skin : No Skin Lesions, No rash Neuro : No Weakness, No Numbness, No Dizziness, No Headache Psych : No Anxiety/Panic, No Depression Heme/Lymph: No Bruising, No Lymphadenopathy Endocrine : No Polyuria, No Polydipsia All other systems reviewed and are negative. [facility], [facility] Past Medical History Medical History (Updated 08/22/24 @ 14:14 by Corina Gomez MD) DVT (deep venous thrombosis) Essential (primary) hypertension CVA (cerebral vascular accident) COPD (chronic obstructive pulmonary disease) Asthma exacerbation Family History Pertinent family history: denies FH of ulcers, stomach GI cancers Surgical History Surgical History (Updated 08/22/24 @ 13:22 by Lester Hendrix RN) Surgical history unknown Social History Social History Household Members: Children Household Members Other:: lives with son, per ED report and providers. Housing: Unknown / Unable to assess Housing Other:: pt not cooperative Unable to assess alcohol history related to: Unknown and Refusing to respond Comment: sitter at bedside. Patient Tobacco Use Status: Former Tobacco user Tobacco use type: Cigarette e-Cigarette/Vaping Use: Former Use Substance Use Type: Marijuana service: No Current occupational status: unemployed Meds Allergies Allergy/AdvReac Type Severity Reaction Status Date / Time No Known Allergies Allergy Verified 08/21/24 20:52 Active Medications: Current Medications Sodium Chloride (Ns) 100 mls @ 100 mls/hr IV ONCE ONE Stop: 08/22/24 11:35 Sodium Chloride (Ns) 100 mls @ 100 mls/hr IV ONCE ONE Stop: 08/22/24 11:35 Sodium Chloride (Ns) 1,000 mls @ 125 mls/hr IVCONT .Q8H DMITRIY Last Admin: 08/22/24 10:46 Dose: 125 mls/hr Sodium Chloride (Ns) 100 mls @ 100 mls/hr IV ONCE ONE Stop: 08/22/24 12:06 Sodium Chloride (Ns) 100 mls @ 100 mls/hr IV ONCE ONE Stop: 08/22/24 12:06 Sodium Chloride (Ns) 100 mls @ 100 mls/hr IV ONCE ONE Stop: 08/22/24 12:06 Calcium Gluconate (Calcium Gluconate) 1 gm in 50 mls @ 50 mls/hr IV ONCE ONE Stop: 08/22/24 12:06 Phytonadione 10 mg/ Sodium (Chloride) 51 mls @ 51 mls/hr IV ONCE ONE Stop: 08/22/24 12:09 Metoclopramide HCl (Metoclopramide Hcl 10 Mg/2 Ml Vial) 5 mg IVPUSH Q4H PRN PRN Reason: Nausea and Vomiting Oxycodone HCl (Oxycodone Hcl Immed Release 5 Mg Tablet) 5 mg PO Q4H PRN PRN Reason: Pain, Moderate(Pain Scale 4-6) Last Admin: 08/22/24 10:46 Dose: 5 mg Pantoprazole Sodium (Pantoprazole Sodium 40 Mg/10 Ml Vial) 40 mg IVPUSH BID@0630,1630 DMITRIY Sodium Chloride (0.9 % Sodium Chloride Flush 3 Ml Syringe) 3 ml IVFLUSH QSHIFT DMITRIY Last Admin: 08/22/24 08:26 Dose: Not Given Home Medications ?Medication ?Instructions ?Recorded ?Confirmed ?Last Taken ?Type metoprolol succinate 25 mg 25 mg PO DAILY 08/22/24 08/22/24 Unknown History tablet,extended release 24 hr Physical Exam 2 Vital Signs: Vital Signs: Last Vital Signs Temp 97.5 F 08/22/24 11:32 Pulse 141 H 08/22/24 11:32 Resp 17 08/22/24 11:32 BP 134/66 08/22/24 11:32 Pulse Ox 97 08/22/24 07:32 O2 Del Method Room Air 08/22/24 07:32 BMI result Body Mass Index 16.9 EXAM: GENERAL: The patient is frail and thin VITAL SIGNS:see workflow HEENT: Nonicteric sclerae, PERRLA, EOMI. Oropharynx clear. Moist mucous membranes. Conjunctivae appear well perfused. No thyroid mass. CHEST: Chest wall is nontender. HEART: Regular rate and rhythm without murmurs. LUNGS: Clear to auscultation bilaterally. ABDOMEN: Soft, positive bowel sounds, nontender, no organomegaly.no flank tenderness SKIN: No rash, no excessive bruising, petechiae, or purpura. NEUROLOGIC: Cranial nerves II-XII intact without motor/sensory deficit. Psych: normal affect Results Labs 08/22/24 02:23 08/22/24 02:23 Labs: Short CBC 08/21/24 08/22/24 Range/Units 21:20 02:23 WBC 13.4 H 13.0 H (4.8-10.8) X10*3/uL Hgb 9.1 L 6.7 L* D (12.0-16.0) g/dl Hct 24.5 L 18.1 L* D (37.0-47.0) % Plt Count 234 D 152 L D (160-400) X10*3/uL BMP 08/21/24 08/22/24 21:20 02:23 Sodium 143 141 Potassium 2.7 L* 3.8 D Chloride 117 H 117 H Carbon Dioxide 11 L 15 L BUN 14 12 Creatinine 1.44 H 1.07 Calcium 9.1 D 8.4 D Liver Function 08/21/24 Range/Units 21:20 Total Bilirubin 1.0 (0.0-1.0) mg/dL AST 44 H (5-31) U/L ALT 38 H (0-31) U/L Alkaline Phosphatase 114 (39-117) U/L Albumin 3.3 L (3.5-5.0) g/dL Imaging CT scan - abdomen: Attestation: I personally reviewed and interpreted this imaging study as follows: (flush of contrast into stomach possible from duodenal bulb ) Assessment and Plan (1) GI bleed: Qualifiers: GI bleed type/associated pathology: gastrointestinal hemorrhage with hematemesis Qualified Code(s): K92.0 - Hematemesis Status: Acute Plan 1/ Acute blood loss anemia, suspected upper GI source probably an ulcer, ddX: dieulafoy, neoplasia, PLAN: 1/ Cont PPI, octreotide 2/ vit K for elevated INR 3/ NPO 4/ EGD today -possible IR if unable to control or worsens Procedures Date of Service Date of Service: 08/22/24
[2024-08-22] MEDS: Etomidate 20 MG/10 ML VIAL 10 MG IVPUSH (11:53)
[2024-08-22] MEDS: Rocuronium Bromide 50 MG/5 ML VIAL IVPUSH (11:54)
[2024-08-22] MEDS: Norepinephrine Bitartrate/D5W 8 MG/250 ML PLAST..BAG 3.94 MG IVCONT (11:56)
--- NOTE | 2024-08-22 12:25 | W.PM.CCHP ---
Procedures Date of Service Date of Service: 08/22/24 Intubation Consent for Procedure: Emergent-no informed consent obtained Time out performed: Yes Sedative: etomidate Mg given: 10 Paralytic: rocuronium Mg given: 50 Laryngoscope: Surya ET tube size: 7.5 ET tube uncuffed: No Tube secured depth (cm): 23 Tube secured location: lips Tube placement confirmation: visualized tube passing through cords, equal breath sounds bilaterally, no breath sounds over epigastrium and confirmation by capnometry Patient tolerated procedure: well Intubation complications: none
[2024-08-22] MEDS: propofoL 1,000 MG/100 ML VIAL 7.56 MG IVCONT (12:45)
[2024-08-22] MEDS: HYDROmorphone HCl 1 MG/ML SYRINGE IVPUSH ×2 (13:55→19:48)
--- NOTE | 2024-08-22 14:08 | P.CDIM_ITS ---
PROVIDER RESPONSE TEXT: To clarify, the appropriate diagnosis supported by the clinical indicators: Acute QUERY TEXT: PHYSICIAN'S DOCUMENTATION REQUEST Date of Query: 08/22/2024 01:25 PM EDT Patient Name: Marion Montanez Admit Date: 08/22/2024 Dear Echo Blackburn MD, A review of the medical record indicates additional documentation may be needed. Please review below and update the documentation accordingly. Clinical Indicators: Per H&P 08/22/24: metabolic acidosis Clarify which of the following accurately represents the acuity of the metabolic acidosis. Possible options might include: Acute Acute on chronic Compensated Chronic stable condition Remission Other (explain) Clinically unable to determine (explain) Thank you, Lian Salmon RN Use of terms such as suspected, likely, concern for, or probable (associated with a specific diagnosi s that is being evaluated, monitored, or treated as if it exists) are acceptable and can be coded in the inpatient se tting, when documented at the time of discharge. Please use your independent medical judgment in providing your response. THIS QUERY IS PART OF THE PERMANENT MEDICAL RECORD
[2024-08-22 14:18] LABS: MANUAL DIFF FLAG NO
[2024-08-22] MEDS: Erythromycin Lactobionate 250 MG in 0.9 % Sodium Chloride 100 ML 100 MG IV (14:19)
[2024-08-22 14:21] LABS: Basophils Percent Auto 0.4 % (0-2); Eosinophils Percent Auto 0.2 % (0-4); Hematocrit 39.5 % (37.0-47.0); Hemoglobin 13.8 g/dl (12.0-16.0); Lymphocytes Absolute Auto 2.8 X10*3/uL (1.2-4.9); Lymphocytes Percent Auto 26.5 % (20-40); Mean Corpuscular HGB Conc 34.9 g/dl (31.0-35.0); Mean Corpuscular Hemoglobin 32.9 pg (27.0-33.0); Mean Platelet Volume 9.4 fL (9.4-12.3); Monocytes Absolute Auto 0.4 X10*3/uL (0.1-1.2); Monocytes Percent Auto 3.4 % (2-11); NRBC Pct Auto 0.4 /100WBC (0.0-0.2); Neutrophils Absolute Auto 7.1 x10*3/uL (2.0-8.3); Neutrophils Percent Auto 68.5 % (45-73); Platelet Count 128 X10*3/uL (160-400); Red Cell Distribution Width 15.9 % (11.0-16.0); White Blood Count 10.4 X10*3/uL (4.8-10.8)
--- NOTE | 2024-08-22 14:30 | MHC.CM.PN ---
Pt is intubated in ICU and unable to participate in CM assessment: Call placed to Dieter, pt's son at [phone]: he will be arriving shortly to see his mother and speak with MD about pt's serious status. CM to follow for finalization of d/c planning needs.
[2024-08-22 14:36] LABS: VBG Base Excess -14.7 mmol/L; VBG HCO3 14 mmol/L (22-26); VBG pCO2 45 mmHg; VBG pO2 63 mmHg
[2024-08-22 14:40] LABS: Venous Blood Gas Refer to POC result
[2024-08-22 14:51] LABS: Estimated Average Glucose 111 mg/dL; Hemoglobin A1C 135.3068 umol/L; Hemoglobin A1c % 5.5 % (<6.0); Total Hemoglobin (HGBA1C) 3665.4572 umol/L
[2024-08-22] MEDS: Sodium Bicarbonate 8.4% 50 MEQ/50 ML SYRINGE IVPUSH ×2 (14:59→16:16)
[2024-08-22] MEDS: Calcium Gluconate/NaCl,Iso-Osm 1 GM/50 ML PLAST..BAG IV (15:00)
[2024-08-22] MEDS: Octreotide Acetate 500 MCG in 0.9 % Sodium Chloride 500 ML 50.1 MCG IVCONT (15:01)
[2024-08-22 15:06] LABS: Alanine Aminotransferase 33 U/L (0-31); Albumin Level 2.4 g/dL (3.5-5.0); Alkaline Phosphatase 80 U/L (39-117); Anion Gap 19 (12-20); Aspartate Amino Transferase 39 U/L (5-31); Blood Urea Nitrogen 13 mg/dL (9-16); Calcium 7.3 mg/dL (8.4-10.2); Carbon Dioxide 16 mmol/L (22-29); Chloride 112 mmol/L (96-108); Creatinine Clr Calc Pharmacy 44.8; Estimated Glomerular Filt Rate > 60; Glucose Random 276 mg/dL (60-115); Phosphorus 3.2 mg/dL (2.7-4.5); Potassium 7.7 mmol/L (3.3-5.1); Sodium 139 mmol/L (135-145); Total Protein 4.9 g/dL (6.5-8.0)
[2024-08-22 15:06] LABS: Lactic Acid 6.3 mmol/L (0.5-2.0)
--- NOTE | 2024-08-22 15:18 | W.PM.CCHP ---
Procedures Date of Service Date of Service: 08/22/24 Central Line Placement Right IJ: Sterile Technique Used: Yes Patient placed on monitor/pulse ox: Yes MD prep: mask, gown and gloves Central line prep: Chlorhexidine scrub Ultrasound used for placement: Yes Central line lumen inserted: triple Post procedure: sutured in place, good blood return, all ports aspirated, flushed, capped and sterile dressing applied Post procedure x-ray: other (awaiting chest x-ray) Patient tolerated procedure: well
[2024-08-22] MEDS: fentaNYL citrate/NS 1,000 MCG/100 ML PLAST..BAG 10 MCG IVCONT (15:31)
[2024-08-22] MEDS: cefTRIAXone sodium 1 GM VIAL IVPUSH (15:34)
--- NOTE | 2024-08-22 16:10 | P.OP_ITS ---
Operative Note Operative Note Date of Service: 08/22/24 Narrative: Procedure Description: EGD Indication: Acute blood loss anemia Anesthesia: GA, procedure done in the ICU FLEXIBLE TRANSORAL UPPER GASTROINTESTINAL ENDOSCOPY UPPER ENDOSCOPY Consent: Indications for the procedure and potential complications of bleeding, perforation, reaction to medications and missed diagnosis were discussed with the patient and informed consent was obtained. Instrument: Olympus GIF H 190 J mid size upper endoscope Monitoring: Vital signs and clinical assessment, continuous EKG monitoring, Pulse oximetry, Carbon Dioxide monitoring and blood pressure monitoring were done throughout the procedure. Procedure: The patient was placed in the left lateral decubitis position and pre-procedure medications were administered and a bite block was placed. The endoscope was inserted into the mouth and advanced under direct vision to the third part of duodenum. A careful inspection was made as the upper endoscope was withdrawn including a retroflexed examination of the proximal stomach; Findings and interventions are described below. Findings: Larynx:normal Esophagus: GE junction at 40 cm, diaphragm hiatus at 40 cm, normal mucosa Stomach: mild erythema . Grade 2 flap valve on retroflexed examination of the cardia. there was a large ulcer over the incisura measuring about 20 mm in diameted with adherent clot and mild oozing a round the edges . A OTSC clip was applied and then hemospray applied. Duodenum: Normal bulb and descending duodenum, Intervention: OTSC clip and hemospray Impression/Findings: gastric ulcer PLAN: cont with high dose PPI e.g pantoprazole 40 mg BID for 72 hrs then transition to PO can add sucralfate 1 g QID for 72 hrs as well check stool h pylori antigen if clinical evidence of ongoing GI bleeding then IR consult for embolization hold nsaids and aspirin for 3 d at least
[2024-08-22 16:15] LABS: Reflex Lactate? Lactic Acid Added
[2024-08-22] MEDS: Calcium Chloride 1 GM/10 ML SYRINGE IVPUSH (16:16)
[2024-08-22] MEDS: 0.9 % Sodium Chloride Flush 3 ML SYRINGE IVFLUSH ×2 (16:16→21:33)
[2024-08-22] MEDS: Albumin Human 25 % 100 ML IV ×2 (16:16→17:09)
--- NOTE | 2024-08-22 16:18 | PC.NURSE ---
Admit to ICU at approx 12:25, room 255, for GI bleed. Attempted to reach out to ED at 11:20, but CERTIFIED REHABILITATION COUNSELOR, Charity had gone down to ED attempt additional IV access on patient and assisted with care while patient was intubated and brought to test, then ICU. Bedside report received from Cally THOMAS upon receiving patient in ICU. Patient receiving unit of blood during transport. Levophed had been turned off prior to receiving patient in ICU related to elevated BPs. Patient started on sedation upon arrival to ICU per MD order. Issues with administering medications late related to limited IV access (patient only had 2 periph IVs) and was receiving blood and propofol (Dr Blackburn aware of late director of sports medicine related to IV issues). HR in 130's to [address] One time dose of dilaudid given to help with vitals - HR and elevated BP. BP became more stable after administration from dilaudid. Dr Blackburn aware of vitals. Plan to continue giving blood as ordered. Periph line inserted to Left upper arm - able to give erythromicin IV, pre procedure upper endo. Restraints applied for airway safety. Patient tolerating vent settings - ACVC, not breathing over vent (see vent assessment). Upon admit assessment, 7.5 ETT noted to be at 19cm, which was change from intubation in ED - Dr Blackburn made aware. New CXR ordered and viewed by Dr Blackburn. OG tube in place, hooked to intermit suction - bright red blood output noted, about 50 ml - Dr Blackburn made aware. EKG done and viewed by Dr Blackburn. Hartman, 12 f inserted. Patent and draining, clear, yellow urine. TLC inserted right IJ by Dr Blackburn related needing so many medications and limited access. CXR done to verify placement - Dr Blackburn order ok to use line. @ approx 1545, bedside upper endo done - ulcer found - treated intra procedure.
[2024-08-22 16:36] LABS: Anion Gap 15 (12-20); Blood Urea Nitrogen 12 mg/dL (9-16); Carbon Dioxide 21 mmol/L (22-29); Chloride 113 mmol/L (96-108); Creatinine Clr Calc Pharmacy 50.6; Estimated Glomerular Filt Rate > 60; Glucose Random 177 mg/dL (60-115); Potassium 3.7 mmol/L (3.3-5.1); Sodium 145 mmol/L (135-145)
[2024-08-22 16:43] LABS: ~Lactic Acid-LAB USE ONLY 1.5 mmol/L (0.5-2.0)
--- NOTE | 2024-08-22 16:46 | HO.WOUND ---
Addendum entered by Lester Hendrix RN 08/22/24 16:59: Wound RN consulted. Original Note: Mid coccyx stage 2 noted on admission.
[2024-08-22 17:10] LABS: Glucose, Whole Blood 135 mg/dL (60-115)
[2024-08-22 18:04] LABS: MANUAL DIFF FLAG NO
[2024-08-22 18:11] LABS: Venous Blood Gas Refer to POC result
[2024-08-22 18:11] LABS: VBG HCO3 24 mmol/L (22-26); VBG pCO2 25 mmHg; VBG pH 7.59 (7.32-7.43); VBG pO2 82 mmHg
[2024-08-22 18:30] LABS: Anion Gap 14 (12-20); Blood Urea Nitrogen 11 mg/dL (9-16); Calcium 10.3 mg/dL (8.4-10.2); Carbon Dioxide 24 mmol/L (22-29); Chloride 113 mmol/L (96-108); Creatinine Clr Calc Pharmacy 45.8; Estimated Glomerular Filt Rate > 60; Glucose Random 137 mg/dL (60-115); Phosphorus 2.7 mg/dL (2.7-4.5); Potassium 3.1 mmol/L (3.3-5.1); Sodium 148 mmol/L (135-145)
[2024-08-22 18:34] LABS: Basophils Percent Auto 0.5 % (0-2); Eosinophils Percent Auto 0.3 % (0-4); Hemoglobin 10.5 g/dl (12.0-16.0); Imm Gran Abs Auto 0.06 X10*3/uL (0.00-0.03); Imm Gran Pct Auto 0.9 % (0.0-0.4); Lymphocytes Absolute Auto 2.4 X10*3/uL (1.2-4.9); Lymphocytes Percent Auto 37.4 % (20-40); Mean Corpuscular HGB Conc 37.5 g/dl (31.0-35.0); Mean Corpuscular Hemoglobin 33.9 pg (27.0-33.0); Mean Corpuscular Volume 90.3 fL (80.0-98.0); Mean Platelet Volume 8.8 fL (9.4-12.3); Monocytes Absolute Auto 0.5 X10*3/uL (0.1-1.2); Monocytes Percent Auto 7.5 % (2-11); Neutrophils Absolute Auto 3.4 x10*3/uL (2.0-8.3); Neutrophils Percent Auto 53.4 % (45-73); Red Cell Distribution Width 15.2 % (11.0-16.0); White Blood Count 6.4 X10*3/uL (4.8-10.8)
[2024-08-22 18:41] LABS: Platelet Count 91 X10*3/uL (160-400)
[2024-08-22] MEDS: Phytonadione (Vit K1) 10 MG in 0.9 % Sodium Chloride 50 ML 51 MG IV (19:10)
[2024-08-22] MEDS: propofoL 1,000 MG/100 ML VIAL 12.6 MG IVCONT (19:15)
[2024-08-22] MEDS: fentaNYL citrate/NS 1,000 MCG/100 ML PLAST..BAG 20 MCG IVCONT (19:20)
[2024-08-22] MEDS: Midazolam HCl/PF 2 MG/2 ML VIAL IVPUSH (20:30)
[2024-08-22] MEDS: Furosemide 20 MG/2 ML VIAL IVPUSH (20:30)
[2024-08-22] MEDS: Potassium Chloride/H20 40 MEQ/100 ML PIGGYBACK 50 MEQ IV (21:33)
[2024-08-23] VITALS (57 sets, daily range): BP systolic 87–193; BP diastolic 37–72; PULSE 60–155; RESP 15–26; TEMP 35–37.7; O2SAT 99–100; BMI 17.1
[2024-08-23] MEDS: fentaNYL citrate/NS 1,000 MCG/100 ML PLAST..BAG 20 MCG IVCONT (00:06)
[2024-08-23] MEDS: propofoL 1,000 MG/100 ML VIAL 12.6 MG IVCONT ×4 (00:15→23:38)
[2024-08-23 00:21] LABS: Glucose, Whole Blood 114 mg/dL (60-115)
[2024-08-23 00:48] LABS: Hematocrit 31.8 % (37.0-47.0); Hemoglobin 11.6 g/dl (12.0-16.0); Mean Corpuscular HGB Conc 36.5 g/dl (31.0-35.0); Mean Corpuscular Hemoglobin 32.2 pg (27.0-33.0); Mean Corpuscular Volume 88.3 fL (80.0-98.0); Mean Platelet Volume 8.9 fL (9.4-12.3); NRBC Pct Auto 0.4 /100WBC (0.0-0.2); Platelet Count 76 X10*3/uL (160-400); Red Cell Distribution Width 14.7 % (11.0-16.0)
[2024-08-23 01:01] LABS: Anion Gap 13 (12-20); Blood Urea Nitrogen 11 mg/dL (9-16); Calcium 9.6 mg/dL (8.4-10.2); Carbon Dioxide 24 mmol/L (22-29); Chloride 113 mmol/L (96-108); Creatinine Clr Calc Pharmacy 44.8; Estimated Glomerular Filt Rate > 60; Glucose Random 120 mg/dL (60-115); Potassium 3.3 mmol/L (3.3-5.1); Sodium 147 mmol/L (135-145)
[2024-08-23 01:07] LABS: Albumin Level 3.5 g/dL (3.5-5.0)
[2024-08-23] MEDS: Potassium Chloride/H20 40 MEQ/100 ML PIGGYBACK 50 MEQ IV (01:32)
[2024-08-23] MEDS: Lactated Ringers 500 ML 999 ML IV (03:41)
[2024-08-23] MEDS: fentaNYL citrate/NS 1,000 MCG/100 ML PLAST..BAG 15 MCG IVCONT ×2 (05:21→11:49)
[2024-08-23 05:22] LABS: VBG Base Excess 3.1 mmol/L; VBG HCO3 24 mmol/L (22-26); VBG pCO2 27 mmHg; VBG pH 7.56 (7.32-7.43); VBG pO2 51 mmHg
[2024-08-23 05:23] LABS: Venous Blood Gas Refer to POC result
[2024-08-23] MEDS: Pantoprazole Sodium 40 MG/10 ML VIAL IVPUSH ×2 (05:23→17:42)
[2024-08-23 05:26] LABS: MANUAL DIFF FLAG NO
[2024-08-23 05:27] LABS: Basophils Percent Auto 0.7 % (0-2); Eosinophils Absolute Auto 0.3 X10*3/uL (0.0-0.4); Eosinophils Percent Auto 4.3 % (0-4); Hematocrit 31.1 % (37.0-47.0); Hemoglobin 11.5 g/dl (12.0-16.0); Imm Gran Abs Auto 0.07 X10*3/uL (0.00-0.03); Imm Gran Pct Auto 1.2 % (0.0-0.4); Lymphocytes Absolute Auto 2.3 X10*3/uL (1.2-4.9); Lymphocytes Percent Auto 39.4 % (20-40); Mean Corpuscular Hemoglobin 32.8 pg (27.0-33.0); Mean Corpuscular Volume 88.6 fL (80.0-98.0); Mean Platelet Volume 8.2 fL (9.4-12.3); Monocytes Absolute Auto 0.4 X10*3/uL (0.1-1.2); Monocytes Percent Auto 7.3 % (2-11); NRBC Pct Auto 0.5 /100WBC (0.0-0.2); Neutrophils Absolute Auto 2.7 x10*3/uL (2.0-8.3); Neutrophils Percent Auto 47.1 % (45-73); Red Blood Count 3.51 X10*6/uL (4.20-5.50); Red Cell Distribution Width 15.6 % (11.0-16.0); White Blood Count 5.8 X10*3/uL (4.8-10.8)
[2024-08-23 05:29] LABS: Platelet Count 87 X10*3/uL (160-400)
[2024-08-23 05:43] LABS: Anion Gap 13 (12-20); Blood Urea Nitrogen 12 mg/dL (9-16); Calcium 9.1 mg/dL (8.4-10.2); Carbon Dioxide 24 mmol/L (22-29); Chloride 115 mmol/L (96-108); Creatinine Clr Calc Pharmacy 42.6; Estimated Glomerular Filt Rate > 60; Glucose Random 113 mg/dL (60-115); Magnesium 1.7 mg/dL (1.6-2.6); Phosphorus 1.1 mg/dL (2.7-4.5); Potassium 4.1 mmol/L (3.3-5.1); Sodium 148 mmol/L (135-145)
[2024-08-23] MEDS: Potassium Phosphate/NS 15 MMOL/250 ML PLAST..BAG 62.5 MMOL IV ×2 (06:34→10:27)
--- NOTE | 2024-08-23 06:41 | PC.NURSE ---
CARE ASSUMED 7PM...REMAINS INTUBATED/VCV VENT SUPPORT....MULTIPLE SMALL TO MODERATE LIQUIED JOJO STOOLS OVERNIGHT..NO EMESIS ...BP INITIALLY ELEVATED SBP 160'S-170'S..PROPOFOL 50 MCG/KG/MIN AND FENTANYL 200 MCG/HRREMAINED WITH INTERMITTANT VENT DYSYNCHRONY...VERSED 2MG IV X1 AND LSASIX 20MG IV X1 PER ICU MUD CLEANER OPERATOR...5TH UNIT PRBC INFUSED..6TH UNIT PRBC HELD PER MUD CLEANER OPERATOR...VITAMIN K IV PER JAN...FFP X1 AND 2ND UNIT PLATELETS INFUSED..SERIAL H/H LEVELS STABLE OVERNIGHT...KCL 40MEQ IV X2 DOSES A ND KPO4 PER JAN.DECREASED BP AFTER LASIX/DIURESIS...LEVOPHED DRIP RESUMED AFTER LR 500ml BOLUS PER MUD CLEANER OPERATOR WITH EFFECT..NSR..NO DYSRHYTMIAS
[2024-08-23] MEDS: 0.9 % Sodium Chloride Flush 3 ML SYRINGE IVFLUSH ×3 (07:45→23:39)
--- NOTE | 2024-08-23 08:05 | HO.POSTANES ---
Post Anesthesia Evaluation Post Anesthesia Evaluation Date of Service: 08/22/24 Vital Signs: Vital Signs Temp Pulse Resp BP Pulse Ox O2 Del Method O2 Flow Rate 08/23/24 07:46 73 132/56 L 08/23/24 07:37 08/23/24 07:16 99 08/23/24 07:00 98.6 F 60 18 114/49 L 100 Mechanical Ventilation 08/23/24 06:47 65 101/38 L 08/23/24 06:00 99.1 F 64 16 126/48 L 100 Mechanical Ventilation 08/23/24 05:49 64 94/41 L 08/23/24 05:32 64 91/39 L 08/23/24 05:21 64 16 94/40 L 100 08/23/24 05:21 64 16 94/40 L 100 08/23/24 05:00 99.0 F 64 15 94/40 L 100 Mechanical Ventilation 08/23/24 04:54 08/23/24 04:00 99.1 F 66 16 101/44 L 100 Mechanical Ventilation 08/23/24 04:00 99.0 F 64 16 101/44 L 100 Mechanical Ventilation 08/23/24 03:53 70 16 90/39 L 100 08/23/24 03:39 72 16 87/37 L 100 08/23/24 03:35 100 08/23/24 03:32 72 16 87/37 L 100 Mechanical Ventilation 08/23/24 03:00 99.9 F 71 26 H 101/45 L 100 Mechanical Ventilation 08/23/24 02:00 99.9 F 74 16 109/40 L 100 Mechanical Ventilation 08/23/24 01:00 99.5 F 70 16 116/47 L 100 Mechanical Ventilation 08/23/24 00:51 99.5 F 74 16 134/49 L 08/23/24 00:49 99.7 F 66 16 120/46 L 08/23/24 00:32 99.7 F 74 16 119/46 L 08/23/24 00:15 74 16 114/46 L 100 08/23/24 00:15 74 16 114/46 L 100 08/23/24 00:06 75 16 117/51 L 100 08/23/24 00:06 75 16 117/51 L 100 08/23/24 00:00 100 08/23/24 00:00 99.7 F 73 16 117/51 L 100 Mechanical Ventilation 08/22/24 23:33 08/22/24 23:00 82 18 124/46 L 100 Nasal Cannula 2 08/22/24 22:00 99.3 F 75 16 143/51 H 100 Mechanical Ventilation 08/22/24 21:00 99.5 F 78 16 125/49 L 100 Mechanical Ventilation 08/22/24 20:58 99.3 F 75 16 143/51 H 08/22/24 20:55 99.5 F 80 16 142/55 H 08/22/24 20:42 99.5 F 88 16 156/62 H 08/22/24 20:31 08/22/24 20:30 156/62 H 08/22/24 20:26 99.1 F 95 18 175/63 H FiO2 08/23/24 07:46 08/23/24 07:37 30 08/23/24 07:16 30 08/23/24 07:00 50 08/23/24 06:47 08/23/24 06:00 30 08/23/24 05:49 08/23/24 05:32 08/23/24 05:21 08/23/24 05:21 08/23/24 05:00 50 08/23/24 04:54 30 08/23/24 04:00 30 08/23/24 04:00 50 08/23/24 03:53 08/23/24 03:39 08/23/24 03:35 30 08/23/24 03:32 30 08/23/24 03:00 50 08/23/24 02:00 50 08/23/24 01:00 50 08/23/24 00:51 08/23/24 00:49 08/23/24 00:32 08/23/24 00:15 08/23/24 00:15 08/23/24 00:06 08/23/24 00:06 08/23/24 00:00 30 08/23/24 00:00 50 08/22/24 23:33 30 08/22/24 23:00 08/22/24 22:00 50 08/22/24 21:00 50 08/22/24 20:58 08/22/24 20:55 08/22/24 20:42 08/22/24 20:31 30 08/22/24 20:30 08/22/24 20:26 Anesthesia: General Mental Status: Sedated Pain Control: Satisfactory Nausea/Vomiting: None Hydration: Adequate Anesthesia-Related Issues: No Anes. Related Issues
--- NOTE | 2024-08-23 08:12 | PM.CCPN ---
Subjective Subjective Date of Service: 08/23/24 Interval History: no significant overnight events Critical Care Time (minutes): 60 Physical Exam Vital Signs: Vital Signs: Last Vital Signs Temp 98.8 F 08/23/24 08:00 Pulse 67 08/23/24 08:00 Resp 20 08/23/24 08:00 BP 113/51 L 08/23/24 08:00 Pulse Ox 100 08/23/24 08:00 O2 Del Method Mechanical Ventil ation 08/23/24 08:00 O2 Flow Rate 2 08/22/24 23:00 FiO2 50 08/23/24 08:00 BMI result Body Mass Index 17.1 Const: Other: intubated, sedated; cachectic appearing General: no acute distress HEENT: Head: Yes normal to inspection, Yes normocephalic and Yes atraumatic Eyes: General: appearance normal, both eyes and all related structures Neck: Neck: Yes normal visual inspection, Yes full ROM, Yes no meningeal signs, Yes trachea midline and Yes supple Chest: Chest palpation & inspection: normal inspection of the chest Resp: Other: some appreciable rhonchi; no appreciable rales, wheezing Effort & Inspection: normal respiratory effort Cardio: Rate: regular rate Rhythm: regular rhythm GI: Inspection: Yes normal to inspection, No Abdominal wall edema and No distended Palpation (GI): Soft to palpation, not firm, nontender, no guarding and not rigid Skin: General skin exam: no rashes or lesions noted Neuro: General: tone normal and no meningeal signs Extrem: General: Yes normal to inspection, Yes full ROM, Yes capillary refill normal and Yes no clubbing, cyanosis or edema Psych: Other: unable to assess Objective Data Labs 08/23/24 05:16 08/23/24 05:16 Labs: Laboratory Results - last 24 hr 08/21/24 08/22/24 08/22/24 21:21 02:23 14:07 WBC RBC Hgb Hct MCV MCH MCHC RDW Plt Count MPV Immature Gran % (Auto) Neut % (Auto) Lymph % (Auto) [place] % (Auto) Eos % (Auto) Baso % (Auto) Lymph # (Auto) [place] # (Auto) Eos # (Auto) Baso # (Auto) Abs Immat Gran (auto) Absolute Neuts (auto) Absolute Nucleated RBC Nucleated RBC % (auto) VBG pH VBG pCO2 VBG pO2 VBG HCO3 VBG O2 Saturation VBG Base Excess Sodium Potassium Chloride Carbon Dioxide Anion Gap BUN Creatinine Estim Creat Clear Calc Estimated GFR POC Glucose Random Glucose Estimat Average Glucose TNP Hemoglobin A1c % TNP Lactic Acid 6.3 H* Lactic Acid F/U @ 2Hr Calcium Phosphorus Magnesium Total Bilirubin AST ALT Alkaline Phosphatase Total Protein Albumin Blood Type O Positive Antibody Screen NEGATIVE Crossmatch See Detail 08/22/24 08/22/24 08/22/24 14:08 14:08 14:08 WBC RBC Hgb Cancelled Hct Cancelled MCV MCH MCHC RDW Plt Count MPV Immature Gran % (Auto) Neut % (Auto) Lymph % (Auto) [place] % (Auto) Eos % (Auto) Baso % (Auto) Lymph # (Auto) [place] # (Auto) Eos # (Auto) Baso # (Auto) Abs Immat Gran (auto) Absolute Neuts (auto) Absolute Nucleated RBC Nucleated RBC % (auto) VBG pH VBG pCO2 VBG pO2 VBG HCO3 VBG O2 Saturation VBG Base Excess Sodium Cancelled 139 Potassium Cancelled 7.7 H* D Chloride Cancelled Carbon Dioxide Anion Gap BUN Creatinine Estim Creat Clear Calc Estimated GFR POC Glucose Random Glucose Estimat Average Glucose Hemoglobin A1c % Lactic Acid Lactic Acid F/U @ 2Hr Calcium Phosphorus Magnesium Total Bilirubin AST ALT Alkaline Phosphatase Total Protein Albumin Blood Type Antibody Screen Crossmatch 08/22/24 08/22/24 08/22/24 14:08 14:08 14:08 WBC RBC Hgb Hct MCV MCH MCHC RDW Plt Count MPV Immature Gran % (Auto) Neut % (Auto) Lymph % (Auto) [place] % (Auto) Eos % (Auto) Baso % (Auto) Lymph # (Auto) [place] # (Auto) Eos # (Auto) Baso # (Auto) Abs Immat Gran (auto) Absolute Neuts (auto) Absolute Nucleated RBC Nucleated RBC % (auto) VBG pH VBG pCO2 VBG pO2 VBG HCO3 VBG O2 Saturation VBG Base Excess Sodium Potassium Chloride 112 H Carbon Dioxide Cancelled 16 L Anion Gap Cancelled 19 BUN Cancelled Creatinine Estim Creat Clear Calc Estimated GFR POC Glucose Random Glucose Estimat Average Glucose Hemoglobin A1c % Lactic Acid Lactic Acid F/U @ 2Hr Calcium Phosphorus Magnesium Total Bilirubin AST ALT Alkaline Phosphatase Total Protein Albumin Blood Type Antibody Screen Crossmatch 10/08/22/24 08/22/24 14:08 14:08 14:08 WBC RBC Hgb Hct MCV MCH MCHC RDW Plt Count MPV Immature Gran % (Auto) Neut % (Auto) Lymph % (Auto) [place] % (Auto) Eos % (Auto) Baso % (Auto) Lymph # (Auto) [place] # (Auto) Eos # (Auto) Baso # (Auto) Abs Immat Gran (auto) Absolute Neuts (auto) Absolute Nucleated RBC Nucleated RBC % (auto) VBG pH VBG pCO2 VBG pO2 VBG HCO3 VBG O2 Saturation VBG Base Excess Sodium Potassium Chloride Carbon Dioxide Anion Gap BUN 13 Creatinine Cancelled 0.87 Estim Creat Clear Calc Cancelled 44.8 Estimated GFR Cancelled POC Glucose Random Glucose Estimat Average Glucose Hemoglobin A1c % Lactic Acid Lactic Acid F/U @ 2Hr Calcium Phosphorus Magnesium Total Bilirubin AST ALT Alkaline Phosphatase Total Protein Albumin Blood Type Antibody Screen Crossmatch 08/22/24 08/22/24 08/22/24 14:08 14:08 14:08 WBC RBC Hgb Hct MCV MCH MCHC RDW Plt Count MPV Immature Gran % (Auto) Neut % (Auto) Lymph % (Auto) [place] % (Auto) Eos % (Auto) Baso % (Auto) Lymph # (Auto) [place] # (Auto) Eos # (Auto) Baso # (Auto) Abs Immat Gran (auto) Absolute Neuts (auto) Absolute Nucleated RBC Nucleated RBC % (auto) VBG pH VBG pCO2 VBG pO2 VBG HCO3 VBG O2 Saturation VBG Base Excess Sodium Potassium Chloride Carbon Dioxide Anion Gap BUN Creatinine Estim Creat Clear Calc Estimated GFR > 60 POC Glucose Random Glucose Cancelled 276 H Estimat Average Glucose 111 Hemoglobin A1c % 5.5 Lactic Acid Lactic Acid F/U @ 2Hr Calcium Cancelled 7.3 L D Phosphorus 3.2 Magnesium Cancelled Total Bilirubin AST ALT Alkaline Phosphatase Total Protein Albumin Blood Type Antibody Screen Crossmatch 08/22/24 08/22/24 08/22/24 14:08 14:10 14:27 WBC 10.4 RBC 4.20 D Hgb 13.8 D Hct 39.5 D MCV 94.0 D MCH 32.9 MCHC 34.9 RDW 15.9 Plt Count 128 L MPV 9.4 Immature Gran % (Auto) 1.0 H Neut % (Auto) 68.5 Lymph % (Auto) 26.5 [place] % (Auto) 3.4 Eos % (Auto) 0.2 Baso % (Auto) 0.4 Lymph # (Auto) 2.8 [place] # (Auto) 0.4 Eos # (Auto) 0.0 Baso # (Auto) 0.0 Abs Immat Gran (auto) 0.10 H Absolute Neuts (auto) 7.1 Absolute Nucleated RBC 0.040 H Nucleated RBC % (auto) 0.4 H VBG pH 7.10 L* VBG pCO2 45 VBG pO2 63 VBG HCO3 14 L VBG O2 Saturation 88.0 VBG Base Excess -14.7 Sodium Potassium Chloride Carbon Dioxide Anion Gap BUN Creatinine Estim Creat Clear Calc Estimated GFR POC Glucose Random Glucose Estimat Average Glucose Hemoglobin A1c % Lactic Acid Lactic Acid F/U @ 2Hr Calcium Phosphorus Magnesium 2.0 Total Bilirubin 1.0 AST 39 H ALT 33 H Alkaline Phosphatase 80 Total Protein 4.9 L Albumin 2.4 L Blood Type Antibody Screen Crossmatch 08/22/24 08/22/24 08/22/24 15:51 16:22 17:06 WBC RBC Hgb Hct MCV MCH MCHC RDW Plt Count MPV Immature Gran % (Auto) Neut % (Auto) Lymph % (Auto) [place] % (Auto) Eos % (Auto) Baso % (Auto) Lymph # (Auto) [place] # (Auto) Eos # (Auto) Baso # (Auto) Abs Immat Gran (auto) Absolute Neuts (auto) Absolute Nucleated RBC Nucleated RBC % (auto) VBG pH VBG pCO2 VBG pO2 VBG HCO3 VBG O2 Saturation VBG Base Excess Sodium 145 Potassium 3.7 D Chloride 113 H Carbon Dioxide 21 L Anion Gap 15 BUN 12 Creatinine 0.77 Estim Creat Clear Calc 50.6 Estimated GFR > 60 POC Glucose 135 H Random Glucose 177 H Estimat Average Glucose Hemoglobin A1c % Lactic Acid Lactic Acid F/U @ 2Hr 1.5 Calcium 8.0 L D Phosphorus Magnesium Total Bilirubin AST ALT Alkaline Phosphatase Total Protein Albumin Blood Type Antibody Screen Crossmatch 08/22/24 08/22/24 08/23/24 17:55 18:06 00:18 WBC 6.4 RBC 3.10 L D Hgb 10.5 L D Hct 28.0 L D MCV 90.3 MCH 33.9 H MCHC 37.5 H RDW 15.2 Plt Count 91 L D MPV 8.8 L Immature Gran % (Auto) 0.9 H Neut % (Auto) 53.4 Lymph % (Auto) 37.4 [place] % (Auto) 7.5 Eos % (Auto) 0.3 Baso % (Auto) 0.5 Lymph # (Auto) 2.4 [place] # (Auto) 0.5 Eos # (Auto) 0.0 Baso # (Auto) 0.0 Abs Immat Gran (auto) 0.06 H Absolute Neuts (auto) 3.4 Absolute Nucleated RBC 0.000 Nucleated RBC % (auto) 0.0 VBG pH 7.59 H VBG pCO2 25 VBG pO2 82 VBG HCO3 24 VBG O2 Saturation 99.0 VBG Base Excess 4.0 Sodium 148 H Potassium 3.1 L Chloride 113 H Carbon Dioxide 24 Anion Gap 14 BUN 11 Creatinine 0.85 Estim Creat Clear Calc 45.8 Estimated GFR > 60 POC Glucose 114 Random Glucose 137 H Estimat Average Glucose Hemoglobin A1c % Lactic Acid Lactic Acid F/U @ 2Hr Calcium 10.3 H D Phosphorus 2.7 Magnesium 2.0 Total Bilirubin AST ALT Alkaline Phosphatase Total Protein Albumin Blood Type Antibody Screen Crossmatch 08/23/24 08/23/24 08/23/24 00:27 05:11 05:16 WBC 5.0 5.8 RBC 3.60 L 3.51 L Hgb 11.6 L 11.5 L Hct 31.8 L 31.1 L MCV 88.3 88.6 MCH 32.2 32.8 MCHC 36.5 H 37.0 H RDW 14.7 15.6 Plt Count 76 L 87 L MPV 8.9 L 8.2 L Immature Gran % (Auto) 1.2 H Neut % (Auto) 47.1 Lymph % (Auto) 39.4 [place] % (Auto) 7.3 Eos % (Auto) 4.3 H Baso % (Auto) 0.7 Lymph # (Auto) 2.3 [place] # (Auto) 0.4 Eos # (Auto) 0.3 Baso # (Auto) 0.0 Abs Immat Gran (auto) 0.07 H Absolute Neuts (auto) 2.7 Absolute Nucleated RBC 0.020 H 0.030 H Nucleated RBC % (auto) 0.4 H 0.5 H VBG pH 7.56 H VBG pCO2 27 VBG pO2 51 VBG HCO3 24 VBG O2 Saturation 89.0 VBG Base Excess 3.1 Sodium 147 H 148 H Potassium 3.3 4.1 D Chloride 113 H 115 H Carbon Dioxide 24 24 Anion Gap 13 13 BUN 11 12 Creatinine 0.87 0.94 Estim Creat Clear Calc 44.8 42.6 Estimated GFR > 60 > 60 POC Glucose Random Glucose 120 H 113 Estimat Average Glucose Hemoglobin A1c % Lactic Acid Lactic Acid F/U @ 2Hr Calcium 9.6 D 9.1 Phosphorus 1.1 L Magnesium 1.7 Total Bilirubin AST ALT Alkaline Phosphatase Total Protein Albumin 3.5 Blood Type Antibody Screen Crossmatch Progress Note: A&P Assessment and plan (1) Acute upper gastrointestinal bleeding: Status: Acute Plan Patient is a 58 Y F, overall poor historian, reports 2-day history of hematemesis, who initially presented to emergency department on 08/21, found?to have acute blood loss anemia in setting of upper gastrointestinal bleeding, admitted to medicine; on 08/22 AM w/ witnessed large-volume bright red hematemesis, urgently intubated, and admitted to ICU N: intubated, sedated w/ propofol, fentanyl gtt, wean as tolerated CV: hypotension, c/f hemorrhagic shock; transfusions as needed; norepinephrine gtt as needed R: intubated in setting of large-volume hematemesis, wean as tolerated GI: upper GI bleed; of note, son reports prior significant alcohol misuse, indiscriminate?acetaminophen use; found to have hepatitis B and C reactivity; s/p EGD 08/22 PM demonstrating bleeding ulcer, s/p clip, cauterization; pantoprazole, sucralfate; appreciate GI recommendations : no acute issues; to closely monitor/replete electrolytes, renal indices H: acute blood loss anemia d/t upper GI bleed; transfusions, calcium as needed; to avoid chemical DVT prophylaxis; mechanical devices ID: no overt stimata of infection E: no acute issues; to monitor hyper-/hypo-glycemia P: no acute issues Quality Stroke Does the patient have a stroke diagnosis?: No VTE Prior VTE?: No VTE Risk Level:: Medical - moderate - high VTE Device Contraindication: N/A - Device Ordered VTE Drug Contraindication: Treatment Not Tolerated
[2024-08-23 08:39] LABS: ~HepC Num1 14.24 S/CO (0.00-0.79); ~Hepatitis C Antibody Reactive (Nonreactive)
[2024-08-23 08:42] LABS: HIV AB/AG Nonreactive (Nonreactive); HIV Num 1 0.05 S/CO (0.00-0.99)
[2024-08-23] MEDS: Magnesium Sulfate/D5W 1 GM/100 ML PIGGYBACK IV (08:53)
--- NOTE | 2024-08-23 08:57 | MHC.CLN ---
RE: CONSULT PT IS MODERATELY MALNOURISHED PT WITH MILDLY DEPLETED SUBCUTANEOUS FAT AND MUSCLE MASS WITH BMI 17 AND 9% SIGNIFICANT WT LOSS X 30DAYS WITH INCREASED NUTRITION NEEDS R/T PRESSURE INJURY CURRENTLY NPO PT IS INTUBATED AND SEDATED IF TF NEEDED; RECOMMEND TF PROMOTE AT MAX GOAL RATE 40ML/HR WITH 120ML FREE WATER FLUSHES Q 6 HRS TO PROVIDE 960KCALS (1294KCALS WITH SEDATION; 30KCALS/KG), 60G PROTEIN (1.4G/KG), 1285ML TOTAL WATER FROM FORMULA AND FLUSHES (30ML/KG) TF WILL PROMOTE WOUND HEALING MONITOR TOLERANCE AND LYTES IF TPN NEEDED R/T GIB CONSULT RD FOLLOWING FOR DIET ADVANCEMENT SEE ALSO FULL CLINICAL NUTRITION ASSESSMENT
--- NOTE | 2024-08-23 11:02 | P.PNGI_ITS ---
Subjective Subjective Date of Service: 08/23/24 Interval History: still intubated HGB has been stable no melena o/p, minimal blood tinge from OG Critical Care Time (minutes): 0 Physical Exam 2 Vital Signs: Vital Signs: Last Vital Signs Temp 98.6 F 08/23/24 10:00 Pulse 76 08/23/24 10:00 Resp 18 08/23/24 10:00 BP 117/47 L 08/23/24 10:00 Pulse Ox 100 08/23/24 10:00 O2 Del Method Mechanical Ventil ation 08/23/24 10:00 O2 Flow Rate 2 08/22/24 23:00 FiO2 50 08/23/24 10:00 BMI result Body Mass Index 17.1 EXAM: GENERAL: The patient is thin, intubated VITAL SIGNS:see workflow HEENT: Nonicteric sclerae, PERRLA, EOMI. Oropharynx clear. Moist mucous membranes. Conjunctivae appear well perfused. No thyroid mass. CHEST: Chest wall is nontender. HEART: Regular rate and rhythm without murmurs. LUNGS: Clear to auscultation bilaterally. ABDOMEN: Soft, positive bowel sounds, nontender, no organomegaly.no flank tenderness SKIN: No rash, no excessive bruising, petechiae, or purpura. NEUROLOGIC: Cranial nerves II-XII intact without motor/sensory deficit. Psych: sedated Objective Data Labs 08/23/24 17:58 08/23/24 16:18 Labs: Laboratory Results - last 24 hr 08/21/24 08/22/24 08/22/24 21:21 14:07 14:08 WBC RBC Hgb Cancelled Hct Cancelled MCV MCH MCHC RDW Plt Count MPV Immature Gran % (Auto) Neut % (Auto) Lymph % (Auto) [place] % (Auto) Eos % (Auto) Baso % (Auto) Lymph # (Auto) [place] # (Auto) Eos # (Auto) Baso # (Auto) Abs Immat Gran (auto) Absolute Neuts (auto) Absolute Nucleated RBC Nucleated RBC % (auto) VBG pH VBG pCO2 VBG pO2 VBG HCO3 VBG O2 Saturation VBG Base Excess Sodium Cancelled Potassium Chloride Carbon Dioxide Anion Gap BUN Creatinine Estim Creat Clear Calc Estimated GFR POC Glucose Random Glucose Estimat Average Glucose Hemoglobin A1c % Lactic Acid 6.3 H* Lactic Acid F/U @ 2Hr Calcium Phosphorus Magnesium Total Bilirubin AST ALT Alkaline Phosphatase Total Protein Albumin Hepatitis C Ab (EIA) Reactive H HIV 1&2 Ab/P24 Ag 4thGn Blood Type O Positive Antibody Screen NEGATIVE Crossmatch See Detail 08/22/24 08/22/24 08/22/24 14:08 14:08 14:08 WBC RBC Hgb Hct MCV MCH MCHC RDW Plt Count MPV Immature Gran % (Auto) Neut % (Auto) Lymph % (Auto) [place] % (Auto) Eos % (Auto) Baso % (Auto) Lymph # (Auto) [place] # (Auto) Eos # (Auto) Baso # (Auto) Abs Immat Gran (auto) Absolute Neuts (auto) Absolute Nucleated RBC Nucleated RBC % (auto) VBG pH VBG pCO2 VBG pO2 VBG HCO3 VBG O2 Saturation VBG Base Excess Sodium 139 Potassium Cancelled 7.7 H* D Chloride Cancelled 112 H Carbon Dioxide Cancelled Anion Gap BUN Creatinine Estim Creat Clear Calc Estimated GFR POC Glucose Random Glucose Estimat Average Glucose Hemoglobin A1c % Lactic Acid Lactic Acid F/U @ 2Hr Calcium Phosphorus Magnesium Total Bilirubin AST ALT Alkaline Phosphatase Total Protein Albumin Hepatitis C Ab (EIA) HIV 1&2 Ab/P24 Ag 4thGn Blood Type Antibody Screen Crossmatch 08/22/24 08/22/24 08/22/24 14:08 14:08 14:08 WBC RBC Hgb Hct MCV MCH MCHC RDW Plt Count MPV Immature Gran % (Auto) Neut % (Auto) Lymph % (Auto) [place] % (Auto) Eos % (Auto) Baso % (Auto) Lymph # (Auto) [place] # (Auto) Eos # (Auto) Baso # (Auto) Abs Immat Gran (auto) Absolute Neuts (auto) Absolute Nucleated RBC Nucleated RBC % (auto) VBG pH VBG pCO2 VBG pO2 VBG HCO3 VBG O2 Saturation VBG Base Excess Sodium Potassium Chloride Carbon Dioxide 16 L Anion Gap Cancelled 19 BUN Cancelled 13 Creatinine Cancelled Estim Creat Clear Calc Estimated GFR POC Glucose Random Glucose Estimat Average Glucose Hemoglobin A1c % Lactic Acid Lactic Acid F/U @ 2Hr Calcium Phosphorus Magnesium Total Bilirubin AST ALT Alkaline Phosphatase Total Protein Albumin Hepatitis C Ab (EIA) HIV 1&2 Ab/P24 Ag 4thGn Blood Type Antibody Screen Crossmatch 08/22/24 08/22/24 08/22/24 14:08 14:08 14:08 WBC RBC Hgb Hct MCV MCH MCHC RDW Plt Count MPV Immature Gran % (Auto) Neut % (Auto) Lymph % (Auto) [place] % (Auto) Eos % (Auto) Baso % (Auto) Lymph # (Auto) [place] # (Auto) Eos # (Auto) Baso # (Auto) Abs Immat Gran (auto) Absolute Neuts (auto) Absolute Nucleated RBC Nucleated RBC % (auto) VBG pH VBG pCO2 VBG pO2 VBG HCO3 VBG O2 Saturation VBG Base Excess Sodium Potassium Chloride Carbon Dioxide Anion Gap BUN Creatinine 0.87 Estim Creat Clear Calc Cancelled 44.8 Estimated GFR Cancelled > 60 POC Glucose Random Glucose Cancelled Estimat Average Glucose Hemoglobin A1c % Lactic Acid Lactic Acid F/U @ 2Hr Calcium Phosphorus Magnesium Total Bilirubin AST ALT Alkaline Phosphatase Total Protein Albumin Hepatitis C Ab (EIA) HIV 1&2 Ab/P24 Ag 4thGn Blood Type Antibody Screen Crossmatch 08/22/24 08/22/24 08/22/24 14:08 14:08 14:08 WBC RBC Hgb Hct MCV MCH MCHC RDW Plt Count MPV Immature Gran % (Auto) Neut % (Auto) Lymph % (Auto) [place] % (Auto) Eos % (Auto) Baso % (Auto) Lymph # (Auto) [place] # (Auto) Eos # (Auto) Baso # (Auto) Abs Immat Gran (auto) Absolute Neuts (auto) Absolute Nucleated RBC Nucleated RBC % (auto) VBG pH VBG pCO2 VBG pO2 VBG HCO3 VBG O2 Saturation VBG Base Excess Sodium Potassium Chloride Carbon Dioxide Anion Gap BUN Creatinine Estim Creat Clear Calc Estimated GFR POC Glucose Random Glucose 276 H Estimat Average Glucose 111 Hemoglobin A1c % 5.5 Lactic Acid Lactic Acid F/U @ 2Hr Calcium Cancelled 7.3 L D Phosphorus 3.2 Magnesium Cancelled 2.0 Total Bilirubin 1.0 AST 39 H ALT 33 H Alkaline Phosphatase 80 Total Protein 4.9 L Albumin 2.4 L Hepatitis C Ab (EIA) HIV 1&2 Ab/P24 Ag 4thGn Nonreactive Blood Type Antibody Screen Crossmatch 08/22/24 08/22/24 08/22/24 14:10 14:27 15:51 WBC 10.4 RBC 4.20 D Hgb 13.8 D Hct 39.5 D MCV 94.0 D MCH 32.9 MCHC 34.9 RDW 15.9 Plt Count 128 L MPV 9.4 Immature Gran % (Auto) 1.0 H Neut % (Auto) 68.5 Lymph % (Auto) 26.5 [place] % (Auto) 3.4 Eos % (Auto) 0.2 Baso % (Auto) 0.4 Lymph # (Auto) 2.8 [place] # (Auto) 0.4 Eos # (Auto) 0.0 Baso # (Auto) 0.0 Abs Immat Gran (auto) 0.10 H Absolute Neuts (auto) 7.1 Absolute Nucleated RBC 0.040 H Nucleated RBC % (auto) 0.4 H VBG pH 7.10 L* VBG pCO2 45 VBG pO2 63 VBG HCO3 14 L VBG O2 Saturation 88.0 VBG Base Excess -14.7 Sodium 145 Potassium 3.7 D Chloride 113 H Carbon Dioxide 21 L Anion Gap 15 BUN 12 Creatinine 0.77 Estim Creat Clear Calc 50.6 Estimated GFR > 60 POC Glucose Random Glucose 177 H Estimat Average Glucose Hemoglobin A1c % Lactic Acid Lactic Acid F/U @ 2Hr Calcium 8.0 L D Phosphorus Magnesium Total Bilirubin AST ALT Alkaline Phosphatase Total Protein Albumin Hepatitis C Ab (EIA) HIV 1&2 Ab/P24 Ag 4thGn Blood Type Antibody Screen Crossmatch 08/22/24 08/22/24 08/22/24 16:22 17:06 17:55 WBC 6.4 RBC 3.10 L D Hgb 10.5 L D Hct 28.0 L D MCV 90.3 MCH 33.9 H MCHC 37.5 H RDW 15.2 Plt Count 91 L D MPV 8.8 L Immature Gran % (Auto) 0.9 H Neut % (Auto) 53.4 Lymph % (Auto) 37.4 [place] % (Auto) 7.5 Eos % (Auto) 0.3 Baso % (Auto) 0.5 Lymph # (Auto) 2.4 [place] # (Auto) 0.5 Eos # (Auto) 0.0 Baso # (Auto) 0.0 Abs Immat Gran (auto) 0.06 H Absolute Neuts (auto) 3.4 Absolute Nucleated RBC 0.000 Nucleated RBC % (auto) 0.0 VBG pH VBG pCO2 VBG pO2 VBG HCO3 VBG O2 Saturation VBG Base Excess Sodium 148 H Potassium 3.1 L Chloride 113 H Carbon Dioxide 24 Anion Gap 14 BUN 11 Creatinine 0.85 Estim Creat Clear Calc 45.8 Estimated GFR > 60 POC Glucose 135 H Random Glucose 137 H Estimat Average Glucose Hemoglobin A1c % Lactic Acid Lactic Acid F/U @ 2Hr 1.5 Calcium 10.3 H D Phosphorus 2.7 Magnesium 2.0 Total Bilirubin AST ALT Alkaline Phosphatase Total Protein Albumin Hepatitis C Ab (EIA) HIV 1&2 Ab/P24 Ag 4th Blood Type Antibody Screen Crossmatch 08/22/24 08/23/24 08/23/24 18:06 00:18 00:27 WBC 5.0 RBC 3.60 L Hgb 11.6 L Hct 31.8 L MCV 88.3 MCH 32.2 MCHC 36.5 H RDW 14.7 Plt Count 76 L MPV 8.9 L Immature Gran % (Auto) Neut % (Auto) Lymph % (Auto) [place] % (Auto) Eos % (Auto) Baso % (Auto) Lymph # (Auto) [place] # (Auto) Eos # (Auto) Baso # (Auto) Abs Immat Gran (auto) Absolute Neuts (auto) Absolute Nucleated RBC 0.020 H Nucleated RBC % (auto) 0.4 H VBG pH 7.59 H VBG pCO2 25 VBG pO2 82 VBG HCO3 24 VBG O2 Saturation 99.0 VBG Base Excess 4.0 Sodium 147 H Potassium 3.3 Chloride 113 H Carbon Dioxide 24 Anion Gap 13 BUN 11 Creatinine 0.87 Estim Creat Clear Calc 44.8 Estimated GFR > 60 POC Glucose 114 Random Glucose 120 H Estimat Average Glucose Hemoglobin A1c % Lactic Acid Lactic Acid F/U @ 2Hr Calcium 9.6 D Phosphorus Magnesium Total Bilirubin AST ALT Alkaline Phosphatase Total Protein Albumin 3.5 Hepatitis C Ab (EIA) HIV 1&2 Ab/P24 Ag 4thGn Blood Type Antibody Screen Crossmatch 08/23/24 08/23/24 05:11 05:16 WBC 5.8 RBC 3.51 L Hgb 11.5 L Hct 31.1 L MCV 88.6 MCH 32.8 MCHC 37.0 H RDW 15.6 Plt Count 87 L MPV 8.2 L Immature Gran % (Auto) 1.2 H Neut % (Auto) 47.1 Lymph % (Auto) 39.4 [place] % (Auto) 7.3 Eos % (Auto) 4.3 H Baso % (Auto) 0.7 Lymph # (Auto) 2.3 [place] # (Auto) 0.4 Eos # (Auto) 0.3 Baso # (Auto) 0.0 Abs Immat Gran (auto) 0.07 H Absolute Neuts (auto) 2.7 Absolute Nucleated RBC 0.030 H Nucleated RBC % (auto) 0.5 H VBG pH 7.56 H VBG pCO2 27 VBG pO2 51 VBG HCO3 24 VBG O2 Saturation 89.0 VBG Base Excess 3.1 Sodium 148 H Potassium 4.1 D Chloride 115 H Carbon Dioxide 24 Anion Gap 13 BUN 12 Creatinine 0.94 Estim Creat Clear Calc 42.6 Estimated GFR > 60 POC Glucose Random Glucose 113 Estimat Average Glucose Hemoglobin A1c % Lactic Acid Lactic Acid F/U @ 2Hr Calcium 9.1 Phosphorus 1.1 L Magnesium 1.7 Total Bilirubin AST ALT Alkaline Phosphatase Total Protein Albumin Hepatitis C Ab (EIA) HIV 1&2 Ab/P24 Ag 4thGn Blood Type Antibody Screen Crossmatch Procedures Date of Service Date of Service: 08/23/24 Progress Note: A&P Assessment and plan (1) GI bleed: Status: Acute Plan 1/ Acute blood loss anemia from large gastric ulcer s/p oves[place] clip and hemospray application, HGB seems stable PLAN: 1/ Cont IV PPI for total 72 hrs then transition to PO if extubated by then 2/ if H pylori pos then treat 3/ If rebleeds then IR consult Time Spent With Patient Time: Total time managing care of this patient today ____ minutes. Quality Stroke Does the patient have a stroke diagnosis?: No VTE Prior VTE?: No VTE Risk Level:: Medical - moderate - high VTE Device Contraindication: N/A - Device Ordered VTE Drug Contraindication: Treatment Not Tolerated
[2024-08-23 11:09] LABS: Glucose, Whole Blood 108 mg/dL (60-115)
[2024-08-23] MEDS: Furosemide 20 MG/2 ML VIAL 40 MG IVPUSH (11:53)
[2024-08-23] MEDS: Norepinephrine Bitartrate/D5W 8 MG/250 ML PLAST..BAG 1.58 MG IVCONT (12:34)
[2024-08-23] MEDS: Midazolam HCl/PF 2 MG/2 ML VIAL IVPUSH ×2 (12:44→20:39)
--- NOTE | 2024-08-23 15:02 | MHC.CM.PN ---
Pt continues care in ICU: remains intubated: CM to follow for finalization of d/c needs
[2024-08-23] MEDS: EPINEPHrine/NS 5 MG/250 ML PLAST..BAG 25.44 MG IVCONT (16:03)
--- NOTE | 2024-08-23 16:04 | ECG_ITS ---
Test Reason : post code blue Blood Pressure : / mmHG Vent. Rate : 101 BPM Atrial Rate : 101 BPM P-R Int : 142 ms QRS Dur : 070 ms QT Int : 338 ms P-R-T Axes : 080 081 059 degrees QTc Int : [address] depression inferior and lateral leads; consider ischemia Abnormal ECG No previous ECGs available Referred By: Echo Blackburn Electronically Signed By:YUE CASILLAS
[2024-08-23 16:27] LABS: Basophils Absolute Auto 0.1 X10*3/uL (0.0-0.2); Basophils Percent Auto 0.4 % (0-2); Eosinophils Absolute Auto 0.6 X10*3/uL (0.0-0.4); Eosinophils Percent Auto 3.8 % (0-4); Hematocrit 35.2 % (37.0-47.0); Hemoglobin 12.9 g/dl (12.0-16.0); Imm Gran Abs Auto 0.07 X10*3/uL (0.00-0.03); Imm Gran Pct Auto 0.5 % (0.0-0.4); Lymphocytes Percent Auto 46.1 % (20-40); MANUAL DIFF FLAG SCAN; Mean Corpuscular HGB Conc 36.6 g/dl (31.0-35.0); Mean Corpuscular Hemoglobin 33.2 pg (27.0-33.0); Mean Corpuscular Volume 90.5 fL (80.0-98.0); Mean Platelet Volume 8.6 fL (9.4-12.3); Monocytes Absolute Auto 1.5 X10*3/uL (0.1-1.2); Monocytes Percent Auto 9.9 % (2-11); NRBC Pct Auto 0.3 /100WBC (0.0-0.2); Neutrophils Absolute Auto 5.7 x10*3/uL (2.0-8.3); Neutrophils Percent Auto 39.3 % (45-73); Platelet Count 116 X10*3/uL (160-400); Red Blood Count 3.89 X10*6/uL (4.20-5.50); Red Cell Distribution Width 17.4 % (11.0-16.0); SCAN SMEAR FLAG 1; White Blood Count 14.6 X10*3/uL (4.8-10.8)
--- NOTE | 2024-08-23 16:39 | HO.WOUND ---
Wound Consult: Initial 58yr old female [place] [facility] - See progress notes and H&P for detailed history.? Wound consult placed for Coccyx wound POA.? Arrival to unit active CPR administered by team of providers. Will defer direct observation for future date and time. Below details are after chart review. Coccyx Etiology: ??Appears to be a stage 2 pressure injury Present on Admission not able to assess in person difficult to assess from photo Wound Bed: appears pink - slight yellow observed Drainage / Odor: suspect serosang drainage based on photo Goals of Treatment: ? Foam dressing to protect form moisture and friction and allow for moist wound healing Recommendations: 1. Turn and Reposition every 2 hours and as needed for patient comfort.? Use pillows or wedges to support off loading positions. 2. Off Load all bony prominences with use of pillows and heel boots if needed.? Apply Preventative foams where needed. ? 3. Monitor for incontinence and moisture control, use barrier creams when needed for prevention and treatment. 4. Provide adequate and supplemental nutrition.? 5. Continue low air loss mattress. 6. When applicable maintain blood glucose levels per Providers order. 7. Coccyx - Off Load Pressure - Cleanse with PH Blanced wipes, pat dry. Apply foam dressing to sacral area, change every 5 days and PRN. Re-consult wound care Nurse for wound deterioration or wound changes.
[2024-08-23 16:40] LABS: Lactic Acid 1.5 mmol/L (0.5-2.0)
[2024-08-23 16:41] LABS: Lymphocytes Absolute Auto 6.7 X10*3/uL (1.2-4.9)
[2024-08-23 16:46] LABS: Anion Gap 15 (12-20); Blood Urea Nitrogen 12 mg/dL (9-16); Carbon Dioxide 27 mmol/L (22-29); Chloride 112 mmol/L (96-108); Creatinine Clr Calc Pharmacy 40.8; Estimated Glomerular Filt Rate 58; Glucose Random 149 mg/dL (60-115); Phosphorus 4.9 mg/dL (2.7-4.5); Potassium 3.3 mmol/L (3.3-5.1); Sodium 151 mmol/L (135-145)
[2024-08-23 16:59] LABS: Calcium 11.5 mg/dL (8.4-10.2)
--- NOTE | 2024-08-23 17:01 | W.PM.CCHP ---
Procedures Date of Service Date of Service: 08/23/24 Arterial Line Consent: Emergent-no informed consent obtained Sterile Technique Used: Yes Time out performed: Yes Technique used: modified Seldinger technique Post-Procedure: line sutured into place and dry sterile dressing placed Patient tolerated procedure: other (1 attempt performed on L femoral artery, though c/b hemotoma; 2 attempts performed on R femoral artery, which was successful) Site: right and femoral
--- NOTE | 2024-08-23 17:03 | PM.CCN ---
Critical Care Event Note Summary Date of Service: 08/23/24 Code activated: Yes Narrative: This case had a high probability of a clinically significant, sudden, or life threatening deterioration of this patient's condition which required my full and direct attention, intervention and personal management. Critical Care Time (minutes): 30 Comment: at around 15:50, patient developed bradycardia, then asystole; the team arrived and was unable to appreciate a pulse; compressions were started; patient received epinephrine, calcium, and bicarbonate; ROSC was achieved at the first pulse check; following ROSC, patient was found to be tachycardic, hypertensive, satting 100% on 30% FiO2; a POCUS was limited, but demonstrated hyperdynamic LV, no appreciable RV dilation, no appreciable pericardial effusion, and not suggestive of pneumothorax; EKG was not suggestive of ACS; repeated labs were grossly unremarkable; patient's son was called, and later arrived at bedside;
[2024-08-23 17:07] LABS: SLIDE REVIEW VERIFIED
[2024-08-23 17:42] LABS: Glucose, Whole Blood 161 mg/dL (60-115)
[2024-08-23] MEDS: Insulin Lispro 100 UNIT/ML 3 ML VIAL SUBCUT (17:44)
[2024-08-23] MEDS: Piperacillin Sodium/Tazobactam 3.375 GM in 0.9 % Sodium Chloride 50 ML IV (17:45)
[2024-08-23] MEDS: vancomycin HCL 1,000 MG in 0.9 % Sodium Chloride 250 ML 270 MG IV (17:52)
[2024-08-23 18:04] LABS: MANUAL DIFF FLAG NO
[2024-08-23 18:05] LABS: Basophils Percent Auto 0.4 % (0-2); Eosinophils Absolute Auto 0.2 X10*3/uL (0.0-0.4); Eosinophils Percent Auto 2.4 % (0-4); Hematocrit 34.9 % (37.0-47.0); Hemoglobin 12.9 g/dl (12.0-16.0); Imm Gran Abs Auto 0.05 X10*3/uL (0.00-0.03); Imm Gran Pct Auto 0.6 % (0.0-0.4); Lymphocytes Absolute Auto 1.7 X10*3/uL (1.2-4.9); Mean Corpuscular Hemoglobin 33.3 pg (27.0-33.0); Mean Corpuscular Volume 90.2 fL (80.0-98.0); Mean Platelet Volume 8.6 fL (9.4-12.3); Monocytes Absolute Auto 0.3 X10*3/uL (0.1-1.2); Monocytes Percent Auto 3.2 % (2-11); NRBC Pct Auto 0.5 /100WBC (0.0-0.2); Neutrophils Absolute Auto 5.7 x10*3/uL (2.0-8.3); Neutrophils Percent Auto 72.4 % (45-73); Platelet Count 109 X10*3/uL (160-400); Red Blood Count 3.87 X10*6/uL (4.20-5.50); Red Cell Distribution Width 17.5 % (11.0-16.0); White Blood Count 7.9 X10*3/uL (4.8-10.8)
[2024-08-23 18:08] LABS: VBG HCO3 23 mmol/L (22-26); VBG pCO2 26 mmHg; VBG pH 7.54 (7.32-7.43); VBG pO2 93 mmHg
[2024-08-23 18:09] LABS: Venous Blood Gas Refer to POC result
--- NOTE | 2024-08-23 19:28 | PHA.PROG ---
Admission Date/Time: August 22, 2024 01:08 Indication: Other Weight in k.4 kg Serum Creatinine - Last 168 Hours 08/21/24 08/22/24 08/22/24 21:20 02:23 14:08 Creatinine 1.44 H 1.07 Cancelled 08/22/24 08/22/24 08/22/24 14:08 15:51 17:55 Creatinine 0.87 0.77 0.85 08/23/24 08/23/24 08/23/24 00:27 05:16 16:18 Creatinine 0.87 0.94 0.98 Estimated CrCl and GFR - Last 168 Hours 08/21/24 08/22/24 08/22/24 21:20 02:23 14:08 Estim Creat Clear Calc 27.5 37.1 Cancelled Estimated GFR 37 52 08/22/24 08/22/24 08/22/24 14:08 14:08 15:51 Estim Creat Clear Calc 44.8 50.6 Estimated GFR Cancelled > 60 > 60 08/22/24 08/23/24 08/23/24 17:55 00:27 05:16 Estim Creat Clear Calc 45.8 44.8 42.6 Estimated GFR > 60 > 60 > 60 08/23/24 16:18 Estim Creat Clear Calc 40.8 Estimated GFR 58 Vancomycin Loading Dose:1000 Current Vancomycin Dosing Regimen: 500 Q12H Vancomycin Monitoring using AUC goal of 400 - 600 range with trough as surrogate marker:505 Date and Time for next Vancomycin Level to be drawn: Pharmacist Comments on Vancomycin Plan: Vancomycin dosing will take advantage of [employer] as a clinical decision support tool that uses Bayesian modeling to calculate individual patient's pharmacokinetic parameters and forecast the patient's drug concentration time course with the target goal AUC 24 range of 400 - 600 mg/L/hr.
[2024-08-23 19:59] LABS: Alanine Aminotransferase 18 U/L (0-31); Albumin Level 3.4 g/dL (3.5-5.0); Alkaline Phosphatase 61 U/L (39-117); Aspartate Amino Transferase 34 U/L (5-31); Total Protein 5.7 g/dL (6.5-8.0)
[2024-08-23] MEDS: Sucralfate 1 GM TABLET PO (21:44)
[2024-08-24] VITALS (40 sets, daily range): BP systolic 100–171; BP diastolic 42–72; PULSE 62–104; RESP 16–19; TEMP 34.8–37.5; O2SAT 100; BMI 16.2
[2024-08-24 00:03] LABS: Glucose, Whole Blood 116 mg/dL (60-115)
[2024-08-24] MEDS: Piperacillin Sodium/Tazobactam 3.375 GM in 0.9 % Sodium Chloride 50 ML IV ×3 (00:08→16:59)
[2024-08-24] MEDS: Midazolam HCl/PF 2 MG/2 ML VIAL IVPUSH ×3 (01:50→17:09)
--- NOTE | 2024-08-24 02:16 | HO.SKINPHOTO ---
Location: [facility] Category: Stage: Length: Width: Depth: cm
[2024-08-24] MEDS: propofoL 1,000 MG/100 ML VIAL 12.6 MG IVCONT ×2 (04:45→18:30)
[2024-08-24 04:46] LABS: VBG Base Excess 5.1 mmol/L; VBG HCO3 26 mmol/L (22-26); VBG pCO2 28 mmHg; VBG pH 7.57 (7.32-7.43); VBG pO2 46 mmHg
[2024-08-24 04:48] LABS: Venous Blood Gas Refer to POC result
[2024-08-24 05:02] LABS: MANUAL DIFF FLAG NO
[2024-08-24 05:05] LABS: Basophils Percent Auto 0.5 % (0-2); Eosinophils Absolute Auto 0.1 X10*3/uL (0.0-0.4); Eosinophils Percent Auto 1.1 % (0-4); Hematocrit 32.5 % (37.0-47.0); Hemoglobin 11.4 g/dl (12.0-16.0); Imm Gran Abs Auto 0.05 X10*3/uL (0.00-0.03); Imm Gran Pct Auto 0.6 % (0.0-0.4); Lymphocytes Absolute Auto 2.6 X10*3/uL (1.2-4.9); Mean Corpuscular HGB Conc 35.1 g/dl (31.0-35.0); Mean Corpuscular Hemoglobin 31.8 pg (27.0-33.0); Mean Corpuscular Volume 90.8 fL (80.0-98.0); Mean Platelet Volume 8.9 fL (9.4-12.3); Monocytes Absolute Auto 0.5 X10*3/uL (0.1-1.2); Monocytes Percent Auto 6.1 % (2-11); NRBC Pct Auto 0.4 /100WBC (0.0-0.2); Neutrophils Absolute Auto 4.8 x10*3/uL (2.0-8.3); Neutrophils Percent Auto 59.7 % (45-73); Platelet Count 80 X10*3/uL (160-400); Red Blood Count 3.58 X10*6/uL (4.20-5.50); Red Cell Distribution Width 17.5 % (11.0-16.0)
[2024-08-24 05:10] LABS: INTERNATIONAL NORM RATIO 1.1 (0.9-1.1); Prothrombin Time 12.4 SEC (10.9-12.4)
[2024-08-24 05:13] LABS: Partial Thromboplastin Time 31.1 SEC (26.0-36.8)
[2024-08-24 05:26] LABS: B Type Natriuretic Peptide 444 pg/mL (<100)
[2024-08-24 05:28] LABS: Albumin Level 3.1 g/dL (3.5-5.0); Anion Gap 16 (12-20); Blood Urea Nitrogen 13 mg/dL (9-16); Calcium 9.2 mg/dL (8.4-10.2); Carbon Dioxide 25 mmol/L (22-29); Chloride 113 mmol/L (96-108); Creatinine Clr Calc Pharmacy 43.5; Estimated Glomerular Filt Rate > 60; Glucose Random 115 mg/dL (60-115); Magnesium 1.8 mg/dL (1.6-2.6); Potassium 2.9 mmol/L (3.3-5.1); Sodium 151 mmol/L (135-145)
[2024-08-24] MEDS: Pantoprazole Sodium 40 MG/10 ML VIAL IVPUSH ×2 (05:35→16:59)
[2024-08-24] MEDS: vancomycin HCL 500 MG in 0.9 % Sodium Chloride 100 ML 110 MG IV ×2 (05:36→18:08)
[2024-08-24] MEDS: Potassium Chloride/H20 40 MEQ/100 ML PIGGYBACK 50 MEQ IV ×3 (05:51→21:10)
--- NOTE | 2024-08-24 07:00 | CA_ITS ---
Transthoracic Echocardiogram Patient (Last, First, Middle): Marion Montanez, Gender: Female Date of : 1965 Age: 58 Procedure Date: 08/24/2024 Procedure Type: Transthoracic Echocardiogram Location: ICU Height: 157.48 cm Weight: 39.92 kg BSA: 1.35 m2 Heart Rate: bpm BP: 140 / 63 mmHg Connection Worker: Referring MD: Echo Blackburn MD Symptoms: s/p Cardiac Arrest; Please Assess Function Study Quality: Fair ECG Rhythm: Sinus Conclusions: - The left ventricular systolic function is mildly decreased. The calculated ejection fraction is 52% by biplane method. - The basal inferior segment is akinetic. - There is moderate aortic valve regurgitation. Findings Procedure Information Contrast agent, definity, is being given per protocol without apparent complications. Left Ventricle Normal left ventricular cavity size. There is normal left ventricular wall thickness. The left ventricular systolic function is mildly decreased. The calculated ejection fraction is 52% by biplane method. Diastolic function is normal for age. Wall Motion Rest Echo Findings The basal inferior segment is akinetic. Right Ventricle Normal right ventricular cavity size and systolic function. Atria Both atria are normal in size. Aortic Valve The aortic valve was not well visualized. There is no aortic valve stenosis. There is moderate aortic valve regurgitation. Mitral Valve The mitral valve appears normal. There is no mitral valve regurgitation. There is no mitral valve stenosis. Pulmonic Valve The pulmonic valve is likely normal. Tricuspid Valve Normal tricuspid valve structure. There is trace tricuspid valve regurgitation. There is no evidence of pulmonary hypertension. Great Vessels The sinuses of valsalva is normal in size. Venous The inferior vena cava is normal in size and collapses less than 50% with inspiration. (intubated) Pericardium/Pleural There is no evidence of pericardial effusion. Prior Study Comparison Changes noted compared to prior study dated: 10/17/2021. LVEF slightly lower. Suggestion of basal inferior wall motion abnormality noted in prior images. Aortic regurgitation is similar. Measurements 2D Linear Measurements IVSd: 0.70 0.6-0.9/0.6-1.0 cm LVIDd: 3.67 3.9-5.3/4.2-5.9 cm LVIDd Index: 2.72 2.4-3.2/2.2-3.1 cm/m2 LVIDs: 2.66 2.0-3.6 cm LVPWd: 0.81 0.7-1.1 cm Ao Root: 2.50 2.1-3.5 cm LA Diam: 1.90 2.7-3.8/3.0-4.0 cm LAIDs Index: 1.41 1.5-2.3 cm/m2 LV Mass: 92.81 67-162/88-224 g LV Mass Index: 68.75 43-95/49-115 g/m2 LVOT Diam: 1.90 3.0+(-)1.3 cm 2D Systolic Function EF 4C: 55.40 >55% EF 2C: 48.60 >55% EF BiP: 52.20 >55% Mitral Valve MV Pk E: 0.67 MV PK A: 0.77 MV Decel Time: 106.00 E/A: 0.90 E'Lateral: 7.83 E'Medial: 7.29 E/E' Med: 9.20 E/E' Lat: 8.50 PHT: 31.00 MVA PHT: 7.10 Decel [place]: 6.33 Aortic Valve AoV Pk Vance: 1.44 AoV Mn Vance: 0.96 AoV VTI: 0.28 AoV Pk Grad: 8.00 Aov Mn Grad: 4.00 VIVIANE Cont.VTI: 1.97 AI Pk Vance: 3.37 AI [place]: 2.51 LVOT LVOT Pk Vance: 0.94 LVOT Mn Vance: 0.52 LVOT VTI: 0.19 LVOT Pk Grad: 4.00 LVOT Mn Grad: 1.00 LVOT Diam: 1.90 LVOT Area: 2.84 Diastolic Function MV Pk E: 0.67 MV Pk A: 0.77 E/A: 0.90 E'Medial: 7.29 E/E' Med: 9.20 E' Laterial: 7.83 E/E' Lat: 8.50 Right Ventricle TAPSE (mm): 22.00 TVS' Vance: 10.00 Tricuspid Valve TR Pk Vance: 2.50 TR Pk Grad: 25.00 RA Press: 3.00 RVSP: 28.00 Great Vessels Aorta Ao Root-2D: 2.50 2.0-3.7 cm Ao Asc: 2.60 2.1-3.4 cm Pulmonary Valve PV Pk Vance: 1.02 Peak PV Grad: 4.00 Updated in Other Vendor System with Status of Final Jakob Downey MD electronically signed on 08/24/2024 12:45:47 PM with status of Final
[2024-08-24] MEDS: Furosemide 40 MG/4 ML VIAL IVPUSH (07:54)
[2024-08-24] MEDS: 0.9 % Sodium Chloride Flush 3 ML SYRINGE IVFLUSH ×2 (07:55→17:03)
[2024-08-24] MEDS: Sucralfate 1 GM TABLET PO ×3 (08:13→16:54)
--- NOTE | 2024-08-24 08:14 | P.PNCC_ITS ---
Subjective Subjective Date of Service: 08/24/24 Interval History: patient suffered PEA 08/23 PM, c/f possible vasovagal event; post-cardiac arrest work-up not revealing of overt cause Critical Care Time (minutes): 60 Physical Exam 2 Vital Signs: Vital Signs: Last Vital Signs Temp 98.8 F 08/24/24 07:00 Pulse 86 08/24/24 07:32 Resp 17 08/24/24 07:00 BP 128/55 L 08/24/24 07:32 Pulse Ox 100 08/24/24 07:36 O2 Del Method Mechanical Ventil ation 08/24/24 07:00 O2 Flow Rate 40 08/24/24 05:00 FiO2 30 08/24/24 07:36 BMI result Body Mass Index 16.2 Const: Other: intubated, sedated; cachectic appearing HEENT: Head: Yes normal to inspection, Yes normocephalic and Yes atraumatic Eyes: General: appearance normal, both eyes and all related structures Neck: Neck: Yes normal visual inspection, Yes full ROM, Yes no meningeal signs, Yes trachea midline and Yes supple Chest: Chest palpation & inspection: normal inspection of the chest Resp: Other: some appreciable rhonchi; no appreciable rales, wheezing Effort & Inspection: normal respiratory effort Cardio: Rate: regular rate Rhythm: regular rhythm GI: Inspection: Yes normal to inspection, No Abdominal wall edema and No distended Palpation (GI): Soft to palpation, not firm, nontender, no guarding and not rigid Skin: General skin exam: no rashes or lesions noted Neuro: General: tone normal and no meningeal signs Extrem: General: Yes normal to inspection, Yes full ROM, Yes capillary refill normal and Yes no clubbing, cyanosis or edema Psych: Other: unable to assess Objective Data Labs 08/24/24 04:49 08/24/24 04:49 Labs: Laboratory Results - last 24 hr 08/21/24 08/22/24 08/22/24 21:21 14:07 14:08 WBC RBC Hgb Hct MCV MCH MCHC RDW Plt Count MPV Immature Gran % (Auto) Neut % (Auto) Lymph % (Auto) [place] % (Auto) Eos % (Auto) Baso % (Auto) Lymph # (Auto) [place] # (Auto) Eos # (Auto) Baso # (Auto) Abs Immat Gran (auto) Absolute Neuts (auto) Absolute Nucleated RBC Nucleated RBC % (auto) Smear Tech's Comments PT INR APTT VBG pH VBG pCO2 VBG pO2 VBG HCO3 VBG O2 Saturation VBG Base Excess Sodium Potassium Chloride Carbon Dioxide Anion Gap BUN Creatinine Estim Creat Clear Calc Estimated GFR POC Glucose Random Glucose Lactic Acid Calcium Phosphorus Magnesium Total Bilirubin AST ALT Alkaline Phosphatase Troponin I High Sens B-Natriuretic Peptide Total Protein Albumin Hepatitis C Ab (EIA) Reactive H HIV 1&2 Ab/P24 Ag 4thGn Nonreactive Crossmatch See Detail 08/23/24 08/23/24 08/23/24 11:06 16:18 17:38 WBC 14.6 H RBC 3.89 L Hgb 12.9 Hct 35.2 L MCV 90.5 MCH 33.2 H MCHC 36.6 H RDW 17.4 H Plt Count 116 L D MPV 8.6 L Immature Gran % (Auto) 0.5 H Neut % (Auto) 39.3 L Lymph % (Auto) 46.1 H [place] % (Auto) 9.9 Eos % (Auto) 3.8 Baso % (Auto) 0.4 Lymph # (Auto) 6.7 H [place] # (Auto) 1.5 H Eos # (Auto) 0.6 H Baso # (Auto) 0.1 Abs Immat Gran (auto) 0.07 H Absolute Neuts (auto) 5.7 Absolute Nucleated RBC 0.040 H Nucleated RBC % (auto) 0.3 H Smear Tech's Comments VERIFIED PT INR APTT VBG pH VBG pCO2 VBG pO2 VBG HCO3 VBG O2 Saturation VBG Base Excess Sodium 151 H Potassium 3.3 Chloride 112 H Carbon Dioxide 27 Anion Gap 15 BUN 12 Creatinine 0.98 Estim Creat Clear Calc 40.8 Estimated GFR 58 POC Glucose 108 161 H Random Glucose 149 H Lactic Acid 1.5 Calcium 11.5 H D Phosphorus 4.9 H Magnesium 2.0 Total Bilirubin 1.0 AST 34 H ALT 18 Alkaline Phosphatase 61 Troponin I High Sens 46.0 H D B-Natriuretic Peptide Total Protein 5.7 L Albumin 3.4 L Hepatitis C Ab (EIA) HIV 1&2 Ab/P24 Ag 4thGn Crossmatch 08/23/24 08/23/24 08/23/24 17:58 18:03 23:52 WBC 7.9 RBC 3.87 L Hgb 12.9 Hct 34.9 L MCV 90.2 MCH 33.3 H MCHC 37.0 H RDW 17.5 H Plt Count 109 L MPV 8.6 L Immature Gran % (Auto) 0.6 H Neut % (Auto) 72.4 Lymph % (Auto) 21.0 [place] % (Auto) 3.2 Eos % (Auto) 2.4 Baso % (Auto) 0.4 Lymph # (Auto) 1.7 [place] # (Auto) 0.3 Eos # (Auto) 0.2 Baso # (Auto) 0.0 Abs Immat Gran (auto) 0.05 H Absolute Neuts (auto) 5.7 Absolute Nucleated RBC 0.040 H Nucleated RBC % (auto) 0.5 H Smear Tech's Comments PT INR APTT VBG pH 7.54 H VBG pCO2 26 VBG pO2 93 VBG HCO3 23 VBG O2 Saturation 99.0 VBG Base Excess 2.0 Sodium Potassium Chloride Carbon Dioxide Anion Gap BUN Creatinine Estim Creat Clear Calc Estimated GFR POC Glucose 116 H Random Glucose Lactic Acid Calcium Phosphorus Magnesium Total Bilirubin AST ALT Alkaline Phosphatase Troponin I High Sens 73.0 H* D B-Natriuretic Peptide Total Protein Albumin Hepatitis C Ab (EIA) HIV 1&2 Ab/P24 Ag 4thGn Crossmatch 08/24/24 08/24/24 04:35 04:49 WBC 8.0 RBC 3.58 L Hgb 11.4 L Hct 32.5 L MCV 90.8 MCH 31.8 MCHC 35.1 H RDW 17.5 H Plt Count 80 L D MPV 8.9 L Immature Gran % (Auto) 0.6 H Neut % (Auto) 59.7 Lymph % (Auto) 32.0 [place] % (Auto) 6.1 Eos % (Auto) 1.1 Baso % (Auto) 0.5 Lymph # (Auto) 2.6 [place] # (Auto) 0.5 Eos # (Auto) 0.1 Baso # (Auto) 0.0 Abs Immat Gran (auto) 0.05 H Absolute Neuts (auto) 4.8 Absolute Nucleated RBC 0.030 H Nucleated RBC % (auto) 0.4 H Smear Tech's Comments PT 12.4 D INR 1.1 APTT 31.1 VBG pH 7.57 H VBG pCO2 28 VBG pO2 46 VBG HCO3 26 VBG O2 Saturation 82.0 VBG Base Excess 5.1 Sodium 151 H Potassium 2.9 L* Chloride 113 H Carbon Dioxide 25 Anion Gap 16 BUN 13 Creatinine 0.92 Estim Creat Clear Calc 43.5 Estimated GFR > 60 POC Glucose Random Glucose 115 Lactic Acid Calcium 9.2 D Phosphorus 4.0 Magnesium 1.8 Total Bilirubin AST ALT Alkaline Phosphatase Troponin I High Sens B-Natriuretic Peptide 444 H Total Protein Albumin 3.1 L Hepatitis C Ab (EIA) HIV 1&2 Ab/P24 Ag 4thGn Crossmatch Microbiology Microbiology Results: Microbiology 08/22/24 14:10 Blood - Venous Blood Culture - Preliminary No growth after 24 hours. 08/22/24 14:07 Blood - Venous Blood Culture - Preliminary No growth after 24 hours. Progress Note: A&P Assessment and plan (1) Cardiac arrest: Status: Acute (2) Acute upper gastrointestinal bleeding: Status: Acute Plan Patient is a 58 Y F, overall poor historian, reports 2-day history of hematemesis, who initially presented to emergency department on 08/21, found?to have acute blood loss anemia in setting of upper gastrointestinal bleeding, admitted to medicine; on 08/22 AM w/ witnessed large-volume bright red hematemesis, urgently intubated, and admitted to ICU N: intubated, sedated w/ propofol, fentanyl gtt, wean as tolerated CV: PEA 08/23 PM, of unclear etiology, possibly vaso-vagal episode; hypotension, c/f hemorrhagic shock; transfusions as needed; norepinephrine gtt as needed; follow-up echocardiogram R: intubated in setting of large-volume hematemesis, wean as tolerated GI: upper GI bleed; of note, son reports prior significant alcohol misuse, indiscriminate?acetaminophen use; found to have hepatitis B and C reactivity; s/p EGD 08/22 PM demonstrating bleeding ulcer, s/p clip, cauterization; pantoprazole, sucralfate; appreciate GI recommendations : no acute issues; to closely monitor/replete electrolytes, renal indices H: acute blood loss anemia d/t upper GI bleed; transfusions, calcium as needed; to avoid chemical DVT prophylaxis; mechanical devices ID: no overt stimata of infection, though in setting of cardiac arrest, started on empiric antibiotics E: no acute issues; to monitor hyper-/hypo-glycemia P: no acute issues Quality Stroke Does the patient have a stroke diagnosis?: No VTE Prior VTE?: No VTE Risk Level:: Medical - moderate - high VTE Device Contraindication: N/A - Device Ordered VTE Drug Contraindication: Treatment Not Tolerated
[2024-08-24] MEDS: Albumin Human 25 % 50 ML 100 ML IV (08:41)
--- NOTE | 2024-08-24 09:34 | MHC.CLN ---
RE: CONSULT PT IS MODERATELY MALNOURISHED PT WITH MILDLY DEPLETED SUBCUTANEOUS FAT AND MUSCLE MASS WITH BMI 17 AND 9% SIGNIFICANT WT LOSS X 30DAYS WITH INCREASED NUTRITION NEEDS R/T PRESSURE INJURY CURRENTLY NPO PT IS INTUBATED AND SEDATED DISCUSSED CASE WITH MD-TPN TO START DISCUSSED WITH PHARMACY RECOMMEND TPN START 08/24/24 AT 35ML/HR TO PROVIDE 596KCALS, 126G DEXTROSE, 42G PROTEIN REPLETE LYTES NEEDED, MG, PHOS, AND K+; CHECK TRIGS TOMORROW 08/25 RECOMMEND TPN AT 55ML/HR WITH 33G LIPIDS TO PROVIDE 1267 TOTAL KCALS, 198G DEXTROSE, 66G PROTEIN (1.6G/KG) REPLETE LYTES NEEDED RD CAN BE REACHED VIA TIGER CONNECT DURING OFF HOURS IF NEEDED
[2024-08-24 12:07] LABS: Glucose, Whole Blood 102 mg/dL (60-115)
[2024-08-24] MEDS: propofoL 1,000 MG/100 ML VIAL 10.08 MG IVCONT (13:06)
[2024-08-24 13:43] LABS: HCV Log PCR 6.76 Log IU/mL (NOT DETECTED); HepC Viral Load 5730000 IU/mL (NOT DETECTED)
--- NOTE | 2024-08-24 14:11 | MHC.CM.PN ---
Pt remains intubated in ICU: CM to follow for finalization of d/c planning needs
--- NOTE | 2024-08-24 15:49 | HO.WOUND ---
Wound Consult: Follow up 58yr old female admitted to [facility] [place] on 08/22/24 - See progress notes and H&P for detailed history.? Wound consult placed for Coccyx wound POA.? Patient is intubated on a CHELSEY mattress, heel protector boots to be applied and nutrition following. Coccyx on Admission Sacrum 08/24/24 Etiology: ??Deep tissue Injury POA Measurements: Approximately 2cm x 4cm x 0.1cm Wound Bed: area of partial thickness tissue loss - pale pink wound bed - circumferential dark nonblanchable tissue with epidermal lifting noted Drainage / Odor: None noted Edges: Irregular and attached Periwound: Red pink erythema - patient has bony prominence and appears malnourished - pt at risk for further injury development. Goals of Treatment: ? Foam dressing to protect form moisture and friction and allow for moist wound healing Bilateral heels are intact noted for redness but remains blanchable - prevention measures in place - heel protector boots applied. Left Axilla area noted for large growth with central dry opening appears like a large 4cm open comodone - defer to providers / surgery for assessment and treatment if needed. Recommendations: 1. Turn and Reposition every 2 hours and as needed for patient comfort.? Use pillows or wedges to support off loading positions. 2. Off Load all bony prominences with use of pillows and heel boots if needed.? Apply Preventative foams where needed. ? 3. Monitor for incontinence and moisture control, use barrier creams when needed for prevention and treatment. 4. Provide adequate and supplemental nutrition.? 5. Continue low air loss mattress. 6. When applicable maintain blood glucose levels per Providers order. 7. Sacrum - Off Load Pressure - Cleanse with PH Balanced wipes, pat dry. Apply foam dressing to sacral area, change every 5 days and PRN. 8. Heels - Elevate off of bed surface with pillows or heel protector boots. Re-consult wound care Nurse for wound deterioration or wound changes.
[2024-08-24 16:22] LABS: Vancomycin Random 15.2 mcg/mL (15-20)
[2024-08-24 17:17] LABS: Glucose, Whole Blood 104 mg/dL (60-115)
[2024-08-24 18:17] LABS: MANUAL DIFF FLAG NO
[2024-08-24 18:19] LABS: Basophils Percent Auto 0.3 % (0-2); Eosinophils Absolute Auto 0.1 X10*3/uL (0.0-0.4); Eosinophils Percent Auto 1.4 % (0-4); Hematocrit 30.6 % (37.0-47.0); Imm Gran Abs Auto 0.07 X10*3/uL (0.00-0.03); Imm Gran Pct Auto 0.8 % (0.0-0.4); Lymphocytes Absolute Auto 1.9 X10*3/uL (1.2-4.9); Lymphocytes Percent Auto 20.6 % (20-40); Mean Corpuscular HGB Conc 35.9 g/dl (31.0-35.0); Mean Corpuscular Volume 91.9 fL (80.0-98.0); Mean Platelet Volume 9.1 fL (9.4-12.3); Monocytes Absolute Auto 0.6 X10*3/uL (0.1-1.2); Monocytes Percent Auto 6.6 % (2-11); Neutrophils Absolute Auto 6.5 x10*3/uL (2.0-8.3); Neutrophils Percent Auto 70.3 % (45-73); Red Blood Count 3.33 X10*6/uL (4.20-5.50); Red Cell Distribution Width 18.6 % (11.0-16.0); White Blood Count 9.3 X10*3/uL (4.8-10.8)
[2024-08-24 18:32] LABS: Platelet Count 84 X10*3/uL (160-400)
[2024-08-24 18:37] LABS: Anion Gap 18 (12-20); Blood Urea Nitrogen 12 mg/dL (9-16); Calcium 8.5 mg/dL (8.4-10.2); Carbon Dioxide 27 mmol/L (22-29); Chloride 110 mmol/L (96-108); Creatinine Clr Calc Pharmacy 42.1; Estimated Glomerular Filt Rate > 60; Glucose Random 115 mg/dL (60-115); Magnesium 1.8 mg/dL (1.6-2.6); Phosphorus 3.4 mg/dL (2.7-4.5); Potassium 3.3 mmol/L (3.3-5.1); Sodium 152 mmol/L (135-145)
[2024-08-24] MEDS: Magnesium Sulfate/D5W 1 GM/100 ML PIGGYBACK IV (19:51)
[2024-08-24] MEDS: HYDROmorphone HCl 1 MG/ML SYRINGE IVPUSH (19:52)
[2024-08-24] MEDS: Dextrose 5 % 1,000 ML 50 ML IVCONT (20:10)
[2024-08-24] MEDS: Parenteral Nutrition 840 ML 35 ML IV (20:17)
[2024-08-24] MEDS: fentaNYL citrate/NS 1,000 MCG/100 ML PLAST..BAG 2.5 MCG IVCONT (20:41)
[2024-08-24 23:26] LABS: Glucose, Whole Blood 143 mg/dL (60-115)
[2024-08-25] VITALS (38 sets, daily range): BP systolic 93–177; BP diastolic 39–63; PULSE 16–104; RESP 16–71; TEMP 35–38; O2SAT 95–100; BMI 15.9
--- NOTE | 2024-08-25 | ECG_ITS ---
Test Reason : ICU Evaluation Blood Pressure : / mmHG Vent. Rate : 086 BPM Atrial Rate : 086 BPM P-R Int : 134 ms QRS Dur : 084 ms QT Int : 350 ms P-R-T Axes : 088 083 074 degrees QTc Int : 418 ms Normal sinus rhythm Nonspecific ST abnormality Abnormal ECG When compared with ECG of 23-AUG-2024 16:03, No significant change was found Referred By: Echo Blackburn Electronically Signed By:YUE CASILLAS
[2024-08-25] MEDS: Piperacillin Sodium/Tazobactam 3.375 GM in 0.9 % Sodium Chloride 50 ML IV ×3 (00:17→16:50)
[2024-08-25] MEDS: 0.9 % Sodium Chloride Flush 3 ML SYRINGE IVFLUSH ×3 (00:19→15:46)
[2024-08-25] MEDS: propofoL 1,000 MG/100 ML VIAL 7.56 MG IVCONT ×2 (01:09→12:18)
[2024-08-25] MEDS: HYDROmorphone HCl 1 MG/ML SYRINGE IVPUSH ×3 (03:15→17:32)
[2024-08-25 05:34] LABS: MANUAL DIFF FLAG NO
[2024-08-25 05:37] LABS: Basophils Percent Auto 0.2 % (0-2); Eosinophils Absolute Auto 0.3 X10*3/uL (0.0-0.4); Hematocrit 29.2 % (37.0-47.0); Hemoglobin 10.3 g/dl (12.0-16.0); Imm Gran Abs Auto 0.07 X10*3/uL (0.00-0.03); Imm Gran Pct Auto 0.8 % (0.0-0.4); Lymphocytes Absolute Auto 1.9 X10*3/uL (1.2-4.9); Lymphocytes Percent Auto 22.9 % (20-40); Mean Corpuscular HGB Conc 35.3 g/dl (31.0-35.0); Mean Corpuscular Hemoglobin 32.9 pg (27.0-33.0); Mean Corpuscular Volume 93.3 fL (80.0-98.0); Mean Platelet Volume 9.9 fL (9.4-12.3); Monocytes Absolute Auto 0.5 X10*3/uL (0.1-1.2); Monocytes Percent Auto 6.1 % (2-11); NRBC Pct Auto 0.2 /100WBC (0.0-0.2); Neutrophils Absolute Auto 5.5 x10*3/uL (2.0-8.3); Red Blood Count 3.13 X10*6/uL (4.20-5.50); Red Cell Distribution Width 18.6 % (11.0-16.0); White Blood Count 8.4 X10*3/uL (4.8-10.8)
[2024-08-25 05:39] LABS: VBG Base Excess 5.2 mmol/L; VBG HCO3 27 mmol/L (22-26); VBG pCO2 29 mmHg; VBG pH 7.56 (7.32-7.43); VBG pO2 193 mmHg
[2024-08-25 05:39] LABS: Platelet Count 68 X10*3/uL (160-400)
[2024-08-25 05:46] LABS: Venous Blood Gas Refer to POC result
[2024-08-25 05:53] LABS: Albumin Level 3.1 g/dL (3.5-5.0); Anion Gap 12 (12-20); Blood Urea Nitrogen 11 mg/dL (9-16); Calcium 8.2 mg/dL (8.4-10.2); Carbon Dioxide 27 mmol/L (22-29); Chloride 109 mmol/L (96-108); Creatinine Clr Calc Pharmacy 48.5; Estimated Glomerular Filt Rate > 60; Glucose Random 135 mg/dL (60-115); Magnesium 2.4 mg/dL (1.6-2.6); Phosphorus 2.2 mg/dL (2.7-4.5); Potassium 3.6 mmol/L (3.3-5.1); Sodium 144 mmol/L (135-145); Triglycerides 111 mg/dL (<150)
[2024-08-25] MEDS: vancomycin HCL 500 MG in 0.9 % Sodium Chloride 100 ML 110 MG IV ×2 (05:59→18:24)
[2024-08-25] MEDS: Pantoprazole Sodium 40 MG/10 ML VIAL IVPUSH ×2 (05:59→15:52)
[2024-08-25 06:00] LABS: Glucose, Whole Blood 123 mg/dL (60-115)
[2024-08-25] MEDS: Potassium Phosphate/NS 15 MMOL/250 ML PLAST..BAG 62.5 MMOL IV ×2 (06:42→10:43)
--- NOTE | 2024-08-25 08:08 | P.PNCC_ITS ---
Subjective Subjective Date of Service: 08/25/24 Interval History: no significant overnight events Critical Care Time (minutes): 60 Physical Exam 2 Vital Signs: Vital Signs: Last Vital Signs Temp 98.2 F 08/25/24 07:00 Pulse 100 08/25/24 07:36 Resp 16 08/25/24 07:00 BP 142/55 H 08/25/24 07:36 Pulse Ox 100 08/25/24 07:33 O2 Del Method Mechanical Ventil ation 08/25/24 07:00 O2 Flow Rate 40 08/24/24 05:00 FiO2 21 08/25/24 07:33 BMI result Body Mass Index 15.9 Const: Other: intubated, sedated; some appreciable spontaneous movements General: comfortable HEENT: Head: Yes normal to inspection, Yes normocephalic and Yes atraumatic Eyes: General: appearance normal, both eyes and all related structures Neck: Neck: Yes normal visual inspection, Yes full ROM, Yes no meningeal signs, Yes trachea midline and Yes supple Chest: Chest palpation & inspection: normal inspection of the chest Resp: Other: no appreciable rales, rhonchi, wheezing Effort & Inspection: normal respiratory effort Cardio: Rate: regular rate Rhythm: regular rhythm GI: Inspection: Yes normal to inspection, No Abdominal wall edema and No distended Palpation (GI): Soft to palpation, not firm, nontender, no guarding and not rigid Skin: General skin exam: no rashes or lesions noted Neuro: General: tone normal, moves all extremities and no meningeal signs Extrem: General: Yes normal to inspection, Yes full ROM, Yes capillary refill normal and Yes no clubbing, cyanosis or edema Psych: Other: unable to assess Objective Data Labs 08/25/24 05:18 08/25/24 05:18 Labs: Laboratory Results - last 24 hr 08/21/24 08/22/24 08/22/24 21:21 14:07 23:50 WBC RBC Hgb Hct MCV MCH MCHC RDW Plt Count MPV Immature Gran % (Auto) Neut % (Auto) Lymph % (Auto) [place] % (Auto) Eos % (Auto) Baso % (Auto) Lymph # (Auto) [place] # (Auto) Eos # (Auto) Baso # (Auto) Abs Immat Gran (auto) Absolute Neuts (auto) Absolute Nucleated RBC Nucleated RBC % (auto) Smear Path Review VBG pH VBG pCO2 VBG pO2 VBG HCO3 VBG O2 Saturation VBG Base Excess Sodium Potassium Chloride Carbon Dioxide Anion Gap BUN Creatinine Estim Creat Clear Calc Estimated GFR POC Glucose Random Glucose Calcium Phosphorus Magnesium Albumin Triglycerides Stool H. pylori Ag SEE NOTE Random Vancomycin Hep C Viral Load [id number] H Hep C Viral Load Log 6.76 H Blood Type O Positive Antibody Screen NEGATIVE Crossmatch See Detail 08/23/24 08/24/24 08/24/24 16:18 12:02 16:02 WBC RBC Hgb Hct MCV MCH MCHC RDW Plt Count MPV Immature Gran % (Auto) Neut % (Auto) Lymph % (Auto) [place] % (Auto) Eos % (Auto) Baso % (Auto) Lymph # (Auto) [place] # (Auto) Eos # (Auto) Baso # (Auto) Abs Immat Gran (auto) Absolute Neuts (auto) Absolute Nucleated RBC Nucleated RBC % (auto) Smear Path Review SEE NOTE VBG pH VBG pCO2 VBG pO2 VBG HCO3 VBG O2 Saturation VBG Base Excess Sodium Potassium Chloride Carbon Dioxide Anion Gap BUN Creatinine Estim Creat Clear Calc Estimated GFR POC Glucose 102 Random Glucose Calcium Phosphorus Magnesium Albumin Triglycerides Stool H. pylori Ag Random Vancomycin 15.2 Hep C Viral Load Hep C Viral Load Log Blood Type Antibody Screen Crossmatch 08/24/24 08/24/24 08/24/24 17:07 18:05 23:20 WBC 9.3 RBC 3.33 L Hgb 11.0 L Hct 30.6 L MCV 91.9 MCH 33.0 MCHC 35.9 H RDW 18.6 H Plt Count 84 L MPV 9.1 L Immature Gran % (Auto) 0.8 H Neut % (Auto) 70.3 Lymph % (Auto) 20.6 [place] % (Auto) 6.6 Eos % (Auto) 1.4 Baso % (Auto) 0.3 Lymph # (Auto) 1.9 [place] # (Auto) 0.6 Eos # (Auto) 0.1 Baso # (Auto) 0.0 Abs Immat Gran (auto) 0.07 H Absolute Neuts (auto) 6.5 Absolute Nucleated RBC 0.000 Nucleated RBC % (auto) 0.0 Smear Path Review VBG pH VBG pCO2 VBG pO2 VBG HCO3 VBG O2 Saturation VBG Base Excess Sodium 152 H Potassium 3.3 Chloride 110 H Carbon Dioxide 27 Anion Gap 18 BUN 12 Creatinine 0.90 Estim Creat Clear Calc 42.1 Estimated GFR > 60 POC Glucose 104 143 H Random Glucose 115 Calcium 8.5 D Phosphorus 3.4 Magnesium 1.8 Albumin Triglycerides Stool H. pylori Ag Random Vancomycin Hep C Viral Load Hep C Viral Load Log Blood Type Antibody Screen Crossmatch 08/25/24 08/25/24 08/25/24 05:18 05:29 05:57 WBC 8.4 RBC 3.13 L Hgb 10.3 L Hct 29.2 L MCV 93.3 MCH 32.9 MCHC 35.3 H RDW 18.6 H Plt Count 68 L MPV 9.9 Immature Gran % (Auto) 0.8 H Neut % (Auto) 66.0 Lymph % (Auto) 22.9 [place] % (Auto) 6.1 Eos % (Auto) 4.0 Baso % (Auto) 0.2 Lymph # (Auto) 1.9 [place] # (Auto) 0.5 Eos # (Auto) 0.3 Baso # (Auto) 0.0 Abs Immat Gran (auto) 0.07 H Absolute Neuts (auto) 5.5 Absolute Nucleated RBC 0.020 H Nucleated RBC % (auto) 0.2 Smear Path Review VBG pH 7.56 H VBG pCO2 29 VBG pO2 193 VBG HCO3 27 H VBG O2 Saturation 100.0 VBG Base Excess 5.2 Sodium 144 Potassium 3.6 Chloride 109 H Carbon Dioxide 27 Anion Gap 12 BUN 11 Creatinine 0.78 Estim Creat Clear Calc 48.5 Estimated GFR > 60 POC Glucose 123 H Random Glucose 135 H Calcium 8.2 L Phosphorus 2.2 L Magnesium 2.4 Albumin 3.1 L Triglycerides 111 Stool H. pylori Ag Random Vancomycin Hep C Viral Load Hep C Viral Load Log Blood Type Antibody Screen Crossmatch Microbiology Microbiology Results: Microbiology 08/22/24 14:07 Blood - Venous Blood Culture - Preliminary No growth after 48 hours. 08/22/24 14:10 Blood - Venous Blood Culture - Preliminary No growth after 48 hours. Progress Note: A&P Assessment and plan (1) Cardiac arrest: Status: Acute (2) Acute upper gastrointestinal bleeding: Status: Acute Plan Patient is a 58 Y F, overall poor historian, reports 2-day history of hematemesis, who initially presented to emergency department on 08/21, found?to have acute blood loss anemia in setting of upper gastrointestinal bleeding, admitted to medicine; on 10 AM w/ witnessed large-volume bright red hematemesis, urgently intubated, and admitted to ICU N: intubated, sedated w/ propofol, fentanyl gtt, wean as tolerated CV: PEA 08/23 PM, of unclear etiology, possibly vaso-vagal episode; hypotension, c/f hemorrhagic shock; transfusions as needed; norepinephrine gtt as needed; echocardiogram w/ focal wall motion abnormality; cardiology consulted R: intubated in setting of large-volume hematemesis, wean as tolerated GI: upper GI bleed; of note, son reports prior significant alcohol misuse, indiscriminate?acetaminophen use; found to have hepatitis B and C reactivity; s/p EGD 08/22 PM demonstrating bleeding ulcer, s/p clip, cauterization; pantoprazole, sucralfate; appreciate GI recommendations : no acute issues; to closely monitor/replete electrolytes, renal indices H: acute blood loss anemia d/t upper GI bleed; transfusions, calcium as needed; to avoid chemical DVT prophylaxis; mechanical devices; thrombocytopenia, to closely monitor, transfuse as needed ID: no overt stigmata of infection, though in setting of cardiac arrest, started on empiric antibiotics E: no acute issues; to monitor hyper-/hypo-glycemia P: no acute issues Quality Stroke Does the patient have a stroke diagnosis?: No VTE Prior VTE?: No VTE Risk Level:: Medical - moderate - high VTE Device Contraindication: N/A - Device Ordered VTE Drug Contraindication: Treatment Not Tolerated
[2024-08-25] MEDS: Calcium Chloride 1 GM/10 ML SYRINGE IVPUSH (08:17)
[2024-08-25] MEDS: Sucralfate 1 GM TABLET PO ×3 (08:25→16:50)
[2024-08-25] MEDS: Albumin Human 25 % 50 ML 100 ML IV (08:28)
[2024-08-25 09:00] LABS: Troponin-I High Sensitivity 83.7 ng/L (<3.5-17.0)
[2024-08-25 11:59] LABS: Glucose, Whole Blood 116 mg/dL (60-115)
[2024-08-25] MEDS: fentaNYL citrate/NS 1,000 MCG/100 ML PLAST..BAG 5 MCG IVCONT (16:20)
[2024-08-25 17:33] LABS: HIV RNA PCR Qn Copies Not Detected Copies/mL; HIV RNA PCR Qn Log Copies Not Detected Log cps/mL
[2024-08-25 17:39] LABS: Glucose, Whole Blood 110 mg/dL (60-115)
[2024-08-25 18:08] LABS: MANUAL DIFF FLAG NO
[2024-08-25 18:10] LABS: Basophils Percent Auto 0.4 % (0-2); Eosinophils Absolute Auto 0.4 X10*3/uL (0.0-0.4); Eosinophils Percent Auto 4.4 % (0-4); Hematocrit 27.8 % (37.0-47.0); Hemoglobin 9.7 g/dl (12.0-16.0); Imm Gran Abs Auto 0.06 X10*3/uL (0.00-0.03); Imm Gran Pct Auto 0.7 % (0.0-0.4); Lymphocytes Absolute Auto 2.1 X10*3/uL (1.2-4.9); Lymphocytes Percent Auto 24.4 % (20-40); Mean Corpuscular HGB Conc 34.9 g/dl (31.0-35.0); Mean Corpuscular Hemoglobin 33.6 pg (27.0-33.0); Mean Corpuscular Volume 96.2 fL (80.0-98.0); Mean Platelet Volume 9.6 fL (9.4-12.3); Monocytes Absolute Auto 0.7 X10*3/uL (0.1-1.2); Monocytes Percent Auto 7.7 % (2-11); Neutrophils Absolute Auto 5.3 x10*3/uL (2.0-8.3); Neutrophils Percent Auto 62.4 % (45-73); Red Blood Count 2.89 X10*6/uL (4.20-5.50); Red Cell Distribution Width 18.7 % (11.0-16.0); White Blood Count 8.6 X10*3/uL (4.8-10.8)
[2024-08-25 18:11] LABS: Platelet Count 85 X10*3/uL (160-400)
[2024-08-25 18:12] LABS: Vancomycin Random 15.1 mcg/mL (15-20)
[2024-08-25 18:32] LABS: Anion Gap 12 (12-20); Blood Urea Nitrogen 10 mg/dL (9-16); Calcium 8.7 mg/dL (8.4-10.2); Carbon Dioxide 25 mmol/L (22-29); Chloride 110 mmol/L (96-108); Creatinine Clr Calc Pharmacy 53.1; Estimated Glomerular Filt Rate > 60; Glucose Random 135 mg/dL (60-115); Magnesium 2.1 mg/dL (1.6-2.6); Potassium 3.8 mmol/L (3.3-5.1); Sodium 143 mmol/L (135-145)
[2024-08-25] MEDS: Midazolam HCl/PF 2 MG/2 ML VIAL IVPUSH ×2 (20:34→22:18)
[2024-08-25] MEDS: Parenteral Nutrition 1,320 ML 55 ML IV (21:02)
[2024-08-25] MEDS: propofoL 1,000 MG/100 ML VIAL 12.6 MG IVCONT (22:19)
[2024-08-25] MEDS: Chlorhexidine Gluc Oral Rinse 15 ML MOUTHWASH BUCCAL (22:19)
[2024-08-25 23:53] LABS: Glucose, Whole Blood 162 mg/dL (60-115)
[2024-08-26] VITALS (37 sets, daily range): BP systolic 101–170; BP diastolic 42–80; PULSE 69–104; RESP 16–17; TEMP 35–38; O2SAT 95–100; BMI 17.9
[2024-08-26] MEDS: Insulin Lispro 100 UNIT/ML 3 ML VIAL SUBCUT (00:29)
[2024-08-26] MEDS: Piperacillin Sodium/Tazobactam 3.375 GM in 0.9 % Sodium Chloride 50 ML IV (00:30)
[2024-08-26] MEDS: Midazolam HCl/PF 2 MG/2 ML VIAL IVPUSH ×3 (04:30→20:55)
[2024-08-26] MEDS: propofoL 1,000 MG/100 ML VIAL 10.08 MG IVCONT (05:17)
[2024-08-26 05:20] LABS: VBG Base Excess 3.1 mmol/L; VBG HCO3 27 mmol/L (22-26); VBG pCO2 39 mmHg; VBG pH 7.44 (7.32-7.43); VBG pO2 45 mmHg
[2024-08-26] MEDS: Pantoprazole Sodium 40 MG/10 ML VIAL IVPUSH ×2 (05:22→16:56)
[2024-08-26] MEDS: vancomycin HCL 500 MG in 0.9 % Sodium Chloride 100 ML 110 MG IV ×2 (05:23→18:17)
[2024-08-26 05:43] LABS: MANUAL DIFF FLAG NO
[2024-08-26 05:44] LABS: Basophils Percent Auto 0.4 % (0-2); Eosinophils Absolute Auto 0.4 X10*3/uL (0.0-0.4); Eosinophils Percent Auto 5.1 % (0-4); Hemoglobin 10.3 g/dl (12.0-16.0); Imm Gran Abs Auto 0.04 X10*3/uL (0.00-0.03); Imm Gran Pct Auto 0.5 % (0.0-0.4); Lymphocytes Absolute Auto 1.8 X10*3/uL (1.2-4.9); Lymphocytes Percent Auto 21.3 % (20-40); Mean Corpuscular HGB Conc 33.2 g/dl (31.0-35.0); Mean Corpuscular Hemoglobin 32.5 pg (27.0-33.0); Mean Corpuscular Volume 97.8 fL (80.0-98.0); Mean Platelet Volume 10.2 fL (9.4-12.3); Monocytes Absolute Auto 0.7 X10*3/uL (0.1-1.2); Monocytes Percent Auto 8.8 % (2-11); Neutrophils Absolute Auto 5.4 x10*3/uL (2.0-8.3); Neutrophils Percent Auto 63.9 % (45-73); Red Blood Count 3.17 X10*6/uL (4.20-5.50); Red Cell Distribution Width 18.8 % (11.0-16.0); White Blood Count 8.4 X10*3/uL (4.8-10.8)
[2024-08-26 05:45] LABS: Platelet Count 90 X10*3/uL (160-400)
[2024-08-26 05:47] LABS: Venous Blood Gas Refer to POC result
[2024-08-26 05:58] LABS: Albumin Level 2.9 g/dL (3.5-5.0); Anion Gap 10 (12-20); Blood Urea Nitrogen 10 mg/dL (9-16); Carbon Dioxide 27 mmol/L (22-29); Chloride 109 mmol/L (96-108); Estimated Glomerular Filt Rate > 60; Glucose Random 113 mg/dL (60-115); Phosphorus 3.7 mg/dL (2.7-4.5); Potassium 3.8 mmol/L (3.3-5.1); Sodium 142 mmol/L (135-145)
[2024-08-26 07:33] LABS: Glucose, Whole Blood 130 mg/dL (60-115)
[2024-08-26] MEDS: Chlorhexidine Gluc Oral Rinse 15 ML MOUTHWASH BUCCAL ×3 (07:55→20:47)
[2024-08-26] MEDS: 0.9 % Sodium Chloride Flush 3 ML SYRINGE IVFLUSH ×2 (07:55→23:30)
[2024-08-26] MEDS: Albumin Human 25 % 100 ML IV (07:58)
--- NOTE | 2024-08-26 08:35 | P.PNCC_ITS ---
Subjective Subjective Date of Service: 08/26/24 Interval History: no significant overnight events Critical Care Time (minutes): 60 Physical Exam 2 Vital Signs: Vital Signs: Last Vital Signs Temp 99.3 F 08/26/24 08:00 Pulse 89 08/26/24 08:00 Resp 16 08/26/24 08:00 BP 124/45 L 08/26/24 08:00 Pulse Ox 100 08/26/24 08:00 O2 Del Method Mechanical Ventil ation 08/26/24 08:00 O2 Flow Rate 40 08/24/24 05:00 FiO2 21 08/26/24 08:00 BMI result Body Mass Index 17.9 Const: Other: intubated, sedated; appreciable spontaneous movements HEENT: Head: Yes normal to inspection, Yes normocephalic and Yes atraumatic Eyes: General: appearance normal, both eyes and all related structures Neck: Neck: Yes normal visual inspection, Yes full ROM, Yes no meningeal signs, Yes trachea midline and Yes supple Chest: Chest palpation & inspection: normal inspection of the chest Resp: Other: no appreciable rales, rhonchi, wheezing Effort & Inspection: normal respiratory effort Cardio: Rate: regular rate Rhythm: regular rhythm GI: Inspection: Yes normal to inspection, No Abdominal wall edema and No distended Palpation (GI): Soft to palpation, not firm, nontender, no guarding and not rigid Skin: General skin exam: no rashes or lesions noted Neuro: General: tone normal, moves all extremities and no meningeal signs Extrem: General: Yes normal to inspection, Yes full ROM, Yes capillary refill normal and Yes no clubbing, cyanosis or edema Psych: Other: unable to assess Objective Data Labs 08/26/24 05:09 08/26/24 05:09 Labs: Laboratory Results - last 24 hr 08/22/24 08/25/24 08/25/24 14:08 08:20 11:55 WBC RBC Hgb Hct MCV MCH MCHC RDW Plt Count MPV Immature Gran % (Auto) Neut % (Auto) Lymph % (Auto) [place] % (Auto) Eos % (Auto) Baso % (Auto) Lymph # (Auto) [place] # (Auto) Eos # (Auto) Baso # (Auto) Abs Immat Gran (auto) Absolute Neuts (auto) Absolute Nucleated RBC Nucleated RBC % (auto) VBG pH VBG pCO2 VBG pO2 VBG HCO3 VBG O2 Saturation VBG Base Excess Sodium Potassium Chloride Carbon Dioxide Anion Gap BUN Creatinine Estim Creat Clear Calc Estimated GFR POC Glucose 116 H Random Glucose Calcium Phosphorus Magnesium Troponin I High Sens 83.7 H* Albumin Random Vancomycin HIV-1 RNA copies/mL Not Detected HIV-1 RNA logcopies/mL Not Detected Blood Type O Positive Antibody Screen NEGATIVE 08/25/24 08/25/24 08/25/24 15:49 17:36 17:56 WBC 8.6 RBC 2.89 L Hgb 9.7 L Hct 27.8 L MCV 96.2 MCH 33.6 H MCHC 34.9 RDW 18.7 H Plt Count 85 L MPV 9.6 Immature Gran % (Auto) 0.7 H Neut % (Auto) 62.4 Lymph % (Auto) 24.4 [place] % (Auto) 7.7 Eos % (Auto) 4.4 H Baso % (Auto) 0.4 Lymph # (Auto) 2.1 [place] # (Auto) 0.7 Eos # (Auto) 0.4 Baso # (Auto) 0.0 Abs Immat Gran (auto) 0.06 H Absolute Neuts (auto) 5.3 Absolute Nucleated RBC 0.000 Nucleated RBC % (auto) 0.0 VBG pH VBG pCO2 VBG pO2 VBG HCO3 VBG O2 Saturation VBG Base Excess Sodium 143 Potassium 3.8 Chloride 110 H Carbon Dioxide 25 Anion Gap 12 BUN 10 Creatinine 0.70 Estim Creat Clear Calc 53.1 Estimated GFR > 60 POC Glucose 110 Random Glucose 135 H Calcium 8.7 D Phosphorus 4.0 Magnesium 2.1 Troponin I High Sens Albumin Random Vancomycin 15.1 HIV-1 RNA copies/mL HIV-1 RNA logcopies/mL Blood Type Antibody Screen 08/25/24 08/26/24 08/26/24 23:49 05:09 05:10 WBC 8.4 RBC 3.17 L Hgb 10.3 L Hct 31.0 L MCV 97.8 MCH 32.5 MCHC 33.2 RDW 18.8 H Plt Count 90 L MPV 10.2 Immature Gran % (Auto) 0.5 H Neut % (Auto) 63.9 Lymph % (Auto) 21.3 [place] % (Auto) 8.8 Eos % (Auto) 5.1 H Baso % (Auto) 0.4 Lymph # (Auto) 1.8 [place] # (Auto) 0.7 Eos # (Auto) 0.4 Baso # (Auto) 0.0 Abs Immat Gran (auto) 0.04 H Absolute Neuts (auto) 5.4 Absolute Nucleated RBC 0.000 Nucleated RBC % (auto) 0.0 VBG pH 7.44 H VBG pCO2 39 VBG pO2 45 VBG HCO3 27 H VBG O2 Saturation 71.0 VBG Base Excess 3.1 Sodium 142 Potassium 3.8 Chloride 109 H Carbon Dioxide 27 Anion Gap 10 L BUN 10 Creatinine 0.75 Estim Creat Clear Calc 56.0 Estimated GFR > 60 POC Glucose 162 H Random Glucose 113 Calcium 9.0 Phosphorus 3.7 Magnesium 2.0 Troponin I High Sens Albumin 2.9 L Random Vancomycin HIV-1 RNA copies/mL HIV-1 RNA logcopies/mL Blood Type Antibody Screen 08/26/24 07:25 WBC RBC Hgb Hct MCV MCH MCHC RDW Plt Count MPV Immature Gran % (Auto) Neut % (Auto) Lymph % (Auto) [place] % (Auto) Eos % (Auto) Baso % (Auto) Lymph # (Auto) [place] # (Auto) Eos # (Auto) Baso # (Auto) Abs Immat Gran (auto) Absolute Neuts (auto) Absolute Nucleated RBC Nucleated RBC % (auto) VBG pH VBG pCO2 VBG pO2 VBG HCO3 VBG O2 Saturation VBG Base Excess Sodium Potassium Chloride Carbon Dioxide Anion Gap BUN Creatinine Estim Creat Clear Calc Estimated GFR POC Glucose 130 H Random Glucose Calcium Phosphorus Magnesium Troponin I High Sens Albumin Random Vancomycin HIV-1 RNA copies/mL HIV-1 RNA logcopies/mL Blood Type Antibody Screen Microbiology Microbiology Results: Microbiology 08/22/24 14:07 Blood - Venous Blood Culture - Preliminary No growth after 48 hours. 08/22/24 14:10 Blood - Venous Blood Culture - Preliminary No growth after 48 hours. Progress Note: A&P Assessment and plan (1) GI bleed: Status: Acute (2) Cardiac arrest: Status: Acute Plan Patient is a 58 Y F, overall poor historian, reports 2-day history of hematemesis, who initially presented to emergency department on 08/21, found?to have acute blood loss anemia in setting of upper gastrointestinal bleeding, admitted to medicine; on 08/22 AM w/ witnessed large-volume bright red hematemesis, urgently intubated, and admitted to ICU N: intubated, sedated w/ propofol, fentanyl gtt, wean as tolerated CV: PEA 08/23 PM, of unclear etiology, possibly vaso-vagal episode; hypotension, c/f hemorrhagic shock; transfusions as needed; norepinephrine gtt as needed; echocardiogram w/ focal wall motion abnormality, appears stable from prior R: intubated in setting of large-volume hematemesis, wean as tolerated GI: upper GI bleed; of note, son reports prior significant alcohol misuse, indiscriminate?acetaminophen use; found to have hepatitis B and C reactivity; s/p EGD 08/22 PM demonstrating bleeding ulcer, s/p clip, cauterization; pantoprazole, sucralfate; appreciate GI recommendations : no acute issues; to closely monitor/replete electrolytes, renal indices H: acute blood loss anemia d/t upper GI bleed; transfusions, calcium as needed; to avoid chemical DVT prophylaxis; mechanical devices; thrombocytopenia, to closely monitor, transfuse as needed ID: no overt stigmata of infection, though in setting of cardiac arrest, s/p empiric antibiotics E: no acute issues; to monitor hyper-/hypo-glycemia P: no acute issues Quality Stroke Does the patient have a stroke diagnosis?: No VTE Prior VTE?: No VTE Risk Level:: Medical - moderate - high VTE Device Contraindication: N/A - Device Ordered VTE Drug Contraindication: Treatment Not Tolerated
[2024-08-26] MEDS: Sucralfate 1 GM TABLET PO ×4 (10:05→20:47)
[2024-08-26] MEDS: fentaNYL citrate/NS 1,000 MCG/100 ML PLAST..BAG 5 MCG IVCONT (11:23)
[2024-08-26] MEDS: propofoL 1,000 MG/100 ML VIAL 12.6 MG IVCONT ×3 (12:02→23:29)
[2024-08-26 12:05] LABS: Glucose, Whole Blood 115 mg/dL (60-115)
[2024-08-26 17:58] LABS: Glucose, Whole Blood 134 mg/dL (60-115)
[2024-08-26] MEDS: Parenteral Nutrition 1,320 ML 55 ML IV (21:29)
[2024-08-26 23:28] LABS: Glucose, Whole Blood 130 mg/dL (60-115)
[2024-08-27] VITALS (38 sets, daily range): BP systolic 84–182; BP diastolic 41–79; PULSE 77–129; RESP 14–32; TEMP 35–38.6; O2SAT 94–100; BMI 17.7
[2024-08-27] MEDS: Midazolam HCl/PF 2 MG/2 ML VIAL IVPUSH (01:23)
[2024-08-27] MEDS: Norepinephrine Bitartrate/D5W 8 MG/250 ML PLAST..BAG 3.94 MG IVCONT (01:48)
[2024-08-27] MEDS: propofoL 1,000 MG/100 ML VIAL 12.6 MG IVCONT (04:55)
[2024-08-27] MEDS: fentaNYL citrate/NS 1,000 MCG/100 ML PLAST..BAG 5 MCG IVCONT (04:56)
[2024-08-27 05:09] LABS: VBG Base Excess 1.6 mmol/L; VBG HCO3 24 mmol/L (22-26); VBG pCO2 32 mmHg; VBG pH 7.48 (7.32-7.43); VBG pO2 54 mmHg
[2024-08-27 05:13] LABS: Glucose, Whole Blood 125 mg/dL (60-115)
[2024-08-27 05:20] LABS: MANUAL DIFF FLAG NO
[2024-08-27 05:24] LABS: Basophils Absolute Auto 0.1 X10*3/uL (0.0-0.2); Basophils Percent Auto 0.6 % (0-2); Eosinophils Absolute Auto 0.6 X10*3/uL (0.0-0.4); Eosinophils Percent Auto 5.7 % (0-4); Hematocrit 28.9 % (37.0-47.0); Hemoglobin 9.8 g/dl (12.0-16.0); Imm Gran Abs Auto 0.06 X10*3/uL (0.00-0.03); Imm Gran Pct Auto 0.6 % (0.0-0.4); Lymphocytes Percent Auto 20.1 % (20-40); Mean Corpuscular HGB Conc 33.9 g/dl (31.0-35.0); Mean Corpuscular Hemoglobin 33.2 pg (27.0-33.0); Mean Platelet Volume 10.2 fL (9.4-12.3); Monocytes Absolute Auto 1.2 X10*3/uL (0.1-1.2); Monocytes Percent Auto 11.7 % (2-11); Neutrophils Absolute Auto 6.1 x10*3/uL (2.0-8.3); Neutrophils Percent Auto 61.3 % (45-73); Red Blood Count 2.95 X10*6/uL (4.20-5.50); Red Cell Distribution Width 18.1 % (11.0-16.0); White Blood Count 9.9 X10*3/uL (4.8-10.8)
[2024-08-27 05:27] LABS: Platelet Count 87 X10*3/uL (160-400)
[2024-08-27 05:30] LABS: Venous Blood Gas Refer to POC result
[2024-08-27] MEDS: Pantoprazole Sodium 40 MG/10 ML VIAL IVPUSH ×2 (05:31→17:30)
[2024-08-27 05:43] LABS: Albumin Level 3.1 g/dL (3.5-5.0); Anion Gap 10 (12-20); Blood Urea Nitrogen 9 mg/dL (9-16); Calcium 9.7 mg/dL (8.4-10.2); Carbon Dioxide 24 mmol/L (22-29); Chloride 109 mmol/L (96-108); Estimated Glomerular Filt Rate > 60; Glucose Random 127 mg/dL (60-115); Magnesium 1.9 mg/dL (1.6-2.6); Phosphorus 2.5 mg/dL (2.7-4.5); Potassium 3.6 mmol/L (3.3-5.1); Sodium 139 mmol/L (135-145)
[2024-08-27] MEDS: Potassium Phosphate/NS 15 MMOL/250 ML PLAST..BAG 62.5 MMOL IV (06:01)
[2024-08-27] MEDS: 0.9 % Sodium Chloride Flush 3 ML SYRINGE IVFLUSH ×2 (08:03→17:00)
[2024-08-27] MEDS: Chlorhexidine Gluc Oral Rinse 15 ML MOUTHWASH BUCCAL (08:03)
[2024-08-27] MEDS: Sucralfate 1 GM TABLET PO (08:03)
--- NOTE | 2024-08-27 09:42 | MHC.CLN ---
F/U PT IS MODERATELY MALNOURISHED SEE ALSO FULL CLINICAL NUTRITION ASSESSMENT DATED 08/24/24 REMAINS NPO PT IS ALSO INTUBATED AND SEDATED DISCUSSED AT ROUND WITH MD REVIEWED LABS PT RECEIVING TPN AT MAX GOAL RATE 55ML/HR WITH 33G LIPIDS PROVIDES 1267 TOTAL KCALS (30KCALS/KG), 198G DEXTROSE, 66G PROTEIN (1.6G/KG) TPN WILL PROMOTE WOUND HEALING WITH 1.6G/KG PROTEIN REPLETE LYTES NEEDED CONTINUE CURRENT CARE PLAN
--- NOTE | 2024-08-27 09:57 | PC.RT ---
attempted extubation per MD order. patient did not have a cuff leak. MD at bedside. Patient remains intubated. Plan for CT scan of neck
--- NOTE | 2024-08-27 10:00 | P.PNCC_ITS ---
Subjective Subjective Date of Service: 08/27/24 Interval History: 58-year-old lady with underlying CVA, COPD, hypertension, DVT not on anticoagulation admitted on 08/22/2024 with upper GI bleed with large volume hematemesis in the emergency room requiring intubation. Status post EGD on 08/22 demonstrating bleeding ulcer status post glue placement in catheterization with no recurrence of GI bleed. Hospital course also complicated by brief PE cardiac arrest versus vagal episode with return of spontaneous circulation after 1 round of resuscitation, remains intubated in the intensive care unit. No events overnight. This a.m. doing well on pressor support trial, however no ET tube cuff leak. Critical Care Time (minutes): 60 Physical Exam 2 Vital Signs: Vital Signs: Last Vital Signs Temp 100.2 F 08/27/24 09:00 Pulse 99 08/27/24 09:00 Resp 16 08/27/24 09:00 BP 120/56 L 08/27/24 09:00 Pulse Ox 96 08/27/24 09:00 O2 Del Method Mechanical Ventil ation 08/27/24 09:00 O2 Flow Rate 40 08/24/24 05:00 FiO2 21 08/27/24 09:35 BMI result Body Mass Index 17.7 Const: General: no acute distress and other (Sedated on ventilatory support) Nutritional Appearance: malnourished Eyes: Sclerae: sclerae normal EOM: EOMs intact bilaterally Neck: Neck: Yes no lymphadenopathy, Yes trachea midline and Yes supple Resp: Effort & Inspection: no respiratory distress Auscultation: clear to auscultation bilaterally Cardio: Rate: regular rate Rhythm: regular rhythm Heart sounds: no gallops, no murmurs and no rubs GI: Palpation (GI): Soft to palpation and Other GI palpation findings present ( Nontender) Auscultation: normal bowel sounds Extrem: General: Yes no pedal edema, No clubbing and No cyanosis Objective Data Labs 08/27/24 05:04 08/27/24 05:04 Labs: Laboratory Results - last 24 hr 08/26/24 08/26/24 08/26/24 11:51 15:56 17:55 WBC RBC Hgb Hct MCV MCH MCHC RDW Plt Count MPV Immature Gran % (Auto) Neut % (Auto) Lymph % (Auto) [place] % (Auto) Eos % (Auto) Baso % (Auto) Lymph # (Auto) [place] # (Auto) Eos # (Auto) Baso # (Auto) Abs Immat Gran (auto) Absolute Neuts (auto) Absolute Nucleated RBC Nucleated RBC % (auto) VBG pH VBG pCO2 VBG pO2 VBG HCO3 VBG O2 Saturation VBG Base Excess Sodium Potassium Chloride Carbon Dioxide Anion Gap BUN Creatinine Estim Creat Clear Calc Estimated GFR POC Glucose 115 134 H Random Glucose Calcium Phosphorus Magnesium Albumin Random Vancomycin 14.0 L 08/26/24 08/27/24 08/27/24 23:25 04:58 05:04 WBC 9.9 RBC 2.95 L Hgb 9.8 L Hct 28.9 L MCV 98.0 MCH 33.2 H MCHC 33.9 RDW 18.1 H Plt Count 87 L MPV 10.2 Immature Gran % (Auto) 0.6 H Neut % (Auto) 61.3 Lymph % (Auto) 20.1 [place] % (Auto) 11.7 H Eos % (Auto) 5.7 H Baso % (Auto) 0.6 Lymph # (Auto) 2.0 [place] # (Auto) 1.2 Eos # (Auto) 0.6 H Baso # (Auto) 0.1 Abs Immat Gran (auto) 0.06 H Absolute Neuts (auto) 6.1 Absolute Nucleated RBC 0.000 Nucleated RBC % (auto) 0.0 VBG pH 7.48 H VBG pCO2 32 VBG pO2 54 VBG HCO3 24 VBG O2 Saturation 86.0 VBG Base Excess 1.6 Sodium 139 Potassium 3.6 Chloride 109 H Carbon Dioxide 24 Anion Gap 10 L BUN 9 Creatinine 0.67 Estim Creat Clear Calc 62.0 Estimated GFR > 60 POC Glucose 130 H Random Glucose 127 H Calcium 9.7 D Phosphorus 2.5 L Magnesium 1.9 Albumin 3.1 L Random Vancomycin 08/27/24 05:07 WBC RBC Hgb Hct MCV MCH MCHC RDW Plt Count MPV Immature Gran % (Auto) Neut % (Auto) Lymph % (Auto) [place] % (Auto) Eos % (Auto) Baso % (Auto) Lymph # (Auto) [place] # (Auto) Eos # (Auto) Baso # (Auto) Abs Immat Gran (auto) Absolute Neuts (auto) Absolute Nucleated RBC Nucleated RBC % (auto) VBG pH VBG pCO2 VBG pO2 VBG HCO3 VBG O2 Saturation VBG Base Excess Sodium Potassium Chloride Carbon Dioxide Anion Gap BUN Creatinine Estim Creat Clear Calc Estimated GFR POC Glucose 125 H Random Glucose Calcium Phosphorus Magnesium Albumin Random Vancomycin Microbiology Microbiology Results: Microbiology 08/22/24 14:07 Blood - Venous Blood Culture - Preliminary No growth after 48 hours. 08/22/24 14:10 Blood - Venous Blood Culture - Preliminary No growth after 48 hours. Progress Note: A&P Assessment and plan (1) Cardiac arrest: Status: Acute (2) GI bleed: Status: Acute (3) COPD (chronic obstructive pulmonary disease): Status: Acute Plan Assessment: 58-year-old lady admitted with upper GI bleed secondary to bleeding gastric ulcer, now status post EGD with intervention. Hospital course complicated by pea arrest sources vagal episode with brief CP, remains intubated. Plan: Neuro: No acute issues. Cardiac: Hemorrhagic shock resolved. Pulmonary: Tolerating pressure support trial well, however with no cuff leak the same. Will obtain tracheal imaging. Renal: No acute issues. Endo: No acute issues. GI: Upper GI bleed status post EGD demonstrating a bleeding ulcer, now status post intervention with no rebleeding. Gastroenterology service care appreciated. ID: No acute issues Heme/Onc: Acute blood loss anemia secondary to GI bleed, resolved. Continue to monitor hemoglobin level. Psych: No acute issues. Miscellaneous: No acute issues. Prophylaxis: Pneumatic compression, ppi Diet: Tube feeds Critical care time spent: 60 minutes Quality Stroke Does the patient have a stroke diagnosis?: No VTE Prior VTE?: No VTE Risk Level:: Medical - moderate - high VTE Device Contraindication: N/A - Device Ordered VTE Drug Contraindication: Treatment Not Tolerated
[2024-08-27 12:06] LABS: Glucose, Whole Blood 136 mg/dL (60-115)
--- NOTE | 2024-08-27 13:38 | MHC.CM.PN ---
Pt remains intubated: goals of care for today are to trial a sedation vacation to assess for vent weaning ability. Pt's d/c plans remain undetermined pending extubation and formal assessment of functional abilities.
[2024-08-27] MEDS: HYDROmorphone HCl 1 MG/ML SYRINGE IVPUSH ×3 (15:16→22:42)
[2024-08-27 17:09] LABS: Vancomycin Random 7.9 mcg/mL (15-20)
[2024-08-27] MEDS: Haloperidol Lactate 5 MG/ML VIAL IVPUSH (17:47)
[2024-08-27 18:04] LABS: Glucose, Whole Blood 144 mg/dL (60-115)
[2024-08-27 20:35] LABS: MANUAL DIFF FLAG NO
[2024-08-27 20:36] LABS: Basophils Percent Auto 0.4 % (0-2); Eosinophils Absolute Auto 0.3 X10*3/uL (0.0-0.4); Eosinophils Percent Auto 2.6 % (0-4); Hematocrit 29.1 % (37.0-47.0); Hemoglobin 9.7 g/dl (12.0-16.0); Imm Gran Abs Auto 0.06 X10*3/uL (0.00-0.03); Imm Gran Pct Auto 0.6 % (0.0-0.4); Lymphocytes Absolute Auto 1.3 X10*3/uL (1.2-4.9); Lymphocytes Percent Auto 13.2 % (20-40); Mean Corpuscular HGB Conc 33.3 g/dl (31.0-35.0); Mean Corpuscular Hemoglobin 33.1 pg (27.0-33.0); Mean Corpuscular Volume 99.3 fL (80.0-98.0); Mean Platelet Volume 10.1 fL (9.4-12.3); Monocytes Absolute Auto 1.5 X10*3/uL (0.1-1.2); Monocytes Percent Auto 15.3 % (2-11); Neutrophils Absolute Auto 6.4 x10*3/uL (2.0-8.3); Neutrophils Percent Auto 67.9 % (45-73); Platelet Count 75 X10*3/uL (160-400); Red Blood Count 2.93 X10*6/uL (4.20-5.50); Red Cell Distribution Width 18.3 % (11.0-16.0); White Blood Count 9.5 X10*3/uL (4.8-10.8)
[2024-08-27 20:45] LABS: Lactic Acid 1.2 mmol/L (0.5-2.0)
[2024-08-27 20:49] LABS: Albumin Level 3.2 g/dL (3.5-5.0); Anion Gap 10 (12-20); Blood Urea Nitrogen 9 mg/dL (9-16); Calcium 10.1 mg/dL (8.4-10.2); Carbon Dioxide 24 mmol/L (22-29); Chloride 111 mmol/L (96-108); Estimated Glomerular Filt Rate > 60; Glucose Random 152 mg/dL (60-115); Potassium 3.9 mmol/L (3.3-5.1); Sodium 141 mmol/L (135-145)
[2024-08-27] MEDS: Acetaminophen Supp 650 MG SUPP.RECT PR (20:49)
[2024-08-27] MEDS: Albumin Human 25 % 100 ML IV (21:15)
[2024-08-27] MEDS: Parenteral Nutrition 1,320 ML 55 ML IV (21:52)
[2024-08-28] VITALS (17 sets, daily range): BP systolic 128–167; BP diastolic 50–100; PULSE 95–124; RESP 13–25; TEMP 36.9–38.9; O2SAT 93–100; BMI 17.8
[2024-08-28] LABS: Glucose, Whole Blood 138 mg/dL (60-115)
[2024-08-28] MEDS: Albumin Human 25 % 100 ML IV ×3 (02:13→15:39)
[2024-08-28] MEDS: HYDROmorphone HCl 1 MG/ML SYRINGE IVPUSH ×6 (03:02→23:20)
[2024-08-28 05:31] LABS: VBG Base Excess 1.8 mmol/L; VBG HCO3 25 mmol/L (22-26); VBG pCO2 35 mmHg; VBG pH 7.45 (7.32-7.43); VBG pO2 52 mmHg
[2024-08-28] MEDS: Pantoprazole Sodium 40 MG/10 ML VIAL IVPUSH ×2 (05:34→16:03)
[2024-08-28 05:38] LABS: Venous Blood Gas Refer to POC result
[2024-08-28 06:13] LABS: Hemoglobin 8.2 g/dl (12.0-16.0); Lymphocytes Absolute Auto 1.3 X10*3/uL (1.2-4.9); Neutrophils Percent Auto 64.7 % (45-73); PLT CLUMP 1; SCAN SMEAR FLAG 1
[2024-08-28 06:15] LABS: Basophils Percent Auto 0.4 % (0-2); Eosinophils Absolute Auto 0.3 X10*3/uL (0.0-0.4); Eosinophils Percent Auto 3.3 % (0-4); Hematocrit 24.9 % (37.0-47.0); Imm Gran Abs Auto 0.03 X10*3/uL (0.00-0.03); Imm Gran Pct Auto 0.4 % (0.0-0.4); Lymphocytes Percent Auto 16.6 % (20-40); MANUAL DIFF FLAG SCAN; Mean Corpuscular HGB Conc 32.9 g/dl (31.0-35.0); Mean Corpuscular Hemoglobin 33.2 pg (27.0-33.0); Mean Corpuscular Volume 100.8 fL (80.0-98.0); Mean Platelet Volume 10.7 fL (9.4-12.3); Monocytes Absolute Auto 1.1 X10*3/uL (0.1-1.2); Monocytes Percent Auto 14.6 % (2-11); Neutrophils Absolute Auto 4.9 x10*3/uL (2.0-8.3); Red Blood Count 2.47 X10*6/uL (4.20-5.50)
[2024-08-28 06:17] LABS: Platelet Count 69 X10*3/uL (160-400); White Blood Count 7.5 X10*3/uL (4.8-10.8)
[2024-08-28 06:23] LABS: Alanine Aminotransferase 94 U/L (0-31); Albumin Level 3.9 g/dL (3.5-5.0); Alkaline Phosphatase 68 U/L (39-117); Anion Gap 12 (12-20); Aspartate Amino Transferase 280 U/L (5-31); Bilirubin Total 2.1 mg/dL (0.0-1.0); Blood Urea Nitrogen 9 mg/dL (9-16); Calcium 10.3 mg/dL (8.4-10.2); Carbon Dioxide 24 mmol/L (22-29); Chloride 112 mmol/L (96-108); Creatinine Clr Calc Pharmacy 64.2; Estimated Glomerular Filt Rate > 60; Glucose Random 140 mg/dL (60-115); Magnesium 2.1 mg/dL (1.6-2.6); Phosphorus 3.2 mg/dL (2.7-4.5); Potassium 3.9 mmol/L (3.3-5.1); Sodium 144 mmol/L (135-145); Total Protein 6.3 g/dL (6.5-8.0)
[2024-08-28 06:30] LABS: SLIDE REVIEW VERIFIED
[2024-08-28] MEDS: 0.9 % Sodium Chloride Flush 3 ML SYRINGE IVFLUSH ×3 (08:25→20:40)
[2024-08-28] MEDS: Metoprolol Succinate ER 25 MG TAB.ER.24H PO (08:52)
[2024-08-28] MEDS: Sucralfate 1 GM TABLET PO ×4 (08:52→20:34)
--- NOTE | 2024-08-28 09:53 | P.PNCC_ITS ---
Subjective Subjective Date of Service: 08/28/24 Interval History: 58-year-old lady with underlying CVA, COPD, hypertension, DVT not on anticoagulation admitted on 08/22/2024 with upper GI bleed with large volume hematemesis in the emergency room requiring intubation. Status post EGD on 08/22 demonstrating bleeding ulcer status post glue placement in catheterization with no recurrence of GI bleed. Hospital course also complicated by brief PE cardiac arrest versus vagal episode with return of spontaneous circulation after 1 round of resuscitation, extubated uneventfully on 08/27/2024. No events overnight. Critical Care Time (minutes): 0 Physical Exam 2 Vital Signs: Vital Signs: Last Vital Signs Temp 99.0 F 08/28/24 08:00 Pulse 109 H 08/28/24 09:00 Resp 20 08/28/24 09:00 BP 165/87 H 08/28/24 09:00 Pulse Ox 98 08/28/24 09:00 O2 Del Method Room Air 08/28/24 09:00 O2 Flow Rate 40 08/24/24 05:00 FiO2 21 08/27/24 12:00 BMI result Body Mass Index 17.8 Const: General: no acute distress, alert and awake Nutritional Appearance: malnourished Eyes: Sclerae: sclerae normal EOM: EOMs intact bilaterally Neck: Neck: Yes no lymphadenopathy, Yes trachea midline and Yes supple Resp: Effort & Inspection: normal respiratory effort and no respiratory distress Auscultation: clear to auscultation bilaterally Cardio: Rate: tachycardic Rhythm: regular rhythm Heart sounds: no gallops, no murmurs and no rubs GI: Palpation (GI): Soft to palpation and Other GI palpation findings present ( Nontender) Auscultation: normal bowel sounds Extrem: General: Yes no pedal edema, No clubbing and No cyanosis Objective Data Labs 08/28/24 05:26 08/28/24 05:26 Labs: Laboratory Results - last 24 hr 08/22/24 08/27/24 08/27/24 14:08 12:01 16:20 WBC RBC Hgb Hct MCV MCH MCHC RDW Plt Count MPV Immature Gran % (Auto) Neut % (Auto) Lymph % (Auto) [place] % (Auto) Eos % (Auto) Baso % (Auto) Lymph # (Auto) [place] # (Auto) Eos # (Auto) Baso # (Auto) Abs Immat Gran (auto) Absolute Neuts (auto) Absolute Nucleated RBC Nucleated RBC % (auto) Smear Tech's Comments VBG pH VBG pCO2 VBG pO2 VBG HCO3 VBG O2 Saturation VBG Base Excess Sodium Potassium Chloride Carbon Dioxide Anion Gap BUN Creatinine Estim Creat Clear Calc Estimated GFR POC Glucose 136 H Random Glucose Lactic Acid Calcium Phosphorus Magnesium Total Bilirubin AST ALT Alkaline Phosphatase Total Protein Albumin Random Vancomycin 7.9 L HIV Genotype TNP 08/27/24 08/27/24 08/27/24 17:59 20:24 20:25 WBC 9.5 RBC 2.93 L Hgb 9.7 L Hct 29.1 L MCV 99.3 H MCH 33.1 H MCHC 33.3 RDW 18.3 H Plt Count 75 L MPV 10.1 Immature Gran % (Auto) 0.6 H Neut % (Auto) 67.9 Lymph % (Auto) 13.2 L [place] % (Auto) 15.3 H Eos % (Auto) 2.6 Baso % (Auto) 0.4 Lymph # (Auto) 1.3 [place] # (Auto) 1.5 H Eos # (Auto) 0.3 Baso # (Auto) 0.0 Abs Immat Gran (auto) 0.06 H Absolute Neuts (auto) 6.4 Absolute Nucleated RBC 0.000 Nucleated RBC % (auto) 0.0 Smear Tech's Comments VBG pH VBG pCO2 VBG pO2 VBG HCO3 VBG O2 Saturation VBG Base Excess Sodium 141 Potassium 3.9 Chloride 111 H Carbon Dioxide 24 Anion Gap 10 L BUN 9 Creatinine 0.68 Estim Creat Clear Calc 61.0 Estimated GFR > 60 POC Glucose 144 H Random Glucose 152 H Lactic Acid 1.2 Calcium 10.1 Phosphorus 3.0 Magnesium 2.0 Total Bilirubin AST ALT Alkaline Phosphatase Total Protein Albumin 3.2 L Random Vancomycin HIV Genotype 08/27/24 08/28/24 08/28/24 23:56 05:21 05:26 WBC 7.5 RBC 2.47 L Hgb 8.2 L Hct 24.9 L MCV 100.8 H MCH 33.2 H MCHC 32.9 RDW 18.0 H Plt Count 69 L MPV 10.7 Immature Gran % (Auto) 0.4 Neut % (Auto) 64.7 Lymph % (Auto) 16.6 L [place] % (Auto) 14.6 H Eos % (Auto) 3.3 Baso % (Auto) 0.4 Lymph # (Auto) 1.3 [place] # (Auto) 1.1 Eos # (Auto) 0.3 Baso # (Auto) 0.0 Abs Immat Gran (auto) 0.03 Absolute Neuts (auto) 4.9 Absolute Nucleated RBC 0.000 Nucleated RBC % (auto) 0.0 Smear Tech's Comments VERIFIED VBG pH 7.45 H VBG pCO2 35 VBG pO2 52 VBG HCO3 25 VBG O2 Saturation 83.0 VBG Base Excess 1.8 Sodium 144 Potassium 3.9 Chloride 112 H Carbon Dioxide 24 Anion Gap 12 BUN 9 Creatinine 0.65 Estim Creat Clear Calc 64.2 Estimated GFR > 60 POC Glucose 138 H Random Glucose 140 H Lactic Acid Calcium 10.3 H Phosphorus 3.2 Magnesium 2.1 Total Bilirubin 2.1 H AST 280 H ALT 94 H Alkaline Phosphatase 68 Total Protein 6.3 L Albumin 3.9 Random Vancomycin HIV Genotype Microbiology Microbiology Results: Microbiology 08/22/24 14:10 Blood - Venous Blood Culture - Final No growth after 5 days. 08/22/24 14:07 Blood - Venous Blood Culture - Final No growth after 5 days. Progress Note: A&P Assessment and plan (1) Cardiac arrest: Status: Acute (2) GI bleed: Status: Acute (3) COPD (chronic obstructive pulmonary disease): Status: Acute (4) Protein-calorie malnutrition, moderate: Status: Acute Plan Assessment: 58-year-old lady admitted with upper GI bleed secondary to bleeding gastric ulcer, now status post EGD with intervention. Hospital course complicated by pea arrest sources vagal episode with brief CP, remains intubated. Plan: Neuro: No acute issues. Cardiac: Hemorrhagic shock resolved. Pulmonary: Extubated uneventfully on 08/27/2024. Now on room air. Renal: No acute issues. Endo: No acute issues. GI: Upper GI bleed status post EGD demonstrating a bleeding ulcer, now status post intervention with no rebleeding. Gastroenterology service care appreciated. Continues on PPI/Carafate. ID: No acute issues Heme/Onc: Acute blood loss anemia secondary to GI bleed, resolved. Continue to monitor hemoglobin level. Psych: No acute issues. Miscellaneous: No acute issues. Prophylaxis: Pneumatic compression, ppi Diet: Pending swallow evaluation Quality Stroke Does the patient have a stroke diagnosis?: No VTE Prior VTE?: No VTE Risk Level:: Medical - moderate - high VTE Device Contraindication: N/A - Device Ordered VTE Drug Contraindication: Treatment Not Tolerated
--- NOTE | 2024-08-28 09:58 | MHC.CLN ---
F/U PT EXTUBATED TODAY REMAINS NPO DISCUSSED AT ROUNDS WITH PT RECEIVED TPN AT MAX GOAL RATE 55ML/HR WITH 33G LIPIDS PROVIDED 1267 TOTAL KCALS (30KCALS/KG), 198G DEXTROSE, 66G PROTEIN (1.6G/KG) TPN D/C TODAY-PHARMACY AWARE REHABILITATION PROGRAM MANAGER EVAL FOR APPROPRIATE DIET CONSISTENCY PER NSG WHEN DIET TO ADVANCE; RECOMMEND ADDING NUTRITION SUPPLEMENT R/T MALNUTRITION AND WOUND HEALING FOLLOWING FOR DIET ADVANCEMENT
[2024-08-28 11:18] LABS: Glucose, Whole Blood 149 mg/dL (60-115)
--- NOTE | 2024-08-28 12:04 | MHC.SL.SWA ---
Speech Pathologist Impression: Risk of Aspiration Due to: Medically Fragile Poor PO Intake Hx of Recent Extubation Weak Cough Weak Voice Dysphasia Diet Status: FISH PROCESSOR recommending Ground/Mech Solids (NDD2) and Thin Liquids. Meds Whole with Puree. Pt can feed self, but may need assist with tray set-up and encouragement to finish meals. FISH PROCESSOR continues to follow. Liquid Consistency and Strategies for Safe Swallow: Liquid Intake Recommendation: Thin Liquid Intake Strategies: No Straws Solid Food Consistency: Dietary Recommendations: Grnd/Mech Altered (NDD2) Additional Modifications to Solid Foods: Oral Medication Intake: Whole with Puree Please contact the pharmacy regarding appropriate crushable or liquid drug formulations that are available whenever modified delivery is recommended. Compensatory Strategies and Precautions to be Taken for Safe Swallow: Sitting Upright (90 deg) No Straw Small Bites and Sips Alternate Liquids/Solids Rate of Ingestion Change Oral Check Avoid Specific Foods Supervision While Eating and Drinking for Safe Swallow: Intermittent Supervision Foods to Avoid: Mixed consistencies. Swallowing Recommended Treatments: FISH PROCESSOR recommending Ground/Mech Solids (NDD2) and Thin Liquids. Meds Whole with Puree. Pt can feed self, but may need assist with tray set-up and encouragement to finish meals. FISH PROCESSOR continues to follow. Hop Picker Clinican/Clinical Fellow: No Supervisory Statement: I have reviewed and agree with the student/clinical fellow's documentation: N/A Speech Language Pathologist: Didier Salazar M.A., [facility]-FISH PROCESSOR
[2024-08-28] MEDS: Acetaminophen 325 MG TABLET 650 MG PO (16:01)
[2024-08-28] MEDS: cefTRIAXone sodium 1 GM VIAL IVPUSH (16:01)
[2024-08-28 17:20] LABS: Lactic Acid 0.9 mmol/L (0.5-2.0)
[2024-08-28 17:44] LABS: Glucose, Whole Blood 127 mg/dL (60-115)
--- NOTE | 2024-08-28 21:30 | PM.EVENT ---
Event Note Date of Service: 08/28/24 Event Note: Nurse reported patient complaining of left foot pain. Noted erythema and blackening as pictured below. Faint pulses present via doppler. Left great toe is cold and black. Will obtain artertial studies and consult vascular sx. Empiric abx Time Spent With Patient Time: Total time managing care of this patient today ____ minutes.
[2024-08-28 21:50] LABS: Appearance Urine Clear; Color Urine Dark Yellow; Glucose Urine UA Negative (Negative); Leukocyte Esterase Urine Trace (Negative); Nitrite Urine Negative (Negative); Specific Gravity - Urine 1.015 (1.005-1.025); UMIC TRIGGER UA YES; Urine Blood Moderate (2+) (Negative); Urine Ketones Negative (Negative); Urine Protein 100 (2+) mg/dL (Neg-Trace)
[2024-08-28 22:09] LABS: Bacteria Urine None Seen (None Seen); Hyaline Casts Urine 0-2 /LPF (0-2); Squamous Epithelial Cell Urine 0-2 /HPF (0-2); WBC Urine 0-5 /HPF (0-5)
[2024-08-28] MEDS: Albumin Human 25 % 100 ML 133.33 ML IV ×2 (22:30→23:21)
[2024-08-28 22:58] LABS: Lactic Acid 1.3 mmol/L (0.5-2.0)
[2024-08-28] MEDS: Piperacillin Sodium/Tazobactam 3.375 GM in 0.9 % Sodium Chloride 50 ML IV (23:06)
[2024-08-28] MEDS: vancomycin HCL 1,000 MG in 0.9 % Sodium Chloride 250 ML 270 MG IV (23:44)
[2024-08-28 23:59] LABS: Glucose, Whole Blood 117 mg/dL (60-115)
[2024-08-29] VITALS (7 sets, daily range): BP systolic 147–164; BP diastolic 67–72; PULSE 103–115; RESP 12–20; TEMP 36.3–37.7; O2SAT 96–100; BMI 17.5
[2024-08-29] MEDS: HYDROmorphone HCl 1 MG/ML SYRINGE IVPUSH ×4 (03:34→20:00)
[2024-08-29] MEDS: Piperacillin Sodium/Tazobactam 3.375 GM in 0.9 % Sodium Chloride 50 ML IV ×4 (04:00→21:09)
[2024-08-29] MEDS: Pantoprazole Sodium 40 MG/10 ML VIAL IVPUSH (05:23)
[2024-08-29 05:48] LABS: Glucose, Whole Blood 125 mg/dL (60-115)
--- NOTE | 2024-08-29 06:11 | PC.NURSE ---
Patient upon assessment has faint pulses to left dorsalis pedis pulse. Doppler used and pulse is faint. Patient reports pain numbness and tingling to left foot. MD notified. MD came to bedside. Blood cultures, lactic acid ordered and obtained. MD ordered US arterial duplex to left lower extremity. Vancomycin and zosyn ordered and given.
[2024-08-29 06:54] LABS: Alanine Aminotransferase 83 U/L (0-31); Albumin Level 4.6 g/dL (3.5-5.0); Alkaline Phosphatase 82 U/L (39-117); Anion Gap 14 (12-20); Aspartate Amino Transferase 229 U/L (5-31); Bilirubin Total 2.8 mg/dL (0.0-1.0); Blood Urea Nitrogen 6 mg/dL (9-16); Calcium 10.4 mg/dL (8.4-10.2); Carbon Dioxide 21 mmol/L (22-29); Chloride 111 mmol/L (96-108); Creatinine Clr Calc Pharmacy 59.3; Estimated Glomerular Filt Rate > 60; Glucose Random 130 mg/dL (60-115); Magnesium 1.9 mg/dL (1.6-2.6); Phosphorus 2.1 mg/dL (2.7-4.5); Potassium 3.6 mmol/L (3.3-5.1); Sodium 142 mmol/L (135-145); Total Protein 6.9 g/dL (6.5-8.0)
[2024-08-29 07:15] LABS: Basophils Percent Auto 0.4 % (0-2); Eosinophils Absolute Auto 0.1 X10*3/uL (0.0-0.4); Eosinophils Percent Auto 0.8 % (0-4); Hemoglobin 7.7 g/dl (12.0-16.0); Imm Gran Pct Auto 1.1 % (0.0-0.4); Lymphocytes Absolute Auto 1.4 X10*3/uL (1.2-4.9); Lymphocytes Percent Auto 14.9 % (20-40); MANUAL DIFF FLAG SCAN; Mean Corpuscular HGB Conc 33.5 g/dl (31.0-35.0); Mean Corpuscular Hemoglobin 32.9 pg (27.0-33.0); Mean Corpuscular Volume 98.3 fL (80.0-98.0); Mean Platelet Volume 10.9 fL (9.4-12.3); Monocytes Absolute Auto 1.6 X10*3/uL (0.1-1.2); Monocytes Percent Auto 17.1 % (2-11); Neutrophils Absolute Auto 6.2 x10*3/uL (2.0-8.3); Neutrophils Percent Auto 65.7 % (45-73); Red Blood Count 2.34 X10*6/uL (4.20-5.50); Red Cell Distribution Width 18.1 % (11.0-16.0); SCAN SMEAR FLAG 1; White Blood Count 9.5 X10*3/uL (4.8-10.8)
[2024-08-29 07:16] LABS: Platelet Count 76 X10*3/uL (160-400)
[2024-08-29 07:58] LABS: SLIDE REVIEW VERIFIED
[2024-08-29] MEDS: Sucralfate 1 GM TABLET PO ×4 (08:00→19:54)
[2024-08-29] MEDS: 0.9 % Sodium Chloride Flush 3 ML SYRINGE IVFLUSH (08:00)
[2024-08-29] MEDS: Metoprolol Succinate ER 25 MG TAB.ER.24H PO (08:00)
--- NOTE | 2024-08-29 08:56 | P.PNIM_ITS ---
Subjective Subjective Date of Service: 08/29/24 Interval History: Left foot pain Physical Exam 2 Vital Signs: Vital Signs: Last Vital Signs Temp 98.1 F 08/29/24 07:43 Pulse 106 H 08/29/24 07:43 Resp 18 08/29/24 07:43 BP 154/70 H 08/29/24 07:43 Pulse Ox 100 08/29/24 07:43 O2 Del Method Room Air 08/29/24 07:43 O2 Flow Rate 40 08/24/24 05:00 FiO2 21 08/27/24 12:00 BMI result Body Mass Index 17.5 General: AO X 2, no acute distress, frail appearing Resp: CTA bilateral, no accessory muscles used CVS: S1,S2,RRR GI: soft, non tender, non distended Neuro: motor grossly intact, alert Psych: impaired insight Left axilla, about 5 cm oval mass, hard, nontender Left 1st toe distal blackening Objective Data Active Medications Acetaminophen (Acetaminophen 325 Mg Tablet) 650 mg PO Q6H PRN PRN Reason: Fever Last Admin: 08/28/24 16:01 Dose: 650 mg Documented By: LOLA Glucose (Glucose Gel 15 Gm Gel..Gram.) 15 gm PO Q15M PRN; Protocol PRN Reason: per Hypoglycemia Standing Ord. Hydromorphone HCl (Hydromorphone Hcl 1 Mg/Ml Syringe) 1 mg IVPUSH Q2H PRN; Protocol PRN Reason: Pain, Moderate(Pain Scale 4-6) Last Admin: 08/29/24 08:06 Dose: 1 mg Documented By: VAZQUEZ Dextrose (D10) 250 mls @ 750 mls/hr IV Q15M PRN; Protocol PRN Reason: per Hypoglycemia Standing Ord. Vancomycin HCl 500 mg/ Sodium (Chloride) 110 mls @ 110 mls/hr IV Q12H DMITRIY Piperacillin Sod/Tazobactam (Sod 3.375 gm/ Sodium Chloride) 50 mls @ 100 mls/hr IV Q6H DMITRIY Last Infusion: 08/29/24 05:27 Dose: Infused Documented By: TIMOTHY Insulin Human Lispro (Insulin Lispro 100 Unit/Ml 3 Ml Vial) 0 unit SUBCUT Q6H DMITRIY; Protocol Last Admin: 08/29/24 05:52 Dose: Not Given Documented By: TIMOTHY Non-Admin Reason: Patient Refused Metoprolol Succinate (Metoprolol Succinate Er 25 Mg Tab.Er.24h) 25 mg PO DAILY [facility]; Protocol Last Admin: 08/29/24 08:00 Dose: 25 mg Documented By: VAZQUEZ Naloxone HCl (Naloxone Hcl 0.4 Mg/Ml Vial) 0.2 mg IVPUSH Q2M PRN PRN Reason: Excessive sedation or RR < 8 Ondansetron HCl (Ondansetron Hcl 4 Mg/2 Ml Vial) 4 mg IVPUSH Q4H PRN PRN Reason: Nausea and Vomiting Pantoprazole Sodium (Pantoprazole Sodium 40 Mg/10 Ml Vial) 40 mg IVPUSH BID@0630,1630 [facility] Last Admin: 08/29/24 05:23 Dose: 40 mg Documented By: TIMOTHY Pharmacy Consult (Consult Rx Parenteral Nutrition Ordering) 1 each MISCELLANE DAILY PRN PRN Reason: Consult order Pharmacy Consult (Consult Rx Vancomycin Dosing) 1 each MISCELLANE DAILY PRN PRN Reason: Consult order Sodium Chloride (0.9 % Sodium Chloride Flush 3 Ml Syringe) 3 ml IVFLUSH QSHIFT [facility] Last Admin: 08/29/24 08:00 Dose: 3 ml Documented By: VAZQUEZ Sucralfate (Sucralfate 1 Gm Tablet) 1 gm PO QID [facility] Last Admin: 08/29/24 08:00 Dose: 1 gm Documented By: VAZQUEZ Labs 08/29/24 06:13 08/29/24 06:13 Labs: Laboratory Results - last 24 hr 08/28/24 08/28/24 08/28/24 11:14 16:46 17:40 MCV MCH MCHC RDW Plt Count MPV Immature Gran % (Auto) Neut % (Auto) Lymph % (Auto) [place] % (Auto) Eos % (Auto) Baso % (Auto) Lymph # (Auto) [place] # (Auto) Eos # (Auto) Baso # (Auto) Abs Immat Gran (auto) Absolute Neuts (auto) Absolute Nucleated RBC Nucleated RBC % (auto) Smear Tech's Comments Anion Gap Estim Creat Clear Calc Estimated GFR POC Glucose 149 H 127 H Random Glucose Lactic Acid 0.9 Calcium Phosphorus Magnesium Total Bilirubin AST ALT Alkaline Phosphatase Total Protein Albumin Urine Color Urine Appearance Urine pH Ur Specific [place] Urine Protein Urine Glucose (UA) Urine Ketones Urine Blood Urine Nitrite Ur Leukocyte Esterase Urine RBC Urine WBC Ur Squamous Epith Cells Urine Bacteria Hyaline Casts Urine Yeast 08/28/24 08/28/24 08/28/24 21:40 22:42 23:44 MCV MCH MCHC RDW Plt Count MPV Immature Gran % (Auto) Neut % (Auto) Lymph % (Auto) [place] % (Auto) Eos % (Auto) Baso % (Auto) Lymph # (Auto) [place] # (Auto) Eos # (Auto) Baso # (Auto) Abs Immat Gran (auto) Absolute Neuts (auto) Absolute Nucleated RBC Nucleated RBC % (auto) Smear Tech's Comments Anion Gap Estim Creat Clear Calc Estimated GFR POC Glucose 117 H Random Glucose Lactic Acid 1.3 Calcium Phosphorus Magnesium Total Bilirubin AST ALT Alkaline Phosphatase Total Protein Albumin Urine Color Dark Yellow Urine Appearance Clear Urine pH 7.0 Ur Specific [place] 1.015 Urine Protein 100 (2+) H Urine Glucose (UA) Negative Urine Ketones Negative Urine Blood Moderate (2+) H Urine Nitrite Negative Ur Leukocyte Esterase Trace H Urine RBC 3-5 H Urine WBC 0-5 Ur Squamous Epith Cells 0-2 Urine Bacteria None Seen Hyaline Casts 0-2 Urine Yeast Present 08/29/24 08/29/24 05:44 06:13 MCV 98.3 H MCH 32.9 MCHC 33.5 RDW 18.1 H Plt Count 76 L MPV 10.9 Immature Gran % (Auto) 1.1 H Neut % (Auto) 65.7 Lymph % (Auto) 14.9 L [place] % (Auto) 17.1 H Eos % (Auto) 0.8 Baso % (Auto) 0.4 Lymph # (Auto) 1.4 [place] # (Auto) 1.6 H Eos # (Auto) 0.1 Baso # (Auto) 0.0 Abs Immat Gran (auto) 0.10 H Absolute Neuts (auto) 6.2 Absolute Nucleated RBC 0.000 Nucleated RBC % (auto) 0.0 Smear Tech's Comments VERIFIED Anion Gap 14 Estim Creat Clear Calc 59.3 Estimated GFR > 60 POC Glucose 125 H Random Glucose 130 H Lactic Acid Calcium 10.4 H Phosphorus 2.1 L Magnesium 1.9 Total Bilirubin 2.8 H AST 229 H ALT 83 H Alkaline Phosphatase 82 Total Protein 6.9 Albumin 4.6 Urine Color Urine Appearance Urine pH Ur Specific [place] Urine Protein Urine Glucose (UA) Urine Ketones Urine Blood Urine Nitrite Ur Leukocyte Esterase Urine RBC Urine WBC Ur Squamous Epith Cells Urine Bacteria Hyaline Casts Urine Yeast Microbiology Microbiology Results: Microbiology 08/27/24 20:25 Blood Culture - Preliminary Blood - Venous No growth after 24 hours. Assessment and Plan (1) GI bleed: Status: Acute Plan 58F PMH CVA X2 (no residual deficits), COPD, HTN, provoked DVT no longer on AC, hepatitis-C, moderate protein calorie malnutrition, unspecified dementia, was admitted 08/22/2024 with hematemesis due to large gastric ulcer complicated by acute hypoxic respiratory failure requiring intubation and brief cardiac arrest. Patient extubated 08/27/2024 and downgraded at 08/28/24. Course complicated by fevers. Acute hypoxic respiratory failure, cardiac arrest, hemorrhagic shock due to acute blood loss anemia due to gastric ulcer Status post EGD 08/22/2024 with OTSC clip and hemo spray On PPI and Carafate Extubated and off pressors Hemoglobin down from 9.7 on 08/27 to 7.7 08/29 Ryan was 6.7 on 08/22/2024 Sepsis 08/28/2024 at 15:47 Question due to left 1st toe dry gangrene Follow up cultures Continue empiric vanc Zosyn Follow-up vascular and arterial imaging Hypertension Toprol HCV Outpatient follow up Moderate protein calorie malnutrition Encourage p.o. intake Unspecified dementia Appears to be at baseline History of CVA Holding aspirin for GI bleed History of provoked DVT no longer on anticoagulation DVT prophylaxis-mechanical due to GI bleed Full code reason for continued hospitalization: Monitoring for defervescence Quality Stroke Does the patient have a stroke diagnosis?: No VTE Prior VTE?: No VTE Risk Level:: Medical - moderate - high VTE Device Contraindication: N/A - Device Ordered VTE Drug Contraindication: Treatment Not Tolerated
--- NOTE | 2024-08-29 09:39 | P.CONGS_ITS ---
<Statement entered by Mook Zayas MD - 08/29/24 10:28> I agree with history, findings, assessment and plan documented by Vreito Haq PA-c. Unclear if patient has establish vascular care in [place]. If not established and staying local happy to follow-up as an outpatient once current issues resolve History of Present Illness Consult details Consult date: 08/29/24 <Verito Haq PA-C - Last Filed: 08/29/24 10:30> Narrative: We are consulted for Marion, pleasant 58-year-old female, appearing slightly confused, for concerns of a L1 black toe with decreased pulses and increased pain. Patient states it has been going on for over 8 weeks now. She states she was supposed to have surgery on it today in [place] with a Dr. Vázquez; however, she is a poor historian and it was difficult to get a full story out of her. She has a history of DVTs not currently on anticoagulation. She states the toe is very painful. She states she has vascular surgeries before but can not explain which ones they were or what surgeries they were. She initially presented on 08/22 to the ER with vomiting coffee-ground emesis with deterioration that required intubation and ICU care. She was extubated on the is now on the med-surg floor. <Verito Haq PA-C - Last Filed: 08/29/24 10:30> Review of Systems 2 Constitutional: Constitutional: Reports as per HPI and Denies weakness < Verito Haq PA-C - Last Filed: 08/29/24 10:30> ENT: Reports Normal hearing present and Denies dizziness <Verito Haq PA-C - Last Filed: 08/29/24 10:30> Cardiovascular: Cardiovascular: Reports as per HPI, Denies chest pain, Denies chest pain at rest, Denies chest pain with activity, Denies dyspnea and Denies dyspnea on exertion <Verito Haq PA-C - Last Filed: 08/29/24 10:30> Respiratory: Respiratory: Reports as per HPI, Denies cough, Denies dyspnea and Denies dyspnea on exertion <RORO Dodson Last Filed: 08/29/24 10:30> Gastrointestinal: Gastrointestinal: Reports as per HPI, Denies abdominal pain, Denies nausea and Denies vomiting <Verito Lorelei RORO Haq Last Filed: 08/29/24 10:30> Musculoskeletal: Musculoskeletal: Denies numbness <Verito Lorelei RORO Haq Last Filed: 08/29/24 10:30> Integumentary/Breasts: Skin/Breast: Reports as per HPI, Reports nail changes, Reports non-healing lesions, Denies erythema and Denies wounds <Verito Lorelei RORO Haq - Last Filed: 08/29/24 10:30> Neurologic: Reports Normal hearing present, Denies dizziness, Denies numbness, Denies Sensory deficit (Neuro) and Denies weakness <Verito Lorelei RORO Haq Last Filed: 08/29/24 10:30> Psychiatric: Psychiatric: Reports no additional psychiatric complaints < Verito Haq PA-C Last Filed: 08/29/24 10:30> Endocrine: Endocrine: Reports no additional endocrine complaints <Verito Haq PA-C Last Filed: 08/29/24 10:30> [facility] Past Medical History Medical History: Medical History (Updated 08/29/24 @ 10:29 by Mook Zayas MD) DVT (deep venous thrombosis) Essential (primary) hypertension CVA (cerebral vascular accident) COPD (chronic obstructive pulmonary disease) Asthma exacerbation <Verito Haq PA-C Last Filed: 08/29/24 10:30> Surgical History Surgical History: Surgical History (Updated 08/22/24 @ 13:22 by Lester Hendrix RN) Surgical history unknown <Verito Haq PA-C Last Filed: 08/29/24 10:30> Social History Social History: Social History Household Members: Children Household Members Other:: lives with son, per ED report and providers. Housing: Unknown / Unable to assess Housing Other:: pt not cooperative Unable to assess alcohol history related to: Unknown and Refusing to respond Comment: restraints Patient Tobacco Use Status: Former Tobacco user Tobacco use type: Cigarette e-Cigarette/Vaping Use: Former Use Substance Use Type: Marijuana service: No Current occupational status: unemployed <Verito Haq PA-C - Last Filed: 08/29/24 10:30> Meds Allergies/Adverse reactions: Allergies Allergy/AdvReac Type Severity Reaction Status Date / Time No Known Allergies Allergy Verified 08/21/24 20:52 <Verito Haq PA-C - Last Filed: 08/29/24 10:30> Active Medications: Current Medications Acetaminophen (Acetaminophen 325 Mg Tablet) 650 mg PO Q6H PRN PRN Reason: Fever Last Admin: 08/28/24 16:01 Dose: 650 mg Glucose (Glucose Gel 15 Gm Gel..Gram.) 15 gm PO Q15M PRN; Protocol PRN Reason: per Hypoglycemia Standing Ord. Hydromorphone HCl (Hydromorphone Hcl 1 Mg/Ml Syringe) 1 mg IVPUSH Q2H PRN; Protocol PRN Reason: Pain, Moderate(Pain Scale 4-6) Last Admin: 08/29/24 08:06 Dose: 1 mg Dextrose (D10) 250 mls @ 750 mls/hr IV Q15M PRN; Protocol PRN Reason: per Hypoglycemia Standing Ord. Vancomycin HCl 500 mg/ Sodium (Chloride) 110 mls @ 110 mls/hr IV Q12H [facility] Piperacillin Sod/Tazobactam (Sod 3.375 gm/ Sodium Chloride) 50 mls @ 100 mls/hr IV Q6H [facility] Last Admin: 08/29/24 09:30 Dose: 100 mls/hr Insulin Human Lispro (Insulin Lispro 100 Unit/Ml 3 Ml Vial) 0 unit SUBCUT Q6H [facility]; Protocol Last Admin: 08/29/24 05:52 Dose: Not Given Metoprolol Succinate (Metoprolol Succinate Er 25 Mg Tab.Er.24h) 25 mg PO DAILY [facility]; Protocol Last Admin: 08/29/24 08:00 Dose: 25 mg Naloxone HCl (Naloxone Hcl 0.4 Mg/Ml Vial) 0.2 mg IVPUSH Q2M PRN PRN Reason: Excessive sedation or RR < 8 Omeprazole (Omeprazole 40 Mg Capsule.Dr) 40 mg PO BID@0630,1630 [facility] Ondansetron HCl (Ondansetron Hcl 4 Mg/2 Ml Vial) 4 mg IVPUSH Q4H PRN PRN Reason: Nausea and Vomiting Pharmacy Consult (Consult Rx Parenteral Nutrition Ordering) 1 each MISCELLANE DAILY PRN PRN Reason: Consult order Pharmacy Consult (Consult Rx Vancomycin Dosing) 1 each MISCELLANE DAILY PRN PRN Reason: Consult order Sodium Chloride (0.9 % Sodium Chloride Flush 3 Ml Syringe) 3 ml IVFLUSH QSHIFT [facility] Last Admin: 08/29/24 08:00 Dose: 3 ml Sucralfate (Sucralfate 1 Gm Tablet) 1 gm PO QID [facility] Last Admin: 08/29/24 08:00 Dose: 1 gm <RORO Dodson Last Filed: 08/29/24 10:30> Home medications: Home Medications ?Medication ?Instructions ?Recorded ?Confirmed ?Last Taken ?Type metoprolol succinate 25 mg 25 mg PO DAILY 08/22/24 08/22/24 Unknown History tablet,extended release 24 hr <RORO Dodson Last Filed: 08/29/24 10:30> Physical Exam 2 Vital Signs: Vital Signs: Last Vital Signs Temp 98.1 F 08/29/24 07:43 Pulse 106 H 08/29/24 07:43 Resp 18 08/29/24 07:43 BP 154/70 H 08/29/24 07:43 Pulse Ox 100 08/29/24 07:43 O2 Del Method Room Air 08/29/24 07:43 O2 Flow Rate 40 08/24/24 05:00 FiO2 21 08/27/24 12:00 BMI result Body Mass Index 17.5 <RORO Dodson Last Filed: 08/29/24 10:30> Const: General: comfortable and no acute distress <RORO Dodson Last Filed: 08/29/24 10:30> Orientation/consciousness: patient oriented x3 <RORO Dodson Last Filed: 08/29/24 10:30> HEENT: Ears: hearing grossly normal bilaterally <RORO Dodson Last Filed: 08/29/24 10:30> Resp: Effort & Inspection: normal respiratory effort and able to speak in complete sentences <RORO Dodson Last Filed: 08/29/24 10:30> Auscultation: clear to auscultation bilaterally <RORO Ddoson Last Filed: 08/29/24 10:30> Cardio: Rate: regular rate <Verito HaqMAIRAAj Medrano Last Filed: 08/29/24 10:30> Rhythm: regular rhythm <Verito HaqMAIRAAj Medrano Last Filed: 08/29/24 10:30> Heart sounds: S1 normal heart sound present and S2 normal heart sound present <Verito HaqMAIRAAj Medrano Last Filed: 08/29/24 10:30> Bruits: no abdominal aortic bruits, no carotid bruits, no femoral bruits and no renal bruits <Verito HaqMAIRAAj - Last Filed: 08/29/24 10:30> GI: Palpation (GI): No Abdominal aortic bruit present <Verito HaqJAMARIHaven Medrano Last Filed: 08/29/24 10:30> Skin: Other: L1 toe: Thickened, keratinized toenail. Dry gangrene noted around the full toenail. Very painful to palpation. Foot is warm to the touch; however, unable to palpate DP or PT pulses. Doppler DP pulses faint. L2 slight discoloration around the toenail, deep erythematous color. <Verito HaqMAIRAAj Medrano Last Filed: 08/29/24 10:30> Neuro: General: patient oriented x3 <Verito HaqJAMARIHaven Medrano Last Filed: 08/29/24 10:30> Cranial nerves: Yes Normal hearing present <Verito PazMAIRA centenoAj Medrano Last Filed: 08/29/24 10:30> Sensory Exam: No Sensory deficit (Neuro) <Verito PazMAIRA centenoAj Medrano Last Filed: 08/29/24 10:30> Results Labs Result diagrams: 08/29/24 06:13 08/29/24 06:13 <Verito Moseley JAMARI HaqHaven Medrano Last Filed: 08/29/24 10:30> Labs: Abnormal lab results 08/28/24 08/28/24 08/28/24 Range/Units 11:14 17:40 21:40 RBC (4.20-5.50) X10*6/uL Hgb (12.0-16.0) g/dl Hct (37.0-47.0) % MCV (80.0-98.0) fL RDW (11.0-16.0) % Plt Count (160-400) X10*3/uL Immature Gran % (Auto) (0.0-0.4) % Lymph % (Auto) (20-40) % [place] % (Auto) (2-11) % [place] # (Auto) (0.1-1.2) X10*3/uL Abs Immat Gran (auto) (0.00-0.03) X10*3/uL Chloride (96-108) mmol/L Carbon Dioxide (22-29) mmol/L BUN (9-16) mg/dL POC Glucose 149 H 127 H (60-115) mg/dL Random Glucose (60-115) mg/dL Calcium (8.4-10.2) mg/dL Phosphorus (2.7-4.5) mg/dL Total Bilirubin (0.0-1.0) mg/dL AST (5-31) U/L ALT (0-31) U/L Urine Protein 100 (2+) H (Neg-Trace) mg/dL Urine Blood Moderate (2+) H (Negative) Ur Leukocyte Esterase Trace H (Negative) Urine RBC 3-5 H (0-2) /HPF 08/28/24 08/29/24 08/29/24 Range/Units 23:44 05:44 06:13 RBC 2.34 L (4.20-5.50) X10*6/uL Hgb 7.7 L (12.0-16.0) g/dl Hct 23.0 L (37.0-47.0) % MCV 98.3 H (80.0-98.0) fL RDW 18.1 H (11.0-16.0) % Plt Count 76 L (160-400) X10*3/uL Immature Gran % (Auto) 1.1 H (0.0-0.4) % Lymph % (Auto) 14.9 L (20-40) % [place] % (Auto) 17.1 H (2-11) % [place] # (Auto) 1.6 H (0.1-1.2) X10*3/uL Abs Immat Gran (auto) 0.10 H (0.00-0.03) X10*3/uL Chloride 111 H (96-108) mmol/L Carbon Dioxide 21 L (22-29) mmol/L BUN 6 L (9-16) mg/dL POC Glucose 117 H 125 H (60-115) mg/dL Random Glucose 130 H (60-115) mg/dL Calcium 10.4 H (8.4-10.2) mg/dL Phosphorus 2.1 L (2.7-4.5) mg/dL Total Bilirubin 2.8 H (0.0-1.0) mg/dL AST 229 H (5-31) U/L ALT 83 H (0-31) U/L Urine Protein (Neg-Trace) mg/dL Urine Blood (Negative) Ur Leukocyte Esterase (Negative) Urine RBC (0-2) /HPF Short CBC 08/29/24 Range/Units 06:13 WBC 9.5 (4.8-10.8) X10*3/uL Hgb 7.7 L (12.0-16.0) g/dl Hct 23.0 L (37.0-47.0) % Plt Count 76 L (160-400) X10*3/uL BMP 08/29/24 06:13 Sodium 142 Potassium 3.6 Chloride 111 H Carbon Dioxide 21 L BUN 6 L Creatinine 0.69 Calcium 10.4 H Liver Function 08/29/24 Range/Units 06:13 Total Bilirubin 2.8 H (0.0-1.0) mg/dL AST 229 H (5-31) U/L ALT 83 H (0-31) U/L Alkaline Phosphatase 82 (39-117) U/L Albumin 4.6 (3.5-5.0) g/dL Urine 08/28/24 Range/Units 21:40 Urine Color Dark Yellow Urine Appearance Clear Urine pH 7.0 (5.0-9.0) Ur Specific [place] 1.015 (1.005-1.025) Urine Protein 100 (2+) H (Neg-Trace) mg/dL Urine Glucose (UA) Negative (Negative) mg/dL All other labs normal. <Verito Haq PA-C - Last Filed: 08/29/24 10:30> Assessment and Plan (1) PAD (peripheral artery disease): Status: Acute <Verito Haq PA-C - Last Filed: 08/29/24 10:30> We are consulted on Marion a 58-year-old female patient who is status post cardiac arrest question vasovagal episode. She was found to have a gangrenous L1 toe. Patient states this has been going on for over 2 months now and states she was supposed to get a surgery done today in [place] to fix it (however she is poor historian and no family is around to be able to correlate the information). She has not aware what type of surgery it was supposed to be. At this point, due to patient's medical instability, the patient is not a candidate for surgical intervention. We would like to follow her closely outpatient. Anticoagulation should be started as soon as patient is stabilized and GI bleeding is under control as well as a stable hemoglobin and hematocrit. If there are any changes, please reach out to us. We thank you for the consult. < Verito Haq PA-C - Last Filed: 08/29/24 10:30> Total time managing care of this patient today: 30 minutes. <Verito Haq PA-C - Last Filed: 08/29/24 10:30> Procedures Date of Service Date of Service: 08/29/24 <Verito Haq PA-C - Last Filed: 08/29/24 10:30> 08/29/24 <Mook Zayas MD - Last Filed: 08/29/24 10:29>
[2024-08-29] MEDS: vancomycin HCL 500 MG in 0.9 % Sodium Chloride 100 ML 110 MG IV ×2 (11:14→22:14)
[2024-08-29 11:59] LABS: Glucose, Whole Blood 122 mg/dL (60-115)
--- NOTE | 2024-08-29 12:56 | MHC.SL.SWA ---
Speech Pathologist Impression: Mild oral dysphagia d/t missing dentition, minimal pharyngeal dysphagia s/p extubation Risk of Aspiration Due to: Medically Fragile Poor PO Intake Hx of Recent Extubation Weak Cough Weak Voice Dysphasia Diet Status: [employer] recommending Ground/Mech Solids (NDD2) and Thin Liquids. Meds Whole with Puree. Pt can feed self, but may need assist with tray set-up and encouragement to finish meals. [employer] continues to follow. Liquid Consistency and Strategies for Safe Swallow: Liquid Intake Recommendation: Thin Liquid Intake Strategies: No Straws Solid Food Consistency: Dietary Recommendations: Grnd/Mech Altered (NDD2) Additional Modifications to Solid Foods: Oral Medication Intake: Whole with Puree Please contact the pharmacy regarding appropriate crushable or liquid drug formulations that are available whenever modified delivery is recommended. Compensatory Strategies and Precautions to be Taken for Safe Swallow: Sitting Upright (90 deg) No Straw Small Bites and Sips Alternate Liquids/Solids Rate of Ingestion Change Oral Check Avoid Specific Foods Supervision While Eating and Drinking for Safe Swallow: Intermittent Supervision Foods to Avoid: Mixed consistencies. Swallowing Recommended Treatments: Recommendation for Speech: Comment: Pt perseverated on concern with where she would reside after pending surgery during this visit. Pt pleasant and reasonable, but with great worry at this time. ST reviewed safety precautions s/p extubation as pt resumes PO, pt verbalized that she understands and agrees with [employer] recc. Frequency/Duration: Date Range for Service Req: Timeline to reassess: Operation Research Analyst Clinican/Clinical Fellow: No Supervisory Statement: I have reviewed and agree with the student/clinical fellow's documentation: N/A Speech Language Pathologist: Melany Anderson M.S., [facility] [facility]
--- NOTE | 2024-08-29 13:11 | MHC.CM.PN ---
Per rounds, pt is still acute, being treated for GI bleed and fevers. CM spoke with her son Miguel. He explained that pt. lives in [place] and is waiting for an apt to become available, which is in Nov. She was staying with him in [place] while she waited. Her doctors are in [place]. No HCP, or doc. like this that he is aware of. Pt. did not have any home health services. For DME, she had a cane and walker, but did not go out because son lives on a fourth floor and pt cannot do stairs. Miguel said that pt. aunt and mother, who live in [place] will take care of her and she can move in with them if needed at [place]. Cm will follow and assist with [place] plan.
--- NOTE | 2024-08-29 13:33 | MHC.CLN ---
F/U DIET ADVANCED TO GRD M/S-APPROPRIATE RECOMMEND ADDING ENSURE BID TO PROVIDE 700KCALS, 40G PROTEIN R/T MALNUTRITION AND WOUND HEALING MONITOR PO INTAKE AND ENCOURAGE SUPPLEMENT
[2024-08-29] MEDS: Omeprazole 40 MG CAPSULE.DR PO (15:51)
[2024-08-29 17:55] LABS: Glucose, Whole Blood 134 mg/dL (60-115)
[2024-08-29 20:28] LABS: Vancomycin Random 10.8 mcg/mL (15-20)
[2024-08-29 23:17] LABS: Glucose, Whole Blood 99 mg/dL (60-115)
[2024-08-30] VITALS (7 sets, daily range): BP systolic 150–175; BP diastolic 68–77; PULSE 74–115; RESP 14–19; TEMP 36.4–37.9; O2SAT 94–99; BMI 16.9
--- NOTE | 2024-08-30 01:26 | HO.SKINPHOTO ---
Location: left toe Category: Stage: Length: Width: Depth: cm
[2024-08-30] MEDS: Piperacillin Sodium/Tazobactam 3.375 GM in 0.9 % Sodium Chloride 50 ML IV ×4 (04:05→20:54)
[2024-08-30] MEDS: Acetaminophen 325 MG TABLET 650 MG PO (04:41)
[2024-08-30 05:20] LABS: Glucose, Whole Blood 96 mg/dL (60-115)
[2024-08-30] MEDS: Omeprazole 40 MG CAPSULE.DR PO ×2 (05:34→15:43)
[2024-08-30 06:14] LABS: Hematocrit 24.1 % (37.0-47.0); Hemoglobin 8.1 g/dl (12.0-16.0); Mean Corpuscular HGB Conc 33.6 g/dl (31.0-35.0); Mean Corpuscular Hemoglobin 32.8 pg (27.0-33.0); Mean Corpuscular Volume 97.6 fL (80.0-98.0); Mean Platelet Volume 10.8 fL (9.4-12.3); Red Blood Count 2.47 X10*6/uL (4.20-5.50); Red Cell Distribution Width 17.5 % (11.0-16.0); White Blood Count 10.6 X10*3/uL (4.8-10.8)
[2024-08-30 06:16] LABS: Platelet Count 87 X10*3/uL (160-400)
[2024-08-30 06:29] LABS: Anion Gap 15 (12-20); Blood Urea Nitrogen 5 mg/dL (9-16); Carbon Dioxide 19 mmol/L (22-29); Chloride 111 mmol/L (96-108); Creatinine Clr Calc Pharmacy 55.7; Estimated Glomerular Filt Rate > 60; Glucose Fasting 99 mg/dL (60-99); Potassium 3.1 mmol/L (3.3-5.1); Sodium 142 mmol/L (135-145)
--- NOTE | 2024-08-30 08:39 | P.PNVS_ITS ---
Subjective Subjective Date of Service: 08/30/24 Interval history: Marion is doing well. She is sleeping well and eating and drinking well. She states her toenail fell off, but continues to endorse pain. She states the toe feels a little better. Physical Exam Vital Signs: Vital Signs: Last Vital Signs Temp 97.6 F 08/30/24 08:00 Pulse 86 08/30/24 08:00 Resp 18 08/30/24 08:00 BP 175/75 H 08/30/24 08:00 Pulse Ox 94 08/30/24 08:00 O2 Del Method Room Air 08/30/24 08:00 O2 Flow Rate 40 08/24/24 05:00 FiO2 21 08/27/24 12:00 BMI result Body Mass Index 16.9 Const: General: comfortable and no acute distress Orientation/consciousness : patient oriented x3 HEENT: Ears: hearing grossly normal bilaterally Resp: Effort & Inspection: normal respiratory effort and able to speak in complete sentences Auscultation: clear to auscultation bilaterally Cardio: Rate: regular rate Rhythm: regular rhythm Heart sounds: S1 normal heart sound present and S2 normal heart sound present Bruits: no abdominal aortic bruits, no carotid bruits, no femoral bruits and no renal bruits GI: Palpation (GI): No Abdominal aortic bruit present Skin: Other: Toenail off, toenail bed erythematous/pink. Dry gangrene/necrosis noted distally on the tip of the toe. slight erythema noted around the toe. L2 deep erythematous color around toe/toenail. Neuro: General: patient oriented x3 Cranial nerves: Yes CN's II-XII intact bilaterally Progress Note: A&P Assessment and plan (1) PAD (peripheral artery disease): Status: Acute Plan Marion is doing well. Her toenail of L1 fell off last night and is covered with 4x4 and kerlix. There is minimal bleeding. There is dry gangrene and eschar noted. We recommend to use Betadine to clean it, apply 4x4, and wrap in Kerlix. We will follow up with her outpatient. Vascular will be signing off for now. If there are any concerns or questions, please do not hesitate to reach out. Thank you for the consult. Time Spent With Patient Time: Total time managing care of this patient today __20__ minutes. Procedures Date of Service Date of Service: 08/30/24 Quality Stroke Does the patient have a stroke diagnosis?: No VTE Prior VTE?: No VTE Risk Level:: Medical - moderate - high VTE Device Contraindication: N/A - Device Ordered VTE Drug Contraindication: Treatment Not Tolerated
--- NOTE | 2024-08-30 09:01 | HO.PM.IMPN ---
Subjective Subjective Date of Service: 08/30/24 Interval History: Nail fell off of left 1st toe Physical Exam Vital Signs: Vital Signs: Last Vital Signs Temp 97.6 F 08/30/24 08:00 Pulse 86 08/30/24 08:00 Resp 18 08/30/24 08:00 BP 175/75 H 08/30/24 08:00 Pulse Ox 94 08/30/24 08:00 O2 Del Method Room Air 08/30/24 08:00 O2 Flow Rate 40 08/24/24 05:00 FiO2 21 08/27/24 12:00 BMI result Body Mass Index 16.9 Const: General: comfortable and no acute distress Orientation/consciousness: patient oriented x3 HEENT: Ears: hearing grossly normal bilaterally Resp: Effort & Inspection: normal respiratory effort and able to speak in complete sentences Auscultation: clear to auscultation bilaterally Cardio: Rate: regular rate Rhythm: regular rhythm Heart sounds: S1 normal heart sound present and S2 normal heart sound present Bruits: no abdominal aortic bruits, no carotid bruits, no femoral bruits and no renal bruits GI: Palpation (GI): No Abdominal aortic bruit present Skin: Other: Toenail off, toenail bed erythematous/pink. Dry gangrene/necrosis noted distally on the tip of the toe. slight erythema noted around the toe. L2 deep erythematous color around toe/toenail. Neuro: General: patient oriented x3 Cranial nerves: Yes CN's II-XII intact bilaterally Objective Data Active Medications Acetaminophen (Acetaminophen 325 Mg Tablet) 650 mg PO Q6H PRN PRN Reason: Fever Last Admin: 08/30/24 04:41 Dose: 650 mg Documented By: TIMOTHY Glucose (Glucose Gel 15 Gm Gel..Gram.) 15 gm PO Q15M PRN; Protocol PRN Reason: per Hypoglycemia Standing Ord. Hydromorphone HCl (Hydromorphone Hcl 1 Mg/Ml Syringe) 1 mg IVPUSH Q2H PRN; Protocol PRN Reason: Pain, Moderate(Pain Scale 4-6) Last Admin: 08/29/24 20:00 Dose: 1 mg Documented By: TIMOTHY Dextrose (D10) 250 mls @ 750 mls/hr IV Q15M PRN; Protocol PRN Reason: per Hypoglycemia Standing Ord. Vancomycin HCl 500 mg/ Sodium (Chloride) 110 mls @ 110 mls/hr IV Q12H [facility] Last Infusion: 08/29/24 23:28 Dose: Infused Documented By: TIMOTHY Piperacillin Sod/Tazobactam (Sod 3.375 gm/ Sodium Chloride) 50 mls @ 100 mls/hr IV Q6H [facility] Last Infusion: 08/30/24 04:45 Dose: Infused Documented By: TIMOTHY Insulin Human Lispro (Insulin Lispro 100 Unit/Ml 3 Ml Vial) 0 unit SUBCUT Q6H [facility]; Protocol Last Admin: 08/30/24 05:29 Dose: Not Given Documented By: TIMOTHY Non-Admin Reason: No Insulin Coverage Metoprolol Succinate (Metoprolol Succinate Er 25 Mg Tab.Er.24h) 25 mg PO DAILY [facility]; Protocol Last Admin: 08/29/24 08:00 Dose: 25 mg Documented By: VAZQUEZ Naloxone HCl (Naloxone Hcl 0.4 Mg/Ml Vial) 0.2 mg IVPUSH Q2M PRN PRN Reason: Excessive sedation or RR < 8 Omeprazole (Omeprazole 40 Mg Capsule.Dr) 40 mg PO BID@0630,1630 [facility] Last Admin: 08/30/24 05:34 Dose: 40 mg Documented By: TIMOTHY Ondansetron HCl (Ondansetron Hcl 4 Mg/2 Ml Vial) 4 mg IVPUSH Q4H PRN PRN Reason: Nausea and Vomiting Pharmacy Consult (Consult Rx Parenteral Nutrition Ordering) 1 each MISCELLANE DAILY PRN PRN Reason: Consult order Pharmacy Consult (Consult Rx Vancomycin Dosing) 1 each MISCELLANE DAILY PRN PRN Reason: Consult order Sodium Chloride (0.9 % Sodium Chloride Flush 3 Ml Syringe) 3 ml IVFLUSH QSHIFT [facility] Last Admin: 08/29/24 23:16 Dose: Not Given Documented By: TIMOTHY Non-Admin Reason: IV Running Sucralfate (Sucralfate 1 Gm Tablet) 1 gm PO QID [facility] Last Admin: 08/29/24 19:54 Dose: 1 gm Documented By: TIMOTHY Labs 08/30/24 05:46 08/30/24 05:46 Labs: Laboratory Results - last 24 hr 08/29/24 08/29/24 08/29/24 11:55 17:51 20:07 MCV MCH MCHC RDW Plt Count MPV Absolute Nucleated RBC Nucleated RBC % (auto) Hold Purple Top Anion Gap Estim Creat Clear Calc Estimated GFR POC Glucose 122 H 134 H Fasting Glucose Calcium Random Vancomycin 10.8 L 08/29/24 08/29/24 08/30/24 20:12 23:09 05:14 MCV MCH MCHC RDW Plt Count MPV Absolute Nucleated RBC Nucleated RBC % (auto) Hold Purple Top SEE NOTE Anion Gap Estim Creat Clear Calc Estimated GFR POC Glucose 99 96 Fasting Glucose Calcium Random Vancomycin 08/30/24 05:46 MCV 97.6 MCH 32.8 MCHC 33.6 RDW 17.5 H Plt Count 87 L MPV 10.8 Absolute Nucleated RBC 0.000 Nucleated RBC % (auto) 0.0 Hold Purple Top Anion Gap 15 Estim Creat Clear Calc 55.7 Estimated GFR > 60 POC Glucose Fasting Glucose 99 Calcium 10.0 Random Vancomycin Microbiology Microbiology Results: Microbiology 08/28/24 22:42 Blood Culture - Preliminary Blood - Venous No growth after 24 hours. 08/28/24 22:42 Blood Culture - Preliminary Blood - Venous No growth after 24 hours. 08/27/24 20:25 Blood Culture - Preliminary Blood - Venous No growth after 48 hours. 08/28/24 16:47 Blood Culture - Preliminary Blood - Venous No growth after 24 hours. 08/28/24 16:47 Blood Culture - Preliminary Blood - Venous No growth after 24 hours. Assessment and Plan (1) GI bleed: Status: Acute Plan 58F PMH CVA X2 (no residual deficits), COPD, HTN, provoked DVT no longer on AC, hepatitis-C, moderate protein calorie malnutrition, unspecified dementia, was admitted 08/22/2024 with hematemesis due to large gastric ulcer complicated by acute hypoxic respiratory failure requiring intubation and brief cardiac arrest. Patient extubated 08/27/2024 and downgraded at 08/28/24. Course complicated by fevers. Acute hypoxic respiratory failure, cardiac arrest, hemorrhagic shock due to acute blood loss anemia due to gastric ulcer Status post EGD 08/22/2024 with OTSC clip and hemo spray On PPI and Carafate Extubated and off pressors Hemoglobin down from 9.7 on 08/27 to 7.7 08/29, 8.1 on 08/30/24 Ryan was 6.7 on 08/22/2024 Sepsis 08/28/2024 at 15:47 Question due to left 1st toe dry gangrene Follow up cultures Continue empiric vanc Zosyn, ID eval vascular appreciated - will likely need intervention when more stable Hypertension Toprol HCV Outpatient follow up Moderate protein calorie malnutrition Encourage p.o. intake Unspecified dementia Appears to be at baseline History of CVA, PVD Holding aspirin for GI bleed History of provoked DVT no longer on anticoagulation DVT prophylaxis-mechanical due to GI bleed Full code reason for continued hospitalization: Monitoring for defervescence Quality Stroke Does the patient have a stroke diagnosis?: No VTE Prior VTE?: No VTE Risk Level:: Medical - moderate - high VTE Device Contraindication: N/A - Device Ordered VTE Drug Contraindication: Treatment Not Tolerated
--- NOTE | 2024-08-30 09:31 | P.CDIM_ITS ---
PROVIDER RESPONSE TEXT: To clarify, the appropriate diagnosis supported by the clinical indicators: Pressure (decubitus) ulcer/DTI sacrum POA QUERY TEXT: PHYSICIAN'S DOCUMENTATION REQUEST Date of Query: 08/30/2024 09:17 AM EDT Patient Name: Marion Montanez Admit Date: 08/22/2024 Dear Sunil Pro MD, A review of the medical record indicates additional documentation may be needed. Please review below and update the documentation accordingly. Clinical Indicators: Per Wound Note 08/24/24: Deep tissue injury sacrum POA Foam dressing to protect form moisture and friction and allow for moist wound healing Based on the above, could you please provide further information regarding the ulcer/wound: Pressure (decubitus) ulcer/DTI sacrum POA Other (explain) Clinically unable to determine (explain) Thank you, Lina Salmon RN Use of terms such as suspected, likely, concern for, or probable (associated with a specific diagnosi s that is being evaluated, monitored, or treated as if it exists) are acceptable and can be coded in the inpatient se tting, when documented at the time of discharge. Please use your independent medical judgment in providing your response. THIS QUERY IS PART OF THE PERMANENT MEDICAL RECORD
[2024-08-30] MEDS: Potassium Chloride ER 20 MEQ TAB.ER.PRT 40 MEQ PO (09:56)
[2024-08-30] MEDS: Metoprolol Succinate ER 25 MG TAB.ER.24H PO (09:56)
[2024-08-30] MEDS: Sucralfate 1 GM TABLET PO ×4 (09:56→20:54)
[2024-08-30] MEDS: vancomycin HCL 500 MG in 0.9 % Sodium Chloride 100 ML 110 MG IV (09:57)
[2024-08-30] MEDS: 0.9 % Sodium Chloride Flush 3 ML SYRINGE IVFLUSH ×3 (09:57→23:36)
[2024-08-30] MEDS: HYDROmorphone HCl 1 MG/ML SYRINGE IVPUSH ×3 (10:15→21:28)
[2024-08-30 11:22] LABS: Glucose, Whole Blood 84 mg/dL (60-115)
--- NOTE | 2024-08-30 14:01 | MHC.SL.SWA ---
Speech Pathologist Impression: Risk of Aspiration Due to: Medically Fragile Poor PO Intake Hx of Recent Extubation Weak Cough Weak Voice Dysphasia Diet Status: PREP PERSON recommending Ground/Mech Solids (NDD2) and Thin Liquids. Meds Whole with Puree. Pt can feed self, but may need assist with tray set-up and encouragement to finish meals. PREP PERSON continues to follow. Liquid Consistency and Strategies for Safe Swallow: Liquid Intake Recommendation: Thin Liquid Intake Strategies: No Straws Solid Food Consistency: Dietary Recommendations: Grnd/Mech Altered (NDD2) Additional Modifications to Solid Foods: Oral Medication Intake: Whole with Puree Please contact the pharmacy regarding appropriate crushable or liquid drug formulations that are available whenever modified delivery is recommended. Compensatory Strategies and Precautions to be Taken for Safe Swallow: Sitting Upright (90 deg) No Straw Small Bites and Sips Alternate Liquids/Solids Rate of Ingestion Change Oral Check Avoid Specific Foods Supervision While Eating and Drinking for Safe Swallow: Intermittent Supervision Foods to Avoid: Mixed consistencies. Swallowing Recommended Treatments: Recommendation for Speech: Comment: Patient seen for possible upgrade of diet this a.m. Patient was awake and alert, but attempting to get out of bed, confused and pulling at catheter lines. Patient was cooperative with getting back into bed, but continued to be highly confused about her current circumstance. Attempted to provide patient with trials of more advanced textures, with patient refusing, saying It's ok honey, I already had breakfast. PREP PERSON heated up coffee for patient and observed her taking sips, and patient accepted bites of vanilla pudding, which she ate independently. PREP PERSON found upper dentures with patient's belongings, but they were in poor condition and needed cleaning. Recommend patient continue on Ground Mechanical Diet with Thin Liquids, pills whole with liquid or puree. Will re-attempt upgrade with clean dentures at a later date. Frequency/Duration: Date Range for Service Req: Timeline to reassess: Line Assembler Clinican/Clinical Fellow: No Supervisory Statement: I have reviewed and agree with the student/clinical fellow's documentation: N/A Speech Language Pathologist: Candi Verma M.A., [facility]-PREP P[facility]
--- NOTE | 2024-08-30 14:38 | HO.WOUND ---
Wound Consult: Follow up 58yr old female admitted to [facility] [place] on 08/22/24 - See progress notes and H&P for detailed history.? Wound consult placed for Coccyx wound POA.? Complex hospital stay - see provider notes for details. Coccyx on Admission Sacrum 08/24/24 Sacrum - evolved to unstageable Pressure injury Etiology: ??Unstageable Pressure Injury admitted with Deep tissue Injury POA Measurements: Approximately 6cm x 6cm x 0.2cm Wound Bed: dark yellow black slough transitioning to eschar - soft boggy center Drainage / Odor: no odor roque yellow drainage Edges: Irregular Periwound: dark pigmented tissue Goals of Treatment: ? Triad to wound bed - and provider to consult general surgery If surgery does not feel debridement is needed at this time - provider to consider Santyl application for enzymatic debridement. Recommendations: 1. Turn and Reposition every 2 hours and as needed for patient comfort.? Use pillows or wedges to support off loading positions. 2. Off Load all bony prominences with use of pillows and heel boots if needed.? Apply Preventative foams where needed. ? 3. Monitor for incontinence and moisture control, use barrier creams when needed for prevention and treatment. 4. Provide adequate and supplemental nutrition.? 5. Continue low air loss mattress. 6. When applicable maintain blood glucose levels per Providers order. 7. Sacrum - Off Load Pressure - Cleanse with PH Balanced wipes, pat dry. Apply triad to wound bed twice daily cover with ABD pad secure with tape. Change daily. 8. Heels - Elevate off of bed surface with pillows or heel protector boots. Re-consult wound care Nurse for wound deterioration or wound changes.
[2024-08-30 18:56] LABS: Glucose, Whole Blood 92 mg/dL (60-115)
[2024-08-30 20:28] LABS: Vancomycin Random 8.7 mcg/mL (15-20)
--- NOTE | 2024-08-30 20:52 | HE.PHANOTE ---
Re: Nik Renal function is stable, but trough returned at 8.7, pt is sub-therapeutic. Dose increased to 750 mg q12h, predicted AUC 543, predicted trough 16.3. Next trough 08/31 @ 1999.
[2024-08-30] MEDS: vancomycin HCL 750 MG in 0.9 % Sodium Chloride 250 ML 265 MG IV (22:03)
[2024-08-31 00:30] LABS: Glucose, Whole Blood 100 mg/dL (60-115)
[2024-08-31 03:45] VITALS: BP 174/79; PULSE 98; RESP 18; TEMP 36.9; O2SAT 99
[2024-08-31] MEDS: Piperacillin Sodium/Tazobactam 3.375 GM in 0.9 % Sodium Chloride 50 ML IV ×4 (04:39→22:29)
--- NOTE | 2024-08-31 05:00 | MHC.PIE ---
Patient found to have medication in her purse from home. This RN placed meds in medication envelope in patient's bin. Patient signed paperwork , and will receive upon discharge.
[2024-08-31] MEDS: Omeprazole 40 MG CAPSULE.DR PO ×2 (05:22→17:35)
[2024-08-31] MEDS: HYDROmorphone HCl 1 MG/ML SYRINGE IVPUSH ×3 (05:22→22:25)
[2024-08-31 06:00] VITALS: BMI 16.9
[2024-08-31 06:27] LABS: Glucose, Whole Blood 81 mg/dL (60-115)
[2024-08-31 06:53] LABS: Anion Gap 15 (12-20); Blood Urea Nitrogen 6 mg/dL (9-16); Calcium 9.1 mg/dL (8.4-10.2); Carbon Dioxide 18 mmol/L (22-29); Chloride 112 mmol/L (96-108); Creatinine Clr Calc Pharmacy 55.9; Estimated Glomerular Filt Rate > 60; Glucose Fasting 80 mg/dL (60-99); Potassium 3.5 mmol/L (3.3-5.1); Sodium 141 mmol/L (135-145)
[2024-08-31 07:02] LABS: Hematocrit 24.8 % (37.0-47.0); Hemoglobin 8.1 g/dl (12.0-16.0); Mean Corpuscular HGB Conc 32.7 g/dl (31.0-35.0); Mean Corpuscular Hemoglobin 32.3 pg (27.0-33.0); Mean Corpuscular Volume 98.8 fL (80.0-98.0); Mean Platelet Volume 11.9 fL (9.4-12.3); Red Blood Count 2.51 X10*6/uL (4.20-5.50); Red Cell Distribution Width 17.4 % (11.0-16.0); White Blood Count 8.9 X10*3/uL (4.8-10.8)
[2024-08-31 07:09] LABS: Platelet Count 99 X10*3/uL (160-400)
[2024-08-31 07:26] VITALS: BP 132/64; PULSE 87; RESP 20; TEMP 36.8; O2SAT 99
--- NOTE | 2024-08-31 08:37 | P.CONGS_ITS ---
History of Present Illness Consult details Consult date: 08/31/24 Narrative: Patient is a 59-year-old female with a plethora of comorbidities and intercurrent medical problems. Surgical consult was obtained for early stage sacral decubitus skin breakdown. Chart was reviewed and patient evaluated [facility] Past Medical History Medical History (Updated 08/31/24 @ 08:39 by Jensen Willett MD) DVT (deep venous thrombosis) Essential (primary) hypertension CVA (cerebral vascular accident) COPD (chronic obstructive pulmonary disease) Asthma exacerbation Surgical History Surgical History (Updated 08/22/24 @ 13:22 by Lester Hendrix RN) Surgical history unknown Social History Social History Household Members: Children Household Members Other:: lives with son, per ED report and providers. Housing: Unknown / Unable to assess Housing Other:: pt not cooperative Unable to assess alcohol history related to: Unknown and Refusing to respond Comment: restraints Patient Tobacco Use Status: Former Tobacco user Tobacco use type: Cigarette e-Cigarette/Vaping Use: Former Use Substance Use Type: Marijuana service: No Current occupational status: unemployed Meds Allergies Allergy/AdvReac Type Severity Reaction Status Date / Time No Known Allergies Allergy Verified 08/21/24 20:52 Active Medications: Current Medications Acetaminophen (Acetaminophen 325 Mg Tablet) 650 mg PO Q6H PRN PRN Reason: Fever Last Admin: 08/30/24 04:41 Dose: 650 mg Glucose (Glucose Gel 15 Gm Gel..Gram.) 15 gm PO Q15M PRN; Protocol PRN Reason: per Hypoglycemia Standing Ord. Hydromorphone HCl (Hydromorphone Hcl 1 Mg/Ml Syringe) 1 mg IVPUSH Q2H PRN; Protocol PRN Reason: Pain, Moderate(Pain Scale 4-6) Last Admin: 08/31/24 05:22 Dose: 1 mg Dextrose (D10) 250 mls @ 750 mls/hr IV Q15M PRN; Protocol PRN Reason: per Hypoglycemia Standing Ord. Piperacillin Sod/Tazobactam (Sod 3.375 gm/ Sodium Chloride) 50 mls @ 100 mls/hr IV Q6H [facility] Last Infusion: 08/31/24 05:27 Dose: Infused Vancomycin HCl 750 mg/ Sodium (Chloride) 265 mls @ 265 mls/hr IV Q12H [facility] Last Infusion: 08/30/24 23:45 Dose: Infused Insulin Human Lispro (Insulin Lispro 100 Unit/Ml 3 Ml Vial) 0 unit SUBCUT Q6H [facility]; Protocol Last Admin: 08/31/24 06:35 Dose: Not Given Metoprolol Succinate (Metoprolol Succinate Er 25 Mg Tab.Er.24h) 25 mg PO DAILY [facility]; Protocol Last Admin: 08/30/24 09:56 Dose: 25 mg Naloxone HCl (Naloxone Hcl 0.4 Mg/Ml Vial) 0.2 mg IVPUSH Q2M PRN PRN Reason: Excessive sedation or RR < 8 Omeprazole (Omeprazole 40 Mg Capsule.Dr) 40 mg PO BID@0630,1630 [facility] Last Admin: 08/31/24 05:22 Dose: 40 mg Ondansetron HCl (Ondansetron Hcl 4 Mg/2 Ml Vial) 4 mg IVPUSH Q4H PRN PRN Reason: Nausea and Vomiting Pharmacy Consult (Consult Rx Parenteral Nutrition Ordering) 1 each MISCELLANE DAILY PRN PRN Reason: Consult order Pharmacy Consult (Consult Rx Vancomycin Dosing) 1 each MISCELLANE DAILY PRN PRN Reason: Consult order Sodium Chloride (0.9 % Sodium Chloride Flush 3 Ml Syringe) 3 ml IVFLUSH QSHIFT [facility] Last Admin: 08/30/24 23:36 Dose: 3 ml Sucralfate (Sucralfate 1 Gm Tablet) 1 gm PO QID [facility] Last Admin: 08/30/24 20:54 Dose: 1 gm Home Medications ?Medication ?Instructions ?Recorded ?Confirmed ?Last Taken ?Type metoprolol succinate 25 mg 25 mg PO DAILY 08/22/24 08/22/24 Unknown History tablet,extended release 24 hr Physical Exam 2 Vital Signs: Vital Signs: Last Vital Signs Temp 98.2 F 08/31/24 07:26 Pulse 87 08/31/24 07:26 Resp 20 08/31/24 07:26 BP 132/64 08/31/24 07:26 Pulse Ox 99 08/31/24 07:26 O2 Del Method Room Air 08/31/24 07:26 O2 Flow Rate 40 08/24/24 05:00 FiO2 21 08/27/24 12:00 BMI result Body Mass Index 16.9 Back/Spine/Pelvis: Other: Patient has an early stage/stage I breakdown of the superficial skin of the sacral area. Dressing with padding was re-applied. Results Labs 08/31/24 05:13 08/31/24 05:13 Labs: Abnormal lab results 08/30/24 08/31/24 Range/Units 20:01 05:13 RBC 2.51 L (4.20-5.50) X10*6/uL Hgb 8.1 L (12.0-16.0) g/dl Hct 24.8 L (37.0-47.0) % MCV 98.8 H (80.0-98.0) fL RDW 17.4 H (11.0-16.0) % Plt Count 99 L (160-400) X10*3/uL Chloride 112 H (96-108) mmol/L Carbon Dioxide 18 L (22-29) mmol/L BUN 6 L (9-16) mg/dL Random Vancomycin 8.7 L (15-20) mcg/mL Short CBC 08/31/24 Range/Units 05:13 WBC 8.9 (4.8-10.8) X10*3/uL Hgb 8.1 L (12.0-16.0) g/dl Hct 24.8 L (37.0-47.0) % Plt Count 99 L (160-400) X10*3/uL BMP 08/31/24 05:13 Sodium 141 Potassium 3.5 Chloride 112 H Carbon Dioxide 18 L BUN 6 L Creatinine 0.70 Calcium 9.1 D Urine 08/28/24 Range/Units 21:40 Urine Color Dark Yellow Urine Appearance Clear Urine pH 7.0 (5.0-9.0) Ur Specific [place] 1.015 (1.005-1.025) Urine Protein 100 (2+) H (Neg-Trace) mg/dL Urine Glucose (UA) Negative (Negative) mg/dL All other labs normal. Assessment and Plan (1) Sacral wound: Status: Acute Plan At present, this wound requires no further surgical intervention. Recommendations per routine including padding the area, postural changes, optimizing nutrition, wound nurse consult. Procedures Date of Service Date of Service: 08/31/24
[2024-08-31] MEDS: Sucralfate 1 GM TABLET PO ×4 (08:56→22:25)
[2024-08-31] MEDS: Metoprolol Succinate ER 25 MG TAB.ER.24H PO (08:56)
[2024-08-31] MEDS: 0.9 % Sodium Chloride Flush 3 ML SYRINGE IVFLUSH ×2 (08:57→17:35)
[2024-08-31] MEDS: vancomycin HCL 750 MG in 0.9 % Sodium Chloride 250 ML 265 MG IV ×2 (08:57→21:00)
--- NOTE | 2024-08-31 09:42 | P.PNIM_ITS ---
Subjective Subjective Date of Service: 08/31/24 Interval History: feeling better Physical Exam 2 Vital Signs: Vital Signs: Last Vital Signs Temp 98.2 F 08/31/24 07:26 Pulse 87 08/31/24 07:26 Resp 20 08/31/24 07:26 BP 132/64 08/31/24 07:26 Pulse Ox 99 08/31/24 07:26 O2 Del Method Room Air 08/31/24 07:26 O2 Flow Rate 40 08/24/24 05:00 FiO2 21 08/27/24 12:00 BMI result Body Mass Index 16.9 Const: General: comfortable and no acute distress O rientation/consciousness: patient oriented x3 HEENT: Ears: hearing grossly normal bilaterally Resp: Effort & Inspection: normal respiratory effort and able to speak in complete sentences Auscultation: clear to auscultation bilaterally Cardio: Rate: regular rate Rhythm: regular rhythm Heart sounds: S1 normal heart sound present and S2 normal heart sound present Bruits: no abdominal aortic bruits, no carotid bruits, no femoral bruits and no renal bruits GI: Palpation (GI): No Abdominal aortic bruit present Skin: Other: Toenail off, toenail bed erythematous/pink. Dry gangrene/necrosis noted distally on the tip of the toe. slight erythema noted around the toe. L2 deep erythematous color around toe/toenail. Neuro: General: patient oriented x3 Cranial nerves: Yes CN's II-XII intact bilaterally Objective Data Active Medications Acetaminophen (Acetaminophen 325 Mg Tablet) 650 mg PO Q6H PRN PRN Reason: Fever Last Admin: 08/30/24 04:41 Dose: 650 mg Documented By: TIMOTHY Glucose (Glucose Gel 15 Gm Gel..Gram.) 15 gm PO Q15M PRN; Protocol PRN Reason: per Hypoglycemia Standing Ord. Hydromorphone HCl (Hydromorphone Hcl 1 Mg/Ml Syringe) 1 mg IVPUSH Q2H PRN; Protocol PRN Reason: Pain, Moderate(Pain Scale 4-6) Last Admin: 08/31/24 05:22 Dose: 1 mg Documented By: WILLIAM Dextrose (D10) 250 mls @ 750 mls/hr IV Q15M PRN; Protocol PRN Reason: per Hypoglycemia Standing Ord. Piperacillin Sod/Tazobactam (Sod 3.375 gm/ Sodium Chloride) 50 mls @ 100 mls/hr IV Q6H [facility] Last Admin: 08/31/24 08:56 Dose: 100 mls/hr Documented By: MAXIMILIANO Vancomycin HCl 750 mg/ Sodium (Chloride) 265 mls @ 265 mls/hr IV Q12H [facility] Last Admin: 08/31/24 08:57 Dose: 265 mls/hr Documented By: MAXIMILIANO Insulin Human Lispro (Insulin Lispro 100 Unit/Ml 3 Ml Vial) 0 unit SUBCUT Q6H [facility]; Protocol Last Admin: 08/31/24 06:35 Dose: Not Given Documented By: WILLIAM Non-Admin Reason: No Insulin Coverage Metoprolol Succinate (Metoprolol Succinate Er 25 Mg Tab.Er.24h) 25 mg PO DAILY [facility]; Protocol Last Admin: 08/31/24 08:56 Dose: 25 mg Documented By: MAXIMILIANO Naloxone HCl (Naloxone Hcl 0.4 Mg/Ml Vial) 0.2 mg IVPUSH Q2M PRN PRN Reason: Excessive sedation or RR < 8 Omeprazole (Omeprazole 40 Mg Capsule.Dr) 40 mg PO BID@0630,1630 [facility] Last Admin: 08/31/24 05:22 Dose: 40 mg Documented By: WILLIAM Ondansetron HCl (Ondansetron Hcl 4 Mg/2 Ml Vial) 4 mg IVPUSH Q4H PRN PRN Reason: Nausea and Vomiting Pharmacy Consult (Consult Rx Parenteral Nutrition Ordering) 1 each MISCELLANE DAILY PRN PRN Reason: Consult order Pharmacy Consult (Consult Rx Vancomycin Dosing) 1 each MISCELLANE DAILY PRN PRN Reason: Consult order Sodium Chloride (0.9 % Sodium Chloride Flush 3 Ml Syringe) 3 ml IVFLUSH QSHIFT [facility] Last Admin: 08/31/24 08:57 Dose: 3 ml Documented By: MAXIMILIANO Sucralfate (Sucralfate 1 Gm Tablet) 1 gm PO QID [facility] Last Admin: 08/31/24 08:56 Dose: 1 gm Documented By: MAXIMILIANO Labs 08/31/24 05:13 08/31/24 05:13 Labs: Laboratory Results - last 24 hr 08/30/24 08/30/24 08/30/24 11:14 18:52 20:01 MCV MCH MCHC RDW Plt Count MPV Absolute Nucleated RBC Nucleated RBC % (auto) Anion Gap Estim Creat Clear Calc Estimated GFR POC Glucose 84 92 Fasting Glucose Calcium Random Vancomycin 8.7 L 08/31/24 08/31/24 08/31/24 00:25 05:13 06:23 MCV 98.8 H MCH 32.3 MCHC 32.7 RDW 17.4 H Plt Count 99 L MPV 11.9 Absolute Nucleated RBC 0.000 Nucleated RBC % (auto) 0.0 Anion Gap 15 Estim Creat Clear Calc 55.9 Estimated GFR > 60 POC Glucose 100 81 Fasting Glucose 80 Calcium 9.1 D Random Vancomycin Microbiology Microbiology Results: Microbiology 08/28/24 22:42 Blood Culture - Preliminary Blood - Venous No growth after 48 hours. 08/28/24 22:42 Blood Culture - Preliminary Blood - Venous No growth after 48 hours. 08/28/24 16:47 Blood Culture - Preliminary Blood - Venous No growth after 48 hours. 08/28/24 16:47 Blood Culture - Preliminary Blood - Venous No growth after 48 hours. Assessment and Plan (1) GI bleed: Status: Acute Plan 58F PMH CVA X2 (no residual deficits), COPD, HTN, provoked DVT no longer on AC, hepatitis-C, moderate protein calorie malnutrition, unspecified dementia, was admitted 08/22/2024 with hematemesis due to large gastric ulcer complicated by acute hypoxic respiratory failure requiring intubation and brief cardiac arrest. Patient extubated 08/27/2024 and downgraded at 08/28/24. Course complicated by fevers. Acute hypoxic respiratory failure, cardiac arrest, hemorrhagic shock due to acute blood loss anemia due to gastric ulcer Status post EGD 08/22/2024 with OTSC clip and hemo spray On PPI and Carafate Extubated and off pressors Hemoglobin now stable around 8 Ryan was 6.7 on 08/22/2024 Sepsis 08/28/2024 at 15:47 Question due to left 1st toe dry gangrene vs sacral unstageable ulcer Continue empiric vanc Zosyn, ID eval vascular appreciated - will likely need intervention when more stable local wound care Hypertension Toprol HCV Outpatient follow up Moderate protein calorie malnutrition Encourage p.o. intake Unspecified dementia Appears to be at baseline History of CVA, PVD Holding aspirin for GI bleed History of provoked DVT no longer on anticoagulation DVT prophylaxis-mechanical due to GI bleed Full code reason for continued hospitalization: Monitoring for defervescence Quality Stroke Does the patient have a stroke diagnosis?: No VTE Prior VTE?: No VTE Risk Level:: Medical - moderate - high VTE Device Contraindication: N/A - Device Ordered VTE Drug Contraindication: Treatment Not Tolerated
--- NOTE | 2024-08-31 10:18 | MHC.SL.SWA ---
Speech Pathologist Impression: Risk of Aspiration, Oral Phase Dysphagia Risk of Aspiration Due to: Medically Fragile Poor PO Intake Hx of Recent Extubation Weak Cough Weak Voice Dysphasia Diet Status: No Change Liquid Consistency and Strategies for Safe Swallow: Liquid Intake Recommendation: Thin Liquid Intake Strategies: No Straws Solid Food Consistency: Dietary Recommendations: Grnd/Mech Altered (NDD2) Additional Modifications to Solid Foods: PREHEMMER recommending Ground/Mech Solids (NDD2) and Thin Liquids. Meds Whole with Puree. Pt can feed self, but may need assist with tray set-up and encouragement to finish meals. PREHEMMER continues to follow. Oral Medication Intake: Whole with Puree Please contact the pharmacy regarding appropriate crushable or liquid drug formulations that are available whenever modified delivery is recommended. Compensatory Strategies and Precautions to be Taken for Safe Swallow: Sitting Upright (90 deg) No Straw Small Bites and Sips Alternate Liquids/Solids Rate of Ingestion Change Oral Check Avoid Specific Foods Supervision While Eating and Drinking for Safe Swallow: Intermittent Supervision Foods to Avoid: Mixed consistencies. Recommendation for Speech: Inpatient ST Administrative Director Clinican/Clinical Fellow: No Supervisory Statement: I have reviewed and agree with the student/clinical fellow's documentation: N/A Speech Language Pathologist: Mercy Alvarez M.A., [facility]PRE[facility]
[2024-08-31 11:15] VITALS: BP 157/68; PULSE 87; RESP 16; TEMP 36.6; O2SAT 100
--- NOTE | 2024-08-31 11:32 | MHC.CLN ---
F/U PO INTAKE 75-100% DIET RX: GRD M/S-APPROPRIATE RECEIVING ENSURE BID TO PROVIDE 700KCALS, 40G PROTEIN R/T MALNUTRITION AND WOUND HEALING CONTINUE TO MONITOR PO INTAKE AND ENCOURAGE SUPPLEMENT
[2024-08-31 11:34] LABS: Glucose, Whole Blood 88 mg/dL (60-115)
--- NOTE | 2024-08-31 14:51 | MHC.CM.PN ---
Per rounds, pt. is not ready for DC, she requires further tx for fevers, gangrene toe, input from ID. CM to follow and assist with DC plan.
[2024-08-31 15:04] VITALS: BP 162/76; PULSE 87; RESP 16; TEMP 36.7; O2SAT 97
[2024-08-31 17:52] LABS: Glucose, Whole Blood 113 mg/dL (60-115)
[2024-08-31 19:27] VITALS: BP 153/64; PULSE 93; RESP 18; TEMP 36.7; O2SAT 100
[2024-08-31 20:20] LABS: Vancomycin Random 14.4 mcg/mL (15-20)
--- NOTE | 2024-08-31 20:38 | HE.PHANOTE ---
VANCO DOSE ADJUSTMENT BASED ON LEVEL OF 14.4 AND SCR DOSE CONTINUED AT 750 Q 12H. NEXT LEVEL 08/31
--- NOTE | 2024-08-31 22:50 | W.PM.IDCN ---
History of Present Illness Data of Consult Service Date: 08/31/24 Requesting physician: Sunil Pro Primary Care Provider: None Physician HPI Reason for consult: fever of unknown origin She presents with bloody stool. It was also found that she has left first toe dry gangrene. She has fever to 102 on 08/28 but hasnt had since. Review of Systems Review of Systems: Yes Unobtainable due to mental status PMFSH Past Medical History Medical History (Updated 08/31/24 @ 22:57 by Jael Mayers MD) Dry gangrene DVT (deep venous thrombosis) Essential (primary) hypertension CVA (cerebral vascular accident) COPD (chronic obstructive pulmonary disease) Asthma exacerbation Family History Family history: reviewed and not pertinent Surgical History Surgical History Surgical history unknown Social History Social History Household Members: Children Household Members Other:: lives with son, per ED report and providers. Housing: Unknown / Unable to assess Housing Other:: pt not cooperative Unable to assess alcohol history related to: Unknown and Refusing to respond Comment: restraints Patient Tobacco Use Status: Former Tobacco user Tobacco use type: Cigarette e-Cigarette/Vaping Use: Former Use Substance Use Type: Marijuana service: No Current occupational status: unemployed Meds Allergies Allergy/AdvReac Type Severity Reaction Status Date / Time No Known Allergies Allergy Verified 08/21/24 20:52 Active Medications: Current Medications Acetaminophen (Acetaminophen 325 Mg Tablet) 650 mg PO Q6H PRN PRN Reason: Fever Last Admin: 08/30/24 04:41 Dose: 650 mg Glucose (Glucose Gel 15 Gm Gel..Gram.) 15 gm PO Q15M PRN; Protocol PRN Reason: per Hypoglycemia Standing Ord. Hydromorphone HCl (Hydromorphone Hcl 1 Mg/Ml Syringe) 1 mg IVPUSH Q2H PRN; Protocol PRN Reason: Pain, Moderate(Pain Scale 4-6) Last Admin: 08/31/24 22:25 Dose: 1 mg Dextrose (D10) 250 mls @ 750 mls/hr IV Q15M PRN; Protocol PRN Reason: per Hypoglycemia Standing Ord. Piperacillin Sod/Tazobactam (Sod 3.375 gm/ Sodium Chloride) 50 mls @ 100 mls/hr IV Q6H [facility] Last Admin: 08/31/24 22:29 Dose: 100 mls/hr Vancomycin HCl 750 mg/ Sodium (Chloride) 265 mls @ 265 mls/hr IV Q12H [facility] Last Admin: 08/31/24 21:00 Dose: 265 mls/hr Insulin Human Lispro (Insulin Lispro 100 Unit/Ml 3 Ml Vial) 0 unit SUBCUT Q6H [facility]; Protocol Last Admin: 08/31/24 19:19 Dose: Not Given Metoprolol Succinate (Metoprolol Succinate Er 25 Mg Tab.Er.24h) 25 mg PO DAILY [facility]; Protocol Last Admin: 08/31/24 08:56 Dose: 25 mg Naloxone HCl (Naloxone Hcl 0.4 Mg/Ml Vial) 0.2 mg IVPUSH Q2M PRN PRN Reason: Excessive sedation or RR < 8 Omeprazole (Omeprazole 40 Mg Capsule.Dr) 40 mg PO BID@0630,1630 [facility] Last Admin: 08/31/24 17:35 Dose: 40 mg Ondansetron HCl (Ondansetron Hcl 4 Mg/2 Ml Vial) 4 mg IVPUSH Q4H PRN PRN Reason: Nausea and Vomiting Pharmacy Consult (Consult Rx Parenteral Nutrition Ordering) 1 each MISCELLANE DAILY PRN PRN Reason: Consult order Pharmacy Consult (Consult Rx Vancomycin Dosing) 1 each MISCELLANE DAILY PRN PRN Reason: Consult order Sodium Chloride (0.9 % Sodium Chloride Flush 3 Ml Syringe) 3 ml IVFLUSH QSHIFT [facility] Last Admin: 08/31/24 17:35 Dose: 3 ml Sucralfate (Sucralfate 1 Gm Tablet) 1 gm PO QID [facility] Last Admin: 08/31/24 22:25 Dose: 1 gm Home Medications ?Medication ?Instructions ?Recorded ?Confirmed ?Last Taken ?Type metoprolol succinate 25 mg 25 mg PO DAILY 08/22/24 08/22/24 Unknown History tablet,extended release 24 hr Physical Exam Vital Signs: Vital Signs: Last Vital Signs Temp 98.0 F 08/31/24 19:27 Pulse 93 08/31/24 19:27 Resp 18 08/31/24 19:27 BP 153/64 H 08/31/24 19:27 Pulse Ox 100 08/31/24 19:27 O2 Del Method Room Air 08/31/24 19:27 O2 Flow Rate 40 08/24/24 05:00 FiO2 21 08/27/24 12:00 BMI result Body Mass Index 16.9 Const: General: cooperative HEENT: Head: Yes normal to inspection Face and sinus: Yes normal facial exam Mouth: Normal oral and palatal mucosa present Teeth and gingiva: dentition normal Eyes: General: appearance normal, both eyes and all related structures Pupils: Equal, round and reactive pupils present Resp: Effort & Inspection: normal respiratory effort Cardio: Rate: regular rate Rhythm: regular rhythm GI: Palpation (GI): Soft to palpation and nontender : General: Yes no CVA tenderness Back/Spine/Pelvis: Back: no CVA tenderness Skin: General skin exam: no rashes or lesions noted Neuro: General: moves all extremities Cranial nerves: Yes Equal, round and reactive pupils present Extrem: Other: left first toe dry gangrene Psych: Appearance: grossly normal Results Labs 08/31/24 05:13 08/31/24 05:13 Labs: Short CBC 08/31/24 Range/Units 05:13 WBC 8.9 (4.8-10.8) X10*3/uL Hgb 8.1 L (12.0-16.0) g/dl Hct 24.8 L (37.0-47.0) % Plt Count 99 L (160-400) X10*3/uL BMP 08/31/24 05:13 Sodium 141 Potassium 3.5 Chloride 112 H Carbon Dioxide 18 L BUN 6 L Creatinine 0.70 Calcium 9.1 D Microbiology Microbiology Results: Microbiology 08/28/24 22:42 Blood - Venous Blood Culture - Preliminary No growth after 48 hours. 08/28/24 22:42 Blood - Venous Blood Culture - Preliminary No growth after 48 hours. 08/28/24 16:47 Blood - Venous Blood Culture - Preliminary No growth after 48 hours. 08/28/24 16:47 Blood - Venous Blood Culture - Preliminary No growth after 48 hours. 08/27/24 20:25 Blood - Venous Blood Culture - Preliminary No growth after 48 hours. 08/22/24 14:10 Blood - Venous Blood Culture - Final No growth after 5 days. 08/22/24 14:07 Blood - Venous Blood Culture - Final No growth after 5 days. Assessment and Plan (1) PAD (peripheral artery disease): Status: Acute (2) GI bleed: Qualifiers: GI bleed type/associated pathology: gastrointestinal hemorrhage with hematemesis Qualified Code(s): K92.0 - Hematemesis Status: Acute (3) Dry gangrene: Status: Acute Plan She has fever maybe from gangrene There is no other infection seen Would continue Vancomycin and Zosyn. Next day or two as long as afebrile would switch to po Augmentin for 10 days. See Vascular outpatient.
[2024-08-31 23:36] VITALS: BP 169/75; PULSE 95; RESP 20; TEMP 36.7; O2SAT 95
[2024-09-01] VITALS (7 sets, daily range): BP systolic 129–168; BP diastolic 63–76; PULSE 77–89; RESP 18–20; TEMP 36.3–37; O2SAT 96–100; BMI 17.0
[2024-09-01 00:31] LABS: Glucose, Whole Blood 110 mg/dL (60-115)
[2024-09-01] MEDS: HYDROmorphone HCl 1 MG/ML SYRINGE IVPUSH ×2 (01:02→16:37)
[2024-09-01] MEDS: Piperacillin Sodium/Tazobactam 3.375 GM in 0.9 % Sodium Chloride 50 ML IV ×4 (06:04→23:26)
[2024-09-01] MEDS: Omeprazole 40 MG CAPSULE.DR PO ×2 (06:04→16:03)
[2024-09-01 07:19] LABS: Glucose, Whole Blood 90 mg/dL (60-115)
[2024-09-01 07:50] LABS: Creatinine Clr Calc Pharmacy 54.7; Estimated Glomerular Filt Rate > 60
[2024-09-01] MEDS: Metoprolol Succinate ER 25 MG TAB.ER.24H PO (07:58)
[2024-09-01] MEDS: Sucralfate 1 GM TABLET PO ×4 (07:58→21:40)
[2024-09-01] MEDS: vancomycin HCL 750 MG in 0.9 % Sodium Chloride 250 ML 265 MG IV ×2 (08:02→21:39)
[2024-09-01] MEDS: 0.9 % Sodium Chloride Flush 3 ML SYRINGE IVFLUSH ×4 (08:02→21:41)
--- NOTE | 2024-09-01 09:27 | P.DS_ITS ---
DS: Providers Provider Date of Service: 09/03/24 Date of admission: 08/22/24 01:08 Date of discharge: 09/03/24 Primary care physician: None Physician Consults: 08/22/24 02:39 Consult to Gastroenterology Routine Consulting Provider: Corina Gomez Reason for consultation: Upper GI bleed Has provider been notified: Yes 08/22/24 13:26 Consult to Wound Care Routine Reason for consultation: COCCYX WOUND Has provider been notified: Yes 08/22/24 15:57 Consult to Wound Care Routine Reason for consultation: stage 2 noted on coccyx Has provider been notified: Yes 08/28/24 21:34 Consult to Vascular Surgery Routine Consulting Provider: [facility] [place] Vascular Services Reason for consultation: PVD, great toe blackening 08/30/24 09:02 Consult to Infectious Diseases Routine Consulting Provider: [facility] Infectious Disease Center Reason for consultation: sepsis ? left 1st toe 08/30/24 14:51 Consult to General Surgery Routine Consulting Provider: [facility] [place] [facility] General Surgeons Reason for consultation: sacral wound DS: Diagnosis Discharge Diagnosis (1) PAD (peripheral artery disease): Status: Acute (2) GI bleed: Status: Acute (3) Dry gangrene: Status: Acute DS: Summary Hospital Course Hospital Course: from initial hpi: 58 years old woman with past medical history significant for COPD, CVA, e ssential hypertension and DVT -not on anticoagulation presents to the emergency department complaining coffee-ground vomiting and black stool. She also complained of chronic left ankle/foot pain that she attributes to DVT. Patient is a poor historian. She denied abdominal pain. She also denied any headache, dizziness, chest pain or shortness on breath. Did not report intake of NSAIDs and apparently does not take aspirin. She said that she takes a lot of medication and does not recall the name of them. She was recently hospitalized with diagnosis of acute diverticulitis, JUANITO, hypokalemia and metabolic acidosis. In the ED she was found to have stable vital signs. There is mild tachycardia. Blood workup showed leukocytosis of 13.4. Hemoglobin is 9.1 and hematocrit 24.5. Platelets 234. There is hypokalemia of 2.7, hyperchloremia 117 and CO2 of 11. Creatinine is 1.44 (it was normal last month). AST and ALT are slightly elevated. Alk-phos and bilirubin are normal. Troponin 7.1, albumin 3.3 and lipase is normal. Tachycardia, HR [address] changes. VBGs showed pH of 7.27, CO2 8 and pCO2 18. CXR is unremarkable. Lower extremities venous ultrasound showed no DVT or Fortune's cyst. ED tx: Pantoprazole 40 mg IV, Zofran 4 mg IV, magnesium 2 g IV, KCl IV,, Klor- Con 40 mEq and fentanyl 25 mcg IV hospital course: Patient was admitted for acute hypoxic respiratory failure complicated by cardiac arrest and hemorrhagic shock due to acute blood loss anemia due to gastric ulcer. She underwent EGD on 08/22/2024 with OTS see clip and hemo spray. She was put on PPI and Carafate and admitted to the ICU, eventually she was extubated and weaned off pressors. Hemoglobin then remained stable around 8, in ED her hemoglobin was 6.7. Course was then complicated by sepsis possibly due to cellulitis and gangrene of left 1st toe. Was empirically treated with vancomycin Zosyn and sepsis resolved. Was seen by infectious disease who recommended 10 days of Augmentin and outpatient follow up with vascular surgery. Arterial studies did show vascular disease and was seen by vascular surgery who recommended outpatient follow up. Noted to have sacral wound was seen by wound care recommended local care was also seen by surgery who recommended no intervention at this time. Patient will follow up with wound care for sacral wound. For hepatitis-C we will follow up outpatient. For hypertension continued on metoprolol. For moderate protein calorie malnutrition encouraged p.o. intake. For unspecified dementia patient at baseline. For history of CVA and peripheral vascular disease her aspirin has been held for her gastric ulcer. Patient was seen by physical therapy recommended short-term rehab to which patient will be discharged. She is expected require less than 30 days. Time Attestation Discharge Coordination Time (in mins): 33 Quality: Safe Use of Opioids Does Pt have an Active Cancer Diagnosis on the Problem List?: No Quality: Stroke Does the patient have a stroke diagnosis?: No Physical Exam Vital Signs: Vital Signs: Last Vital Signs Temp 97.8 F 09/01/24 07:32 Pulse 86 09/01/24 07:32 Resp 20 09/01/24 07:32 BP 164/72 H 09/01/24 07:32 Pulse Ox 96 09/01/24 07:32 O2 Del Method Room Air 09/01/24 07:32 O2 Flow Rate 40 08/24/24 05:00 FiO2 21 08/27/24 12:00 BMI result Body Mass Index 17.0 Const: General: cooperative HEENT: Head: Yes normal to inspection Face and sinus: Yes normal facial exam Mouth: Normal oral and palatal mucosa present Teeth and gingiva: dentition normal Eyes: General: appearance normal, both eyes and all related structures Pupils: Equal, round and reactive pupils present Resp: Effort & Inspection: normal respiratory effort Cardio: Rate: regular rate Rhythm: regular rhythm GI: Palpation (GI): Soft to palpation and nontender : General: Yes no CVA tenderness Back/Spine/Pelvis: Back: no CVA tenderness Skin: General skin exam: no rashes or lesions noted Neuro: General: moves all extremities Cranial nerves: Yes Equal, round and reactive pupils present Extrem: Other: left first toe dry gangrene Psych: Appearance: grossly normal DS: Data Data Completed and Pending Completed studies during hospitalization [Text1]: Procedures Assistance with Respiratory Ventilation, Less than 24 Consecutive Hours, Continu ous Positive Airway Pressure (09/24/21) Transfusion of Nonautologous Red Blood Cells into Peripheral Vein, Percutaneous Approach (07/13/24) Labs on day of discharge: Laboratory Results - last 24 hr 08/31/24 08/31/24 08/31/24 11:30 17:49 19:56 Creatinine Estim Creat Clear Calc Estimated GFR POC Glucose 88 113 Random Vancomycin 14.4 L 09/01/24 09/01/24 09/01/24 00:26 07:15 07:25 Creatinine 0.72 Estim Creat Clear Calc 54.7 Estimated GFR > 60 POC Glucose 110 90 Random Vancomycin Preliminary micro results at discharge 08/28/24 22:42 Blood Culture - Preliminary Blood - Venous No growth after 48 hours. 08/28/24 22:42 Blood Culture - Preliminary Blood - Venous No growth after 48 hours. 08/28/24 16:47 Blood Culture - Preliminary Blood - Venous No growth after 48 hours. 08/28/24 16:47 Blood Culture - Preliminary Blood - Venous No growth after 48 hours. 08/27/24 20:25 Blood Culture - Preliminary Blood - Venous No growth after 48 hours. Discharge Plan Discharge Anticipated Discharge Date/Time: 09/01/24 09:21 Patient Disposition: Home, Self-Care Discharge Diagnosis: cardiac arrest, gi bleed, gangrene Referrals: Corina Gomez MD [Physician] - 1 Week Mook Zayas MD [Physician] - 1 Week Physician,None [Primary Care Provider] - 1 Week Cate Lorenzo MD [Physician] - 1 Week Discharge Medications: New sucralfate 1 gram Tablet 1 g PO QID Qty: 360 0RF omeprazole 40 mg Capsule,Delayed Release(Dr/Ec) 40 mg PO BID@0630,1630 Qty: 180 0RF amoxicillin-pot clavulanate 875-125 mg tablet 1 tab PO BID Qty: 20 0RF Continued albuterol sulfate 90 mcg/actuation HFA aerosol inhaler 1 inh inhalation QID PRN (Reason: shortness of breath or wheezing) Qty: 8.5 0RF multivitamin [Daily-Brigid] Tablet 1 tab PO DAILY Qty: 90 0RF potassium chloride 20 mEq Tablet,Er Particles/Crystals 40 meq PO DAILY Qty: 90 0RF metoprolol succinate 25 mg Tablet Extended Release 24 Hr 25 mg PO DAILY Diet: Advance to usual diet Activity on Discharge: As tolerated Stand Alone Forms: Patient Portal Discharge page Print Language: Maori Care Plan Goals: Recovery Health Concerns: GI bleed, gangrene Plan of Treatment: For sacral wound: Apply triad to wound bed twice daily cover with ABD pad secure with tape - can follow up with wound care outpatient For GI bleed continue omeprazole 40 mg b.i.d. and Carafate follow up with Gastroenterology For peripheral vascular disease and dry gangrene 10 more days of Augmentin and follow up with vascular surgery Assessment: See above
--- NOTE | 2024-09-01 10:01 | P.PNIM_ITS ---
Subjective Subjective Date of Service: 09/01/24 Interval History: feeling better Physical Exam 2 Vital Signs: Vital Signs: Last Vital Signs Temp 97.8 F 09/01/24 07:32 Pulse 86 09/01/24 07:32 Resp 20 09/01/24 07:32 BP 164/72 H 09/01/24 07:32 Pulse Ox 96 09/01/24 07:32 O2 Del Method Room Air 09/01/24 07:32 O2 Flow Rate 40 08/24/24 05:00 FiO2 21 08/27/24 12:00 BMI result Body Mass Index 17.0 Const: General: cooperative HEENT: Head: Yes normal to inspection Face and sinus: Yes normal facial exam Mouth: Normal oral and palatal mucosa present Teeth and gingiva: d entition normal Eyes: General: appearance normal, both eyes and all related structures P upils: Equal, round and reactive pupils present Resp: Effort & Inspection: normal respiratory effort Cardio: Rate: regular rate Rhythm: regular rhythm GI: Palpation (GI): Soft to palpation and nontender : General: Yes no CVA tenderness Back/Spine/Pelvis: Back: no CVA tenderness Skin: General skin exam: no rashes or lesions noted Neuro: General: moves all extremities Cranial nerves: Yes Equal, round and reactive pupils present Extrem: Other: left first toe dry gangrene Psych: Appearance: grossly normal Objective Data Active Medications Acetaminophen (Acetaminophen 325 Mg Tablet) 650 mg PO Q6H PRN PRN Reason: Fever Last Admin: 08/30/24 04:41 Dose: 650 mg Documented By: TIMOTHY Glucose (Glucose Gel 15 Gm Gel..Gram.) 15 gm PO Q15M PRN; Protocol PRN Reason: per Hypoglycemia Standing Ord. Hydromorphone HCl (Hydromorphone Hcl 1 Mg/Ml Syringe) 1 mg IVPUSH Q2H PRN; Protocol PRN Reason: Pain, Moderate(Pain Scale 4-6) Last Admin: 09/01/24 01:02 Dose: 1 mg Documented By: ALEX Dextrose (D10) 250 mls @ 750 mls/hr IV Q15M PRN; Protocol PRN Reason: per Hypoglycemia Standing Ord. Piperacillin Sod/Tazobactam (Sod 3.375 gm/ Sodium Chloride) 50 mls @ 100 mls/hr IV Q6H [facility] Last Admin: 09/01/24 09:14 Dose: 100 mls/hr Documented By: LOLA Vancomycin HCl 750 mg/ Sodium (Chloride) 265 mls @ 265 mls/hr IV Q12H [facility] Last Infusion: 09/01/24 09:02 Dose: Infused Documented By: LOLA Insulin Human Lispro (Insulin Lispro 100 Unit/Ml 3 Ml Vial) 0 unit SUBCUT Q6H [facility]; Protocol Last Admin: 09/01/24 07:36 Dose: Not Given Documented By: ALEX Non-Admin Reason: No Insulin Coverage Metoprolol Succinate (Metoprolol Succinate Er 25 Mg Tab.Er.24h) 25 mg PO DAILY [facility]; Protocol Last Admin: 09/01/24 07:58 Dose: 25 mg Documented By: LOLA Naloxone HCl (Naloxone Hcl 0.4 Mg/Ml Vial) 0.2 mg IVPUSH Q2M PRN PRN Reason: Excessive sedation or RR < 8 Omeprazole (Omeprazole 40 Mg Capsule.Dr) 40 mg PO BID@0630,1630 [facility] Last Admin: 09/01/24 06:04 Dose: 40 mg Documented By: ALEX Ondansetron HCl (Ondansetron Hcl 4 Mg/2 Ml Vial) 4 mg IVPUSH Q4H PRN PRN Reason: Nausea and Vomiting Pharmacy Consult (Consult Rx Parenteral Nutrition Ordering) 1 each MISCELLANE DAILY PRN PRN Reason: Consult order Pharmacy Consult (Consult Rx Vancomycin Dosing) 1 each MISCELLANE DAILY PRN PRN Reason: Consult order Sodium Chloride (0.9 % Sodium Chloride Flush 3 Ml Syringe) 3 ml IVFLUSH QSHIFT [facility] Last Admin: 09/01/24 08:02 Dose: 3 ml Documented By: LOLA Sucralfate (Sucralfate 1 Gm Tablet) 1 gm PO QID [facility] Last Admin: 09/01/24 07:58 Dose: 1 gm Documented By: LOLA Labs 08/31/24 05:13 09/01/24 07:25 Labs: Laboratory Results - last 24 hr 08/31/24 08/31/24 08/31/24 11:30 17:49 19:56 Estim Creat Clear Calc Estimated GFR POC Glucose 88 113 Random Vancomycin 14.4 L 09/01/24 09/01/24 09/01/24 00:26 07:15 07:25 Estim Creat Clear Calc 54.7 Estimated GFR > 60 POC Glucose 110 90 Random Vancomycin Assessment and Plan (1) GI bleed: Status: Acute Plan 58F PMH CVA X2 (no residual deficits), COPD, HTN, provoked DVT no longer on AC, hepatitis-C, moderate protein calorie malnutrition, unspecified dementia, was admitted 08/22/2024 with hematemesis due to large gastric ulcer complicated by acute hypoxic respiratory failure requiring intubation and brief cardiac arrest. Patient extubated 08/27/2024 and downgraded at 08/28/24. Course complicated by fevers. Acute hypoxic respiratory failure, cardiac arrest, hemorrhagic shock due to acute blood loss anemia due to gastric ulcer Status post EGD 08/22/2024 with OTSC clip and hemo spray On PPI and Carafate Extubated and off pressors Hemoglobin now stable around 8 Ryan was 6.7 on 08/22/2024 Sepsis 08/28/2024 at 15:47 Question due to left 1st toe dry gangrene vs sacral unstageable ulcer Continue empiric vanc Zosyn, ID aprpeciated - augmentin 10 days on discharge vascular appreciated - will likely need intervention when more stable local wound care Hypertension Toprol HCV Outpatient follow up Moderate protein calorie malnutrition Encourage p.o. intake Unspecified dementia Appears to be at baseline History of CVA, PVD Holding aspirin for GI bleed History of provoked DVT no longer on anticoagulation DVT prophylaxis-mechanical due to GI bleed Full code reason for continued hospitalization: PT eval Quality Stroke Does the patient have a stroke diagnosis?: No VTE Prior VTE?: No VTE Risk Level:: Medical - moderate - high VTE Device Contraindication: N/A - Device Ordered VTE Drug Contraindication: Treatment Not Tolerated
--- NOTE | 2024-09-01 10:43 | MHC.CM.PN ---
Addendum entered by Loren Flanagan 09/02/24 11:22: [facility] IS OFFERING A BED CM MET WITH PT AND SON TUESDAY AFTERNOON, THEY ARE ACCEPTING BED OFFER, HOWEVER PT REPORTS SHE WOULD LIKE TO GO TO A SNF IN [place] WHERE MOST OF HER FAMILY IS. SON REPORTS SHE IS WAITING FOR A NEW APARTMENT, BUT THEY DO NOT KNOW WHEN IT WILL BE AVAILABLE, SHE IS SUPPOSED TO RETURN TO [place] AT THAT TIME. PTS SON INDICATED HE HAD TO LEAVE FOR WORK AND WOULD RETURN FOR FURTHER DISCUSSION TODAY Addendum entered by Loren Flanagan 09/01/24 15:41: PT RECOMMENDING STR REFERRALS PLACED BASED ON PTS INSURANCE/PREFERENCES Original Note: CM MET WITH PT TO DISCUSS DC PLANNING SHE REPORTS SHE DOES NOT KNOW HOW SHE WILL MANAGE AT HOME SHE DOES NOT FEEL SHE IS ABLE TO AMBULATE SHE SAYS SOMEONE TOLD HER THIS MORNING THAT THEY WOULD SEE ABOUT HER GOING TO A SNF T/W EXPLAINED CM WOULD BE THE PEOPLE WHO WOULD WORK ON A SNF IF INDICATED PT WILL HAVE A PT EVAL TO DETERMINE DCP
[2024-09-01 11:48] LABS: Glucose, Whole Blood 81 mg/dL (60-115)
[2024-09-01 16:18] LABS: Glucose, Whole Blood 85 mg/dL (60-115)
[2024-09-01 18:14] LABS: Glucose, Whole Blood 92 mg/dL (60-115)
[2024-09-01 20:24] LABS: Vancomycin Random 17.7 mcg/mL (15-20)
--- NOTE | 2024-09-01 20:30 | HE.PHANOTE ---
Vancomycin addendum: level came back as 17.7, predicted AUC 582, will keep same regimen and recheck level
[2024-09-01 21:04] LABS: Glucose, Whole Blood 77 mg/dL (60-115)
[2024-09-01] MEDS: HYDROmorphone HCl 2 MG TABLET 1 MG PO (21:40)
[2024-09-02 03:54] VITALS: BP 120/77; PULSE 85; RESP 20; TEMP 36.1; O2SAT 97
[2024-09-02] MEDS: Piperacillin Sodium/Tazobactam 3.375 GM in 0.9 % Sodium Chloride 50 ML IV ×4 (05:15→23:04)
[2024-09-02 05:43] VITALS: BMI 16.7
[2024-09-02] MEDS: Omeprazole 40 MG CAPSULE.DR PO ×2 (06:07→16:30)
[2024-09-02 06:41] LABS: Creatinine Clr Calc Pharmacy 54.3; Estimated Glomerular Filt Rate > 60
[2024-09-02 07:22] LABS: Glucose, Whole Blood 79 mg/dL (60-115)
[2024-09-02 08:00] VITALS: BP 155/68; PULSE 58; RESP 20; TEMP 36.8; O2SAT 100
--- NOTE | 2024-09-02 08:26 | P.PNIM_ITS ---
Subjective Subjective Date of Service: 09/02/24 Interval History: Back pain Physical Exam 2 Vital Signs: Vital Signs: Last Vital Signs Temp 98.2 F 09/02/24 08:00 Pulse 58 09/02/24 08:00 Resp 20 09/02/24 08:00 BP 155/68 H 09/02/24 08:00 Pulse Ox 100 09/02/24 08:00 O2 Del Method Room Air 09/02/24 08:00 O2 Flow Rate 40 08/24/24 05:00 FiO2 21 08/27/24 12:00 BMI result Body Mass Index 16.7 Const: General: cooperative HEENT: Head: Yes normal to inspection Face and sinus: Yes normal facial exam Mouth: Normal oral and palatal mucosa present Teeth and gingiva: d entition normal Eyes: General: appearance normal, both eyes and all related structures P upils: Equal, round and reactive pupils present Resp: Effort & Inspection: normal respiratory effort Cardio: Rate: regular rate Rhythm: regular rhythm GI: Palpation (GI): Soft to palpation and nontender : General: Yes no CVA tenderness Back/Spine/Pelvis: Back: no CVA tenderness Skin: General skin exam: no rashes or lesions noted Neuro: General: moves all extremities Cranial nerves: Yes Equal, round and reactive pupils present Extrem: Other: left first toe dry gangrene Psych: Appearance: grossly normal Objective Data Active Medications Acetaminophen (Acetaminophen 325 Mg Tablet) 650 mg PO Q6H PRN PRN Reason: Fever Last Admin: 08/30/24 04:41 Dose: 650 mg Documented By: TIMOTHY Glucose (Glucose Gel 15 Gm Gel..Gram.) 15 gm PO Q15M PRN; Protocol PRN Reason: per Hypoglycemia Standing Ord. Dextrose (D10) 250 mls @ 750 mls/hr IV Q15M PRN; Protocol PRN Reason: per Hypoglycemia Standing Ord. Piperacillin Sod/Tazobactam (Sod 3.375 gm/ Sodium Chloride) 50 mls @ 100 mls/hr IV Q6H [facility] Last Infusion: 09/02/24 05:45 Dose: Infused Documented By: VIJAY Vancomycin HCl 750 mg/ Sodium (Chloride) 265 mls @ 265 mls/hr IV Q12H [facility] Last Infusion: 09/01/24 22:39 Dose: Infused Documented By: ALEX Insulin Human Lispro (Insulin Lispro 100 Unit/Ml 3 Ml Vial) 0 unit SUBCUT QIDACHS [facility]; Protocol Last Admin: 09/02/24 07:37 Dose: Not Given Documented By: SAAD Non-Admin Reason: No Insulin Coverage Comments: POC 79 Melatonin (Melatonin 3 Mg Tablet) 6 mg PO BEDTIME PRN PRN Reason: Insomnia Metoprolol Succinate (Metoprolol Succinate Er 25 Mg Tab.Er.24h) 25 mg PO DAILY [facility]; Protocol Last Admin: 09/01/24 07:58 Dose: 25 mg Documented By: LOLA Naloxone HCl (Naloxone Hcl 0.4 Mg/Ml Vial) 0.2 mg IVPUSH Q2M PRN PRN Reason: Excessive sedation or RR < 8 Omeprazole (Omeprazole 40 Mg Capsule.Dr) 40 mg PO BID@0630,1630 [facility] Last Admin: 09/02/24 06:07 Dose: 40 mg Documented By: VIJAY Ondansetron HCl (Ondansetron Hcl 4 Mg/2 Ml Vial) 4 mg IVPUSH Q4H PRN PRN Reason: Nausea and Vomiting Pharmacy Consult (Consult Rx Parenteral Nutrition Ordering) 1 each MISCELLANE DAILY PRN PRN Reason: Consult order Pharmacy Consult (Consult Rx Vancomycin Dosing) 1 each MISCELLANE DAILY PRN PRN Reason: Consult order Sodium Chloride (0.9 % Sodium Chloride Flush 3 Ml Syringe) 3 ml IVFLUSH QSHIFT [facility] Last Admin: 09/01/24 21:41 Dose: 3 ml Documented By: ALEX Sucralfate (Sucralfate 1 Gm Tablet) 1 gm PO QID [facility] Last Admin: 09/01/24 21:40 Dose: 1 gm Documented By: ALXE Labs 08/31/24 05:13 09/02/24 06:15 Labs: Laboratory Results - last 24 hr 09/01/24 09/01/24 09/01/24 11:45 16:11 18:10 Estim Creat Clear Calc Estimated GFR POC Glucose 81 85 92 Random Vancomycin 09/01/24 09/01/24 09/02/24 20:07 20:51 06:15 Estim Creat Clear Calc 54.3 Estimated GFR > 60 POC Glucose 77 Random Vancomycin 17.7 09/02/24 07:17 Estim Creat Clear Calc Estimated GFR POC Glucose 79 Random Vancomycin Microbiology Microbiology Results: Microbiology 08/27/24 20:25 Blood Culture - Final Blood - Venous No growth after 5 days. Assessment and Plan (1) GI bleed: Status: Acute Plan 58F PMH CVA X2 (no residual deficits), COPD, HTN, provoked DVT no longer on AC, hepatitis-C, moderate protein calorie malnutrition, unspecified dementia, was admitted 08/22/2024 with hematemesis due to large gastric ulcer complicated by acute hypoxic respiratory failure requiring intubation and brief cardiac arrest. Patient extubated 08/27/2024 and downgraded at 08/28/24. Course complicated by fevers. Acute hypoxic respiratory failure, cardiac arrest, hemorrhagic shock due to acute blood loss anemia due to gastric ulcer Status post EGD 08/22/2024 with OTSC clip and hemo spray On PPI and Carafate Extubated and off pressors Hemoglobin now stable around 8 Ryan was 6.7 on 08/22/2024 Sepsis 08/28/2024 at 15:47 Question due to left 1st toe dry gangrene vs sacral unstageable ulcer Continue empiric vanc Zosyn, ID aprpeciated - augmentin 10 days on discharge vascular appreciated - will likely need intervention when more stable local wound care Hypertension Toprol Unstageable sacral pressure ulcer Santyl, Apply triad to wound bed twice daily cover with ABD pad secure with tape. Change daily Surgery appreciated no intervention at this time HCV Outpatient follow up Moderate protein calorie malnutrition Encourage p.o. intake Unspecified dementia Appears to be at baseline History of CVA, PVD Holding aspirin for GI bleed History of provoked DVT no longer on anticoagulation DVT prophylaxis-mechanical due to GI bleed Full code reason for continued hospitalization: Plan for short-term rehab Quality Stroke Does the patient have a stroke diagnosis?: No VTE Prior VTE?: No VTE Risk Level:: Medical - moderate - high VTE Device Contraindication: N/A - Device Ordered VTE Drug Contraindication: Treatment Not Tolerated
[2024-09-02] MEDS: vancomycin HCL 750 MG in 0.9 % Sodium Chloride 250 ML 265 MG IV (09:17)
[2024-09-02] MEDS: Sucralfate 1 GM TABLET PO ×4 (09:17→21:06)
[2024-09-02 09:18] VITALS: BP 122/96; PULSE 83
[2024-09-02] MEDS: Metoprolol Succinate ER 25 MG TAB.ER.24H PO (09:18)
[2024-09-02] MEDS: 0.9 % Sodium Chloride Flush 3 ML SYRINGE IVFLUSH ×3 (09:18→21:07)
[2024-09-02] MEDS: Collagenase Clostridium Hist. 30 GM TUBE 1 APPL TOPICAL (09:18)
[2024-09-02 11:40] LABS: Glucose, Whole Blood 87 mg/dL (60-115)
[2024-09-02 12:00] VITALS: BP 144/56; PULSE 68; RESP 18; TEMP 36.5; O2SAT 98
[2024-09-02 15:26] VITALS: BP 148/62; PULSE 83; RESP 16; TEMP 36.4; O2SAT 100
[2024-09-02 16:20] LABS: Glucose, Whole Blood 82 mg/dL (60-115)
[2024-09-02 18:56] LABS: Vancomycin Trough 21.9 mcg/mL (10.0-20.0)
--- NOTE | 2024-09-02 19:14 | HE.PHANOTE ---
Addendum entered by Angelita Maria [facility] 09/04/24 09:39: trough returned 19.1, changed the dose to 1000mg Q24H, pushing the dose back another 12 hours and getting another trough before next dose to ensure clearing/readjustment of dosing. Addendum entered by Angelita Maria [facility] 09/03/24 06:44: changed dose to 1500mg Q24H before patient could get 1250 dose as trough came down nicely. Patient's renal function is still very stable, predicted trough for 750 Q12H was a bit more elevated than desired for skin infections. Predicted trough for 1500mg is 14.8. predicted AUC 567. Scheduled next trough is for 09/04 @0800. Original Note: Level came back at 21.9, dose was reduced to 1250 mg q 24 hours. Patient will not receive a dose tonight but will start 24 hours from the last dose of 750 mg. A random level is ordered before new dose is set to begin just to ensure that level has decreased and ok to proceed with new dosing
[2024-09-02 19:24] VITALS: BP 160/50; PULSE 72; RESP 17; TEMP 36.9; O2SAT 100
[2024-09-02 20:52] LABS: Glucose, Whole Blood 84 mg/dL (60-115)
[2024-09-02] MEDS: Acetaminophen 325 MG TABLET 650 MG PO (21:30)
[2024-09-02] MEDS: HYDROmorphone HCl 2 MG TABLET 1 MG PO (22:17)
[2024-09-03] VITALS (7 sets, daily range): BP systolic 132–165; BP diastolic 55–100; PULSE 58–100; RESP 12–19; TEMP 36.2–37.3; O2SAT 98–100; BMI 18.5
[2024-09-03] MEDS: Piperacillin Sodium/Tazobactam 3.375 GM in 0.9 % Sodium Chloride 50 ML IV ×4 (04:53→23:00)
[2024-09-03] MEDS: Acetaminophen 325 MG TABLET 650 MG PO ×2 (04:55→13:33)
[2024-09-03] MEDS: Omeprazole 40 MG CAPSULE.DR PO ×2 (04:55→19:05)
[2024-09-03 06:32] LABS: Creatinine Clr Calc Pharmacy 54.3; Estimated Glomerular Filt Rate > 60
[2024-09-03 06:32] LABS: Vancomycin Random 14.3 mcg/mL (15-20)
[2024-09-03 07:24] LABS: Glucose, Whole Blood 78 mg/dL (60-115)
[2024-09-03] MEDS: vancomycin HCL 1,500 MG in 0.9 % Sodium Chloride 500 ML 333.33 MG IV (09:05)
[2024-09-03] MEDS: Metoprolol Succinate ER 25 MG TAB.ER.24H PO (09:06)
[2024-09-03] MEDS: Sucralfate 1 GM TABLET PO ×4 (09:06→20:07)
[2024-09-03] MEDS: 0.9 % Sodium Chloride Flush 3 ML SYRINGE IVFLUSH ×5 (09:07→23:31)
--- NOTE | 2024-09-03 09:51 | MHC.CLN ---
F/U PO INTAKE 75-100% WITH NOTED 25% X2 YESTERDAY DIET RX: GRD M/S-APPROPRIATE RECEIVING ENSURE BID TO PROVIDE 700KCALS, 40G PROTEIN R/T MALNUTRITION AND WOUND HEALING CONTINUE TO MONITOR PO INTAKE AND ENCOURAGE SUPPLEMENT WT UP OVERALL SINCE ADMISSION-CONTINUE WEIGHTS
[2024-09-03 11:18] LABS: Glucose, Whole Blood 86 mg/dL (60-115)
--- NOTE | 2024-09-03 12:41 | MHC.SL.SWA ---
Speech Pathologist Impression: Mild risk for aspiration d/t reduced attention and intermittent impulsivity/perseverations. Risk of Aspiration Due to: Medically Fragile Poor PO Intake Hx of Recent Extubation Weak Cough Weak Voice Dysphasia Diet Status: Liquid Consistency and Strategies for Safe Swallow: Liquid Intake Recommendation: Thin Liquid Intake Strategies: No Straws Solid Food Consistency: Dietary Recommendations: Grnd/Mech Altered (NDD2) Additional Modifications to Solid Foods: SOLDER SPRAYER recommending Ground/Mech Solids (NDD2) and Thin Liquids. Meds Whole with Puree. Pt can feed self, but may need assist with tray set-up and encouragement to finish meals. SOLDER SPRAYER continues to follow. Oral Medication Intake: Whole with Puree Please contact the pharmacy regarding appropriate crushable or liquid drug formulations that are available whenever modified delivery is recommended. Compensatory Strategies and Precautions to be Taken for Safe Swallow: Sitting Upright (90 deg) No Straw Small Bites and Sips Alternate Liquids/Solids Rate of Ingestion Change Oral Check Avoid Specific Foods Supervision While Eating and Drinking for Safe Swallow: Intermittent Supervision Foods to Avoid: Mixed consistencies. Swallowing Recommended Treatments: Recommendation for Speech: Comment: SOLDER SPRAYER provided copy of NDD2 diet to pt during visit 09/03/24, pt continues to benefit from review of recommendations and encouragement to utilize safety strategies for adequate PO tolerance. Frequency/Duration: Date Range for Service Req: Timeline to reassess: Flat Spring Assembler Clinican/Clinical Fellow: No Supervisory Statement: I have reviewed and agree with the student/clinical fellow's documentation: N/A Speech Language Pathologist: Melany Anderson M.S., CCC-SOLDER SPRAYER
--- NOTE | 2024-09-03 14:33 | HO.WOUND ---
Wound Consult: Follow up 58yr old female admitted to [facility] on 08/22/24 - See progress notes and H&P for detailed history.? Wound consult placed for Coccyx wound POA.? Complex hospital stay - see provider notes for details. Coccyx on Admission Sacrum 08/24/24 Sacrum - evolved to unstageable Pressure injury Etiology: ??Unstageable Pressure Injury admitted with Deep tissue Injury POA Measurements: Approximately 6cm x 6cm x 0.2cm Wound Bed: adherent moist yellow slough Full thickness tissue loss with red granulation buds noted within wound bed Drainage / Odor: no odor roque yellow drainage Edges: Irregular Periwound: dark pigmented tissue Goals of Treatment: ? Santyl for enzymatic debridement Recommendations: 1. Turn and Reposition every 2 hours and as needed for patient comfort.? Use pillows or wedges to support off loading positions. 2. Off Load all bony prominences with use of pillows and heel boots if needed.? Apply Preventative foams where needed. ? 3. Monitor for incontinence and moisture control, use barrier creams when needed for prevention and treatment. 4. Provide adequate and supplemental nutrition.? 5. Continue low air loss mattress. 6. When applicable maintain blood glucose levels per Providers order. 7. Sacrum - Off Load Pressure - Cleanse with NS moist gauze, Cover wound bed with thick layer of santyl - cover with dry gauze, APD pad. Change daily. Re-consult wound care Nurse for wound deterioration or wound changes.
[2024-09-03] MEDS: Collagenase Clostridium Hist. 30 GM TUBE 1 APPL TOPICAL (15:00)
[2024-09-03] MEDS: ondansetron HCL 4 MG/2 ML VIAL IVPUSH (15:01)
--- NOTE | 2024-09-03 15:50 | MHC.CM.PN ---
CM heard back from [facility] that pt.'s insurance will not cover STR in this area, it covers pt. in [place], where she lives. Provider made aware, call placed with pt.'s son to discuss DCP.
[2024-09-03 15:58] LABS: Glucose, Whole Blood 90 mg/dL (60-115)
[2024-09-03 21:22] LABS: Glucose, Whole Blood 89 mg/dL (60-115)
[2024-09-04] VITALS (7 sets, daily range): BP systolic 150–163; BP diastolic 50–79; PULSE 54–76; RESP 14–20; TEMP 36.6–37.7; O2SAT 99–100
[2024-09-04] MEDS: Acetaminophen 325 MG TABLET 650 MG PO ×3 (00:35→17:37)
[2024-09-04] MEDS: traMADoL HCL 50 MG TABLET 25 MG PO ×2 (04:40→23:40)
[2024-09-04] MEDS: Piperacillin Sodium/Tazobactam 3.375 GM in 0.9 % Sodium Chloride 50 ML IV ×4 (04:41→21:39)
[2024-09-04 06:38] LABS: Creatinine Clr Calc Pharmacy 53.6; Estimated Glomerular Filt Rate > 60
[2024-09-04 07:45] LABS: Glucose, Whole Blood 73 mg/dL (60-115)
[2024-09-04 09:28] LABS: Vancomycin Random 19.1 mcg/mL (15-20)
[2024-09-04 10:16] LABS: Hematocrit 24.4 % (37.0-47.0); Mean Corpuscular HGB Conc 32.8 g/dl (31.0-35.0); Mean Corpuscular Hemoglobin 32.3 pg (27.0-33.0); Mean Corpuscular Volume 98.4 fL (80.0-98.0); Platelet Count 208 X10*3/uL (160-400); Red Blood Count 2.48 X10*6/uL (4.20-5.50); Red Cell Distribution Width 17.4 % (11.0-16.0); White Blood Count 8.8 X10*3/uL (4.8-10.8)
[2024-09-04] MEDS: Metoprolol Succinate ER 25 MG TAB.ER.24H PO (10:33)
[2024-09-04] MEDS: Sucralfate 1 GM TABLET PO ×4 (10:33→21:40)
[2024-09-04] MEDS: Collagenase Clostridium Hist. 30 GM TUBE 1 APPL TOPICAL (10:35)
--- NOTE | 2024-09-04 10:40 | MHC.CM.PN ---
Addendum entered by Anali Madsen 09/04/24 14:18: A Call was placed to [facility] in [place]. A VM was left requesting the STR start auth. Addendum entered by Anali Madsen 09/04/24 14:04: Met with patient and son, Dieter. 1st choice for STR is [facility], [address] [place] [address]. A request was made to start the insurance authorization process. Original Note: CM met with patient to discuss discharge planning. She was informed that her [place] is not accepted out of network. She stated that she wants to go to STR in [place]. Her son was notified of the insurance issue. He agrees that [place] would be better. The rest of the family is in [place]. They will be able to visit and assist in [place]. The zip code was entered into [facility]. The referral has been sent to 25 [place] STRs. Offers will be presented to PT?son for choice. Patient may need assist with transport to [place].
[2024-09-04 11:00] LABS: Glucose, Whole Blood 98 mg/dL (60-115)
--- NOTE | 2024-09-04 11:12 | P.PNIM_ITS ---
Subjective Subjective Date of Service: 09/04/24 Interval History: seen and evaluated this morning feels better overall. Hb stable at 8 No overnight events Review of Systems Review of Systems: Yes all other systems are reviewed and are negative Physical Exam 2 Vital Signs: Vital Signs: Last Vital Signs Temp 98.8 F 09/04/24 07:26 Pulse 70 09/04/24 07:26 Resp 18 09/04/24 07:26 BP 156/70 H 09/04/24 07:26 Pulse Ox 100 09/04/24 07:26 O2 Del Method Room Air 09/04/24 07:26 O2 Flow Rate 40 08/24/24 05:00 FiO2 21 08/27/24 12:00 BMI result Body Mass Index 18.5 Const: Other: Constitutional : Awake, interactive, not in distress Neck : Normal inspection, Supple Cardiovascular : RRR, no JVP, no lower extremity edema Respiratory : good bilateral air entry, no crackles, wheezes or rhonchi Gastrointestinal: soft, lax, Normal bowel sounds, Non tender Skin : Warm, Dry, unstageal pressure wound w deep tissue injury 6x6cm. Dry gangrene/necrosis noted distally on the tip of the toe. slight erythema noted around the toe. deep erythematous color around toe/toenail and bottom of the foot Neurological : Alert & oriented x3, No focal deficit Objective Data Active Medications Acetaminophen (Acetaminophen 325 Mg Tablet) 650 mg PO Q6H PRN PRN Reason: Fever Last Admin: 09/04/24 10:32 Dose: 650 mg Documented By: MAXIMILIANO Collagenase (Collagenase Clostridium Hist. 30 Gm Tube) 1 appl TOPICAL DAILY [facility]; Protocol Last Admin: 09/04/24 10:35 Dose: 1 appl Documented By: MAXIMILIANO Glucose (Glucose Gel 15 Gm Gel..Gram.) 15 gm PO Q15M PRN; Protocol PRN Reason: per Hypoglycemia Standing Ord. Dextrose (D10) 250 mls @ 750 mls/hr IV Q15M PRN; Protocol PRN Reason: per Hypoglycemia Standing Ord. Piperacillin Sod/Tazobactam (Sod 3.375 gm/ Sodium Chloride) 50 mls @ 100 mls/hr IV Q6H [facility] Last Infusion: 09/04/24 05:11 Dose: Infused Documented By: FRANCES Vancomycin HCl 1,000 mg/ (Sodium Chloride) 270 mls @ 270 mls/hr IV Q24H [facility] Insulin Human Lispro (Insulin Lispro 100 Unit/Ml 3 Ml Vial) 0 unit SUBCUT QIDACHS [facility]; Protocol Last Admin: 09/04/24 10:35 Dose: Not Given Documented By: MAXIMILIANO Non-Admin Reason: No Insulin Coverage Melatonin (Melatonin 3 Mg Tablet) 6 mg PO BEDTIME PRN PRN Reason: Insomnia Metoprolol Succinate (Metoprolol Succinate Er 25 Mg Tab.Er.24h) 25 mg PO DAILY [facility]; Protocol Last Admin: 09/04/24 10:33 Dose: 25 mg Documented By: MAXIMILIANO Naloxone HCl (Naloxone Hcl 0.4 Mg/Ml Vial) 0.2 mg IVPUSH Q2M PRN PRN Reason: Excessive sedation or RR < 8 Omeprazole (Omeprazole 40 Mg Capsule.Dr) 40 mg PO BID@0630,1630 [facility] Last Admin: 09/04/24 04:58 Dose: Not Given Documented By: FRANCES Non-Admin Reason: Patient Refused Ondansetron HCl (Ondansetron Hcl 4 Mg/2 Ml Vial) 4 mg IVPUSH Q4H PRN PRN Reason: Nausea and Vomiting Last Admin: 09/03/24 15:01 Dose: 4 mg Documented By: MAXIMILIANO Pharmacy Consult (Consult Rx Vancomycin Dosing) 1 each MISCELLANE DAILY PRN PRN Reason: Consult order Sodium Chloride (0.9 % Sodium Chloride Flush 3 Ml Syringe) 3 ml IVFLUSH QSHIFT [facility] Last Admin: 09/03/24 23:31 Dose: 3 ml Documented By: FRANCES Sucralfate (Sucralfate 1 Gm Tablet) 1 gm PO QID [facility] Last Admin: 09/04/24 10:33 Dose: 1 gm Documented By: MAXIMILIANO Labs 09/04/24 09:22 09/04/24 05:53 Labs: Laboratory Results - last 24 hr 09/03/24 09/03/24 09/03/24 11:13 15:54 21:19 MCV MCH MCHC RDW Plt Count MPV Absolute Nucleated RBC Nucleated RBC % (auto) Estim Creat Clear Calc Estimated GFR POC Glucose 86 90 89 Random Vancomycin 09/04/24 09/04/24 09/04/24 05:53 07:39 08:05 MCV MCH MCHC RDW Plt Count MPV Absolute Nucleated RBC Nucleated RBC % (auto) Estim Creat Clear Calc 53.6 Estimated GFR > 60 POC Glucose 73 Random Vancomycin 19.1 09/04/24 09/04/24 09:22 10:56 MCV 98.4 H MCH 32.3 MCHC 32.8 RDW 17.4 H Plt Count 208 D MPV 11.0 Absolute Nucleated RBC 0.000 Nucleated RBC % (auto) 0.0 Estim Creat Clear Calc Estimated GFR POC Glucose 98 Random Vancomycin Assessment and Plan (1) Dry gangrene: Status: Acute (2) Sacral wound: Status: Acute (3) PAD (peripheral artery disease): Status: Acute (4) GI bleed: Status: Acute Plan 58F PMH CVA X2 (no residual deficits), COPD, HTN, provoked DVT no longer on AC, hepatitis-C, moderate protein calorie malnutrition, unspecified dementia, was admitted 08/22/2024 with hematemesis due to large gastric ulcer complicated by acute hypoxic respiratory failure requiring intubation and brief cardiac arrest. Patient extubated 08/27/2024 and downgraded at 08/28/24. Course complicated by fevers. Acute hypoxic respiratory failure, cardiac arrest, hemorrhagic shock due to acute blood loss anemia due to gastric ulcer Status post EGD 08/22/2024 with OTSC clip and hemo spray Extubated and off pressors On PPI and Carafate Hemoglobin now stable around 8, Ryan was 6.7 on 08/22/2024 Sepsis 2/2 skin infection Question due to left 1st toe dry gangrene vs sacral unstageable ulcer cultures negative Placed on empiric vanc Zosyn, ID aprpeciated - augmentin 10 days on discharge vascular appreciated - will need intervention when more stable for gangrene in LE. local wound care Hypertension Toprol Unstageable sacral pressure ulcer Santyl, Apply triad to wound bed twice daily cover with ABD pad secure with tape. Change daily Surgery appreciated no intervention at this time HCV Outpatient follow up Moderate protein calorie malnutrition Encourage p.o. intake Unspecified dementia Appears to be at baseline History of CVA, PVD Holding aspirin for GI bleed History of provoked DVT no longer on anticoagulation DVT prophylaxis-mechanical due to GI bleed Full code reason for continued hospitalization: Plan for short-term rehab Quality Stroke Does the patient have a stroke diagnosis?: No VTE Prior VTE?: No VTE Risk Level:: Medical - moderate - high VTE Device Contraindication: N/A - Device Ordered VTE Drug Contraindication: Treatment Not Tolerated
--- NOTE | 2024-09-04 13:46 | MHC.SPEECHCO ---
GEOMAGNETIST attempted to see Pt twice this morning. The first time GEOMAGNETIST was turned away stating that she wanted to rest. GEOMAGNETIST returned with Lunch tray present. Pt then stated she didn't want to eat yet because she just woke up. Pt is noted to have essentially all liquids on her tray, including chicken broth and nutritional supplement drinks. This must be what she ordered for herself despite being on a Ground/Mech. Altered Solid and Thin Liquid diet. She reports she is fearful to eat advanced textures for risk of re-injury. GEOMAGNETIST following.
[2024-09-04 16:12] LABS: Glucose, Whole Blood 74 mg/dL (60-115)
[2024-09-04] MEDS: Omeprazole 40 MG CAPSULE.DR PO (17:38)
[2024-09-04 20:10] LABS: Glucose, Whole Blood 88 mg/dL (60-115)
[2024-09-04 20:30] LABS: Vancomycin Random 13.9 mcg/mL (15-20)
[2024-09-04] MEDS: 0.9 % Sodium Chloride Flush 3 ML SYRINGE IVFLUSH (21:40)
[2024-09-04] MEDS: vancomycin HCL 1,000 MG in 0.9 % Sodium Chloride 250 ML 270 MG IV (21:40)
[2024-09-04] MEDS: Melatonin 3 MG TABLET 6 MG PO (23:40)
[2024-09-05 00:40] VITALS: RESP 20
[2024-09-05 03:00] VITALS: BP 154/65; PULSE 64; RESP 18; TEMP 37.1; O2SAT 100
[2024-09-05] MEDS: Acetaminophen 325 MG TABLET 650 MG PO (03:48)
[2024-09-05] MEDS: Piperacillin Sodium/Tazobactam 3.375 GM in 0.9 % Sodium Chloride 50 ML IV ×2 (03:49→08:48)
[2024-09-05 05:46] VITALS: BMI 19.1
[2024-09-05 07:09] VITALS: BP 142/72; PULSE 55; RESP 18; TEMP 36.4; O2SAT 96
[2024-09-05 07:22] LABS: Glucose, Whole Blood 101 mg/dL (60-115)
[2024-09-05 07:37] LABS: Creatinine Clr Calc Pharmacy 54.4; Estimated Glomerular Filt Rate > 60
[2024-09-05] MEDS: Metoprolol Succinate ER 25 MG TAB.ER.24H PO (08:48)
[2024-09-05] MEDS: Sucralfate 1 GM TABLET PO (08:48)
[2024-09-05] MEDS: 0.9 % Sodium Chloride Flush 3 ML SYRINGE IVFLUSH (08:49)
[2024-09-05] MEDS: Collagenase Clostridium Hist. 30 GM TUBE 1 APPL TOPICAL (08:49)
--- NOTE | 2024-09-05 09:12 | MHC.CLN ---
F/U PO INTAKE 25% DOWN TRENDING INTAKE DIET RX: GRD M/S-APPROPRIATE NOTED PT ORDERING LIQUIDS DURING MEALS R/T FEAR OF RE-INJURY PER PROPERTY CLAIM REP RECEIVING ENSURE BID TO PROVIDE 700KCALS, 40G PROTEIN R/T MALNUTRITION AND WOUND HEALING CONTINUE TO MONITOR PO INTAKE AND ENCOURAGE SUPPLEMENTS WT UP 47.3KG (09/05) OVERALL SINCE ADMISSION-CONTINUE WEIGHTS
--- NOTE | 2024-09-05 10:53 | MHC.SL.SWA ---
Speech Pathologist Impression: Mild oral dysphagia d/t absence of lower denture, adequate pharyngeal phase of swallow, hx of GI involvement Risk of Aspiration Due to: Medically Fragile Poor PO Intake Hx of Recent Extubation Weak Cough Weak Voice Dysphasia Diet Status: NDD2 with thins recc while in acute setting, pt to advance as appropriate, consult with GI as indicated Liquid Consistency and Strategies for Safe Swallow: Liquid Intake Recommendation: Thin Liquid Intake Strategies: No Straws Solid Food Consistency: Dietary Recommendations: Grnd/Mech Altered (NDD2) Additional Modifications to Solid Foods: ELECTROENCEPHALOGRAPH TECHNOLOGIST recommending Ground/Mech Solids (NDD2) and Thin Liquids. Meds Whole with Puree. Pt can feed self, but may need assist with tray set-up and encouragement to finish meals. ELECTROENCEPHALOGRAPH TECHNOLOGIST continues to follow. Oral Medication Intake: Whole with Puree Please contact the pharmacy regarding appropriate crushable or liquid drug formulations that are available whenever modified delivery is recommended. Compensatory Strategies and Precautions to be Taken for Safe Swallow: Sitting Upright (90 deg) Small Bites and Sips Alternate Liquids/Solids Rate of Ingestion Change Avoid Specific Foods Supervision While Eating and Drinking for Safe Swallow: None Needed Foods to Avoid: Mixed consistencies. Swallowing Recommended Treatments: Compens. Strategy Educat. Recommendation for Speech: Comment: ELECTROENCEPHALOGRAPH TECHNOLOGIST provided copy of NDD2 diet to pt during visit 09/03/24, pt continues to benefit from review of recommendations and encouragement to utilize safety strategies for adequate PO tolerance. ELECTROENCEPHALOGRAPH TECHNOLOGIST reiterated importance of safety precautions as pt resumes regular PO intake, pt verbalizes understanding and agrees with d/c recommendations. Frequency/Duration: Date Range for Service Req: Timeline to reassess: Cellophane Bag Machine Operator Clinican/Clinical Fellow: No Supervisory Statement: I have reviewed and agree with the student/clinical fellow's documentation: N/A Speech Language Pathologist: Melany Anderson M.S., [facility]-ELECTROENCEPHALOGRAPH TECHNOLOGIST
--- NOTE | 2024-09-05 11:37 | PM.DS ---
DS: Providers Provider Date of Service: 09/05/24 Date of admission: 08/22/24 01:08 Date of discharge: 09/05/24 Primary care physician: None Physician Consults: 08/22/24 02:39 Consult to Gastroenterology Routine Consulting Provider: Corina Gomez Reason for consultation: Upper GI bleed Has provider been notified: Yes 08/22/24 13:26 Consult to Wound Care Routine Reason for consultation: COCCYX WOUND Has provider been notified: Yes 08/22/24 15:57 Consult to Wound Care Routine Reason for consultation: stage 2 noted on coccyx Has provider been notified: Yes 08/28/24 21:34 Consult to Vascular Surgery Routine Consulting Provider: [facility] [place] [facility] Reason for consultation: PVD, great toe blackening 08/30/24 09:02 Consult to Infectious Diseases Routine Consulting Provider: [facility] Reason for consultation: sepsis ? left 1st toe 08/30/24 14:51 Consult to General Surgery Routine Consulting Provider: [facility] [place] [facility] Reason for consultation: sacral wound DS: Diagnosis Discharge Diagnosis (1) Dry gangrene: Status: Acute (2) Sacral wound: Status: Acute (3) PAD (peripheral artery disease): Status: Acute (4) GI bleed: Status: Acute (5) Acute upper gastrointestinal bleeding: Status: Acute (6) JUANITO (acute kidney injury): Status: Acute (7) Acute hypokalemia: Status: Acute (8) Metabolic acidosis: Status: Acute (9) Cardiac arrest: Status: Acute (10) Protein-calorie malnutrition, moderate: Status: Acute DS: Summary Hospital Course Hospital Course: The patient had prolonged hospital stay. For full details please return to EMR. from initial hpi: 58 years old woman with past medical history significant for COPD, CVA, essential hypertension and DVT -not on anticoagulation presents to the emergency department complaining coffee-ground vomiting and black stool. She also complained of chronic left ankle/foot pain that she attributes to DVT. Patient is a poor historian. She denied abdominal pain. She also denied any headache, dizziness, chest pain or shortness on breath. Did not report intake of NSAIDs and apparently does not take aspirin. She said that she takes a lot of medication and does not recall the name of them. She was recently hospitalized with diagnosis of acute diverticulitis, JUANITO, hypokalemia and metabolic acidosis. In the ED she was found to have stable vital signs. There is mild tachycardia. Blood workup showed leukocytosis of 13.4. Hemoglobin is 9.1 and hematocrit 24.5. Platelets 234. There is hypokalemia of 2.7, hyperchloremia 117 and CO2 of 11. Creatinine is 1.44 (it was normal last month). AST and ALT are slightly elevated. Alk-phos and bilirubin are normal. Troponin 7.1, albumin 3.3 and lipase is normal. Tachycardia, HR [address] changes. VBGs showed pH of 7.27, CO2 8 and pCO2 18. CXR is unremarkable. Lower extremities venous ultrasound showed no DVT or Fortune's cyst. ED tx: Pantoprazole 40 mg IV, Zofran 4 mg IV, magnesium 2 g IV, KCl IV,, Klor-Con 40 mEq and fentanyl 25 mcg IV hospital course: Patient was admitted for acute hypoxic respiratory failure complicated by cardiac arrest and hemorrhagic shock due to acute blood loss anemia due to gastric ulcer. She underwent EGD on 08/22/2024 with OTS see clip and hemo spray. She was put on PPI and Carafate and admitted to the ICU, eventually she was extubated and weaned off pressors. Hemoglobin then remained stable around 8, in ED her hemoglobin was 6.7. Course was then complicated by sepsis possibly due to cellulitis and gangrene of left 1st toe. Was empirically treated with vancomycin Zosyn and sepsis resolved. Was seen by infectious disease who recommended 10 days of Augmentin and outpatient follow up with vascular surgery. Arterial studies did show vascular disease and was seen by vascular surgery who recommended outpatient follow up. Noted to have sacral wound was seen by wound care recommended local care was also seen by surgery who recommended no intervention at this time. Patient will follow up with wound care for sacral wound. For hepatitis-C we will follow up outpatient. For hypertension continued on metoprolol. For moderate protein calorie malnutrition encouraged p.o. intake. For unspecified dementia patient at baseline. For history of CVA and peripheral vascular disease her aspirin has been held for her gastric ulcer. Patient was seen by physical therapy recommended short-term rehab to which patient will be discharged. She is expected require less than 30 days. She will go with [facility] waiting the insurance Auth for the facility in [place]. Time Attestation Discharge Coordination Time (in mins): 46 Quality: Safe Use of Opioids Does Pt have an Active Cancer Diagnosis on the Problem List?: No Quality: Stroke Does the patient have a stroke diagnosis?: No Physical Exam Vital Signs: Vital Signs: Last Vital Signs Temp 97.6 F 09/05/24 07:09 Pulse 55 09/05/24 07:09 Resp 18 09/05/24 07:09 BP 142/72 H 09/05/24 07:09 Pulse Ox 96 09/05/24 07:09 O2 Del Method Room Air 09/05/24 07:09 O2 Flow Rate 40 08/24/24 05:00 FiO2 21 08/27/24 12:00 BMI result Body Mass Index 19.1 Const: Other: Constitutional : Awake, interactive, not in distress Neck : Normal inspection, Supple Cardiovascular : RRR, no JVP, no lower extremity edema Respiratory : good bilateral air entry, no crackles, wheezes or rhonchi Gastrointestinal: soft, lax, Normal bowel sounds, Non tender Skin : Warm, Dry, unstageal pressure wound w deep tissue injury 6x6cm. Dry gangrene/necrosis noted distally on the tip of the toe. slight erythema noted around the toe. deep erythematous color around toe/toenail and bottom of the foot Neurological : Alert & oriented x3, No focal deficit DS: Data Data Completed and Pending Completed studies during hospitalization [Text1]: Procedures Assistance with Respiratory Ventilation, Less than 24 Consecutive Hours, Continuous Positive Airway Pressure (09/24/21) Transfusion of Nonautologous Red Blood Cells into Peripheral Vein, Percutaneous Approach (07/13/24) Labs on day of discharge: Laboratory Results - last 24 hr 09/04/24 09/04/24 09/04/24 16:05 20:05 20:06 Creatinine Estim Creat Clear Calc Estimated GFR POC Glucose 74 88 Random Vancomycin 13.9 L 09/05/24 09/05/24 06:21 07:18 Creatinine 0.81 Estim Creat Clear Calc 54.4 Estimated GFR > 60 POC Glucose [address] scan - chest: Radiologist's impression: ITS Impressions Chest X-Ray 08/21/24 20:52 IMPRESSION: Unremarkable examination. Electronically signed by: Todd Werner MD 08/21/2024 09:35 PM EDT RP Venous Duplex 08/22/24 00:40 IMPRESSION: No evidence of deep venous thrombosis involving the bilateral lower extremities. Electronically signed by: Evan Conrad MD 08/22/2024 01:31 AM EDT RP Abdomen/Pelvis CT 08/22/24 11:03 IMPRESSION: Acute extraluminal contrast extravasation into the gastric lumen consistent with GI bleed, probably arising from a branch of the gastric artery along the lesser curvature. Distended stomach containing debris, possibly at least partially representing clot. Suspect mild diffuse thickening of the wall of the stomach, raising the possibility of gastritis. Multiple additional findings as detailed above. Electronically signed by: Michele Campos MD 08/22/2024 02:20 PM EDT RP Chest CT 08/22/24 12:16 IMPRESSION: No evidence of aspiration. Electronically signed by: Michele Campos MD 08/22/2024 03:46 PM EDT RP Chest X-Ray 08/22/24 13:20 IMPRESSION: The ET tube appears to be in acceptable position. Electronically signed by: Daron Dey MD 08/22/2024 04:13 PM EDT RP Chest X-Ray 08/22/24 15:10 IMPRESSION: Findings as above. Electronically signed by: Micheel Campos MD 08/22/2024 04:58 PM EDT RP Chest X-Ray 08/23/24 14:10 IMPRESSION: No acute abnormality. Electronically signed by: Jassi Medina MD 08/23/2024 04:36 PM EDT RP Chest CT 08/27/24 11:17 IMPRESSION: Bilateral lower lobe atelectasis with underlying small bilateral effusions. New left axillary significant sized lymph node new since the recent CT chest 08/22/2024. Question hematoma, less likely abscess. Correlate with any kind of intervention performed recently. Fleischner guidelines were followed. Electronically signed by: Jose C Hendricks MD 08/27/2024 08:12 PM EDT RP Soft Tissue Neck CT 08/27/24 11:17 IMPRESSION: 1. Endotracheal tube in place. Right-sided central venous catheter in place. 2. No demonstrated focal lesion, collection, or lymphadenopathy within the soft tissues of the neck. 3. Moderate multilevel degenerative spondyloarthropathy of the cervical spine. Most notably on this limited exam without intrathecal contrast, there appears to be at least mild spinal canal stenoses from C4-C7. 4. Emphysema. Electronically signed by: Jose Hernandez DO 08/27/2024 04:11 PM EDT RP Chest X-Ray 08/28/24 16:00 IMPRESSION: Tiny left effusion and minimal left base atelectasis. Electronically signed by: Hina North MD 08/28/2024 04:59 PM EDT RP Duplex Scan Lower Extremity Artery 08/29/24 14:43 IMPRESSION: Monophasic flow throughout the right lower extremity distal to the SFA. Significantly elevated velocities with severe atherosclerotic disease in the mid SFA. Electronically signed by: Ciara Espinoza MD 08/29/2024 06:00 PM EDT RP Discharge Plan Discharge Anticipated Discharge Date/Time: 09/01/24 09:21 Patient Disposition: Xfer SNF Discharge Diagnosis: cardiac arrest, gi bleed, gangrene Referrals: Corina Gomez MD [Physician] - 1 Week Mook Zayas MD [Physician] - 1 Week Physician,None [Primary Care Provider] - 1 Week Cate Lorenzo MD [Physician] - 1 Week Discharge Medications: New sucralfate 1 gram Tablet 1 g PO QID Qty: 360 0RF omeprazole 40 mg Capsule,Delayed Release(Dr/Ec) 40 mg PO BID@0630,1630 Qty: 180 0RF amoxicillin-pot clavulanate 875-125 mg tablet 1 tab PO BID Qty: 20 0RF Continued albuterol sulfate 90 mcg/actuation HFA aerosol inhaler 1 inh inhalation QID PRN (Reason: shortness of breath or wheezing) Qty: 8.5 0RF multivitamin [Daily-Brigid] Tablet 1 tab PO DAILY Qty: 90 0RF potassium chloride 20 mEq Tablet,Er Particles/Crystals 40 meq PO DAILY Qty: 90 0RF metoprolol succinate 25 mg Tablet Extended Release 24 Hr 25 mg PO DAILY Discharge Orders: Discharge Order (Routine); Ordered 09/05/24 Ordered By: Khaled Abuhashmeh Diet: Advance to usual diet Activity on Discharge: As tolerated Stand Alone Forms: Patient Portal Discharge page Print Language: Romansh Activity Restrictions/Additional Instructions: Topical Wound Care Recommendations: Sacrum - Off Load Pressure - Cleanse with NS moist gauze, Cover wound bed with thick layer of santyl - cover with dry gauze, APD pad. Change daily. To follow with your surgery at [place] Care Plan Goals: Recovery Health Concerns: GI bleed, gangrene Plan of Treatment: For sacral wound: Apply triad to wound bed twice daily cover with ABD pad secure with tape - can follow up with wound care outpatient For GI bleed continue omeprazole 40 mg b.i.d. and Carafate follow up with Gastroenterology For peripheral vascular disease and dry gangrene 10 more days of Augmentin and follow up with vascular surgery Assessment: See above
--- NOTE | 2024-09-05 11:38 | MHC.CM.PN ---
Pt. has been medically cleared, DCP is for her to go to [facility] in [place], where she is from, and accepting of her insurance. She was accepted at [facility], and they are pursuing ins. auth. Her son will pick her up today, her other son will drive her to [place], where she has family. CM will call son as soon as we hear back from SNF with auth, and family will bring her there.
== END 2024-09-05 11:42 | disposition skilled nursing facility (03) | DRG 241 ==
LOC: HO.ED 22:32 → HO.EDOVER 08-22 01:12 → HO.ICU 08-22 11:32 → HO.IMC 08-28 13:40
PROVIDERS: Internal Medicine; Internal Medicine Critical Care Medicine; Internal Medicine Gastroenterology; Internal Medicine Pulmonary Disease; Nurse Practitioner Family; Registered Nurse Community Health; Student in an Organized Health Care Education/Training Program; Admitting Provider Internal Medicine; Emergency Provider Emergency Medicine; Visit Provider Student in an Organized Health Care Education/Training Program
PROC: 0DJ08ZZ Inspection of Upper Intestinal Tract, Via Natural or Artificial Opening Endoscopic (ICD-10-PCS; CPT 43235; principal; 2024-08-22 15:00)
DX: K25.4 Chronic or unspecified gastric ulcer with hemorrhage (principal); R57.8 Other shock; J96.01 Acute respiratory failure with hypoxia; A41.9 Sepsis, unspecified organism; E44.0 Moderate protein-calorie malnutrition; L89.156 Pressure-induced deep tissue damage of sacral region; E87.21 Acute metabolic acidosis; I96 Gangrene, not elsewhere classified; E87.8 Other disorders of electrolyte and fluid balance, not elsewhere classified; F03.90 Unspecified dementia, unspecified severity, without behavioral disturbance, psychotic disturbance, mood disturbance, and anxiety; B19.20 Unspecified viral hepatitis C without hepatic coma; I46.9 Cardiac arrest, cause unspecified; J44.9 Chronic obstructive pulmonary disease, unspecified; I73.9 Peripheral vascular disease, unspecified; R55 Syncope and collapse; E78.5 Hyperlipidemia, unspecified; E87.6 Hypokalemia; I10 Essential (primary) hypertension; Z68.1 Body mass index [BMI] 19.9 or less, adult; Z86.718 Personal history of other venous thrombosis and embolism; Z86.73 Personal history of transient ischemic attack (TIA), and cerebral infarction without residual deficits; Z87.891 Personal history of nicotine dependence; Z79.899 Other long term (current) drug therapy
CPT/HCPCS: 36415; 70490; 71045; 71250; 74178; 80048; 80053; 80202; 80307; 81001; 82040; 82272; 82565; 82803; 82947; 83036; 83605; 83690; 83735; 83880; 84100; 84478; 84484; 85025; 85027; 85610; 85730; 86803; 86850; 86900; 86901; 86923; 87040; 87338; 87389; 87522; 87536; 87900; 92526; 92610; 93005; 93306; 93926; 93970; 94002; 94003; 94799; 97161; 97530; 99285; C1758; C1889; J0171; J0613; J0696; J1171; J1364; J1630; J1940; J2250; J2270; J2354; J2405; J2470; J2543; J2704; J3010; J3370; J3371; J3430; J3475; J3480; J7120; P9016; P9017; P9047; P9073; Q9967

== ENCOUNTER → 2024-08-21 20:45 | Outpatient (BNV) | payer BC, SELFPAY | PROVIDERS: Admitting Provider Internal Medicine; Emergency Provider Emergency Medicine; Visit Provider Internal Medicine | DX: R00.0 Tachycardia, unspecified (principal) | CPT/HCPCS: 93010 ==

== ENCOUNTER 2024-08-22 01:08 | Outpatient (BNV) | payer BC, SELFPAY | END 2024-08-22 12:57 | PROVIDERS: Admitting Provider Internal Medicine; Emergency Provider Emergency Medicine; Visit Provider Internal Medicine | DX: R94.31 Abnormal electrocardiogram [ECG] [EKG] (principal) | CPT/HCPCS: 93010 ==

== ENCOUNTER 2024-08-22 01:08 | Outpatient (BNV) | payer BC, SELFPAY | END 2024-08-25 08:18 | PROVIDERS: Admitting Provider Internal Medicine; Emergency Provider Emergency Medicine; Visit Provider Internal Medicine | DX: R94.31 Abnormal electrocardiogram [ECG] [EKG] (principal) | CPT/HCPCS: 93010 ==

== ENCOUNTER 2024-08-22 01:08 | Outpatient (BNV) | payer BC, SELFPAY | END 2024-08-24 07:00 | PROVIDERS: Admitting Provider Internal Medicine; Emergency Provider Emergency Medicine; Visit Provider Internal Medicine | DX: I35.1 Nonrheumatic aortic (valve) insufficiency (principal) | CPT/HCPCS: 93306 ==

== ENCOUNTER 2024-08-22 01:08 | Outpatient (BNV) | payer BC, SELFPAY | END 2024-08-23 16:04 | PROVIDERS: Admitting Provider Internal Medicine; Emergency Provider Emergency Medicine; Visit Provider Internal Medicine | DX: R00.0 Tachycardia, unspecified (principal) | CPT/HCPCS: 93010 ==

== ENCOUNTER → 2024-08-22 01:08 | Outpatient (BNV) | payer BC, SELFPAY | PROVIDERS: Admitting Provider Internal Medicine; Emergency Provider Emergency Medicine; Visit Provider Internal Medicine Pulmonary Disease | DX: I46.9 Cardiac arrest, cause unspecified (principal); K92.0 Hematemesis; J44.9 Chronic obstructive pulmonary disease, unspecified; E44.0 Moderate protein-calorie malnutrition | CPT/HCPCS: 99233; 99291 ==

== ENCOUNTER → 2024-08-22 01:08 | Outpatient (BNV) | payer BC, SELFPAY | PROVIDERS: Admitting Provider Internal Medicine; Emergency Provider Emergency Medicine; Visit Provider Surgery | DX: S31.000A Unspecified open wound of lower back and pelvis without penetration into retroperitoneum, initial encounter (principal) | CPT/HCPCS: 99222 ==

== ENCOUNTER → 2024-08-22 01:08 | Outpatient (BNV) | payer BC, SELFPAY | PROVIDERS: Admitting Provider Internal Medicine; Emergency Provider Emergency Medicine; Visit Provider Nurse Practitioner Family | DX: E87.6 Hypokalemia (principal); E87.20 Acidosis, unspecified; N17.9 Acute kidney failure, unspecified | CPT/HCPCS: 99254 ==

== ENCOUNTER → 2024-08-22 01:08 | Outpatient (BNV) | payer BC, SELFPAY | PROVIDERS: Admitting Provider Internal Medicine; Emergency Provider Emergency Medicine; Visit Provider Physician Assistant Surgical | DX: I73.9 Peripheral vascular disease, unspecified (principal) | CPT/HCPCS: 99222; 99231 ==

== ENCOUNTER → 2024-08-22 01:08 | Outpatient (BNV) | payer BC, SELFPAY | PROVIDERS: Admitting Provider Internal Medicine; Emergency Provider Emergency Medicine; Visit Provider Internal Medicine Gastroenterology | DX: K92.0 Hematemesis (principal); D62 Acute posthemorrhagic anemia; K25.0 Acute gastric ulcer with hemorrhage | CPT/HCPCS: 43255; 99223; 99232 ==

== ENCOUNTER → 2024-08-22 01:08 | Outpatient (BNV) | payer BC, SELFPAY | PROVIDERS: Admitting Provider Internal Medicine; Emergency Provider Emergency Medicine; Visit Provider Internal Medicine Critical Care Medicine | DX: I46.9 Cardiac arrest, cause unspecified (principal); K92.0 Hematemesis | CPT/HCPCS: 31500; 36556; 36620; 99291; 99292; 99499 ==

== ENCOUNTER → 2024-08-22 01:08 | Outpatient (BNV) | payer BC, SELFPAY | PROVIDERS: Admitting Provider Internal Medicine; Emergency Provider Emergency Medicine; Visit Provider Internal Medicine | DX: I73.9 Peripheral vascular disease, unspecified (principal); K92.0 Hematemesis; I96 Gangrene, not elsewhere classified | CPT/HCPCS: 99222 ==

== ENCOUNTER → 2024-08-22 01:08 | Outpatient (BNV) | payer BC, SELFPAY | PROVIDERS: Admitting Provider Internal Medicine; Emergency Provider Emergency Medicine; Visit Provider Internal Medicine | DX: I96 Gangrene, not elsewhere classified (principal); I46.9 Cardiac arrest, cause unspecified; L89.150 Pressure ulcer of sacral region, unstageable; N17.9 Acute kidney failure, unspecified; K92.0 Hematemesis; K92.2 Gastrointestinal hemorrhage, unspecified; E87.6 Hypokalemia; E87.20 Acidosis, unspecified; E44.0 Moderate protein-calorie malnutrition | CPT/HCPCS: 99223; 99232; 99233; 99239; 99499 ==